=== PATIENT | male | born 1965 | race Caucasian/White ===

== ENCOUNTER 2019-06-06 18:51 | Inpatient (IN) | payer BC, MEDICARE, SELFPAY ==
[2019-06-06] VITALS (8 sets, daily range): BP systolic 113–139; BP diastolic 70–84; PULSE 93–112; RESP 18–22; TEMP 36.4–38.6; O2SAT 93–100; BMI 49.4; BMI 52.0
[2019-06-06 19:16] LABS: Bedside Glucose 144 mg/dL (70-110)
--- NOTE | 2019-06-06 19:47 | EKG12_ITS ---
Test Reason : GENERAL ILLNESS Blood Pressure : / mmHG Vent. Rate : 108 BPM Atrial Rate : 108 BPM P-R Int : 142 ms QRS Dur : 090 ms QT Int : 352 ms P-R-T Axes : 036 059 -18 degrees QTc Int : 471 ms Sinus tachycardia T wave abnormality, consider inferolateral ischemia Abnormal ECG Confirmed by ANNE GONZALEZ, AUDIE ([id number]), social media editor CHAZ DO ([id number]) on 06/09/2019 12:16:30 PM Referred By: Donnell Edwards Confirmed By:AUDIE RODRÍGUEZ MD
--- NOTE | 2019-06-06 19:53 | ED.DCSUM_ITS ---
History of Present Illness Chief Complaint: General Illness Informant: Patient, Family Onset: Days - 2 Narrative: Reports flulike symptoms past couple days. States 2 days ago when he woke him up Sunday he had myalgias. Yesterday high fevers with chills. States he had having loose stools past 2 to 3 days. No recent antibiotics. States have more than 10/day. No nausea or vomiting. Mild cough today. History of asthma and diabetes. No heart history. History of hypertension hyperlipidemia. No home oxygen. Denies abdominal pain. Denies urinary symptoms. States he did get the flu vaccination this year. He states over the past day no increased redness right lower leg. Wound to the bottom of the foot a week ago. Denies any pain in the area. Prior similar symptoms: No Past Medical History - Allergies and Home Meds Allergies/Adverse Reactions: Allergies No Known Allergies Allergy (Verified 06/06/19 18:52) Primary Care Physician: Donnell Edwards MD [Primary Care Provider] - Past Medical History: - - Hypertension, diabetes, hyperlipidemia, asthma Smoking Status: Former smoker Review of Systems All systems negative except as indicated General: Reports: Chills, Fever. Denies: Sweats Eyes: Denies: Visual changes - bilaterally, Diplopia ENT: Denies: Rhinorrhea, Sore throat Cardiovascular: Denies: Chest pain, Palpitations Respiratory: Reports: Cough. Denies: Dyspnea, Dyspnea on exertion Gastrointestinal: Denies: Abdominal pain, Nausea, Vomiting, Diarrhea, Melena, Hematochezia Genitourinary: Denies: Dysuria, Hematuria, Frequency Musculoskeletal: Denies: Back pain, Extremity Pain Skin: Reports: Rash, Wounds Neurological: Denies: Headache, Weakness, Numbness Physical Exam Vital Signs/Narrative: Vital Signs Temp Pulse Resp BP Pulse Ox 06/06/19 19:03 97.5 F L 112 H 20 H 123/73 H 93 06/06/19 18:54 98.7 F 112 H 20 H 131/84 H 95 Inital Vital Signs reviewed: Yes General: Well nourished, Well developed, - - Fatigue, nontoxic Head: Normocephalic, Atraumatic Eyes: Perrl, EOMI ENT: Moist mucous membranes, No rhinorrhea, TM's clear, - - No posterior pharyngeal erythema. Neck: Supple, Nontender Cardiovascular: Regular rhythm, No murmurs, Tachycardia Respiratory: No distress, CTA bilaterally, Chest nontender Abdomen: Soft, Nontender, Nondistended, Normal bowel sounds Back: Nontender, Normal Inspection Extremities: Nontender, No edema Skin: No rash, - - Right lower extremity: There is 2 cm superficial laceration plantar aspect of foot between the fourth webspace, nontender, no drainage. There is erythema dorsal foot and lower leg up to the knee. Neurological: Alert, Oriented x3, Cranial nerves II-XII grossly intact, Normal Strength, Normal Sensation Psychological: Normal affect, Normal Mood Diagnostic/Tx/Re-eval Clinical Impression(s) from Imaging Studies Foot X-Ray 06/06/19 19:54 IMPRESSION: Normal right foot. at 2037 Reported and signed by: Bruce Hudson MD Electronically Signed: Bruce Hudson MD at 20:37 EST Tel , Service support , Chest X-Ray 06/06/19 20:04 IMPRESSION: Normal. at 2037 Reported and signed by: Bruce Hudson MD Electronically Signed: Bruce Hudson MD at 20:37 EST Tel , Service support , Abnormal Lab Results 06/06/19 06/06/19 06/06/19 19:10 19:10 19:10 WBC 13.9 H RBC 4.30 L Hgb 13.7 Hct 41.3 MCV 96.0 H MCH 31.9 MCHC 33.2 RDW Std Deviation 48.3 H RDW Coeff of Negra 13.7 Plt Count 249 MPV 9.5 Immature Gran % (Auto) 1.800 H Neut % (Auto) 80.6 H Lymph % (Auto) 11.7 L [place] % (Auto) 5.5 Eos % (Auto) 0.1 Baso % (Auto) 0.3 Absolute Neuts (auto) 11.2 H Absolute Lymphs (auto) 1.62 Nucleated RBC % 0 ESR 82 H PT 15.0 H INR 1.2 APTT 37.6 H Lactic Acid 2.0 POC Glucose 06/06/19 19:11 WBC RBC Hgb Hct MCV MCH MCHC RDW Std Deviation RDW Coeff of Negra Plt Count MPV Immature Gran % (Auto) Neut % (Auto) Lymph % (Auto) [place] % (Auto) Eos % (Auto) Baso % (Auto) Absolute Neuts (auto) Absolute Lymphs (auto) Nucleated RBC % ESR PT INR APTT Lactic Acid POC Glucose 144 H - Medical Decision Making Sepsis work-up initiated due to his tachycardia and his low-grade fever. He took Tylenol at home therefore Motrin was given. His wound on his right foot, x-ray negative for any radiopaque foreign bodies. White count returned at 13.9. Lactic acid at 2.0. Treated with the sepsis criteria fluids for weight base. Erythema outlined by nursing staff. Urine is pending he was given broad- spectrum antibiotics after evaluation of Zosyn and vancomycin. He was also treated with Tamiflu due to his influenza symptoms with his comorbidities of asthma and diabetes. His flu swab test did return negative however possibility of false negative with labs. I discussed with hospitalist Dr. Coleman for admission to medical floor. He is stable for the medical floor. - Critical Care Time Critical care time (excluding procedures): 30-74 minutes, Discussing w/Patient &/or Family/Marketing Project Specialist, Discussing w/Consultants, Arranging Admission or Transfer ED Disposition - Plan for ED Patient: Disposition: Acute Care Hospital [facility] Diagnosis: Severe sepsis, Cellulitis of right lower extremity, Influenza-like symptoms Referrals: Donnell Edwards MD [Primary Care Provider] -
--- NOTE | 2019-06-06 19:54 | RAD_ITS ---
HISTORY: PT HAS CUT TO RT FOOT NEAR 5TH DIGIT THAT HAPPENED LAST WEEK COMPARISON: None FINDINGS: # of images incl. paperwork: 3 XR Foot Min 3 Views : No fracture or subluxation. No osseous or soft tissue abnormality. The joint spaces are well-maintained. No radiopaque foreign body is seen. RAD/Foot min 3 Views IMPRESSION: Normal right foot. at 2038 Reported and signed by: Bruce Hudson MD Electronically Signed: Bruce Hudson MD at 20:37 EST Tel , Service support ,
[2019-06-06] MEDS: 0.9% Normal Saline 1,000 ML 999 ML IV ×3 (20:01→22:34)
[2019-06-06] MEDS: Oseltamivir Phosphate 75 MG Capsule PO (20:01)
[2019-06-06] MEDS: Ibuprofen 600 MG Tablet PO (20:01)
--- NOTE | 2019-06-06 20:04 | RAD_ITS ---
HISTORY: SUNDAY PT STARTED TO GET SICK WITH FEVER, SOB, WEAKNESS, AND DIARRHEA EXAM: XR Chest 1 View: COMPARISON: July 27, 2010 FINDINGS: # of images incl. paperwork: 1 Trace calcific plaque within the aortic arch remains Lungs are clear. Heart is not enlarged. No acute osseous pathology perceived. Pulmonary vascularity is distinct. No effusions. RAD/Chest 1 View (Portable) IMPRESSION: Normal. at 2038 Reported and signed by: Bruce Hudson MD Electronically Signed: Bruce Hudson MD at 20:37 EST Tel , Service support ,
[2019-06-06 20:07] LABS: Absolute Lymphocyte Count 1.62 X10^3/uL (0.83-4.51); Absolute Neutrophil Count 11.2 X10^3/uL (2.0-7.7); Basophil# 0.04 X10^3/uL; Basophil% 0.3 % (0-1); Eosinophil# 0.01 X10^3/uL; Eosinophils% 0.1 % (0-5); Hematocrit 41.3 % (40-54); Hemoglobin 13.7 g/dL (13.0-16.5); Lymphocyte # 1.62 X10^3/ul (4.0); Lymphocyte % 11.7 % (19-41); Mean Corp Hgb Conc 33.2 g/dL (32-36); Mean Corpuscular Hgb 31.9 pg (27.0-32.0); Mean Platelet Vol. 9.5 fl (6.2-12.0); Monocyte# 0.76 X10^3/uL; Monocyte% 5.5 % (0-10); NRBC Flagged by Analyzer 0 % (0-5); Neutrophil # 11.22 X10^3/uL (2.7-7.7); Neutrophil % 80.6 % (47-70); Platelet Count 249 K/mm3 (150-450); RBC Distribution Width CV 13.7 % (11.6-14.6); RBC Distribution Width SD 48.3 fl (35.1-43.9); White Blood Count 13.9 K/mm3 (4.4-11.0)
[2019-06-06 20:13] LABS: International Normalized Ratio 1.2
[2019-06-06 20:14] LABS: Erythrocyte Sedimentation Rate 82 mm/hr (0-20); Partial Thromboplast Time 37.6 Seconds (24.1-36.2)
--- NOTE | 2019-06-06 21:14 | HP.PCM_ITS ---
Problem List (1) Sepsis Status: Acute (2) Cellulitis of right lower extremity Status: Acute (3) Influenza-like symptoms Status: Acute History of Present Illness Date of Admission: 06/06/19 Chief Complaint: right leg redness The patient is a 54 year old M with a significant history of hypertension; morbid obesity; diabetes; asthma; hyperlipidemia and sleep apnea who presented with right leg erythema. Associated with symptoms is swelling and pain of the right leg. He developed wound on his right plantar area about a week ago. A day before his right leg symptoms began patient had flulike symptoms. He described his flulike symptoms as achiness of the whole body; fever; chills; rigors;diaphoresis and weakness. He reported home fever of about 102.7 Fahrenheit. Also patient reports with bowel movements about every hour. At the Emergency Department patient was found to have tachycardia; tachypnea and leukocytosis. Also he had a fever of 101.5 Fahrenheit. Past Medical History Medical History: Medical History (Last Reviewed 06/07/19 @ 02:18 by Jose Coleman MD) HTN (hypertension) I10 Allergies No Known Allergies Allergy (Verified 06/06/19 18:52) Home Medications: Ambulatory Orders Medication Instructions Recorded Atorvastatin Calcium [Lipitor] 40 mg PO DAILY 10/08/14 Lisinopril [Zestril] 20 mg PO DAILY 10/08/14 Albuterol IH (ProAir) [Proair Hfa 1 - 2 puff INHALATION Q4H PRN PRN 06/06/19 (SP)Vent Pts] Liraglutide [Victoza 3-Eyad] 1.8 mg SUBCUT DAILY 06/06/19 Mometasone/Formoterol [Dulera 200 2 puff IH DAILY 06/06/19 Mcg/5 Mcg Inhaler] Pioglitazone [Actos] 15 mg PO DAILY 06/06/19 Surgical History: - - Knee surgery bilateral knees; carpal tunnel syndrome bilateral wrist; repair of bicep tendon. Smoking Status: Former smoker Tobacco Use: Cigarettes Alcohol: Occasional - *Family History Maternal History Items: Cancer - Breast cancer Paternal History Items: Heart Disease Review of Systems Constitutional: Reports: Chills, Fever, Malaise, Weakness HEENT: Reports: Sore Throat. Denies: Head Aches, Sinus Congestion, Sinus Drainage Cardiovascular: Denies: Chest Pain, Palpitations Respiratory: Reports: Cough. Denies: Shortness of breath at rest, Sputum production Gastrointestinal: Reports: Diarrhea. Denies: Abdominal Pain, Nausea, Vomiting Genitourinary: Denies: Dysuria Musculoskeletal: Denies: Joint Pain, Joint Tenderness Skin: Denies: Rash, Wounds Neurological: Denies: Numbness, Tingling, Focal weakness Psychiatric: Denies: Anxiety, Depression, Homicidal Ideations, Suicidal Ideations Hematologic/ Lymphatic: Denies: Easy Bruising, Easy Bleeding VTE Information - Inpt Only VTE Present on Admission: No VTE Mechan Device Prophylaxis: None VTE Pharm Prophylaxis ordered?: Yes Patient Problems: Active and Suspected Problems (Last Reviewed 06/07/19 @ 01:52 by Jose Coleman MD) Severe sepsis (Acute) Cellulitis of right lower extremity (Acute) Influenza-like symptoms (Acute) Sepsis (Acute) - Physical Exam Vitals/I&O's: Vital Signs Temp Pulse Resp BP Pulse Ox 97.8 F 109 H 21 H 139/78 H 97 06/06/19 20:16 06/06/19 20:16 06/06/19 20:16 06/06/19 20:16 06/06/19 20:16 Oxygen Flow Rate (L/min) 2 Oxygen Delivery Method Room Air Weight: 147.418 kg Body Mass Index (BMI) 49.4 Finger Stick Blood Glucose 144 Intake and Output for Last 24 Hours 06/04/19 06/05/19 06/06/19 23:59 23:59 23:59 Intake Total 1237.5 / 1237.5 Balance 1237.5 / 1237.5 General: Alert, Oriented x3, Cooperative, - - Morbidly obese HEENT: Atraumatic, PERRLA, EOMI, Normocephalic Neck: Supple, No JVD, Negative Carotid Bruits Lungs: No rhonchi, No rales, Wheezes - Mild Cardiovascular: Normal S1, Normal S2, No murmurs, Tachycardic Abdomen: Bowel Sounds Present, Soft, Non Tender Extremities: Capillary Refill Less than 3 Seconds, Edema - Right leg Skin: Ulcer/ Wound - Plantar surface of right foot, - - Erythema of right leg Musculoskeletal: Tenderness - Right leg Neurological: Cranial nerves II-XII grossly intact Psych/Mental Status: Normal Affect, Appropriate Microbiology Past 72 Hours 06/06/19 20:06 Mucosa - Nasopharyngeal Influenza Types A,B Direct FA (SANTANA) - Final Laboratory Results 06/06/19 19:10: WBC 13.9 H, RBC 4.30 L, Hgb 13.7, Hct 41.3, MCV 96.0 H, MCH 31.9, MCHC 33.2, RDW Std Deviation 48.3 H, RDW Coeff of Negra 13.7, Plt Count 249, MPV 9.5, Immature Gran % (Auto) 1.800 H, Neut % (Auto) 80.6 H, Lymph % (Auto) 11.7 L, [place] % (Auto) 5.5, Eos % (Auto) 0.1, Baso % (Auto) 0.3, Absolute Neuts (auto) 11.2 H, Absolute Lymphs (auto) 1.62, Nucleated RBC % 0, ESR 82 H 06/06/19 19:10: PT 15.0 H, INR 1.2, APTT 37.6 H 06/06/19 19:10: Sodium Pending, Potassium Pending, Chloride Pending, Carbon Dioxide Pending, Anion Gap Pending, BUN Pending, Creatinine Pending, Est GFR (MDRD) Af Amer Pending, Est GFR (MDRD) Non-Af Pending, BUN/Creatinine Ratio Pending, Glucose Pending, Calcium Pending, Total Bilirubin Pending, AST Pending, ALT Pending, Alkaline Phosphatase Pending, C-React Prot Ext Range Pending, Total Protein Pending, Albumin Pending 06/06/19 19:10: Lactic Acid 2.0 06/06/19 19:11: POC Glucose 144 H Current Medications Vancomycin HCl 2,000 mg/ (Sodium Chloride) 540 mls @ 250 mls/hr IV X1 ONE Stop: 06/06/19 22:39 Last Infusion: 06/06/19 21:12 Dose: 250 mls/hr Documented by: Sodium Chloride () 1,000 mls @ 999 mls/hr IV .Q1H1M JOEY; Protocol Stop: 06/07/19 00:30 Assessment/Plan All Active Problems (Last Reviewed 06/07/19 @ 01:52 by Jose Coleman MD) Severe sepsis (Acute) Cellulitis of right lower extremity (Acute) Influenza-like symptoms (Acute) Sepsis (Acute) The patient is a 54 year old M with a significant history of hypertension; morbid obesity; diabetes; asthma; hyperlipidemia and sleep apnea who presented with right leg erythema; swelling and pain of the right leg; and with tachycardia; tachypnea fever and leukocytosis concerning for sepsis secondary to cellulitis. Sepsis secondary to cellulitis Blood culture was obtained in the emergency department. Vancomycin was ordered emergency department. We will give 4.5 g of Zosyn in the emergency department. Continue patient on vancomycin and Zosyn. His lactic acid is borderline at 2.0. Received IV fluid per sepsis protocol emergency department. Tylenol for pain and fever. Oxycodone PRN pain. Antiemetics with Zofran. Possible influenza His prodromal symptoms could be from the sepsis secondary cellulitis which is typical of Streptococcus. However because of his history of diabetes and asthma patient was empirically started on Tamiflu. Rapid influenza was negative. Will continue Tamiflu. Will order comprehensive respiratory pathogen panel. If comprehensive respiratory panel is negative consider discontinue Tamiflu. Diarrhea Enteric pathogen panel ordered in the ED. Will get C. difficile. IV hydration at the ED. Follow electrolytes. Diabetes mellitus with hyperglycemia On presentation his blood glucose was elevated Actos continued Home Victoza held. Accu-Chek q. ACH correction scale insulin ordered. DVT prophylaxis Subcutaneous Lovenox adjusted for weight. Code Visit Inpatient E&M: 80923 Init Hosp L3
[2019-06-06 21:48] LABS: ALB/GLOB Ratio 0.7 RATIO (0.9-2.4); AST(SGOT) 23 U/L (15-37); Alanine Aminotransfer ALT/SGPT 40 U/L (16-61); Albumin, Serum 3.2 g/dL (3.2-5.0); Alkaline Phosphatase 82 U/L (45-117); Anion Gap 7 (5-15); BUN 17 mg/dL (7-18); BUN/Creat Ratio 10.6 RATIO (10-20); Calcium,Total 9.1 mg/dL (8.5-10.1); Chloride 102 mmol/L (98-107); EST Glomerular Filtration Rate 48 mL/min (>60); Est Glom Filt Rate - Afr Amer 58 mL/min (>60); Estimated Creatinine Clearance 50.47 ml/min; Globulin 4.8 g/dL (2.2-4.2); Glucose 158 mg/dL (74-106); Potassium 3.3 mmol/L (3.5-5.1); Sodium Level 133 mmol/L (136-145)
[2019-06-06 21:52] LABS: Bacteria 0 SEEN /hpf (None Seen); Mucous, Urine 0 SEEN /hpf (<or=2+)
[2019-06-06 21:53] LABS: Color, Urine Yellow (Yellow); Glucose, Dipstick Normal (Normal); Ketone-Dipstick 5 mg/dl (Negative); Leukocyte Esterase-Dipstick 25 /ul (Negative); Nitrite-Dipstick Negative (Negative); Occult Blood-Urine 10 /ul (Negative); Protein-Dipstick 100 mg/dl (Negative); Urine Clarity Sl. Cloudy (Clear); Urine Urobilinogen 1 mg/dl (Normal)
[2019-06-06 21:55] LABS: Urine Bilirubin Dipstick 1 mg/dL (Negative)
[2019-06-06 22:00] LABS: Red Blood Cells-Urine 0-5 SEEN /hpf (0-5); Squamous Epithelial Cells - UA 0-5 SEEN /hpf (0-5); White Blood Cells 0-5 SEEN /hpf (0-5)
[2019-06-06 23:16] LABS: Bedside Glucose 141 mg/dL (70-110)
[2019-06-06] MEDS: oxyCODONE 5 MG Tablet 10 MG PO (23:36)
[2019-06-06] MEDS: Enoxaparin 40 MG/0.4 ML Syringe SC (23:42)
--- NOTE | 2019-06-06 23:42 | NURSING ---
Double checked with Wero in pharmacy about Lovenox with elevated Creatinine. OK to give. Francesca CHRISTIAN aware.
[2019-06-07] VITALS (11 sets, daily range): BP systolic 111–126; BP diastolic 59–94; PULSE 85–110; RESP 18–20; TEMP 36.4–37.7; O2SAT 95–97
[2019-06-07 00:02] LABS: Reflex Lactate? Y
[2019-06-07] MEDS: 0.9% Normal Saline 1,000 ML 999 ML IV ×2 (00:06→01:32)
[2019-06-07 01:45] LABS: Lactic Acid 1.1 mmol/L (0.4-1.9)
[2019-06-07] MEDS: oxyCODONE 5 MG Tablet 10 MG PO ×2 (03:58→14:30)
[2019-06-07] MEDS: Acetaminophen 325 MG Tablet 650 MG PO (06:29)
[2019-06-07] MEDS: 0.9% Saline Lock 10 ML Syringe IV ×3 (06:29→14:41)
[2019-06-07 06:55] LABS: Bedside Glucose 122 mg/dL (70-110)
[2019-06-07] MEDS: Budesonide Respules 0.5 MG/2 ML AMPUL.NEB. INHALATION ×2 (07:10→19:43)
[2019-06-07] MEDS: Albuterol 2.5 MG/3 ML VIAL.NEB. INHALATION ×2 (07:10→19:43)
[2019-06-07 07:17] LABS: Absolute Lymphocyte Count 2.08 X10^3/uL (0.83-4.51); Absolute Neutrophil Count 10.7 X10^3/uL (2.0-7.7); Basophil# 0.04 X10^3/uL; Basophil% 0.3 % (0-1); Eosinophil# 0.08 X10^3/uL; Eosinophils% 0.6 % (0-5); Hematocrit 38.1 % (40-54); Hemoglobin 12.4 g/dL (13.0-16.5); Lymphocyte # 2.08 X10^3/ul (4.0); Lymphocyte % 15.4 % (19-41); Mean Corp Hgb Conc 32.5 g/dL (32-36); Mean Corpuscular Hgb 31.5 pg (27.0-32.0); Mean Corpuscular Volume 96.7 fL (80-94); Mean Platelet Vol. 9.1 fl (6.2-12.0); Monocyte# 0.54 X10^3/uL; NRBC Flagged by Analyzer 0 % (0-5); Neutrophil # 10.65 X10^3/uL (2.7-7.7); Neutrophil % 78.9 % (47-70); Platelet Count 230 K/mm3 (150-450); RBC Distribution Width CV 13.9 % (11.6-14.6); RBC Distribution Width SD 49.6 fl (35.1-43.9); Red Blood Count 3.94 M/mm3 (4.6-6.2); White Blood Count 13.5 K/mm3 (4.4-11.0)
[2019-06-07 07:43] LABS: Anion Gap 9 (5-15); BUN 16 mg/dL (7-18); Calcium,Total 8.3 mg/dL (8.5-10.1); Chloride 111 mmol/L (98-107); Creatinine, Serum 1.45 mg/dL (0.70-1.30); EST Glomerular Filtration Rate 54 mL/min (>60); Est Glom Filt Rate - Afr Amer 65 mL/min (>60); Estimated Creatinine Clearance 55.69 ml/min; Glucose 123 mg/dL (74-106); Potassium 3.3 mmol/L (3.5-5.1); Sodium Level 137 mmol/L (136-145)
--- NOTE | 2019-06-07 09:19 | MRI_ITS ---
HISTORY: Hypertension. Asthma. Diabetes. Bilateral knee pain. Bilateral carpal tunnel. Biceps tendon repair. Wound on plantar surface of the right foot for one week within the region of the distal fifth metatarsal. Right leg erythema. Technique: Sagittal, coronal, and axial T1 and T2 fat saturated series were obtained through the fifth digit and much of the other tetanus. Comparison imaging is x-rays of the right foot from June 06, 2019. 209 images. Findings: Cellulitis is severe. It is greatest within the dorsum of the foot. Motion artifact is severe. This significantly diminishes utility of the study due to registration artifact. There is only one T2 fat saturated series. That series, series 10, does not extend all the way through the fifth digit. Of the fifth digit imaged on that series, there is no significant marrow edema perceived. Bony alignment is normal. Interphalangeal joint spaces are minimally narrowed. No abscess is perceived. There may be some mild edema amongst the muscle and fascial planes. Muscle atrophy is present. No tendinous disruption is perceived. MRI/Lower Ext/No Jt/w/o IMPRESSION: Cellulitis. Myofascitis. No osteomyelitis perceived. at 0613 Reported and signed by: Bruce Hudson MD Electronically Signed: Bruce Hudson MD at 6:12 EST Tel , Service support ,
--- NOTE | 2019-06-07 09:21 | PCM.PN.HOSP ---
Patient Problems: Active and Suspected Problems (Last Reviewed 06/07/19 @ 02:18 by Jose Coleman MD) Severe sepsis (Acute) Cellulitis of right lower extremity (Acute) Influenza-like symptoms (Acute) Sepsis (Acute) Reason for Visit: cellulitis Subjective: Right leg feeling better. Redness better. Developed lesion on right foot few days ago due to dry skin. Vitals/I&O's: Vital Signs Temp Pulse Resp BP Pulse Ox 36.4 C L 85 18 120/84 H 96 06/07/19 06:42 06/07/19 07:23 06/07/19 07:11 06/07/19 06:42 06/07/19 07:11 Oxygen Flow Rate (L/min) 2 Oxygen Delivery Method Room Air Weight: 155.1 kg Body Mass Index (BMI) 52.0 Finger Stick Blood Glucose 144 Intake and Output for Last 24 Hours 06/05/19 06/06/19 06/07/19 23:59 23:59 23:59 Intake Total 3648.75 / 4088.75 2457.5 / 2457.5 Balance 3648.75 / 4088.75 2457.5 / 2457.5 General: Alert, No apparent distress, - - afebrile HEENT: Atraumatic, Normocephalic Neck: No Nodes, Trachea Midline Lungs: Clear to auscultation, Normal air movement, No rhonchi, No wheeze, No rales Cardiovascular: Regular rate, Regular Rhythm, Normal S1, Normal S2, No murmurs Abdomen: Bowel Sounds Present, Soft, Non Tender, Non-Distended, Obese Extremities: Edema - RLE Skin: - - bright erythema of RLE below the knee to above his ankle. Bullae on anterior acosta. Dried ulcer on plantar aspect of right foot, proximal to 5th toe. Musculoskeletal: No Tenderness to Palpation of Joints or Extremities, No Muscle Wasting Neurological: Coordination normal, - - diminished sensation with palpation. Psych/Mental Status: Normal Affect, Appropriate Microbiology Past 72 Hours 06/07/19 00:27 Stool Enteric Bacteriology - Preliminary 06/06/19 20:06 Mucosa - Nasopharyngeal Influenza Types A,B Direct FA (SANTANA) - Final Laboratory Results 06/06/19 19:10: WBC 13.9 H, RBC 4.30 L, Hgb 13.7, Hct 41.3, MCV 96.0 H, MCH 31.9, MCHC 33.2, RDW Std Deviation 48.3 H, RDW Coeff of Negra 13.7, Plt Count 249, MPV 9.5, Immature Gran % (Auto) 1.800 H, Neut % (Auto) 80.6 H, Lymph % (Auto) 11.7 L, [place] % (Auto) 5.5, Eos % (Auto) 0.1, Baso % (Auto) 0.3, Absolute Neuts (auto) 11.2 H, Absolute Lymphs (auto) 1.62, Nucleated RBC % 0, ESR 82 H 06/06/19 19:10: PT 15.0 H, INR 1.2, APTT 37.6 H 06/06/19 19:10: Sodium 133 L, Potassium 3.3 L, Chloride 102, Carbon Dioxide 24.0, Anion Gap 7, BUN 17, Creatinine 1.60 H, Estim Creat Clear Calc 50.47, Est GFR (MDRD) Af Amer 58 L, Est GFR (MDRD) Non-Af 48 L, BUN/Creatinine Ratio 10.6, Glucose 158 H, Calcium 9.1, Total Bilirubin 1.00, AST 23, ALT 40, Alkaline Phosphatase 82, C-React Prot Ext Range 233.00 H, Total Protein 8.0, Albumin 3.2, Globulin 4.8 H, Albumin/Globulin Ratio 0.7 L 06/06/19 19:10: Lactic Acid 2.0 06/06/19 19:11: POC Glucose 144 H 06/06/19 21:47: Urine Color Yellow, Urine Clarity Sl. Cloudy, Urine pH 6.0, Ur Specific [place] 1.020, Urine Protein 100 H, Urine Glucose (UA) Normal, Urine Ketones 5 H, Urine Occult Blood 10 H, Urine Nitrite Negative, Urine Bilirubin 1 H, Urine Urobilinogen 1 H, Ur Leukocyte Esterase 25 H, Urine RBC 0-5 SEEN, Urine WBC 0-5 SEEN, Ur Squamous Epith Cells 0-5 SEEN, Urine Bacteria 0 SEEN, Urine Mucus 0 SEEN 06/06/19 23:05: POC Glucose 141 H 06/07/19 00:47: Lactic Acid 1.1 06/07/19 06:36: POC Glucose 122 H 06/07/19 07:01: Sodium 137, Potassium 3.3 L, Chloride 111 H, Carbon Dioxide 17.0 L, Anion Gap 9, BUN 16, Creatinine 1.45 H, Estim Creat Clear Calc 55.69, Est GFR (MDRD) Af Amer 65, Est GFR (MDRD) Non-Af 54 L, BUN/Creatinine Ratio 11.0, Glucose 123 H, Calcium 8.3 L 06/07/19 07:01: WBC 13.5 H, RBC 3.94 L, Hgb 12.4 L, Hct 38.1 L, MCV 96.7 H, MCH 31.5, MCHC 32.5, RDW Std Deviation 49.6 H, RDW Coeff of Negra 13.9, Plt Count 230, MPV 9.1, Immature Gran % (Auto) 0.800, Neut % (Auto) 78.9 H, Lymph % (Auto) 15.4 L, [place] % (Auto) 4.0, Eos % (Auto) 0.6, Baso % (Auto) 0.3, Absolute Neuts (auto) 10.7 H, Absolute Lymphs (auto) 2.08, Nucleated RBC % 0 Current Medications Acetaminophen (Tylenol) 650 mg PO Q6H PRN PRN PRN Reason: Pain Score 1-3/Temp > 100.7 F Last Admin: 06/07/19 06:29 Dose: 650 mg Documented by: Albuterol Sulfate (Ventolin Aerosols) 2.5 mg INHALATION Q2H PRN PRN PRN Reason: sob/wheezing Albuterol Sulfate (Ventolin Aerosols) 2.5 mg INHALATION Q6HWA.RT [facility] Last Admin: 06/07/19 07:10 Dose: 2.5 mg Documented by: Atorvastatin Calcium (Lipitor) 40 mg PO DAILY@2200 JOEY Budesonide (Pulmicort Aerosol) 0.5 mg INHALATION Q12H.RT [facility] Last Admin: 06/07/19 07:10 Dose: 0.5 mg Documented by: Enoxaparin Sodium (Lovenox) 40 mg SC BID [facility] Last Admin: 06/06/19 23:42 Dose: 40 mg Documented by: Glucagon () 1 mg IM .X1 PRN PRN Reason: Hypoglycemia Piperacillin Sod/Tazobactam (Sod 3.375 gm/ Sodium Chloride) 50 mls @ 12.5 mls/hr IV Q8 [facility] Last Admin: 06/07/19 06:30 Dose: 12.5 mls/hr Documented by: Dextrose (Dextrose 10%-Water) 250 mls @ 999 mls/hr IV .Q16M PRN; Protocol PRN Reason: HYPOGLYCEMIA Sodium Chloride () 250 mls @ 15 mls/hr IV .[id number] PRN PRN Reason: Saline Flush Last Infusion: 06/06/19 23:30 Dose: 0 mls/hr Documented by: Sodium Chloride () 250 mls @ 15 mls/hr IV .[id number] PRN PRN Reason: Additional IVPB Infusion Insulin Human Lispro (Humalog Kwikpen (Bkc)) 0 unit SC ACHS JOEY; Protocol Last Admin: 06/07/19 06:44 Dose: Not Given Documented by: Lisinopril (Zestril) 20 mg PO DAILY JOEY Ondansetron HCl (Zofran) 4 mg IV Q8H PRN PRN PRN Reason: NAUSEA/VOMITING Oxycodone HCl (Oxyir) 5 mg PO Q4H PRN PRN PRN Reason: Pain Score 4-5/10 Oxycodone HCl (Oxyir) 10 mg PO Q4H PRN PRN PRN Reason: Pain Score 6-10/10 Last Admin: 06/07/19 03:58 Dose: 10 mg Documented by: Pioglitazone HCl (Actos) 15 mg PO DAILY JOEY Sodium Chloride () 10 - 40 ml IV UD PRN PRN Reason: SALINE FLUSH Last Admin: 06/07/19 06:29 Dose: 20 ml Documented by: STROKE Vital Signs/Narrative: Vital Signs Temp Pulse Resp BP Pulse Ox 06/07/19 07:23 85 06/07/19 07:11 90 18 96 06/07/19 06:42 36.4 C L 89 18 120/84 H 97 Medical Necessity - Tobacco Use Smoking Status: Former smoker Tobacco Use: Cigarettes Assessment/Plan All Active Problems (Last Reviewed 06/07/19 @ 02:18 by Jose Coleman MD) Severe sepsis (Acute) Cellulitis of right lower extremity (Acute) Influenza-like symptoms (Acute) Sepsis (Acute) 1. Sepsis technically not severe sepsis because no organ dysfunction and lactate was 2, not greater 2/2 RLE cellulitis prodrome was likely not influenza, but due to cellulitis. DC'd oseltamivir 2. RLE cellulitis improving. received pip/tazo and vanc in ED. Currently only on pip/tazo I am concerned for GPO, so, will resume Vanc await cx and adjust abx accordingly 3. Diabetic foot would not confluent with the current cellulitis, but given its presence on the ipsilateral side of cellulitis, will check an MRI for osteomyelitis 4. DM2 fair control Victoza held 5. VTE prophylaxis: mod risk. enoxaparin. Code Visit Inpatient E&M: 89197 Subs Hosp L2
--- NOTE | 2019-06-07 09:45 | PCM.RX.CS ---
Consult Pharmacy has been consulted to manage selected antiobiotic: Vancomycin Type of Consult: New start Suspected Infection: Skin/Soft tissue Prior Doses of Antibiotics Received/Current Regimen: VANCOMYCIN IV 2000MG 06/06 @ 2014 GIVEN IN ED Labs: Sodium 137 mmol/L (136-145) 06/07/19 07:01 Potassium 3.3 mmol/L (3.5-5.1) L 06/07/19 07:01 Chloride 111 mmol/L (98-107) H 06/07/19 07:01 Carbon Dioxide 17.0 mmol/L (21.0-32.0) L 06/07/19 07:01 Anion Gap 9 (5-15) 06/07/19 07:01 BUN 16 mg/dL (7-18) 06/07/19 07:01 Creatinine 1.45 mg/dL (0.70-1.30) H 06/07/19 07:01 Est GFR (MDRD) Af Amer 65 mL/min (>60) 06/07/19 07:01 Est GFR (MDRD) Non-Af 54 mL/min (>60) L 06/07/19 07:01 BUN/Creatinine Ratio 11.0 RATIO (10-20) 06/07/19 07:01 Glucose 123 mg/dL (74-106) H 06/07/19 07:01 Microbiology: Microbiology 06/07/19 00:27 Stool Enteric Bacteriology - Preliminary 06/06/19 20:06 Mucosa - Nasopharyngeal Influenza Types A,B Direct FA (SANTANA) - Final Weight used for dosin.1 kg Estimated Creatinine Clearance: 83.9 Goal Trough: 15-20 mcg/mL Pharmacy Plan for Drug Dosin. Previous dose given in ED 06/06 2. Will start 2000mg Q12H starting 06/07 @ 1000 3. Will draw trough before 4th dose per policy 4. Pharmacy Service will continue to monitor and adjust dosing as required. Labs to be done on [date and time ordered]: 06/08/2019 @ 1527
--- NOTE | 2019-06-07 10:14 | NURSING ---
called micro to inquire about result of cdif. and respiratory panel. Notified that resp. panel has 1.5hrs left and resp. panel has 30 minutes, both are running.
--- NOTE | 2019-06-07 10:33 | RAD_ITS ---
STUDY: X-RAY - ORBITS REASON FOR EXAM: Male, 54 years old. PRE MRI. PREVIOUS METAL IN EYES TECHNIQUE: 2 frontal upright view(s) of the orbits were obtained. COMPARISON: None. FINDINGS: A wire traversing the face horizontally is most consistent with a surgical mask. Possible mucous retention cyst of the medial wall the right maxillary sinus. Suspected mild mucosal pattern thickening of the bilateral maxillary sinuses. Central ethmoid/sphenoid sinuses, and frontal sinuses appear clear. The mastoid air cells appear clear. Osseous structures unremarkable. No radiodense orbital foreign body. RAD/Orbits for Foreign Body IMPRESSION: No demonstrated metallic orbital foreign body. The patient is cleared for an MRI examination. Electronically Signed: Altaf Morel MD at 10:50 EST Tel , Service support ,
--- NOTE | 2019-06-07 11:49 | NURSING ---
pt off unit for MRI
[2019-06-07] MEDS: Pioglitazone Hydrochloride 15 MG Tablet PO (12:11)
[2019-06-07] MEDS: Enoxaparin 40 MG/0.4 ML Syringe SC ×2 (12:11→21:57)
[2019-06-07] MEDS: Lisinopril 20 MG Tablet PO (12:11)
[2019-06-07 13:01] LABS: Bedside Glucose 123 mg/dL (70-110)
--- NOTE | 2019-06-07 15:48 | CM.UR ---
Attempted to see patient for case mgmt assessment however he was sleeping with bipap on. Dennis Crocker RN, CCM.
[2019-06-07 16:26] LABS: Bedside Glucose 123 mg/dL (70-110)
[2019-06-07] MEDS: Dicyclomine 10 MG Capsule 20 MG PO (20:35)
[2019-06-07] MEDS: Atorvastatin Calcium 40 MG Tablet PO (21:57)
[2019-06-07 22:35] LABS: Bedside Glucose 147 mg/dL (70-110)
[2019-06-08] VITALS (8 sets, daily range): BP systolic 109–136; BP diastolic 63–84; PULSE 79–99; RESP 18–22; TEMP 36.7–36.8; O2SAT 96–99
[2019-06-08] MEDS: Dicyclomine 10 MG Capsule 20 MG PO ×2 (04:24→12:52)
[2019-06-08] MEDS: oxyCODONE 5 MG Tablet 10 MG PO ×3 (05:51→16:43)
[2019-06-08 06:40] LABS: Bedside Glucose 138 mg/dL (70-110)
[2019-06-08 06:46] LABS: Absolute Lymphocyte Count 1.34 X10^3/uL (0.83-4.51); Absolute Neutrophil Count 10.9 X10^3/uL (2.0-7.7); Basophil# 0.04 X10^3/uL; Basophil% 0.3 % (0-1); Eosinophil# 0.13 X10^3/uL; Eosinophils% 0.9 % (0-5); Hematocrit 34.4 % (40-54); Hemoglobin 11.2 g/dL (13.0-16.5); Lymphocyte # 1.34 X10^3/ul (4.0); Lymphocyte % 9.7 % (19-41); Mean Corp Hgb Conc 32.6 g/dL (32-36); Mean Corpuscular Hgb 31.6 pg (27.0-32.0); Mean Corpuscular Volume 97.2 fL (80-94); Mean Platelet Vol. 9.5 fl (6.2-12.0); Monocyte# 1.34 X10^3/uL; Monocyte% 9.7 % (0-10); NRBC Flagged by Analyzer 0 % (0-5); Neutrophil # 10.86 X10^3/uL (2.7-7.7); Neutrophil % 78.6 % (47-70); Platelet Count 238 K/mm3 (150-450); RBC Distribution Width SD 50.1 fl (35.1-43.9); Red Blood Count 3.54 M/mm3 (4.6-6.2); White Blood Count 13.8 K/mm3 (4.4-11.0)
[2019-06-08 07:05] LABS: Anion Gap 9 (5-15); BUN 24 mg/dL (7-18); Calcium,Total 8.1 mg/dL (8.5-10.1); Chloride 107 mmol/L (98-107); Creatinine, Serum 2.66 mg/dL (0.70-1.30); EST Glomerular Filtration Rate 27 mL/min (>60); Est Glom Filt Rate - Afr Amer 32 mL/min (>60); Estimated Creatinine Clearance 30.36 ml/min; Glucose 120 mg/dL (74-106); Potassium 3.3 mmol/L (3.5-5.1); Sodium Level 133 mmol/L (136-145)
[2019-06-08 07:47] LABS: Magnesium 1.7 mg/dL (1.6-2.6)
--- NOTE | 2019-06-08 08:31 | RAD_ITS ---
STUDY: X-RAY - ABDOMEN/PELVIS REASON FOR EXAM: Male, 54 years old. ABD PAIN TECHNIQUE: Single AP view of the abdomen / pelvis. COMPARISON: None. FINDINGS: Normal visualized lung bases. Air distention and dilation of the transverse colon extending into the descending colon with maximum diameter measuring up to 9.3 cm. No dilated loops of small bowel. There is no demonstrated free abdominal air. The visualized liver, spleen and kidneys are grossly normal in size and morphology. Normal soft tissue structures. Normal visualized osseous structures. RAD/Abdomen Single View IMPRESSION: Air dilation of the colon extending to the mid descending colon. May represent colonic ileus, however, distal colonic obstruction cannot be excluded. Electronically Signed: Rodrigo Lee MD (Brooks) at 14:10 EST , Service support ,
[2019-06-08] MEDS: Enoxaparin 40 MG/0.4 ML Syringe SC ×2 (09:22→21:36)
[2019-06-08] MEDS: Pantoprazole Sodium 40 MG Tablet PO (09:22)
[2019-06-08] MEDS: Diphenoxylate/Atrop 1 Tablet PO ×2 (09:22→16:44)
[2019-06-08] MEDS: 0.9% Normal Saline 1,000 ML 150 ML IV ×2 (09:24→17:45)
[2019-06-08] MEDS: 0.9% Saline Lock 10 ML Syringe IV (09:25)
[2019-06-08] MEDS: Pioglitazone Hydrochloride 15 MG Tablet PO (09:27)
--- NOTE | 2019-06-08 10:02 | PN_ITS ---
Patient Problems: Active and Suspected Problems (Last Reviewed 06/07/19 @ 02:18 by Jose Coleman MD) Severe sepsis (Acute) Cellulitis of right lower extremity (Acute) Influenza-like symptoms (Acute) Sepsis (Acute) Reason for Visit: cellulitis Subjective: RLE feeling better. Still feels sick: abdominal pain, diarrhea, nausea. Overall, feeling better. Vitals/I&O's: Vital Signs Temp Pulse Resp BP Pulse Ox 36.8 C 97 22 H 109/84 H 99 06/08/19 09:34 06/08/19 09:34 06/08/19 09:34 06/08/19 09:34 06/08/19 09:34 Oxygen Flow Rate (L/min) 2 Oxygen Delivery Method Room Air Weight: 155.1 kg Body Mass Index (BMI) 52.0 Finger Stick Blood Glucose 144 Intake and Output for Last 24 Hours 06/06/19 06/07/19 06/08/19 23:59 23:59 23:59 Intake Total 3648.75 / 4088.75 3981.75 / 3981.75 732.50 / 732.50 Balance 3648.75 / 4088.75 3981.75 / 3981.75 732.50 / 732.50 General: Alert, Cooperative, Well developed, Well nourished, - HEENT: Atraumatic, Normocephalic Oral: Moist Mucosa, No Gingival or Mucosal Lesions/ Ulcerations Neck: No Nodes, Trachea Midline Lungs: Clear to auscultation, Normal air movement, No rhonchi, No wheeze Cardiovascular: Regular rate, Regular Rhythm, Normal S1, Normal S2 Abdomen: Bowel Sounds Present, Soft, Non Tender, Non-Distended, No Hepato- splenomegaly Extremities: No Calf Tenderness, Edema Skin: - - still with erythema in RLE, slightly withdrawn. no creptius. bullae on right acosta has since flattened out. Musculoskeletal: No Muscle Wasting, Tenderness - palpation of RLE cellulitis. Neurological: Muscle tone normal, Sensory exam intact to light touch and pain Psych/Mental Status: Anxious Microbiology Past 72 Hours 06/06/19 20:06 Mucosa - Nose Respiratory Panel (PCR) - Final 06/07/19 00:27 Stool C. difficile DNA Amplification - Final 06/07/19 00:27 Stool Enteric Bacteriology - Preliminary 06/06/19 20:06 Mucosa - Nasopharyngeal Influenza Types A,B Direct FA (SANTANA) - Final Laboratory Results 06/07/19 12:24: POC Glucose 123 H 06/07/19 16:21: POC Glucose 123 H 06/07/19 21:52: POC Glucose 147 H 06/08/19 05:00: Magnesium 1.7 06/08/19 05:50: WBC 13.8 H, RBC 3.54 L, Hgb 11.2 L, Hct 34.4 L, MCV 97.2 H, MCH 31.6, MCHC 32.6, RDW Std Deviation 50.1 H, RDW Coeff of Negra 14.0, Plt Count 238, MPV 9.5, Immature Gran % (Auto) 0.800, Neut % (Auto) 78.6 H, Lymph % (Auto) 9.7 L, [place] % (Auto) 9.7, Eos % (Auto) 0.9, Baso % (Auto) 0.3, Absolute Neuts (auto) 10.9 H, Absolute Lymphs (auto) 1.34, Nucleated RBC % 0 06/08/19 05:50: Sodium 133 L, Potassium 3.3 L, Chloride 107, Carbon Dioxide 17.0 L, Anion Gap 9, BUN 24 H, Creatinine 2.66 H, Estim Creat Clear Calc 30.36, Est GFR (MDRD) Af Amer 32 L, Est GFR (MDRD) Non-Af 27 L, BUN/Creatinine Ratio 9.0 L, Glucose 120 H, Calcium 8.1 L 06/08/19 06:38: POC Glucose 138 H 06/08/19 09:30: Vancomycin Trough Pending Current Medications Acetaminophen (Tylenol) 650 mg PO Q6H PRN PRN PRN Reason: Pain or Fever Last Admin: 06/07/19 06:29 Dose: 650 mg Documented by: Albuterol Sulfate (Ventolin Aerosols) 2.5 mg INHALATION Q2H PRN PRN PRN Reason: sob/wheezing Albuterol Sulfate (Ventolin Aerosols) 2.5 mg INHALATION Q6HWA.RT [facility] Last Admin: 06/08/19 07:10 Dose: Not Given Documented by: Atorvastatin Calcium (Lipitor) 40 mg PO DAILY@2200 [facility] Last Admin: 06/07/19 21:57 Dose: 40 mg Documented by: Budesonide (Pulmicort Aerosol) 0.5 mg INHALATION Q12H.RT [facility] Last Admin: 06/08/19 07:10 Dose: Not Given Documented by: Dicyclomine HCl (Bentyl) 20 mg PO Q6 PRN PRN Reason: ABDOMINAL CRAMPING Last Admin: 06/08/19 04:24 Dose: 20 mg Documented by: Diphenoxylate HCl/Atropine (Lomotil) 1 tablet PO 4X/DAY PRN PRN Reason: Diarrhea Last Admin: 06/08/19 09:22 Dose: 1 tablet Documented by: Enoxaparin Sodium (Lovenox) 40 mg SC BID JOEY Last Admin: 06/08/19 09:22 Dose: 40 mg Documented by: Glucagon () 1 mg IM .X1 PRN PRN Reason: Hypoglycemia Dextrose (Dextrose 10%-Water) 250 mls @ 999 mls/hr IV .Q16M PRN; Protocol PRN Reason: HYPOGLYCEMIA Sodium Chloride () 250 mls @ 15 mls/hr IV .[id number] PRN PRN Reason: Saline Flush Last Infusion: 06/08/19 06:48 Dose: 0 mls/hr Documented by: Sodium Chloride () 250 mls @ 15 mls/hr IV .[id number] PRN PRN Reason: Additional IVPB Infusion Vancomycin IV Pharmacy to Dose (1 ea/ Sodium Chloride) 500 mls @ 250 mls/hr IV X1 PRN; Protocol PRN Reason: Rx to Dose Piperacillin Sod/Tazobactam (Sod 3.375 gm/ Sodium Chloride) 50 mls @ 100 mls/hr IV Q6 [facility] Last Infusion: 06/08/19 06:19 Dose: Infused Documented by: Sodium Chloride () 1,000 mls @ 150 mls/hr IV .[id number] [facility]EY Last Infusion: 06/08/19 09:30 Dose: 0 mls/hr Documented by: Clindamycin Phosphate 300 mg/ (Dextrose) 52 mls @ 150 mls/hr IV Q6 [facility] Magnesium Sulfate 2 gm/ Sodium (Chloride) 104 mls @ 52 mls/hr IV X1 ONE Stop: 06/08/19 10:29 Insulin Human Lispro (Humalog Kwikpen (Bkc)) 0 unit SC ACHS [facility]; Protocol Last Admin: 06/08/19 06:50 Dose: Not Given Documented by: Ondansetron HCl (Zofran) 4 mg IV Q8H PRN PRN PRN Reason: NAUSEA/VOMITING Oxycodone HCl (Oxyir) 5 mg PO Q4H PRN PRN PRN Reason: Pain Score 4-5/10 Oxycodone HCl (Oxyir) 10 mg PO Q4H PRN PRN PRN Reason: Pain Score 6-10/10 Last Admin: 06/08/19 05:51 Dose: 10 mg Documented by: Pantoprazole Sodium (Protonix) 40 mg PO DAILY [facility] Last Admin: 06/08/19 09:22 Dose: 40 mg Documented by: Pioglitazone HCl (Actos) 15 mg PO DAILY [facility] Last Admin: 06/08/19 09:27 Dose: 15 mg Documented by: Sodium Chloride () 10 - 40 ml IV UD PRN PRN Reason: SALINE FLUSH Last Admin: 06/08/19 09:25 Dose: 10 ml Documented by: STROKE Vital Signs/Narrative: Vital Signs Temp Pulse Resp BP Pulse Ox 06/08/19 09:34 36.8 C 97 22 H 109/84 H 99 Medical Necessity - Tobacco Use Smoking Status: Former smoker Tobacco Use: Cigarettes Assessment/Plan All Active Problems (Last Reviewed 06/07/19 @ 02:18 by Jose Coleman MD) Severe sepsis (Acute) Cellulitis of right lower extremity (Acute) Influenza-like symptoms (Acute) Sepsis (Acute) 1. Sepsis * technically not severe sepsis because no organ dysfunction and lactate was 2, not greater * 2/2 RLE cellulitis * prodrome was likely not influenza, but due to cellulitis. DC'd oseltamivir 2. RLE cellulitis * improving. but ongoing * continue pip/tazo and vanc. Start clindamycin given the myositis * MRI showed myostitis. No clinical findings to suggest necrotizing fasciitis at this time, but if changes, would have low threshold to consult ortho/PRS. * await cx and adjust abx accordingly * consult ID 3. Diabetic foot would * not confluent with the current cellulitis, * No evidence of osteomyelitis 4. LORIE * suspect prerenal * IVF * check urine studies * consider nephrology if continues to worsen 5. DM2 * fair control * Victoza held 6. Abdominal pain, diarrhea * Xray showed non-specific bowel gas on my read * C diff, enteric pathogens negative * did not tolerate loperamide as outpt. Start PRN Lomotil 7. VTE prophylaxis: mod risk. enoxaparin. Code Visit Inpatient E&M: 04239 Subs Hosp L3
[2019-06-08 10:25] LABS: Vancomycin, Trough Level 27.5 ug/mL (5.0-15.0)
[2019-06-08] MEDS: Acetaminophen 325 MG Tablet 650 MG PO ×2 (10:30→16:43)
--- NOTE | 2019-06-08 11:36 | PCM.RX.CS ---
Consult Pharmacy has been consulted to manage selected antiobiotic: Vancomycin Type of Consult: Follow-up Suspected Infection: Skin/Soft tissue Prior Doses of Antibiotics Received/Current Regimen: VANCOMYCIN 2000MG IV 06/07 @ 2158 AND 1211 Labs: Sodium 133 mmol/L (136-145) L 06/08/19 05:50 Potassium 3.3 mmol/L (3.5-5.1) L 06/08/19 05:50 Chloride 107 mmol/L (98-107) 06/08/19 05:50 Carbon Dioxide 17.0 mmol/L (21.0-32.0) L 06/08/19 05:50 Anion Gap 9 (5-15) 06/08/19 05:50 BUN 24 mg/dL (7-18) H 06/08/19 05:50 Creatinine 2.66 mg/dL (0.70-1.30) H 06/08/19 05:50 Est GFR (MDRD) Af Amer 32 mL/min (>60) L 06/08/19 05:50 Est GFR (MDRD) Non-Af 27 mL/min (>60) L 06/08/19 05:50 BUN/Creatinine Ratio 9.0 RATIO (10-20) L 06/08/19 05:50 Glucose 120 mg/dL (74-106) H 06/08/19 05:50 Vancomycin Trough 27.5 ug/mL (5.0-15.0) H 06/08/19 09:30 Microbiology: Microbiology 06/06/19 21:47 Urine, Clean Catch Urine Culture - Preliminary Culture exhibits no growth. 06/06/19 20:06 Mucosa - Nose Respiratory Panel (PCR) - Final 06/07/19 00:27 Stool C. difficile DNA Amplification - Final 06/07/19 00:27 Stool Enteric Bacteriology - Preliminary 06/06/19 20:06 Mucosa - Nasopharyngeal Influenza Types A,B Direct FA ([facility]) - Final Weight used for dosin.1 kg Estimated Creatinine Clearance: 45.8 Goal Trough: 15-20 mcg/mL Pharmacy Plan for Drug Dosin. 11.5 hour trough came back at 27.5 mg/dL. 2. Due to significant increase in creatinine (1.45 to 2.66) and trough above therapeutic range, will hold further doses of vancomycin 3. Random level scheduled with AM labs 4. Pharmacy Service will continue to monitor and adjust dosing as required. Labs to be done on [date and time ordered]: RANDOM LEVEL 06/09/2019 @ 0600
[2019-06-08 12:05] LABS: Bedside Glucose 135 mg/dL (70-110)
[2019-06-08] MEDS: guaiFENesin/Codeine 5 ML UDC PO ×2 (12:52→18:41)
[2019-06-08] MEDS: Albuterol 2.5 MG/3 ML VIAL.NEB. INHALATION ×2 (12:53→19:14)
--- NOTE | 2019-06-08 14:32 | CT_ITS ---
STUDY: CT ABDOMEN AND PELVIS WITHOUT CONTRAST REASON FOR EXAM: Male, 54 years old. Abdominal pain and distention, diarrhea, flu like symptoms. Hx diabetes, hypertension, acute renal injury. RADIATION DOSAGE (If Supplied By Facility): CTDIvol = ( 343.22 ) mGy, DLP = ( 1846.58 ) mGycm TECHNIQUE: Transaxial images were obtained from the dome of the diaphragm to the symphysis pubis without oral contrast, and without intravenous contrast. Sagittal and coronal images were reconstructed. Individualized dose optimization techniques were used for this CT. COMPARISON: None. FINDINGS: There is minor atelectasis within the dependent portion of the lungs.. The visualized portions of the heart are within normal limits. Normal liver. Normal gallbladder and extrahepatic biliary system. Normal spleen. Normal pancreas. Normal bilateral adrenal glands. Normal right kidney. Normal left kidney. Normal visualized stomach. Nonspecific ileus pattern is noted. No evidence for small bowel obstruction.. No evidence for acute appendicitis Atherosclerotic changes of the aorta without evidence for aneurysm Normal inferior vena cava. Normal retroperitoneum. Incompletely distended thick-walled bladder likely of no significance Normal abdominal wall. Lumbar spine demonstrates mild degenerative change. CT/Abdomen/Pel W ORAL Cont Only IMPRESSION: Mild nonspecific ileus. Electronically Signed: Harpal Armstrong MD at 17:23 EST , Service support ,
[2019-06-08 16:01] LABS: Urine Sodium 25 mmol/L (Not Establ.)
[2019-06-08 16:31] LABS: Bedside Glucose 122 mg/dL (70-110)
[2019-06-08] MEDS: Budesonide Respules 0.5 MG/2 ML AMPUL.NEB. INHALATION (19:14)
[2019-06-08] MEDS: Atorvastatin Calcium 40 MG Tablet PO (21:36)
[2019-06-09 00:41] LABS: Bedside Glucose 116 mg/dL (70-110)
[2019-06-09] MEDS: 0.9% Normal Saline 1,000 ML 150 ML IV ×3 (04:34→21:55)
[2019-06-09] MEDS: Acetaminophen 325 MG Tablet 650 MG PO (04:39)
[2019-06-09] MEDS: guaiFENesin/Codeine 5 ML UDC PO (04:39)
[2019-06-09 06:32] LABS: Vancomycin, Random Level 21.3 ug/mL (0.0-15.0)
[2019-06-09 06:57] VITALS: PULSE 88; RESP 20; O2SAT 94
[2019-06-09] MEDS: Albuterol 2.5 MG/3 ML VIAL.NEB. INHALATION (06:57)
[2019-06-09] MEDS: Budesonide Respules 0.5 MG/2 ML AMPUL.NEB. INHALATION (06:57)
[2019-06-09 07:00] LABS: Bedside Glucose 137 mg/dL (70-110)
[2019-06-09 07:59] LABS: Absolute Lymphocyte Count 1.19 X10^3/uL (0.83-4.51); Absolute Neutrophil Count 9.3 X10^3/uL (2.0-7.7); Basophil# 0.07 X10^3/uL; Basophil% 0.6 % (0-1); Eosinophil# 0.23 X10^3/uL; Eosinophils% 1.9 % (0-5); Hematocrit 32.7 % (40-54); Hemoglobin 10.3 g/dL (13.0-16.5); Lymphocyte # 1.19 X10^3/ul (4.0); Lymphocyte % 9.9 % (19-41); Mean Corp Hgb Conc 31.5 g/dL (32-36); Mean Corpuscular Hgb 31.5 pg (27.0-32.0); Mean Platelet Vol. 9.4 fl (6.2-12.0); Monocyte# 1.08 X10^3/uL; NRBC Flagged by Analyzer 0 % (0-5); Neutrophil # 9.25 X10^3/uL (2.7-7.7); Neutrophil % 77.1 % (47-70); Platelet Count 269 K/mm3 (150-450); RBC Distribution Width CV 14.5 % (11.6-14.6); RBC Distribution Width SD 52.6 fl (35.1-43.9); Red Blood Count 3.27 M/mm3 (4.6-6.2)
[2019-06-09 08:10] LABS: Anion Gap 15 (5-15); BUN 33 mg/dL (7-18); BUN/Creat Ratio 6.7 RATIO (10-20); Calcium,Total 7.9 mg/dL (8.5-10.1); Chloride 110 mmol/L (98-107); Creatinine, Serum 4.94 mg/dL (0.70-1.30); EST Glomerular Filtration Rate 13 mL/min (>60); Est Glom Filt Rate - Afr Amer 16 mL/min (>60); Estimated Creatinine Clearance 16.35 ml/min; Glucose 124 mg/dL (74-106); Potassium 3.4 mmol/L (3.5-5.1); Sodium Level 136 mmol/L (136-145)
[2019-06-09 08:11] VITALS: BP 126/59; PULSE 101; RESP 22; TEMP 36.3; O2SAT 98
[2019-06-09] MEDS: Pioglitazone Hydrochloride 15 MG Tablet PO (08:16)
[2019-06-09] MEDS: Pantoprazole Sodium 40 MG Tablet PO (08:16)
[2019-06-09] MEDS: Enoxaparin 40 MG/0.4 ML Syringe SC (08:17)
--- NOTE | 2019-06-09 09:03 | NURSING ---
wound photo: right lower leg (anterior view)
--- NOTE | 2019-06-09 09:03 | NURSING ---
wound photo: right lower leg (medial view)
--- NOTE | 2019-06-09 09:04 | NURSING ---
wound photo: right plantar foot
--- NOTE | 2019-06-09 10:42 | US_ITS ---
STUDY: RENAL ULTRASOUND - COMPLETE REASON FOR EXAM: Male, 54 years old. LORIE TECHNIQUE: Ultrasound evaluation of the kidneys was performed with real-time and static hollingsworth-scale imaging. COMPARISON: None. FINDINGS: RIGHT KIDNEY: Normal location of the right kidney, which is normal in size. The right kidney measures 13.5 x 7.5 x 6.9 cm. There is a normal cortex of the right kidney. The renal cortex measures 2.5 cm. There is no right renal mass or cyst. There are no right renal calculi. There is no right hydronephrosis. DISTAL RIGHT URETER: There is non-visualization of the distal right ureter. There is no demonstrated right ureterovesical junction calculus. There is a visualized right ureteral jet. LEFT KIDNEY: Normal location of the left kidney, which is normal in size. The left kidney measures 12.3 x 6.1 x 6.7 cm. There is a normal cortex of the left kidney. The renal cortex measures 2.4 cm. There is no left renal mass or cyst. There are no left renal calculi. There is no left hydronephrosis. DISTAL LEFT URETER: There is non-visualization of the distal left ureter. There is no demonstrated left ureterovesical junction calculus. There is a visualized left ureteral jet. BLADDER: The urinary bladder is nondistended. US/Kidney and Bladder IMPRESSION: 1. No hydronephrosis or shadowing calculi. 2. Nondistended urinary bladder. Electronically Signed: Rodrigo Lee MD (Brooks) at 12:02 EST , Service support ,
--- NOTE | 2019-06-09 11:02 | PN_ITS ---
Patient Problems: Active and Suspected Problems (Last Reviewed 06/07/19 @ 02:18 by Jose Coleman MD) Severe sepsis (Acute) Cellulitis of right lower extremity (Acute) Influenza-like symptoms (Acute) Sepsis (Acute) LORIE (acute kidney injury) (Acute) Subjective: Patient seen and examined. He is being managed for sepsis due to cellulitis of the RLE. He denies any fever, chills, nausea, vomiting, shortness of breath, or abdominal pain. He does complain of diarrhea. He says diarrhea is very frequent, though it is getting better since he was started on lomotil. Pain in RLE is well controlled. Labs and vitals reviewed. Creatinine noted to have trended up to 4.94 from 2.66 yesterday. Pulse rate is 101 and respiratory rate is 22. Potassium is 3.4, and wbc is 12. Patient says his urine was very concentrated on admission, but he thinks it is clearing up now, as diarrhea is getting better. Vitals/I&O's: Vital Signs Temp Pulse Resp BP Pulse Ox 97.4 F L 101 H 22 H 126/59 H 98 06/09/19 08:11 06/09/19 08:11 06/09/19 08:11 06/09/19 08:11 06/09/19 08:11 Oxygen Flow Rate (L/min) 2 Oxygen Delivery Method Room Air Weight: 341 lb 14.991 oz Body Mass Index (BMI) 52.0 Finger Stick Blood Glucose 144 Intake and Output for Last 24 Hours 06/07/19 06/08/19 06/09/19 23:59 23:59 23:59 Intake Total 3981.75 / 3981.75 1935.50 / 2435.50 2093 Output Total 120 / 120 Balance 3981.75 / 3981.75 1815.50 / 2315.50 2093 General: Alert, Oriented x3, Cooperative, No apparent distress HEENT: Atraumatic, PERRLA, EOMI, Normocephalic Oral: Moist Mucosa Neck: Supple, No JVD, Negative Carotid Bruits Lungs: Clear to auscultation, Normal air movement, No rhonchi, No wheeze, No rales, Tachypneic Cardiovascular: Regular rate, Normal S1, Normal S2, No murmurs, Tachycardic Abdomen: Bowel Sounds Present, Soft, Non Tender, Non-Distended, No Hepato- splenomegaly Extremities: No clubbing, No cyanosis Musculoskeletal: - - RLE wrapped in KINJAL bandage Lymphatic: No Cervical, Supraclavicular, or Inguinal Adenopathy Neurological: Cranial nerves II-XII grossly intact Psych/Mental Status: Normal Affect, Appropriate, Alert and oriented to time, place, person, mood and affect Microbiology Past 72 Hours 06/06/19 21:47 Urine, Clean Catch Urine Culture - Final Culture exhibits no growth. 06/06/19 19:17 Blood Culture (Wb) - Right Hand Blood Culture - Preliminary No growth in 48 hours. 06/06/19 19:10 Blood Culture (Wb) - Anticubital Left Blood Culture - Preliminary No growth in 48 hours. 06/07/19 00:27 Stool Enteric Bacteriology - Final 06/06/19 20:06 Mucosa - Nose Respiratory Panel (PCR) - Final 06/07/19 00:27 Stool C. difficile DNA Amplification - Final 06/06/19 20:06 Mucosa - Nasopharyngeal Influenza Types A,B Direct FA (SANTANA) - Final Laboratory Results 06/08/19 11:58: POC Glucose 135 H 06/08/19 15:25: Eos Smear Total Cells Pending 06/08/19 15:25: Urine Creatinine 142.00 06/08/19 15:25: Ur Random Sodium 25 06/08/19 16:22: POC Glucose 122 H 06/08/19 21:35: POC Glucose 116 H 06/09/19 05:38: Random Vancomycin 21.3 H 06/09/19 05:38: WBC 12.0 H, RBC 3.27 L, Hgb 10.3 L, Hct 32.7 L, MCV 100.0 H, MCH 31.5, MCHC 31.5 L, RDW Std Deviation 52.6 H, RDW Coeff of Negra 14.5, Plt Count 269, MPV 9.4, Immature Gran % (Auto) 1.500 H, Neut % (Auto) 77.1 H, Lymph % (Auto) 9.9 L, [place] % (Auto) 9.0, Eos % (Auto) 1.9, Baso % (Auto) 0.6, Absolute Neuts (auto) 9.3 H, Absolute Lymphs (auto) 1.19, Nucleated RBC % 0 06/09/19 05:38: Sodium 136, Potassium 3.4 L, Chloride 110 H, Carbon Dioxide 11.0 L, Anion Gap 15, BUN 33 H, Creatinine 4.94 H, Estim Creat Clear Calc 16.35, Est GFR (MDRD) Af Amer 16 L, Est GFR (MDRD) Non-Af 13 L, BUN/Creatinine Ratio 6.7 L, Glucose 124 H, Calcium 7.9 L 06/09/19 06:56: POC Glucose 137 H 06/09/19 08:10: S.aureus Protein A PCR Pending, MRSA (PCR) Pending Current Medications Acetaminophen (Tylenol) 650 mg PO Q6H PRN PRN PRN Reason: Pain or Fever Last Admin: 06/09/19 04:39 Dose: 650 mg Documented by: Albuterol Sulfate (Ventolin Aerosols) 2.5 mg INHALATION Q2H PRN PRN PRN Reason: sob/wheezing Albuterol Sulfate (Ventolin Aerosols) 2.5 mg INHALATION Q6HWA.RT [facility] Last Admin: 06/09/19 06:57 Dose: 2.5 mg Documented by: Atorvastatin Calcium (Lipitor) 40 mg PO DAILY@2200 [facility] Last Admin: 06/08/19 21:36 Dose: 40 mg Documented by: Budesonide (Pulmicort Aerosol) 0.5 mg INHALATION Q12H.RT [facility] Last Admin: 06/09/19 06:57 Dose: 0.5 mg Documented by: Dicyclomine HCl (Bentyl) 20 mg PO Q6 PRN PRN Reason: ABDOMINAL CRAMPING Last Admin: 06/08/19 12:52 Dose: 20 mg Documented by: Diphenoxylate HCl/Atropine (Lomotil) 1 tablet PO 4X/DAY PRN PRN Reason: Diarrhea Last Admin: 06/08/19 16:44 Dose: 1 tablet Documented by: Glucagon () 1 mg IM .X1 PRN PRN Reason: Hypoglycemia Guaifenesin/Codeine Phosphate (Robitussin Ac) 5 ml PO Q6H PRN PRN PRN Reason: COUGH Last Admin: 06/09/19 04:39 Dose: 5 ml Documented by: Heparin Sodium (Porcine) (Heparin Na) 5,000 unit SC Q12 [facility] Dextrose (Dextrose 10%-Water) 250 mls @ 999 mls/hr IV .Q16M PRN; Protocol PRN Reason: HYPOGLYCEMIA Sodium Chloride () 250 mls @ 15 mls/hr IV .[id number] PRN PRN Reason: Saline Flush Last Infusion: 06/08/19 14:03 Dose: 0 mls/hr Documented by: Sodium Chloride () 250 mls @ 15 mls/hr IV .[id number] PRN PRN Reason: Additional IVPB Infusion Sodium Chloride () 1,000 mls @ 150 mls/hr IV .Q6H40M [facility] Last Admin: 06/09/19 04:34 Dose: 150 mls/hr Documented by: Clindamycin Phosphate 300 mg/ (Dextrose) 52 mls @ 150 mls/hr IV Q6 [facility] Last Infusion: 06/09/19 06:36 Dose: Infused Documented by: Cefepime HCl 1 gm/ Sodium (Chloride) 50 mls @ 100 mls/hr IV Q24 [facility] Insulin Human Lispro (Humalog Kwikpen (Bkc)) 0 unit SC ACHS [facility]; Protocol Last Admin: 06/09/19 06:59 Dose: Not Given Documented by: Metoclopramide HCl (Reglan) 5 mg IV Q6 [facility] Stop: 06/10/19 12:01 Ondansetron HCl (Zofran) 4 mg IV Q8H PRN PRN PRN Reason: NAUSEA/VOMITING Oxycodone HCl (Oxyir) 5 mg PO Q4H PRN PRN PRN Reason: Pain Score 4-5/10 Oxycodone HCl (Oxyir) 10 mg PO Q4H PRN PRN PRN Reason: Pain Score 6-10/10 Last Admin: 06/08/19 16:43 Dose: 10 mg Documented by: Pantoprazole Sodium (Protonix) 40 mg PO DAILY [facility] Last Admin: 06/09/19 08:16 Dose: 40 mg Documented by: Pioglitazone HCl (Actos) 15 mg PO DAILY [facility] Last Admin: 06/09/19 08:16 Dose: 15 mg Documented by: Sodium Chloride () 10 - 40 ml IV UD PRN PRN Reason: SALINE FLUSH Last Admin: 06/08/19 09:25 Dose: 10 ml Documented by: STROKE Vital Signs/Narrative: Vital Signs Temp Pulse Resp BP Pulse Ox 01/27/20 08:11 97.4 F L 101 H 22 H 126/59 H 98 Medical Necessity - Tobacco Use Smoking Status: Former smoker Tobacco Use: Cigarettes Assessment/Plan All Active Problems (Last Reviewed 06/07/19 @ 02:18 by Jose Coleman MD) Severe sepsis (Acute) Cellulitis of right lower extremity (Acute) Influenza-like symptoms (Acute) Sepsis (Acute) LORIE (acute kidney injury) (Acute) 1. Sepsis due to RLE cellulitis * SIRS criteria is 2/4 (tachypnea and tachycardia). wbc is down to 12. * MRI of the RLE on admission showed cellulitis and myofascitis, with no osteomyelitis * blood cultures were negative * on IV zosyn and clindamycin. Vancomycin was held o/a of worsening renal function * will switch to IV cefepime as Cr has increased to 4.94. WIll stop IV zosyn and continue IV clindamycin * will consult ID as patient still has positive SIRS criteria despite having ~ 3 days of antibiotics; ID already consulted; await rec;s * 2. LORIE * Cr is 4.94; Cr was 1.6 on admission. No previous records in our EMR * FeNa was 0.4, indicating a pre-renal cause; this is likely due to the diarrhea he has been having * CT abdomen and pelvis showed incompletely distended thick walled bladder and normal kidneys * will order renal USG * nephrology consulted * repeat UA ordered and is pending. * 3. 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 * Victoza held. Will hold p.o. glitazone as well on account of LORIE. On insulin sliding scale. Accu-Cheks AC at bedtime. * 4. Diarrhea * C. difficile was negative and CT of the abdomen done yesterday showed nonspecific Ileus. 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 * he is currently passing gas and still having diarrhea. diarrhea is chronic * Hydrated with IV fluids and monitor. * On as needed Lomotil. Did not tolerate loperamide on outpatient basis. * will need follow up with GI on outpatient basis DVT prophylaxis:will switch from lovenox to heparin o/a of LORIE Code Visit Inpatient E&M: 35663 Subs Hosp L3
[2019-06-09 11:16] LABS: Bedside Glucose 110 mg/dL (70-110)
--- NOTE | 2019-06-09 11:17 | CASEMGMT ---
RN CM Assessment Note Presentation: Sepsis, cellulitis RLE Intro role of CM and purpose of RN CM assessment to patient in room. Pt is awake, alert, able to participate in assessment, but giving short answers. Pt is irritated that he had to come to hospital. Demographics, PCP and Pharmacy verified. Pt states his and daughter (RN) are able to assist if any wound care, or wrapping of legs is needed on dc. PCP: Dr. Edwards Specialists: Dr. Cummins, pulmonology; Dr. Rosetta Gil, podiatry Preferred Pharmacy: [facility] Insurance: [employer] Prescription Benefit: yes LNOK: , Lesley Farfan Living Arrangements: Lives in one story home independently. Pt states he does not have care needs re: ADL's. Transportation: Drives or family can drive DME: cane, crutches, cpap. States he does not use ambulatory DME generally. HHC/SNF: none Patient DC goals: home DC PLAN: anticipate home on discharge. Jayashree SOUZA RN ACM
[2019-06-09 11:38] LABS: CPK Total, Creatine Kinase 356 U/L (39-308)
[2019-06-09 11:46] LABS: M R Staph aureus DNA By PCR Negative (Negative); Probe Check PASS; Specimen Processing Control PASS; Staph aureus DNA By PCR NEGATIVE (Negative)
[2019-06-09] MEDS: oxyCODONE 5 MG Tablet 10 MG PO (11:55)
--- NOTE | 2019-06-09 14:20 | CON.PCM_ITS ---
Problem List (1) LORIE (acute kidney injury) Status: Acute Consultation - Renal 06/09/19 PCP/ Referring MD: Requesting physician: [] Primary care physician: Donnell Edwards MD Reason for Consultation:: LORIE - History of Present Illness History of Present Illness: The patient is a 54 year old M who was admitted 2 days ago with cellulitis of RLE. renal consulted for LORIE. complaints include Lower extremity edema for 10 days RLE erythema for about 5-6 days diarrhea for 4 days until today tea colored urine for one day oliguria till yesterday received vanco, zosyn. vanco now off - Allergies Allergies: Allergies No Known Allergies Allergy (Verified 06/06/19 18:52) - Current Medications Current Medications: Current Medications Acetaminophen (Tylenol) 650 mg PO Q6H PRN PRN PRN Reason: Pain or Fever Last Admin: 06/09/19 04:39 Dose: 650 mg Documented by: Albuterol Sulfate (Ventolin Aerosols) 2.5 mg INHALATION Q2H PRN PRN PRN Reason: sob/wheezing Albuterol Sulfate (Ventolin Aerosols) 2.5 mg INHALATION Q6HWA.RT [facility] Last Admin: 06/09/19 06:57 Dose: 2.5 mg Documented by: Atorvastatin Calcium (Lipitor) 40 mg PO DAILY@2200 [facility] Last Admin: 06/08/19 21:36 Dose: 40 mg Documented by: Budesonide (Pulmicort Aerosol) 0.5 mg INHALATION Q12H.RT [facility] Last Admin: 06/09/19 06:57 Dose: 0.5 mg Documented by: Dicyclomine HCl (Bentyl) 20 mg PO Q6 PRN PRN Reason: ABDOMINAL CRAMPING Last Admin: 06/08/19 12:52 Dose: 20 mg Documented by: Diphenoxylate HCl/Atropine (Lomotil) 1 tablet PO 4X/DAY PRN PRN Reason: Diarrhea Last Admin: 06/08/19 16:44 Dose: 1 tablet Documented by: Glucagon () 1 mg IM .X1 PRN PRN Reason: Hypoglycemia Guaifenesin/Codeine Phosphate (Robitussin Ac) 5 ml PO Q6H PRN PRN PRN Reason: COUGH Last Admin: 06/09/19 04:39 Dose: 5 ml Documented by: Heparin Sodium (Porcine) (Heparin Na) 5,000 unit SC Q12 JOEY Dextrose (Dextrose 10%-Water) 250 mls @ 999 mls/hr IV .Q16M PRN; Protocol PRN Reason: HYPOGLYCEMIA Sodium Chloride () 250 mls @ 15 mls/hr IV .[id number] PRN PRN Reason: Saline Flush Last Infusion: 06/08/19 14:03 Dose: 0 mls/hr Documented by: Sodium Chloride () 250 mls @ 15 mls/hr IV .[id number] PRN PRN Reason: Additional IVPB Infusion Sodium Chloride () 1,000 mls @ 150 mls/hr IV .Q6H40M [facility] Last Infusion: 06/09/19 11:00 Dose: 0 mls/hr Documented by: Clindamycin Phosphate 300 mg/ (Dextrose) 52 mls @ 150 mls/hr IV Q6 [facility] Last Infusion: 06/09/19 12:52 Dose: Infused Documented by: Cefepime HCl 1 gm/ Sodium (Chloride) 50 mls @ 100 mls/hr IV Q24 [facility] Last Admin: 06/09/19 12:52 Dose: 100 mls/hr Documented by: Insulin Human Lispro (Humalog Kwikpen (Bkc)) 0 unit SC ACHS [facility]; Protocol Last Admin: 06/09/19 11:23 Dose: Not Given Documented by: Metoclopramide HCl (Reglan) 5 mg IV Q6 [facility] Stop: 06/10/19 12:01 Ondansetron HCl (Zofran) 4 mg IV Q8H PRN PRN PRN Reason: NAUSEA/VOMITING Oxycodone HCl (Oxyir) 5 mg PO Q4H PRN PRN PRN Reason: Pain Score 4-5/10 Oxycodone HCl (Oxyir) 10 mg PO Q4H PRN PRN PRN Reason: Pain Score 6-10/10 Last Admin: 06/09/19 11:55 Dose: 10 mg Documented by: Pantoprazole Sodium (Protonix) 40 mg PO DAILY [facility] Last Admin: 06/09/19 08:16 Dose: 40 mg Documented by: Pioglitazone HCl (Actos) 15 mg PO DAILY [facility] Last Admin: 06/09/19 08:16 Dose: 15 mg Documented by: Sodium Chloride () 10 - 40 ml IV UD PRN PRN Reason: SALINE FLUSH Last Admin: 06/08/19 09:25 Dose: 10 ml Documented by: - Past Surgical History Surgical History: - - Knee surgery bilateral knees; carpal tunnel syndrome bilateral wrist; repair of bicep tendon. - Social History Smoking Status: Former smoker Alcohol: Occasional - Family History Maternal History Items: Cancer - Breast cancer Paternal History Items: Heart Disease Review of Systems Constitutional: Denies: Chills, Fever, Weight Change HEENT: Denies: Head Aches, Sinus Congestion, Sinus Drainage Cardiovascular: Denies: Chest Pain, Palpitations Respiratory: Denies: Cough, Shortness of breath at rest, Sputum production Gastrointestinal: Reports: Abdominal Pain, Diarrhea. Denies: Nausea, Vomiting Genitourinary: Denies: Dysuria Musculoskeletal: Denies: Joint Pain, Joint Tenderness Skin: Denies: Rash, Wounds Neurological: Denies: Numbness, Tingling, Focal weakness Psychiatric: Denies: Anxiety, Depression, Homicidal Ideations, Suicidal Ideations Hematologic/ Lymphatic: Denies: Easy Bruising, Easy Bleeding Patient Problems: Active and Suspected Problems (Last Reviewed 06/07/19 @ 02:18 by Jose Coleman MD) Severe sepsis (Acute) Cellulitis of right lower extremity (Acute) Influenza-like symptoms (Acute) Sepsis (Acute) LORIE (acute kidney injury) (Acute) - Physical Exam Vitals/I&O's: Vital Signs Temp Pulse Resp BP Pulse Ox 97.4 F L 101 H 22 H 126/59 H 98 06/09/19 08:11 06/09/19 08:11 06/09/19 08:11 06/09/19 08:11 06/09/19 08:11 Oxygen Flow Rate (L/min) 2 Oxygen Delivery Method Room Air Weight: 155.1 kg Body Mass Index (BMI) 52.0 Finger Stick Blood Glucose 144 Intake and Output for Last 24 Hours 06/07/19 06/08/19 06/09/19 23:59 23:59 23:59 Intake Total 3981.75 / 3981.75 1935.50 / 2435.50 3231 / 3231 Output Total 120 / 120 Balance 3981.75 / 3981.75 1815.50 / 2315.50 3231 / 3231 General: Alert, Oriented x3, Cooperative HEENT: Atraumatic, PERRLA, EOMI, Normocephalic Neck: Supple, No JVD, Negative Carotid Bruits Lungs: Clear to auscultation, Normal air movement Cardiovascular: Regular rate, No murmurs Abdomen: Bowel Sounds Present, Soft, Non Tender Extremities: No edema, Capillary Refill Less than 3 Seconds Skin: No rashes, No breakdown Musculoskeletal: No Tenderness to Palpation of Joints or Extremities Neurological: Cranial nerves II-XII grossly intact Psych/Mental Status: Normal Affect, Appropriate Microbiology Past 72 Hours 06/09/19 08:10 Wound - Leg, Right Gram Stain - Final 06/06/19 21:47 Urine, Clean Catch Urine Culture - Final Culture exhibits no growth. 06/06/19 19:17 Blood Culture (Wb) - Right Hand Blood Culture - Preliminary No growth in 48 hours. 06/06/19 19:10 Blood Culture (Wb) - Anticubital Left Blood Culture - Preliminary No growth in 48 hours. 06/07/19 00:27 Stool Enteric Bacteriology - Final 06/06/19 20:06 Mucosa - Nose Respiratory Panel (PCR) - Final 06/07/19 00:27 Stool C. difficile DNA Amplification - Final 06/06/19 20:06 Mucosa - Nasopharyngeal Influenza Types A,B Direct FA (SANTANA) - Final Laboratory Results 06/08/19 15:25: Eos Smear Total Cells Pending 06/08/19 15:25: Urine Creatinine 142.00 06/08/19 15:25: Ur Random Sodium 25 06/08/19 16:22: POC Glucose 122 H 06/08/19 21:35: POC Glucose 116 H 06/09/19 05:38: Random Vancomycin 21.3 H 06/09/19 05:38: WBC 12.0 H, RBC 3.27 L, Hgb 10.3 L, Hct 32.7 L, MCV 100.0 H, MCH 31.5, MCHC 31.5 L, RDW Std Deviation 52.6 H, RDW Coeff of Negra 14.5, Plt Count 269, MPV 9.4, Immature Gran % (Auto) 1.500 H, Neut % (Auto) 77.1 H, Lymph % (Auto) 9.9 L, Day % (Auto) 9.0, Eos % (Auto) 1.9, Baso % (Auto) 0.6, Absolute Neuts (auto) 9.3 H, Absolute Lymphs (auto) 1.19, Nucleated RBC % 0 06/09/19 05:38: Sodium 136, Potassium 3.4 L, Chloride 110 H, Carbon Dioxide 11.0 L, Anion Gap 15, BUN 33 H, Creatinine 4.94 H, Estim Creat Clear Calc 16.35, Est GFR (MDRD) Af Amer 16 L, Est GFR (MDRD) Non-Af 13 L, BUN/Creatinine Ratio 6.7 L , Glucose 124 H, Calcium 7.9 L 06/09/19 05:38: Total Creatine Kinase 356 H 06/09/19 06:56: POC Glucose 137 H 06/09/19 08:10: S.aureus Protein A PCR NEGATIVE, MRSA (PCR) Negative 06/09/19 11:11: POC Glucose 110 Current Medications Acetaminophen (Tylenol) 650 mg PO Q6H PRN PRN PRN Reason: Pain or Fever Last Admin: 06/09/19 04:39 Dose: 650 mg Documented by: Albuterol Sulfate (Ventolin Aerosols) 2.5 mg INHALATION Q2H PRN PRN PRN Reason: sob/wheezing Albuterol Sulfate (Ventolin Aerosols) 2.5 mg INHALATION Q6HWA.RT [facility] Last Admin: 06/09/19 06:57 Dose: 2.5 mg Documented by: Atorvastatin Calcium (Lipitor) 40 mg PO DAILY@2200 [facility] Last Admin: 06/08/19 21:36 Dose: 40 mg Documented by: Budesonide (Pulmicort Aerosol) 0.5 mg INHALATION Q12H.RT [facility] Last Admin: 06/09/19 06:57 Dose: 0.5 mg Documented by: Dicyclomine HCl (Bentyl) 20 mg PO Q6 PRN PRN Reason: ABDOMINAL CRAMPING Last Admin: 06/08/19 12:52 Dose: 20 mg Documented by: Diphenoxylate HCl/Atropine (Lomotil) 1 tablet PO 4X/DAY PRN PRN Reason: Diarrhea Last Admin: 06/08/19 16:44 Dose: 1 tablet Documented by: Glucagon () 1 mg IM .X1 PRN PRN Reason: Hypoglycemia Guaifenesin/Codeine Phosphate (Robitussin Ac) 5 ml PO Q6H PRN PRN PRN Reason: COUGH Last Admin: 06/09/19 04:39 Dose: 5 ml Documented by: Heparin Sodium (Porcine) (Heparin Na) 5,000 unit SC Q12 [facility] Dextrose (Dextrose 10%-Water) 250 mls @ 999 mls/hr IV .Q16M PRN; Protocol PRN Reason: HYPOGLYCEMIA Sodium Chloride () 250 mls @ 15 mls/hr IV .[id number] PRN PRN Reason: Saline Flush Last Infusion: 06/08/19 14:03 Dose: 0 mls/hr Documented by: Sodium Chloride () 250 mls @ 15 mls/hr IV .[id number] PRN PRN Reason: Additional IVPB Infusion Sodium Chloride () 1,000 mls @ 150 mls/hr IV .Q6H40M [facility] Last Infusion: 06/09/19 11:00 Dose: 0 mls/hr Documented by: Clindamycin Phosphate 300 mg/ (Dextrose) 52 mls @ 150 mls/hr IV Q6 [facility] Last Infusion: 06/09/19 12:52 Dose: Infused Documented by: Cefepime HCl 1 gm/ Sodium (Chloride) 50 mls @ 100 mls/hr IV Q24 [facility] Last Admin: 06/09/19 12:52 Dose: 100 mls/hr Documented by: Insulin Human Lispro (Humalog Kwikpen (Bkc)) 0 unit SC ACHS [facility]; Protocol Last Admin: 06/09/19 11:23 Dose: Not Given Documented by: Metoclopramide HCl (Reglan) 5 mg IV Q6 [facility] Stop: 06/10/19 12:01 Ondansetron HCl (Zofran) 4 mg IV Q8H PRN PRN PRN Reason: NAUSEA/VOMITING Oxycodone HCl (Oxyir) 5 mg PO Q4H PRN PRN PRN Reason: Pain Score 4-5/10 Oxycodone HCl (Oxyir) 10 mg PO Q4H PRN PRN PRN Reason: Pain Score 6-10/10 Last Admin: 06/09/19 11:55 Dose: 10 mg Documented by: Pantoprazole Sodium (Protonix) 40 mg PO DAILY [facility] Last Admin: 06/09/19 08:16 Dose: 40 mg Documented by: Pioglitazone HCl (Actos) 15 mg PO DAILY [facility] Last Admin: 06/09/19 08:16 Dose: 15 mg Documented by: Sodium Chloride () 10 - 40 ml IV UD PRN PRN Reason: SALINE FLUSH Last Admin: 06/08/19 09:25 Dose: 10 ml Documented by: Assessment/Plan All Active Problems (Last Reviewed 06/07/19 @ 02:18 by Jose Coleman MD) Severe sepsis (Acute) Cellulitis of right lower extremity (Acute) Influenza-like symptoms (Acute) Sepsis (Acute) LORIE (acute kidney injury) (Acute) LORIE. reviewed records from [facility]. baseline creatinine as of Mar 2019 was around 1.0. admitted with 1.6 and now upto 4.6. UA was benign before. Currently UA has some WBC RBC, not very impressive though. Renal US is ok. vanc levels high but not very high. urine eos pending repeat UA ordered and is pending FeNa is 0.4% but clinically has moderate amount of edema. says he had severe diarrhea until yesterday. continue fluids for now Cellulitis. on abx as per primary Thank you
[2019-06-09 15:00] VITALS: BP 105/73; PULSE 102; RESP 22; TEMP 36.5; O2SAT 97
[2019-06-09 15:27] LABS: Bacteria 0 SEEN /hpf (None Seen); Mucous, Urine 0 SEEN /hpf (<or=2+); Red Blood Cells-Urine 0 SEEN /hpf (0-5)
[2019-06-09 15:39] LABS: Color, Urine Yellow (Yellow); Glucose, Dipstick Normal (Normal); Ketone-Dipstick Negative (Negative); Leukocyte Esterase-Dipstick Negative /ul (Negative); Nitrite-Dipstick Negative (Negative); Occult Blood-Urine 50 /ul (Negative); Protein-Dipstick 30 mg/dl (Negative); Specific Gravity, Urine 1.015 (1.002-1.030); Urine Bilirubin Dipstick Negative (Negative); Urine Clarity Clear (Clear); Urine Urobilinogen Normal (Normal)
[2019-06-09 16:01] LABS: Squamous Epithelial Cells - UA 0-5 SEEN /hpf (0-5); White Blood Cells 0-5 SEEN /hpf (0-5)
[2019-06-09 16:45] LABS: Bedside Glucose 105 mg/dL (70-110)
[2019-06-09] MEDS: Metoclopramide 10 MG/2 ML Vial 5 MG IV (18:00)
[2019-06-09] MEDS: Heparin Injection (Vial) 5,000 UNIT/ML VIAL 5000 UNIT SC (21:52)
[2019-06-09] MEDS: Atorvastatin Calcium 40 MG Tablet PO (21:52)
[2019-06-09 21:59] VITALS: BP 133/75; PULSE 101; RESP 24; TEMP 36.8; O2SAT 97
[2019-06-09 22:35] LABS: Bedside Glucose 93 mg/dL (70-110)
[2019-06-10] VITALS (10 sets, daily range): BP systolic 118–151; BP diastolic 62–93; PULSE 95–110; RESP 16–24; TEMP 36.4–36.7; O2SAT 96–100
[2019-06-10] MEDS: 0.9% Normal Saline 1,000 ML 150 ML IV ×2 (05:06→12:36)
[2019-06-10 06:32] LABS: Absolute Lymphocyte Count 1.09 X10^3/uL (0.83-4.51); Absolute Neutrophil Count 9.6 X10^3/uL (2.0-7.7); Basophil# 0.06 X10^3/uL; Basophil% 0.5 % (0-1); Eosinophil# 0.26 X10^3/uL; Eosinophils% 2.1 % (0-5); Hematocrit 31.7 % (40-54); Hemoglobin 10.4 g/dL (13.0-16.5); Lymphocyte # 1.09 X10^3/ul (4.0); Lymphocyte % 8.9 % (19-41); Mean Corp Hgb Conc 32.8 g/dL (32-36); Mean Corpuscular Hgb 31.8 pg (27.0-32.0); Mean Corpuscular Volume 96.9 fL (80-94); Mean Platelet Vol. 9.3 fl (6.2-12.0); Monocyte# 0.85 X10^3/uL; NRBC Flagged by Analyzer 0 % (0-5); Neutrophil # 9.59 X10^3/uL (2.7-7.7); Neutrophil % 78.6 % (47-70); Platelet Count 321 K/mm3 (150-450); RBC Distribution Width CV 14.2 % (11.6-14.6); RBC Distribution Width SD 50.2 fl (35.1-43.9); Red Blood Count 3.27 M/mm3 (4.6-6.2); White Blood Count 12.2 K/mm3 (4.4-11.0)
[2019-06-10 06:56] LABS: Anion Gap 14 (5-15); BUN 42 mg/dL (7-18); BUN/Creat Ratio 7.4 RATIO (10-20); Calcium,Total 8.1 mg/dL (8.5-10.1); Chloride 110 mmol/L (98-107); Creatinine, Serum 5.67 mg/dL (0.70-1.30); EST Glomerular Filtration Rate 11 mL/min (>60); Est Glom Filt Rate - Afr Amer 13 mL/min (>60); Estimated Creatinine Clearance 14.24 ml/min; Glucose 103 mg/dL (74-106); Potassium 3.5 mmol/L (3.5-5.1); Sodium Level 136 mmol/L (136-145)
[2019-06-10 06:56] LABS: Bedside Glucose 102 mg/dL (70-110)
[2019-06-10] MEDS: guaiFENesin/Codeine 5 ML UDC PO ×2 (08:21→21:21)
[2019-06-10] MEDS: Albuterol 2.5 MG/3 ML VIAL.NEB. INHALATION ×3 (09:21→19:17)
[2019-06-10] MEDS: Pantoprazole Sodium 40 MG Tablet PO (09:49)
[2019-06-10] MEDS: Heparin Injection (Vial) 5,000 UNIT/ML VIAL 5000 UNIT SC ×2 (09:49→21:12)
[2019-06-10] MEDS: Acetaminophen 325 MG Tablet 650 MG PO (09:53)
--- NOTE | 2019-06-10 10:05 | PCM.HP.ID ---
Problem List (1) Severe sepsis Status: Acute Reason for Consult: sepsis Consulted by: Dr. Ching History of Present Illness: The patient is a 54 year old M with DM neuropathy, presented 06/06 with 2 days of fever, shakes, chills, aches, severe diarrhea, and progressive R lower leg redness/swelling/blistering. Got cut on R foot about a week prior, had been using abx ointment on it. No feeling in that foot. Developed swelling. No redness of foot, no drainage. Blisters had clear yellow fluid. No sick contacts. He thought he had the flu, came to ED, found to have sepsis, LORIE. Started on vanc/zosyn. Now overall feeling better, leg less sore, fevers resolved, diarrhea nearly resolved, but still worsening LORIE. Neph consulted. Abx changed to clinda/cefepime. Full ROS performed and neg except as noted above. - Medical History Allergies/Adverse Reactions: Allergies No Known Allergies Allergy (Verified 06/06/19 18:52) Home Medications: Ambulatory Orders Medication Instructions Recorded Atorvastatin Calcium [Lipitor] 40 mg PO DAILY 10/08/14 Lisinopril [Zestril] 20 mg PO DAILY 10/08/14 Albuterol IH (ProAir) [Proair Hfa 1 - 2 puff INHALATION Q4H PRN PRN 06/06/19 (SP)Vent Pts] Liraglutide [Victoza 3-Eyad] 1.8 mg SUBCUT DAILY 06/06/19 Mometasone/Formoterol [Dulera 200 2 puff IH DAILY 06/06/19 Mcg/5 Mcg Inhaler] Pioglitazone [Actos] 15 mg PO DAILY 06/06/19 - Social History SMOKING STATUS:: Former smoker Vital Signs Temp Pulse Resp BP Pulse Ox 97.7 F L 96 16 126/93 H 96 06/10/19 09:12 06/10/19 09:23 06/10/19 09:23 06/10/19 09:12 06/10/19 09:12 Oxygen Flow Rate (L/min) 2 Oxygen Delivery Method Room Air Weight: 155.1 kg Body Mass Index (BMI) 52.0 Finger Stick Blood Glucose 144 Microbiology Past 72 Hours 06/09/19 08:10 Gram Stain - Final Wound - Leg, Right Wound Culture - Preliminary No growth-Final to follow 06/06/19 21:47 Urine Culture - Final Urine, Clean Catch Culture exhibits no growth. 06/06/19 19:17 Blood Culture - Preliminary Blood Culture (Wb) - Right Hand No growth in 48 hours. 06/06/19 19:10 Blood Culture - Preliminary Blood Culture (Wb) - Anticubital Left No growth in 48 hours. 06/07/19 00:27 Enteric Bacteriology - Final Stool 06/06/19 20:06 Respiratory Panel (PCR) - Final Mucosa - Nose 06/07/19 00:27 C. difficile DNA Amplification - Final Stool Laboratory Tests Past 24 Hrs 06/09/19 06/09/19 06/09/19 05:38 08:10 15:15 WBC RBC Hgb Hct MCV MCH MCHC RDW Std Deviation RDW Coeff of Negra Plt Count MPV Immature Gran % (Auto) Neut % (Auto) Lymph % (Auto) [place] % (Auto) Eos % (Auto) Baso % (Auto) Absolute Neuts (auto) Absolute Lymphs (auto) Nucleated RBC % Sodium Potassium Chloride Carbon Dioxide Anion Gap BUN Creatinine Estim Creat Clear Calc Est GFR (MDRD) Af Amer Est GFR (MDRD) Non-Af BUN/Creatinine Ratio Glucose Calcium Total Creatine Kinase 356 H Urine Color Yellow Urine Clarity Clear Urine pH 6.0 Ur Specific [place] 1.015 Urine Protein 30 H Urine Glucose (UA) Normal Urine Ketones Negative Urine Occult Blood 50 H Urine Nitrite Negative Urine Bilirubin Negative Urine Urobilinogen Normal Ur Leukocyte Esterase Negative Urine RBC 0 SEEN Urine WBC 0-5 SEEN Ur Squamous Epith Cells 0-5 SEEN Urine Bacteria 0 SEEN Urine Mucus 0 SEEN S.aureus Protein A PCR NEGATIVE MRSA (PCR) Negative 06/10/19 06/10/19 05:12 05:12 WBC 12.2 H RBC 3.27 L Hgb 10.4 L Hct 31.7 L MCV 96.9 H MCH 31.8 MCHC 32.8 RDW Std Deviation 50.2 H RDW Coeff of Negra 14.2 Plt Count 321 MPV 9.3 Immature Gran % (Auto) 2.900 H Neut % (Auto) 78.6 H Lymph % (Auto) 8.9 L [place] % (Auto) 7.0 Eos % (Auto) 2.1 Baso % (Auto) 0.5 Absolute Neuts (auto) 9.6 H Absolute Lymphs (auto) 1.09 Nucleated RBC % 0 Sodium 136 Potassium 3.5 Chloride 110 H Carbon Dioxide 12.0 L Anion Gap 14 BUN 42 H Creatinine 5.67 H Estim Creat Clear Calc 14.24 Est GFR (MDRD) Af Amer 13 L Est GFR (MDRD) Non-Af 11 L BUN/Creatinine Ratio 7.4 L Glucose 103 Calcium 8.1 L Total Creatine Kinase Urine Color Urine Clarity Urine pH Ur Specific [place] Urine Protein Urine Glucose (UA) Urine Ketones Urine Occult Blood Urine Nitrite Urine Bilirubin Urine Urobilinogen Ur Leukocyte Esterase Urine RBC Urine WBC Ur Squamous Epith Cells Urine Bacteria Urine Mucus S.aureus Protein A PCR MRSA (PCR) - Other Studies Radiology: [] reviewed Other Studies: [] Route of nutrition/ use of supplements: [] Nutritional Intake: [] IV Site: [] Boyce Catheter: [] - Physical Exam General: Alert, Oriented x3, Cooperative, No apparent distress HEENT: Atraumatic, PERRLA, EOMI Neck: Supple, No Nodes Lungs: Clear to auscultation, Normal air movement, Wheezes - mild bilat Cardiovascular: Regular rate, Regular Rhythm, No murmurs Abdomen: Soft, Non Tender, Non-Distended, Obese Extremities: Edema Skin: Rash Present - reviewed photos RLE IV Site: Peripheral, without redness Musculoskeletal: No Tenderness to Palpation of Joints or Extremities Neurological: Cranial nerves II-XII grossly intact - Assessment/Plan Antibiotics: [] Assessment/Plan: [] Active and Suspected Problems (Last Reviewed 06/09/19 @ 16:39 by Marisol Contreras) Severe sepsis (Acute) Cellulitis of right lower extremity (Acute) Influenza-like symptoms (Acute) Sepsis (Acute) LORIE (acute kidney injury) (Acute) severe sepsis with LORIE due to RLE cellulitis with DM neuropathy. Flu pcr was neg. Stool pcr was neg. Overall feeling better, diarrhea resolved, fever resolved, but worsening Cr. Vanc trough elevated, improving. No sign of osteo on MRI. Cont clinda/cefepime. Wound cx pending. Will follow, thank you.
--- NOTE | 2019-06-10 11:22 | PCM.PN.HOSP ---
Patient Problems: Active and Suspected Problems (Last Reviewed 06/09/19 @ 16:39 by Marisol Contreras) Severe sepsis (Acute) Cellulitis of right lower extremity (Acute) Influenza-like symptoms (Acute) Sepsis (Acute) LORIE (acute kidney injury) (Acute) Subjective: Patient seen and examined. He complained of shortness of breath and wheezing; he had refused a breathing treatment early this morning because he said the breathing treatments made his shortness of breath worse. He denied any pain in his LEs, and denied any fever, chills, nausea or vomiting. Review of systems is otherwise negative. He says he is making urine, and his urine has cleared up and is now light and yellow. Vitals have remained stable and has trended up to 5.67. Bicarb is 12 and anion gap is 14. CPK was only 356. WBC is 12.2. Vitals/I&O's: Vital Signs Temp Pulse Resp BP Pulse Ox 97.7 F L 96 16 126/93 H 96 06/10/19 09:12 06/10/19 09:23 06/10/19 09:23 06/10/19 09:12 06/10/19 09:12 Oxygen Flow Rate (L/min) 2 Oxygen Delivery Method Room Air Weight: 341 lb 14.991 oz Body Mass Index (BMI) 52.0 Finger Stick Blood Glucose 144 Intake and Output for Last 24 Hours 06/08/19 06/09/19 06/10/19 23:59 23:59 23:59 Intake Total 1935.50 / 2435.50 4705 / 4755 2047.0 / 2047.0 Output Total 120 / 120 Balance 1815.50 / 2315.50 4705 / 4755 2047.0 / 2047.0 General: Alert, Oriented x3, Cooperative, No apparent distress, morbidly obese HEENT: Atraumatic, PERRLA, EOMI, Normocephalic Oral: Moist Mucosa Neck: Supple, No JVD, Negative Carotid Bruits Lungs: coarse expiratory wheezing and rhonchi in all lung rene bilaterally, on room air Cardiovascular: Regular rate, Normal S1, Normal S2, No murmurs, Tachycardic Abdomen: Bowel Sounds Present, Soft, Non Tender, Non-Distended, No Hepato-splenomegaly Extremities: No clubbing, No cyanosis Musculoskeletal: - - RLE wrapped in KINJAL bandage Lymphatic: No Cervical, Supraclavicular, or Inguinal Adenopathy Neurological: Cranial nerves II-XII grossly intact Psych/Mental Status: Normal Affect, Appropriate, Alert and oriented to time, place, person, mood and affect Microbiology Past 72 Hours 06/09/19 08:10 Wound - Leg, Right Gram Stain - Final 06/09/19 08:10 Wound - Leg, Right Wound Culture - Preliminary No growth-Final to follow 06/06/19 21:47 Urine, Clean Catch Urine Culture - Final Culture exhibits no growth. 06/06/19 19:17 Blood Culture (Wb) - Right Hand Blood Culture - Preliminary No growth in 48 hours. 06/06/19 19:10 Blood Culture (Wb) - Anticubital Left Blood Culture - Preliminary No growth in 48 hours. 06/07/19 00:27 Stool Enteric Bacteriology - Final 06/06/19 20:06 Mucosa - Nose Respiratory Panel (PCR) - Final 06/07/19 00:27 Stool C. difficile DNA Amplification - Final Laboratory Results 06/09/19 05:38: Total Creatine Kinase 356 H 06/09/19 08:10: S.aureus Protein A PCR NEGATIVE, MRSA (PCR) Negative 06/09/19 15:15: Urine Color Yellow, Urine Clarity Clear, Urine pH 6.0, Ur Specific [place] 1.015, Urine Protein 30 H, Urine Glucose (UA) Normal, Urine Ketones Negative, Urine Occult Blood 50 H, Urine Nitrite Negative, Urine Bilirubin Negative, Urine Urobilinogen Normal, Ur Leukocyte Esterase Negative, Urine RBC 0 SEEN, Urine WBC 0-5 SEEN, Ur Squamous Epith Cells 0-5 SEEN, Urine Bacteria 0 SEEN, Urine Mucus 0 SEEN 06/09/19 16:37: POC Glucose 105 06/09/19 21:50: POC Glucose 93 06/10/19 05:12: WBC 12.2 H, RBC 3.27 L, Hgb 10.4 L, Hct 31.7 L, MCV 96.9 H, MCH 31.8, MCHC 32.8, RDW Std Deviation 50.2 H, RDW Coeff of Negra 14.2, Plt Count 321, MPV 9.3, Immature Gran % (Auto) 2.900 H, Neut % (Auto) 78.6 H, Lymph % (Auto) 8.9 L, Falls % (Auto) 7.0, Eos % (Auto) 2.1, Baso % (Auto) 0.5, Absolute Neuts (auto) 9.6 H, Absolute Lymphs (auto) 1.09, Nucleated RBC % 0 06/10/19 05:12: Sodium 136, Potassium 3.5, Chloride 110 H, Carbon Dioxide 12.0 L, Anion Gap 14, BUN 42 H, Creatinine 5.67 H, Estim Creat Clear Calc 14.24, Est GFR (MDRD) Af Amer 13 L, Est GFR (MDRD) Non-Af 11 L, BUN/Creatinine Ratio 7.4 L, Glucose 103, Calcium 8.1 L 06/10/19 06:39: POC Glucose 102 Diagnostic Data Foot X-Ray 06/06/19 19:54 IMPRESSION: Normal right foot. at 2037 Reported and signed by: Bruce Hudson MD Electronically Signed: Bruce Hudson MD at 20:37 EST Tel , Service support , Chest X-Ray 06/06/19 20:04 IMPRESSION: Normal. at 2037 Reported and signed by: Bruce Hudson MD Electronically Signed: Bruce Hudson MD at 20:37 EST Tel , Service support , Lower Extremity MRI 06/07/19 09:19 IMPRESSION: Cellulitis. Myofascitis. No osteomyelitis perceived. at 0613 Reported and signed by: Bruce Hudson MD Electronically Signed: Bruce Hudson MD at 6:12 EST Tel , Service support , Orbit X-Ray 06/07/19 10:33 IMPRESSION: No demonstrated metallic orbital foreign body. The patient is cleared for an MRI examination. Electronically Signed: Altaf Morel MD at 10:50 EST Tel , Service support , KUB X-Ray 06/08/19 08:31 IMPRESSION: Air dilation of the colon extending to the mid descending colon. May represent colonic ileus, however, distal colonic obstruction cannot be excluded. Electronically Signed: Rodrigo Lee MD ([place]) at 14:10 EST , Service support , Abdomen CT 06/08/19 14:32 IMPRESSION: Mild nonspecific ileus. Electronically Signed: Harpal Armstrong MD at 17:23 EST , Service support , Renal Ultrasound 06/09/19 10:42 IMPRESSION: 1. No hydronephrosis or shadowing calculi. 2. Nondistended urinary bladder. Electronically Signed: Rodrigo Lee MD ([place]) at 12:02 EST , Service support , Current Medications Acetaminophen (Tylenol) 650 mg PO Q6H PRN PRN PRN Reason: Pain or Fever Last Admin: 06/10/19 09:53 Dose: 650 mg Documented by: Albuterol Sulfate (Ventolin Aerosols) 2.5 mg INHALATION Q2H PRN PRN PRN Reason: sob/wheezing Albuterol Sulfate (Ventolin Aerosols) 2.5 mg INHALATION Q6HWA.RT [facility] Last Admin: 06/10/19 09:21 Dose: 2.5 mg Documented by: Atorvastatin Calcium (Lipitor) 40 mg PO DAILY@2200 [facility] Last Admin: 06/09/19 21:52 Dose: 40 mg Documented by: Budesonide (Pulmicort Aerosol) 0.5 mg INHALATION Q12H.RT [facility] Last Admin: 06/10/19 07:11 Dose: Not Given Documented by: Dicyclomine HCl (Bentyl) 20 mg PO Q6 PRN PRN Reason: ABDOMINAL CRAMPING Last Admin: 06/08/19 12:52 Dose: 20 mg Documented by: Diphenoxylate HCl/Atropine (Lomotil) 1 tablet PO 4X/DAY PRN PRN Reason: Diarrhea Last Admin: 06/08/19 16:44 Dose: 1 tablet Documented by: Glucagon () 1 mg IM .X1 PRN PRN Reason: Hypoglycemia Guaifenesin/Codeine Phosphate (Robitussin Ac) 5 ml PO Q6H PRN PRN PRN Reason: COUGH Last Admin: 06/10/19 08:21 Dose: 5 ml Documented by: Heparin Sodium (Porcine) (Heparin Na) 5,000 unit SC Q12 [facility] Last Admin: 06/10/19 09:49 Dose: 5,000 unit Documented by: Dextrose (Dextrose 10%-Water) 250 mls @ 999 mls/hr IV .Q16M PRN; Protocol PRN Reason: HYPOGLYCEMIA Sodium Chloride () 250 mls @ 15 mls/hr IV .[id number] PRN PRN Reason: Saline Flush Last Infusion: 06/08/19 14:03 Dose: 0 mls/hr Documented by: Sodium Chloride () 250 mls @ 15 mls/hr IV .[id number] PRN PRN Reason: Additional IVPB Infusion Sodium Chloride () 1,000 mls @ 150 mls/hr IV .Q6H40M JOEY Last Infusion: 06/10/19 10:31 Dose: 150 mls/hr Documented by: Cefepime HCl 1 gm/ Sodium (Chloride) 50 mls @ 100 mls/hr IV Q24 [facility] Last Infusion: 06/10/19 10:31 Dose: Infused Documented by: Clindamycin Phosphate 600 mg/ (Dextrose) 54 mls @ 100 mls/hr IV Q8 [facility] Insulin Human Lispro (Humalog Kwikpen (Bkc)) 0 unit SC ACHS [facility]; Protocol Last Admin: 06/10/19 06:57 Dose: Not Given Documented by: Ondansetron HCl (Zofran) 4 mg IV Q8H PRN PRN PRN Reason: NAUSEA/VOMITING Oxycodone HCl (Oxyir) 5 mg PO Q4H PRN PRN PRN Reason: Pain Score 4-5/10 Oxycodone HCl (Oxyir) 10 mg PO Q4H PRN PRN PRN Reason: Pain Score 6-10/10 Last Admin: 06/09/19 11:55 Dose: 10 mg Documented by: Pantoprazole Sodium (Protonix) 40 mg PO DAILY [facility] Last Admin: 06/10/19 09:49 Dose: 40 mg Documented by: Pioglitazone HCl (Actos) 15 mg PO DAILY [facility] Last Admin: 06/09/19 08:16 Dose: 15 mg Documented by: Sodium Chloride () 10 - 40 ml IV UD PRN PRN Reason: SALINE FLUSH Last Admin: 06/08/19 09:25 Dose: 10 ml Documented by: STROKE Vital Signs/Narrative: Vital Signs Temp Pulse Resp BP Pulse Ox 06/10/19 09:23 96 16 06/10/19 09:12 97.7 F L 95 22 H 126/93 H 96 06/10/19 09:05 22 H 96 06/10/19 08:32 97.5 F L 110 H 24 H 118/72 96 Medical Necessity - Tobacco Use Smoking Status: Former smoker Tobacco Use: Cigarettes Assessment/Plan All Active Problems (Last Reviewed 06/09/19 @ 16:39 by Marisol Contreras) Severe sepsis (Acute) Cellulitis of right lower extremity (Acute) Influenza-like symptoms (Acute) Sepsis (Acute) LORIE (acute kidney injury) (Acute) 1. Sepsis due to RLE cellulitis SIRS criteria is 1/4- leucocytosis. Wbc is 12.2 MRI of the RLE on admission showed cellulitis and myofascitis, with no osteomyelitis blood cultures were negative on IV cefepime and clindamycin ID on board. 2. LORIE Cr is now up to 5.67. Cr on admission was 1.6 FeNa was 0.4, indicating a pre-renal cause; this is likely due to the diarrhea he has been having renal USG: normal kidneys, with no hydronephrosis or shadowing calculi, and no nondistended urinary bladder. urine eosinophils pending nephrology on board; patient is making clear urine. Patient counseled that if LORIE worsens, he may need temporary dialysis. 3. Type 2 diabetes mellitus with neuropathy Charcot joint of the left lower foot. Victoza and pioglitazone held. On insulin sliding scale. Accu-Cheks AC at bedtime. 4. Diarrhea C. difficile was negative. He says diarrhea is getting better, and is now more spaced out, due to the Lomotil he is on. and CT of the abdomen done yesterday showed nonspecific Ileus. 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 he is currently passing gas and still having diarrhea. diarrhea is chronic Hydrated with IV fluids and monitor. On as needed Lomotil. Did not tolerate loperamide on outpatient basis. will need follow up with GI on outpatient basis 5. Non anion gap metabolic acidosis bicarb is 12, with anion gap of 14 likely due to LORIE nephrology on board. may benefit from oral bicarb; will await ED recommendations. DVT prophylaxis: heparin Code Visit Inpatient E&M: 82920 Subs Hosp L3
[2019-06-10 11:46] LABS: Bedside Glucose 98 mg/dL (70-110)
--- NOTE | 2019-06-10 13:37 | NURSING ---
Student nurse charting reviewed.
--- NOTE | 2019-06-10 13:47 | PN.RENAL_ITS ---
Patient Problems: Active and Suspected Problems (Last Reviewed 06/09/19 @ 16:39 by Marisol Contreras) Severe sepsis (Acute) Cellulitis of right lower extremity (Acute) Influenza-like symptoms (Acute) Sepsis (Acute) LORIE (acute kidney injury) (Acute) Subjective: no new complaints says urine output is better today diarrhea is better RLE erythema is still present, somewhat better - Physical Exam Vitals/I&O's: Vital Signs Temp Pulse Resp BP Pulse Ox 97.7 F L 96 16 126/93 H 96 06/10/19 09:12 06/10/19 09:23 06/10/19 09:23 06/10/19 09:12 06/10/19 09:12 Oxygen Flow Rate (L/min) 2 Oxygen Delivery Method Room Air Weight: 155.1 kg Body Mass Index (BMI) 52.0 Finger Stick Blood Glucose 144 Intake and Output for Last 24 Hours 06/08/19 06/09/19 06/10/19 23:59 23:59 23:59 Intake Total 1935.50 / 2435.50 4705 / 4755 2359.5 / 2359.5 Output Total 120 / 120 300 / 300 Balance 1815.50 / 2315.50 4705 / 4755 2059.5 / 2059.5 General: Alert, Oriented x3, Cooperative HEENT: Atraumatic, PERRLA, EOMI, Normocephalic Neck: Supple, No JVD, Negative Carotid Bruits Lungs: Clear to auscultation, Normal air movement Cardiovascular: Regular rate, No murmurs Abdomen: Bowel Sounds Present, Soft, Non Tender Extremities: Capillary Refill Less than 3 Seconds, Edema Skin: No rashes, No breakdown Musculoskeletal: No Tenderness to Palpation of Joints or Extremities Neurological: Cranial nerves II-XII grossly intact Psych/Mental Status: Normal Affect, Appropriate Microbiology Past 72 Hours 06/09/19 08:10 Wound - Leg, Right Gram Stain - Final 06/09/19 08:10 Wound - Leg, Right Wound Culture - Preliminary No growth-Final to follow 06/06/19 21:47 Urine, Clean Catch Urine Culture - Final Culture exhibits no growth. 06/06/19 19:17 Blood Culture (Wb) - Right Hand Blood Culture - Preliminary No growth in 48 hours. 06/06/19 19:10 Blood Culture (Wb) - Anticubital Left Blood Culture - Preliminary No growth in 48 hours. 06/07/19 00:27 Stool Enteric Bacteriology - Final 06/06/19 20:06 Mucosa - Nose Respiratory Panel (PCR) - Final 06/07/19 00:27 Stool C. difficile DNA Amplification - Final Laboratory Results 06/09/19 15:15: Urine Color Yellow, Urine Clarity Clear, Urine pH 6.0, Ur Specific [place] 1.015, Urine Protein 30 H, Urine Glucose (UA) Normal, Urine Ketones Negative, Urine Occult Blood 50 H, Urine Nitrite Negative, Urine Bilirubin Negative, Urine Urobilinogen Normal, Ur Leukocyte Esterase Negative, Urine RBC 0 SEEN, Urine WBC 0-5 SEEN, Ur Squamous Epith Cells 0-5 SEEN, Urine Bacteria 0 SEEN, Urine Mucus 0 SEEN 06/09/19 16:37: POC Glucose 105 06/09/19 21:50: POC Glucose 93 06/10/19 05:12: WBC 12.2 H, RBC 3.27 L, Hgb 10.4 L, Hct 31.7 L, MCV 96.9 H, MCH 31.8, MCHC 32.8, RDW Std Deviation 50.2 H, RDW Coeff of Negra 14.2, Plt Count 321, MPV 9.3, Immature Gran % (Auto) 2.900 H, Neut % (Auto) 78.6 H, Lymph % (Auto) 8.9 L, Rhea % (Auto) 7.0, Eos % (Auto) 2.1, Baso % (Auto) 0.5, Absolute Neuts (auto) 9.6 H, Absolute Lymphs (auto) 1.09, Nucleated RBC % 0 06/10/19 05:12: Sodium 136, Potassium 3.5, Chloride 110 H, Carbon Dioxide 12.0 L , Anion Gap 14, BUN 42 H, Creatinine 5.67 H, Estim Creat Clear Calc 14.24, Est GFR (MDRD) Af Amer 13 L, Est GFR (MDRD) Non-Af 11 L, BUN/Creatinine Ratio 7.4 L, Glucose 103, Calcium 8.1 L 06/10/19 06:39: POC Glucose 102 06/10/19 11:42: POC Glucose 98 Current Medications Acetaminophen (Tylenol) 650 mg PO Q6H PRN PRN PRN Reason: Pain or Fever Last Admin: 06/10/19 09:53 Dose: 650 mg Documented by: Albuterol Sulfate (Ventolin Aerosols) 2.5 mg INHALATION Q2H PRN PRN PRN Reason: sob/wheezing Albuterol Sulfate (Ventolin Aerosols) 2.5 mg INHALATION Q6HWA.RT [facility] Last Admin: 06/10/19 13:38 Dose: 2.5 mg Documented by: Atorvastatin Calcium (Lipitor) 40 mg PO DAILY@2200 [facility] Last Admin: 06/09/19 21:52 Dose: 40 mg Documented by: Budesonide (Pulmicort Aerosol) 0.5 mg INHALATION Q12H.RT [facility] Last Admin: 06/10/19 07:11 Dose: Not Given Documented by: Dicyclomine HCl (Bentyl) 20 mg PO Q6 PRN PRN Reason: ABDOMINAL CRAMPING Last Admin: 06/08/19 12:52 Dose: 20 mg Documented by: Diphenoxylate HCl/Atropine (Lomotil) 1 tablet PO 4X/DAY PRN PRN Reason: Diarrhea Last Admin: 06/08/19 16:44 Dose: 1 tablet Documented by: Glucagon () 1 mg IM .X1 PRN PRN Reason: Hypoglycemia Guaifenesin/Codeine Phosphate (Robitussin Ac) 5 ml PO Q6H PRN PRN PRN Reason: COUGH Last Admin: 06/10/19 08:21 Dose: 5 ml Documented by: Heparin Sodium (Porcine) (Heparin Na) 5,000 unit SC Q12 [facility] Last Admin: 06/10/19 09:49 Dose: 5,000 unit Documented by: Dextrose (Dextrose 10%-Water) 250 mls @ 999 mls/hr IV .Q16M PRN; Protocol PRN Reason: HYPOGLYCEMIA Sodium Chloride () 250 mls @ 15 mls/hr IV .[id number] PRN PRN Reason: Saline Flush Last Infusion: 06/08/19 14:03 Dose: 0 mls/hr Documented by: Sodium Chloride () 250 mls @ 15 mls/hr IV .[id number] PRN PRN Reason: Additional IVPB Infusion Cefepime HCl 1 gm/ Sodium (Chloride) 50 mls @ 100 mls/hr IV Q24 [facility] Last Infusion: 06/10/19 10:31 Dose: Infused Documented by: Clindamycin Phosphate 600 mg/ (Dextrose) 54 mls @ 100 mls/hr IV Q8 [facility] Sodium Bicarbonate 150 meq/ (Dextrose) 1,150 mls @ 75 mls/hr IV .[id number] [facility] Insulin Human Lispro (Humalog Kwikpen (Bkc)) 0 unit SC ACHS [facility]; Protocol Last Admin: 06/10/19 11:48 Dose: Not Given Documented by: Ondansetron HCl (Zofran) 4 mg IV Q8H PRN PRN PRN Reason: NAUSEA/VOMITING Oxycodone HCl (Oxyir) 5 mg PO Q4H PRN PRN PRN Reason: Pain Score 4-5/10 Oxycodone HCl (Oxyir) 10 mg PO Q4H PRN PRN PRN Reason: Pain Score 6-10/10 Last Admin: 06/09/19 11:55 Dose: 10 mg Documented by: Pantoprazole Sodium (Protonix) 40 mg PO DAILY [facility] Last Admin: 06/10/19 09:49 Dose: 40 mg Documented by: Pioglitazone HCl (Actos) 15 mg PO DAILY [facility] Last Admin: 06/09/19 08:16 Dose: 15 mg Documented by: Sodium Chloride () 10 - 40 ml IV UD PRN PRN Reason: SALINE FLUSH Last Admin: 06/08/19 09:25 Dose: 10 ml Documented by: Medical Necessity - Tobacco Use Smoking Status: Former smoker Tobacco Use: Cigarettes Assessment/Plan All Active Problems (Last Reviewed 06/09/19 @ 16:39 by Marisol Contreras) Severe sepsis (Acute) Cellulitis of right lower extremity (Acute) Influenza-like symptoms (Acute) Sepsis (Acute) LORIE (acute kidney injury) (Acute) LORIE. reviewed records from [facility]. baseline creatinine as of Mar 2019 was around 1.0. admitted with 1.6 and now upto 5.6. repeat UA shows some protein, very few RBC, some WBC renal US is ok BP is ok urine eos pending will send c3 levels differential includes ATN from sepsis,vanco vs infection related GN. FeNa was low but did not respond to fluids for 2 days if renal function continues to get worse he may need dialysis and biopsy explained to him and family member about current plan keep NPO after midnight just in case he needs TDC hold heparin tomorrow ams dose Cellulitis. on abx as per primary Thank you
[2019-06-10 15:51] LABS: Bedside Glucose 131 mg/dL (70-110)
[2019-06-10] MEDS: Budesonide Respules 0.5 MG/2 ML AMPUL.NEB. INHALATION (19:17)
[2019-06-10] MEDS: Atorvastatin Calcium 40 MG Tablet PO (21:13)
--- NOTE | 2019-06-10 21:58 | NURSING ---
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
[2019-06-10 22:25] LABS: Bedside Glucose 194 mg/dL (70-110)
[2019-06-11] VITALS (9 sets, daily range): BP systolic 132–144; BP diastolic 80–95; PULSE 85–101; RESP 16–22; TEMP 36.5–37.2; O2SAT 93–99
[2019-06-11] MEDS: Albuterol 2.5 MG/3 ML VIAL.NEB. INHALATION ×4 (02:25→19:25)
--- NOTE | 2019-06-11 05:00 | EKG12_ITS ---
Test Reason : AM Blood Pressure : / mmHG Vent. Rate : 087 BPM Atrial Rate : 087 BPM P-R Int : 150 ms QRS Dur : 102 ms QT Int : 440 ms P-R-T Axes : 026 066 060 degrees QTc Int : 529 ms Normal sinus rhythm Nonspecific T wave abnormality Abnormal ECG When compared with ECG of 06-JUN-2019 20:05, T wave inversion no longer evident in Inferior leads Nonspecific T wave abnormality has replaced inverted T waves in Lateral leads QT has lengthened Confirmed by ANNE GONZALEZ, AUDIE ([id number]), editor newspaper MANDEEP MALAVE ([id number]) on 06/17/2019 8:43:28 AM Referred By: Donnell Edwards Confirmed By:AUDIE RODRÍGUEZ MD
[2019-06-11 06:01] LABS: Absolute Lymphocyte Count 1.08 X10^3/uL (0.83-4.51); Absolute Neutrophil Count 9.3 X10^3/uL (2.0-7.7); Basophil# 0.06 X10^3/uL; Basophil% 0.5 % (0-1); Eosinophil# 0.27 X10^3/uL; Eosinophils% 2.2 % (0-5); Hematocrit 28.9 % (40-54); Hemoglobin 9.8 g/dL (13.0-16.5); Lymphocyte # 1.08 X10^3/ul (4.0); Lymphocyte % 8.8 % (19-41); Mean Corp Hgb Conc 33.9 g/dL (32-36); Mean Corpuscular Hgb 31.9 pg (27.0-32.0); Mean Corpuscular Volume 94.1 fL (80-94); Mean Platelet Vol. 9.4 fl (6.2-12.0); Monocyte# 1.08 X10^3/uL; Monocyte% 8.8 % (0-10); NRBC Flagged by Analyzer 0 % (0-5); Neutrophil # 9.31 X10^3/uL (2.7-7.7); Neutrophil % 76.2 % (47-70); Platelet Count 354 K/mm3 (150-450); RBC Distribution Width CV 14.2 % (11.6-14.6); RBC Distribution Width SD 47.7 fl (35.1-43.9); Red Blood Count 3.07 M/mm3 (4.6-6.2); White Blood Count 12.2 K/mm3 (4.4-11.0)
[2019-06-11 06:07] LABS: Partial Thromboplast Time 27.8 Seconds (24.1-36.2)
[2019-06-11] MEDS: 0.9% Saline Lock 10 ML Syringe IV (06:19)
[2019-06-11 06:31] LABS: Anion Gap 11 (5-15); BUN 46 mg/dL (7-18); BUN/Creat Ratio 8.2 RATIO (10-20); Calcium,Total 8.7 mg/dL (8.5-10.1); Chloride 112 mmol/L (98-107); Creatinine, Serum 5.61 mg/dL (0.70-1.30); EST Glomerular Filtration Rate 11 mL/min (>60); Est Glom Filt Rate - Afr Amer 14 mL/min (>60); Estimated Creatinine Clearance 14.39 ml/min; Glucose 143 mg/dL (74-106); Potassium 2.9 mmol/L (3.5-5.1); Sodium Level 136 mmol/L (136-145)
[2019-06-11] MEDS: Acetaminophen 325 MG Tablet 650 MG PO (06:33)
[2019-06-11] MEDS: guaiFENesin/Codeine 5 ML UDC PO ×2 (06:33→22:12)
[2019-06-11 06:50] LABS: Bedside Glucose 138 mg/dL (70-110)
[2019-06-11] MEDS: Budesonide Respules 0.5 MG/2 ML AMPUL.NEB. INHALATION ×2 (07:13→19:25)
[2019-06-11] MEDS: Potassium Chloride 10mEq/100mL 10 MEQ/100 ML IV.SOLN. 100 MEQ IV BOLUS ×3 (08:49→11:15)
--- NOTE | 2019-06-11 09:17 | NURSING ---
per Dr. Cortés it is ok for pt to have a midline placed 06/11/2019
--- NOTE | 2019-06-11 09:55 | PN_ITS ---
Patient Problems: Active and Suspected Problems (Last Reviewed 06/09/19 @ 16:39 by Marisol Contreras) Severe sepsis (Acute) Cellulitis of right lower extremity (Acute) Influenza-like symptoms (Acute) Sepsis (Acute) LORIE (acute kidney injury) (Acute) Subjective: Patient seen and examined. Shortness of breath is improved and he has no pain in his right lower extremity. He denies any chest pain, fever or chills, nausea or vomiting. Diarrhea is also getting better with the Lomotil. Labs and vitals reviewed. Potassium is 2.9 today and creatinine is trended down slightly to 5.61. Bicarb is 13 today. WBC is 12.2. Vitals/I&O's: Vital Signs Temp Pulse Resp BP Pulse Ox 97.9 F 85 16 135/95 H 93 06/11/19 09:38 06/11/19 09:38 06/11/19 09:45 06/11/19 09:38 06/11/19 09:38 Oxygen Flow Rate (L/min) 2 Oxygen Delivery Method Room Air Weight: 341 lb 14.991 oz Body Mass Index (BMI) 52.0 Finger Stick Blood Glucose 144 Intake and Output for Last 24 Hours 06/09/19 06/10/19 06/11/19 23:59 23:59 23:59 Intake Total 4705 / 4755 3495.0 / 3495.0 1604.00 / 1604.00 Output Total 550 / 550 Balance 4705 / 4755 2945.0 / 2945.0 1604.00 / 1604.00 General: Alert, Oriented x3, Cooperative, No apparent distress, morbidly obese HEENT: Atraumatic, PERRLA, EOMI, Normocephalic Oral: Moist Mucosa Neck: Supple, No JVD, Negative Carotid Bruits Lungs: coarse expiratory wheezing and rhonchi in all lung rene bilaterally, on room air Cardiovascular: Regular rate, Normal S1, Normal S2, No murmurs, Tachycardic Abdomen: Bowel Sounds Present, Soft, Non Tender, Non-Distended, No Hepato- splenomegaly Extremities: No clubbing, No cyanosis Musculoskeletal: - - RLE wrapped in KINJAL bandage Lymphatic: No Cervical, Supraclavicular, or Inguinal Adenopathy Neurological: Cranial nerves II-XII grossly intact Psych/Mental Status: Normal Affect, Appropriate, Alert and oriented to time, place, person, mood and affect Microbiology Past 72 Hours 06/09/19 08:10 Wound - Leg, Right Gram Stain - Final 06/09/19 08:10 Wound - Leg, Right Wound Culture - Final No growth aerobically. 06/06/19 21:47 Urine, Clean Catch Urine Culture - Final Culture exhibits no growth. 06/06/19 19:17 Blood Culture (Wb) - Right Hand Blood Culture - Preliminary No growth in 48 hours. 06/06/19 19:10 Blood Culture (Wb) - Anticubital Left Blood Culture - Preliminary No growth in 48 hours. 06/07/19 00:27 Stool Enteric Bacteriology - Final Laboratory Results 06/10/19 11:42: POC Glucose 98 06/10/19 15:49: POC Glucose 131 H 06/10/19 21:26: POC Glucose 194 H 06/11/19 05:46: WBC 12.2 H, RBC 3.07 L, Hgb 9.8 L, Hct 28.9 L, MCV 94.1 H, MCH 31.9, MCHC 33.9, RDW Std Deviation 47.7 H, RDW Coeff of Negra 14.2, Plt Count 354, MPV 9.4, Immature Gran % (Auto) 3.500 H, Neut % (Auto) 76.2 H, Lymph % (Auto) 8.8 L, [place] % (Auto) 8.8, Eos % (Auto) 2.2, Baso % (Auto) 0.5, Absolute Neuts (auto) 9.3 H, Absolute Lymphs (auto) 1.08, Nucleated RBC % 0 06/11/19 05:46: Sodium 136, Potassium 2.9 L, Chloride 112 H, Carbon Dioxide 13.0 L, Anion Gap 11, BUN 46 H, Creatinine 5.61 H, Estim Creat Clear Calc 14.39, Est GFR (MDRD) Af Amer 14 L, Est GFR (MDRD) Non-Af 11 L, BUN/Creatinine Ratio 8.2 L, Glucose 143 H, Calcium 8.7 06/11/19 05:46: Complement C3 Pending 06/11/19 05:46: Hemoglobin A1c 6.0 06/11/19 05:46: APTT 27.8 06/11/19 06:21: POC Glucose 138 H Current Medications Acetaminophen (Tylenol) 650 mg PO Q6H PRN PRN PRN Reason: Pain or Fever Last Admin: 06/11/19 06:33 Dose: 650 mg Documented by: Albuterol Sulfate (Ventolin Aerosols) 2.5 mg INHALATION Q2H PRN PRN PRN Reason: sob/wheezing Last Admin: 06/11/19 02:25 Dose: 2.5 mg Documented by: Albuterol Sulfate (Ventolin Aerosols) 2.5 mg INHALATION Q6HWA.RT [facility] Last Admin: 06/11/19 07:13 Dose: 2.5 mg Documented by: Atorvastatin Calcium (Lipitor) 40 mg PO DAILY@2200 [facility] Last Admin: 06/10/19 21:13 Dose: 40 mg Documented by: Budesonide (Pulmicort Aerosol) 0.5 mg INHALATION Q12H.RT [facility] Last Admin: 06/11/19 07:13 Dose: 0.5 mg Documented by: Dicyclomine HCl (Bentyl) 20 mg PO Q6 PRN PRN Reason: ABDOMINAL CRAMPING Last Admin: 06/08/19 12:52 Dose: 20 mg Documented by: Diphenoxylate HCl/Atropine (Lomotil) 1 tablet PO 4X/DAY PRN PRN Reason: Diarrhea Last Admin: 06/08/19 16:44 Dose: 1 tablet Documented by: Glucagon () 1 mg IM .X1 PRN PRN Reason: Hypoglycemia Guaifenesin/Codeine Phosphate (Robitussin Ac) 5 ml PO Q6H PRN PRN PRN Reason: COUGH Last Admin: 06/11/19 06:33 Dose: 5 ml Documented by: Heparin Sodium (Porcine) (Heparin Na) 5,000 unit SC Q12 [facility] Last Admin: 06/10/19 21:12 Dose: 5,000 unit Documented by: Dextrose (Dextrose 10%-Water) 250 mls @ 999 mls/hr IV .Q16M PRN; Protocol PRN Reason: HYPOGLYCEMIA Sodium Chloride () 250 mls @ 15 mls/hr IV .[id number] PRN PRN Reason: Saline Flush Last Infusion: 06/10/19 21:30 Dose: Infused Documented by: Sodium Chloride () 250 mls @ 15 mls/hr IV .[id number] PRN PRN Reason: Additional IVPB Infusion Cefepime HCl 1 gm/ Sodium (Chloride) 50 mls @ 100 mls/hr IV Q24 [facility] Last Infusion: 06/10/19 10:31 Dose: Infused Documented by: Clindamycin Phosphate 600 mg/ (Dextrose) 54 mls @ 100 mls/hr IV Q8 [facility] Last Infusion: 06/11/19 06:52 Dose: Infused Documented by: Sodium Bicarbonate 150 meq/ (Dextrose) 1,150 mls @ 75 mls/hr IV .[id number] [facility] Last Admin: 06/11/19 08:49 Dose: 75 mls/hr Documented by: Potassium Chloride () 10 meq in 100 mls @ 100 mls/hr IV BOLUS Q1H [facility] Stop: 06/11/19 11:59 Last Admin: 06/11/19 08:49 Dose: 100 mls/hr Documented by: Insulin Human Lispro (Humalog Kwikpen (Bkc)) 0 unit SC ACHS [facility]; Protocol Last Admin: 06/11/19 06:22 Dose: Not Given Documented by: Ondansetron HCl (Zofran) 4 mg IV Q8H PRN PRN PRN Reason: NAUSEA/VOMITING Oxycodone HCl (Oxyir) 5 mg PO Q4H PRN PRN PRN Reason: Pain Score 4-5/10 Oxycodone HCl (Oxyir) 10 mg PO Q4H PRN PRN PRN Reason: Pain Score 6-10/10 Last Admin: 06/09/19 11:55 Dose: 10 mg Documented by: Pantoprazole Sodium (Protonix) 40 mg PO DAILY [facility] Last Admin: 06/10/19 09:49 Dose: 40 mg Documented by: Pioglitazone HCl (Actos) 15 mg PO DAILY [facility] Last Admin: 06/09/19 08:16 Dose: 15 mg Documented by: Sodium Chloride () 10 - 40 ml IV UD PRN PRN Reason: SALINE FLUSH Last Admin: 06/11/19 06:19 Dose: 20 ml Documented by: STROKE Vital Signs/Narrative: Vital Signs Temp Pulse Resp BP Pulse Ox 06/11/19 09:45 16 06/11/19 09:38 97.9 F 85 18 135/95 H 93 06/11/19 07:13 88 22 H 94 Medical Necessity - Tobacco Use Smoking Status: Former smoker Tobacco Use: Cigarettes Assessment/Plan All Active Problems (Last Reviewed 06/09/19 @ 16:39 by Marisol Contreras) Severe sepsis (Acute) Cellulitis of right lower extremity (Acute) Influenza-like symptoms (Acute) Sepsis (Acute) LORIE (acute kidney injury) (Acute) 1. Sepsis due to RLE cellulitis * SIRS criteria is 1/4- leucocytosis. Wbc is still 12.2 * MRI of the RLE on admission showed cellulitis and myofascitis, with no osteomyelitis * blood cultures were negative * on IV cefepime and clindamycin * ID on board- agree with IV cefepime and clindamycin; today is day 4 of IV antibiotics. Will discuss with ID about switching to oral antibiotics after day 5. * 2. LORIE * Cr today has trended down slightly to 5.61 from 5.67 yesterday * FeNa was 0.4, indicating a pre-renal cause; this is likely due to the diarrhea he has been having * renal USG: normal kidneys, with no hydronephrosis or shadowing calculi, and no nondistended urinary bladder. * urine eosinophils pending * nephrology on board; plan for short term dialysis and kidney biopsy now on hold since Cr has started trending down. * 3. 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 * Victoza and pioglitazone held. On insulin sliding scale. Accu-Cheks AC at bedtime. * 4. Diarrhea * C. difficile was negative and stool enteric pathogen screen is also negative * being hydrated with IVF * on lomotil prn * counseled that he will need GI follow up afterwards. 5. Non anion gap metabolic acidosis * bicarb is 13, with anion gap of 11 * likely due to LORIE * nephrology on board. * DVT prophylaxis: heparin Code Visit Inpatient E&M: 94648 Subs Hosp L2
[2019-06-11] MEDS: Pantoprazole Sodium 40 MG Tablet PO (09:59)
[2019-06-11 11:11] LABS: Bedside Glucose 149 mg/dL (70-110)
[2019-06-11 11:34] LABS: Eosinophil Ct. Urine No Eosinophils Seen % (.)
[2019-06-11] MEDS: Potassium Chloride 10mEq/100mL 10 MEQ/100 ML IV.SOLN. 80 MEQ IV BOLUS (12:32)
--- NOTE | 2019-06-11 14:41 | PN.ID_ITS ---
Patient Problems: Active and Suspected Problems (Last Reviewed 06/09/19 @ 16:39 by Marisol Contreras) Severe sepsis (Acute) Cellulitis of right lower extremity (Acute) Influenza-like symptoms (Acute) Sepsis (Acute) LORIE (acute kidney injury) (Acute) Subjective: Frustrated being in the hospital. Leg feeling better, diarrhea slowing, no fever. - Physical Exam Vitals/I&O's: Vital Signs Temp Pulse Resp BP Pulse Ox 97.9 F 94 22 H 135/95 H 97 06/11/19 09:38 06/11/19 13:28 06/11/19 13:28 06/11/19 09:38 06/11/19 13:28 Oxygen Flow Rate (L/min) 2 Oxygen Delivery Method Room Air Weight: 155.1 kg Body Mass Index (BMI) 52.0 Finger Stick Blood Glucose 144 Intake and Output for Last 24 Hours 06/09/19 06/10/19 06/11/19 23:59 23:59 23:59 Intake Total 4705 / 4755 3495.0 / 3495.0 / Output Total 550 / 550 Balance 4705 / 4755 2945.0 / 2945.0 / 34 General: Alert, Cooperative, No apparent distress Lungs: Using Accessory Muscles Cardiovascular: Regular rate, Regular Rhythm Abdomen: Soft, Non Tender, Non-Distended Extremities: Edema Microbiology Past 72 Hours 06/09/19 08:10 Wound - Leg, Right Gram Stain - Final 06/09/19 08:10 Wound - Leg, Right Wound Culture - Final No growth aerobically. 06/06/19 21:47 Urine, Clean Catch Urine Culture - Final Culture exhibits no growth. 06/06/19 19:17 Blood Culture (Wb) - Right Hand Blood Culture - Preliminary No growth in 48 hours. 06/06/19 19:10 Blood Culture (Wb) - Anticubital Left Blood Culture - Preliminary No growth in 48 hours. 06/07/19 00:27 Stool Enteric Bacteriology - Final Laboratory Results 06/08/19 15:25: Eos Smear Total Cells No Eosinophils Seen 06/10/19 15:49: POC Glucose 131 H 06/10/19 21:26: POC Glucose 194 H 06/11/19 05:46: WBC 12.2 H, RBC 3.07 L, Hgb 9.8 L, Hct 28.9 L, MCV 94.1 H, MCH 31.9, MCHC 33.9, RDW Std Deviation 47.7 H, RDW Coeff of Negra 14.2, Plt Count 354, MPV 9.4, Immature Gran % (Auto) 3.500 H, Neut % (Auto) 76.2 H, Lymph % (Auto) 8.8 L, [place] % (Auto) 8.8, Eos % (Auto) 2.2, Baso % (Auto) 0.5, Absolute Neuts (auto) 9.3 H, Absolute Lymphs (auto) 1.08, Nucleated RBC % 0 06/11/19 05:46: Sodium 136, Potassium 2.9 L, Chloride 112 H, Carbon Dioxide 13.0 L, Anion Gap 11, BUN 46 H, Creatinine 5.61 H, Estim Creat Clear Calc 14.39, Est GFR (MDRD) Af Amer 14 L, Est GFR (MDRD) Non-Af 11 L, BUN/Creatinine Ratio 8.2 L, Glucose 143 H, Calcium 8.7 06/11/19 05:46: Complement C3 Pending 06/11/19 05:46: Hemoglobin A1c 6.0 06/11/19 05:46: APTT 27.8 06/11/19 06:21: POC Glucose 138 H 06/11/19 11:00: POC Glucose 149 H Current Medications Acetaminophen (Tylenol) 650 mg PO Q6H PRN PRN PRN Reason: Pain or Fever Last Admin: 06/11/19 06:33 Dose: 650 mg Documented by: Albuterol Sulfate (Ventolin Aerosols) 2.5 mg INHALATION Q2H PRN PRN PRN Reason: sob/wheezing Last Admin: 06/11/19 02:25 Dose: 2.5 mg Documented by: Albuterol Sulfate (Ventolin Aerosols) 2.5 mg INHALATION Q6HWA.RT [facility] Last Admin: 06/11/19 13:28 Dose: 2.5 mg Documented by: Atorvastatin Calcium (Lipitor) 40 mg PO DAILY@2200 [facility] Last Admin: 06/10/19 21:13 Dose: 40 mg Documented by: Budesonide (Pulmicort Aerosol) 0.5 mg INHALATION Q12H.RT [facility] Last Admin: 06/11/19 07:13 Dose: 0.5 mg Documented by: Dicyclomine HCl (Bentyl) 20 mg PO Q6 PRN PRN Reason: ABDOMINAL CRAMPING Last Admin: 06/08/19 12:52 Dose: 20 mg Documented by: Diphenoxylate HCl/Atropine (Lomotil) 1 tablet PO 4X/DAY PRN PRN Reason: Diarrhea Last Admin: 06/08/19 16:44 Dose: 1 tablet Documented by: Glucagon () 1 mg IM .X1 PRN PRN Reason: Hypoglycemia Guaifenesin/Codeine Phosphate (Robitussin Ac) 5 ml PO Q6H PRN PRN PRN Reason: COUGH Last Admin: 06/11/19 06:33 Dose: 5 ml Documented by: Heparin Sodium (Porcine) (Heparin Na) 5,000 unit SC Q12 [facility] Last Admin: 06/10/19 21:12 Dose: 5,000 unit Documented by: Dextrose (Dextrose 10%-Water) 250 mls @ 999 mls/hr IV .Q16M PRN; Protocol PRN Reason: HYPOGLYCEMIA Sodium Chloride () 250 mls @ 15 mls/hr IV .[id number] PRN PRN Reason: Saline Flush Last Infusion: 06/10/19 21:30 Dose: Infused Documented by: Sodium Chloride () 250 mls @ 15 mls/hr IV .[id number] PRN PRN Reason: Additional IVPB Infusion Cefepime HCl 1 gm/ Sodium (Chloride) 50 mls @ 100 mls/hr IV Q24 [facility] Last Infusion: 06/11/19 10:29 Dose: Infused Documented by: Clindamycin Phosphate 600 mg/ (Dextrose) 54 mls @ 100 mls/hr IV Q8 [facility] Last Admin: 06/11/19 14:37 Dose: 100 mls/hr Documented by: Sodium Bicarbonate 150 meq/ (Dextrose) 1,150 mls @ 75 mls/hr IV .[id number] [facility] Last Admin: 06/11/19 08:49 Dose: 75 mls/hr Documented by: Insulin Human Lispro (Humalog Kwikpen (Bkc)) 0 unit SC ACHS [facility]; Protocol Last Admin: 06/11/19 11:16 Dose: Not Given Documented by: Ondansetron HCl (Zofran) 4 mg IV Q8H PRN PRN PRN Reason: NAUSEA/VOMITING Oxycodone HCl (Oxyir) 5 mg PO Q4H PRN PRN PRN Reason: Pain Score 4-5/10 Oxycodone HCl (Oxyir) 10 mg PO Q4H PRN PRN PRN Reason: Pain Score 6-10/10 Last Admin: 06/09/19 11:55 Dose: 10 mg Documented by: Pantoprazole Sodium (Protonix) 40 mg PO DAILY [facility] Last Admin: 06/11/19 09:59 Dose: 40 mg Documented by: Pioglitazone HCl (Actos) 15 mg PO DAILY [facility] Last Admin: 06/09/19 08:16 Dose: 15 mg Documented by: Sodium Chloride () 10 - 40 ml IV UD PRN PRN Reason: SALINE FLUSH Last Admin: 06/11/19 06:19 Dose: 20 ml Documented by: Medical Necessity - Tobacco Use Smoking Status: Former smoker Tobacco Use: Cigarettes Route of nutrition/ use of supplements: [] Nutritional Intake: [] IV Site: [] Boyce Catheter: [] - Assessment/Plan Antibiotics: [] Assessment/Plan: [] Active and Suspected Problems (Last Reviewed 06/09/19 @ 16:39 by Marisol Contreras) Severe sepsis (Acute) Cellulitis of right lower extremity (Acute) Influenza-like symptoms (Acute) Sepsis (Acute) LORIE (acute kidney injury) (Acute) severe sepsis with LORIE due to RLE cellulitis with DM neuropathy. Flu pcr was neg. Stool pcr was neg. Overall feeling better, diarrhea resolved, fever resolved, but worsening Cr. Vanc trough elevated, improving. No sign of osteo on MRI. Cont clinda/cefepime. Wound cx neg so far. Plan on stopping abx in next 1-2 days. Will follow
[2019-06-11 16:36] LABS: Bedside Glucose 165 mg/dL (70-110)
[2019-06-11] MEDS: Insulin Lispro 100 UNIT/ML INSULN.PEN SC ×2 (16:38→22:07)
--- NOTE | 2019-06-11 17:36 | PN.RENAL_ITS ---
Patient Problems: Active and Suspected Problems (Last Reviewed 06/09/19 @ 16:39 by Marisol Contreras) Severe sepsis (Acute) Cellulitis of right lower extremity (Acute) Influenza-like symptoms (Acute) Sepsis (Acute) LORIE (acute kidney injury) (Acute) Subjective: Following for LORIE. Pt denies CP, SOB, nausea. Subjectively making more urine (urine volume not recorded). Still has diarrhea, but improving. - Physical Exam Vitals/I&O's: Vital Signs Temp Pulse Resp BP Pulse Ox 99.0 F 94 18 140/84 H 95 06/11/19 16:41 06/11/19 16:41 06/11/19 16:41 06/11/19 16:41 06/11/19 16:41 Oxygen Flow Rate (L/min) 2 Oxygen Delivery Method Room Air Weight: 155.1 kg Body Mass Index (BMI) 52.0 Finger Stick Blood Glucose 144 Intake and Output for Last 24 Hours 06/09/19 06/10/19 06/11/19 23:59 23:59 23:59 Intake Total 4705 / 4755 3495.0 / 3495.0 Output Total 550 / 550 Balance 4705 / 4755 2945.0 / 2945.0 2005. General: Alert, Oriented x3 HEENT: Atraumatic, EOMI Oral: Moist Mucosa Neck: Supple Lungs: Clear to auscultation Cardiovascular: Normal S1, Normal S2, No murmurs Abdomen: Bowel Sounds Present, Soft, Non Tender Extremities: Edema - 4+ BL Microbiology Past 72 Hours 06/09/19 08:10 Wound - Leg, Right Gram Stain - Final 06/09/19 08:10 Wound - Leg, Right Wound Culture - Final No growth aerobically. 06/06/19 21:47 Urine, Clean Catch Urine Culture - Final Culture exhibits no growth. 06/06/19 19:17 Blood Culture (Wb) - Right Hand Blood Culture - Preliminary No growth in 48 hours. 06/06/19 19:10 Blood Culture (Wb) - Anticubital Left Blood Culture - Preliminary No growth in 48 hours. 06/07/19 00:27 Stool Enteric Bacteriology - Final Laboratory Results 06/08/19 15:25: Eos Smear Total Cells No Eosinophils Seen 06/10/19 21:26: POC Glucose 194 H 06/11/19 05:46: WBC 12.2 H, RBC 3.07 L, Hgb 9.8 L, Hct 28.9 L, MCV 94.1 H, MCH 31.9, MCHC 33.9, RDW Std Deviation 47.7 H, RDW Coeff of Negra 14.2, Plt Count 354, MPV 9.4, Immature Gran % (Auto) 3.500 H, Neut % (Auto) 76.2 H, Lymph % (Auto) 8.8 L, [place] % (Auto) 8.8, Eos % (Auto) 2.2, Baso % (Auto) 0.5, Absolute Neuts (auto) 9.3 H, Absolute Lymphs (auto) 1.08, Nucleated RBC % 0 06/11/19 05:46: Sodium 136, Potassium 2.9 L, Chloride 112 H, Carbon Dioxide 13.0 L, Anion Gap 11, BUN 46 H, Creatinine 5.61 H, Estim Creat Clear Calc 14.39, Est GFR (MDRD) Af Amer 14 L, Est GFR (MDRD) Non-Af 11 L, BUN/Creatinine Ratio 8.2 L, Glucose 143 H, Calcium 8.7 06/11/19 05:46: Complement C3 Pending 06/11/19 05:46: Hemoglobin A1c 6.0 06/11/19 05:46: APTT 27.8 06/11/19 06:21: POC Glucose 138 H 06/11/19 11:00: POC Glucose 149 H 06/11/19 16:29: POC Glucose 165 H Current Medications Acetaminophen (Tylenol) 650 mg PO Q6H PRN PRN PRN Reason: Pain or Fever Last Admin: 06/11/19 06:33 Dose: 650 mg Documented by: Albuterol Sulfate (Ventolin Aerosols) 2.5 mg INHALATION Q2H PRN PRN PRN Reason: sob/wheezing Last Admin: 06/11/19 02:25 Dose: 2.5 mg Documented by: Albuterol Sulfate (Ventolin Aerosols) 2.5 mg INHALATION Q6HWA.RT [facility] Last Admin: 06/11/19 13:28 Dose: 2.5 mg Documented by: Atorvastatin Calcium (Lipitor) 40 mg PO DAILY@2200 [facility] Last Admin: 06/10/19 21:13 Dose: 40 mg Documented by: Budesonide (Pulmicort Aerosol) 0.5 mg INHALATION Q12H.RT [facility] Last Admin: 06/11/19 07:13 Dose: 0.5 mg Documented by: Dicyclomine HCl (Bentyl) 20 mg PO Q6 PRN PRN Reason: ABDOMINAL CRAMPING Last Admin: 06/08/19 12:52 Dose: 20 mg Documented by: Diphenoxylate HCl/Atropine (Lomotil) 1 tablet PO 4X/DAY PRN PRN Reason: Diarrhea Last Admin: 06/08/19 16:44 Dose: 1 tablet Documented by: Glucagon () 1 mg IM .X1 PRN PRN Reason: Hypoglycemia Guaifenesin/Codeine Phosphate (Robitussin Ac) 5 ml PO Q6H PRN PRN PRN Reason: COUGH Last Admin: 06/11/19 06:33 Dose: 5 ml Documented by: Heparin Sodium (Porcine) (Heparin Na) 5,000 unit SC Q12 [facility] Last Admin: 06/10/19 21:12 Dose: 5,000 unit Documented by: Dextrose (Dextrose 10%-Water) 250 mls @ 999 mls/hr IV .Q16M PRN; Protocol PRN Reason: HYPOGLYCEMIA Sodium Chloride () 250 mls @ 15 mls/hr IV .[id number] PRN PRN Reason: Saline Flush Last Infusion: 06/10/19 21:30 Dose: Infused Documented by: Sodium Chloride () 250 mls @ 15 mls/hr IV .[id number] PRN PRN Reason: Additional IVPB Infusion Cefepime HCl 1 gm/ Sodium (Chloride) 50 mls @ 100 mls/hr IV Q24 [facility] Last Infusion: 06/11/19 10:29 Dose: Infused Documented by: Clindamycin Phosphate 600 mg/ (Dextrose) 54 mls @ 100 mls/hr IV Q8 [facility] Last Infusion: 06/11/19 15:10 Dose: Infused Documented by: Sodium Bicarbonate 150 meq/ (Dextrose) 1,150 mls @ 75 mls/hr IV .[id number] [facility] Last Admin: 06/11/19 08:49 Dose: 75 mls/hr Documented by: Insulin Human Lispro (Humalog Kwikpen (Bkc)) 0 unit SC ACHS [facility]; Protocol Last Admin: 06/11/19 16:38 Dose: 1 u Documented by: Ondansetron HCl (Zofran) 4 mg IV Q8H PRN PRN PRN Reason: NAUSEA/VOMITING Oxycodone HCl (Oxyir) 5 mg PO Q4H PRN PRN PRN Reason: Pain Score 4-5/10 Oxycodone HCl (Oxyir) 10 mg PO Q4H PRN PRN PRN Reason: Pain Score 6-10/10 Last Admin: 06/09/19 11:55 Dose: 10 mg Documented by: Pantoprazole Sodium (Protonix) 40 mg PO DAILY [facility] Last Admin: 06/11/19 09:59 Dose: 40 mg Documented by: Pioglitazone HCl (Actos) 15 mg PO DAILY [facility] Last Admin: 06/09/19 08:16 Dose: 15 mg Documented by: Sodium Chloride () 10 - 40 ml IV UD PRN PRN Reason: SALINE FLUSH Last Admin: 06/11/19 06:19 Dose: 20 ml Documented by: Medical Necessity - Tobacco Use Smoking Status: Former smoker Tobacco Use: Cigarettes Assessment/Plan All Active Problems (Last Reviewed 06/09/19 @ 16:39 by Marisol Contreras) Severe sepsis (Acute) Cellulitis of right lower extremity (Acute) Influenza-like symptoms (Acute) Sepsis (Acute) LORIE (acute kidney injury) (Acute) 1. LORIE. Reviewed records from [facility]. Baseline creatinine as of Mar 2019 was around 1.0. Admitted with SCr of 1.6. differential includes ATN from sepsis, vanco vs infection related GN (although UA did not show much protein or blood). Awaiting C3 result. Will check UPCR and serum albumin. SCr peaked at 5.67 yesterday. SCr is 5.61 today. No current need for dialysis, but will monitor closely. Keep on IVF for one more day since diarrhea is still present. Current medications are reviewed and are appropriately dosed for current CrCl. 2. Hypokalemia. Likely due to GI loss with diarrhea. Pt is also on NaHCO3 drip, so K can also drop because of HCO3. Replace K as you are doing. Will check K and Mg again in am. 3. Metabolic acidosis. Due to LORIE and diarrhea. On NaHCO3 drip. Serum bicarbonate is better today. recheck in am. Will also monitor K and Ca. 4. Cellulitis. on abx as per ID and hospital medicine service.
[2019-06-11 22:00] LABS: Bedside Glucose 170 mg/dL (70-110)
[2019-06-11] MEDS: Heparin Injection (Vial) 5,000 UNIT/ML VIAL 5000 UNIT SC (22:07)
[2019-06-11] MEDS: Atorvastatin Calcium 40 MG Tablet PO (22:08)
[2019-06-12 01:04] LABS: Protein, Urine (Random) 31.3 mg/dL (<11.9); Protein:Creat Ratio 372 mg/g CRE (0-200)
[2019-06-12 06:05] VITALS: BP 131/82; PULSE 85; RESP 18; TEMP 36.6; O2SAT 99
[2019-06-12] MEDS: Acetaminophen 325 MG Tablet 650 MG PO (06:08)
[2019-06-12] MEDS: guaiFENesin/Codeine 5 ML UDC PO (06:09)
[2019-06-12 06:22] LABS: Absolute Lymphocyte Count 1.36 X10^3/uL (0.83-4.51); Absolute Neutrophil Count 8.6 X10^3/uL (2.0-7.7); Basophil# 0.08 X10^3/uL; Basophil% 0.7 % (0-1); Eosinophil# 0.32 X10^3/uL; Eosinophils% 2.7 % (0-5); Hemoglobin 9.9 g/dL (13.0-16.5); Lymphocyte # 1.36 X10^3/ul (4.0); Lymphocyte % 11.4 % (19-41); Mean Corp Hgb Conc 34.1 g/dL (32-36); Mean Corpuscular Hgb 32.2 pg (27.0-32.0); Mean Corpuscular Volume 94.5 fL (80-94); Mean Platelet Vol. 9.4 fl (6.2-12.0); Monocyte# 0.96 X10^3/uL; Monocyte% 8.1 % (0-10); NRBC Flagged by Analyzer 0 % (0-5); Neutrophil # 8.61 X10^3/uL (2.7-7.7); Neutrophil % 72.3 % (47-70); Platelet Count 421 K/mm3 (150-450); RBC Distribution Width CV 14.5 % (11.6-14.6); RBC Distribution Width SD 49.2 fl (35.1-43.9); Red Blood Count 3.07 M/mm3 (4.6-6.2); White Blood Count 11.9 K/mm3 (4.4-11.0)
[2019-06-12 06:26] LABS: Bedside Glucose 130 mg/dL (70-110)
[2019-06-12 06:47] LABS: Albumin, Serum 2.2 g/dL (3.2-5.0); Anion Gap 12 (5-15); BUN 46 mg/dL (7-18); BUN/Creat Ratio 8.8 RATIO (10-20); Calcium,Total 8.3 mg/dL (8.5-10.1); Chloride 114 mmol/L (98-107); Creatinine, Serum 5.23 mg/dL (0.70-1.30); EST Glomerular Filtration Rate 12 mL/min (>60); Est Glom Filt Rate - Afr Amer 15 mL/min (>60); Estimated Creatinine Clearance 15.44 ml/min; Glucose 134 mg/dL (74-106); Potassium 3.4 mmol/L (3.5-5.1); Sodium Level 141 mmol/L (136-145)
[2019-06-12 07:01] VITALS: PULSE 78; RESP 22; O2SAT 93
[2019-06-12] MEDS: Budesonide Respules 0.5 MG/2 ML AMPUL.NEB. INHALATION ×2 (07:01→19:15)
[2019-06-12] MEDS: Albuterol 2.5 MG/3 ML VIAL.NEB. INHALATION ×2 (07:01→19:15)
--- NOTE | 2019-06-12 09:03 | PCM.PN.HOSP ---
Patient Problems: Active and Suspected Problems (Last Reviewed 06/09/19 @ 16:39 by Marisol Contreras) Severe sepsis (Acute) Cellulitis of right lower extremity (Acute) Influenza-like symptoms (Acute) Sepsis (Acute) LORIE (acute kidney injury) (Acute) Vitals/I&O's: Vital Signs Temp Pulse Resp BP Pulse Ox 97.9 F 78 22 H 131/82 H 93 06/12/19 06:05 06/12/19 07:01 06/12/19 07:01 06/12/19 06:05 06/12/19 07:01 Oxygen Flow Rate (L/min) 2 Oxygen Delivery Method Room Air Weight: 341 lb 14.991 oz Body Mass Index (BMI) 52.0 Finger Stick Blood Glucose 144 Intake and Output for Last 24 Hours 06/10/19 06/11/19 06/12/19 23:59 23:59 23:59 Intake Total 3495.0 / 3495.0 3156.59 / 3156.59 616.5 / 616.5 Output Total 550 / 550 1300 / 1300 850 / 850 Balance 2945.0 / 2945.0 1856.59 / 1856.59 -233.5 / -233.5 Microbiology Past 72 Hours 06/06/19 19:10 Blood Culture (Wb) - Anticubital Left Blood Culture - Final No growth in 5 days. 06/06/19 19:17 Blood Culture (Wb) - Right Hand Blood Culture - Final No growth in 5 days. 06/09/19 08:10 Wound - Leg, Right Gram Stain - Final 06/09/19 08:10 Wound - Leg, Right Wound Culture - Final No growth aerobically. 06/06/19 21:47 Urine, Clean Catch Urine Culture - Final Culture exhibits no growth. Laboratory Results 06/08/19 15:25: Eos Smear Total Cells No Eosinophils Seen 06/11/19 11:00: POC Glucose 149 H 06/11/19 16:29: POC Glucose 165 H 06/11/19 21:55: POC Glucose 170 H 06/12/19 00:43: U Random Total Protein 31.3 H, Urine Creatinine 84.10, Protein/Creatinin Ratio 372 H 06/12/19 05:56: WBC 11.9 H, RBC 3.07 L, Hgb 9.9 L, Hct 29.0 L, MCV 94.5 H, MCH 32.2 H, MCHC 34.1, RDW Std Deviation 49.2 H, RDW Coeff of Negra 14.5, Plt Count 421, MPV 9.4, Immature Gran % (Auto) 4.800 H, Neut % (Auto) 72.3 H, Lymph % (Auto) 11.4 L, [place] % (Auto) 8.1, Eos % (Auto) 2.7, Baso % (Auto) 0.7, Absolute Neuts (auto) 8.6 H, Absolute Lymphs (auto) 1.36, Nucleated RBC % 0 06/12/19 05:56: Sodium 141, Potassium 3.4 L, Chloride 114 H, Carbon Dioxide 15.0 L, Anion Gap 12, BUN 46 H, Creatinine 5.23 H, Estim Creat Clear Calc 15.44, Est GFR (MDRD) Af Amer 15 L, Est GFR (MDRD) Non-Af 12 L, BUN/Creatinine Ratio 8.8 L, Glucose 134 H, Calcium 8.3 L, Magnesium 2.0, Albumin 2.2 L 06/12/19 06:15: POC Glucose 130 H Current Medications Acetaminophen (Tylenol) 650 mg PO Q6H PRN PRN PRN Reason: Pain or Fever Last Admin: 06/12/19 06:08 Dose: 650 mg Documented by: Albuterol Sulfate (Ventolin Aerosols) 2.5 mg INHALATION Q2H PRN PRN PRN Reason: sob/wheezing Last Admin: 06/11/19 02:25 Dose: 2.5 mg Documented by: Albuterol Sulfate (Ventolin Aerosols) 2.5 mg INHALATION Q6HWA.RT [facility] Last Admin: 06/12/19 07:01 Dose: 2.5 mg Documented by: Atorvastatin Calcium (Lipitor) 40 mg PO DAILY@2200 [facility] Last Admin: 06/11/19 22:08 Dose: 40 mg Documented by: Budesonide (Pulmicort Aerosol) 0.5 mg INHALATION Q12H.RT [facility] Last Admin: 06/12/19 07:01 Dose: 0.5 mg Documented by: Dicyclomine HCl (Bentyl) 20 mg PO Q6 PRN PRN Reason: ABDOMINAL CRAMPING Last Admin: 06/08/19 12:52 Dose: 20 mg Documented by: Diphenoxylate HCl/Atropine (Lomotil) 1 tablet PO 4X/DAY PRN PRN Reason: Diarrhea Last Admin: 06/08/19 16:44 Dose: 1 tablet Documented by: Glucagon () 1 mg IM .X1 PRN PRN Reason: Hypoglycemia Guaifenesin/Codeine Phosphate (Robitussin Ac) 5 ml PO Q6H PRN PRN PRN Reason: COUGH Last Admin: 06/12/19 06:09 Dose: 5 ml Documented by: Heparin Sodium (Porcine) (Heparin Na) 5,000 unit SC Q12 [facility] Last Admin: 06/11/19 22:07 Dose: 5,000 unit Documented by: Dextrose (Dextrose 10%-Water) 250 mls @ 999 mls/hr IV .Q16M PRN; Protocol PRN Reason: HYPOGLYCEMIA Sodium Chloride () 250 mls @ 15 mls/hr IV .[id number] PRN PRN Reason: Saline Flush Last Infusion: 06/10/19 21:30 Dose: Infused Documented by: Sodium Chloride () 250 mls @ 15 mls/hr IV .[id number] PRN PRN Reason: Additional IVPB Infusion Cefepime HCl 1 gm/ Sodium (Chloride) 50 mls @ 100 mls/hr IV Q24 [facility] Last Infusion: 06/11/19 10:29 Dose: Infused Documented by: Clindamycin Phosphate 600 mg/ (Dextrose) 54 mls @ 100 mls/hr IV Q8 [facility] Last Infusion: 06/12/19 06:42 Dose: Infused Documented by: Sodium Bicarbonate 150 meq/ (Dextrose) 1,150 mls @ 75 mls/hr IV .[id number] [facility] Last Infusion: 06/12/19 06:42 Dose: 75 mls/hr Documented by: Insulin Human Lispro (Humalog Kwikpen (Bkc)) 0 unit SC ACHS [facility]; Protocol Last Admin: 06/12/19 06:17 Dose: Not Given Documented by: Ondansetron HCl (Zofran) 4 mg IV Q8H PRN PRN PRN Reason: NAUSEA/VOMITING Oxycodone HCl (Oxyir) 5 mg PO Q4H PRN PRN PRN Reason: Pain Score 4-5/10 Oxycodone HCl (Oxyir) 10 mg PO Q4H PRN PRN PRN Reason: Pain Score 6-10/10 Last Admin: 06/09/19 11:55 Dose: 10 mg Documented by: Pantoprazole Sodium (Protonix) 40 mg PO DAILY [facility] Last Admin: 06/11/19 09:59 Dose: 40 mg Documented by: Pioglitazone HCl (Actos) 15 mg PO DAILY [facility] Last Admin: 06/09/19 08:16 Dose: 15 mg Documented by: Sodium Chloride () 10 - 40 ml IV UD PRN PRN Reason: SALINE FLUSH Last Admin: 06/11/19 06:19 Dose: 20 ml Documented by: STROKE Vital Signs/Narrative: Vital Signs Temp Pulse Resp BP Pulse Ox 06/12/19 07:01 78 22 H 93 06/12/19 06:05 97.9 F 85 18 131/82 H 99 Medical Necessity - Tobacco Use Smoking Status: Former smoker Tobacco Use: Cigarettes Assessment/Plan All Active Problems (Last Reviewed 06/09/19 @ 16:39 by Marisol Contreras) Severe sepsis (Acute) Cellulitis of right lower extremity (Acute) Influenza-like symptoms (Acute) Sepsis (Acute) LORIE (acute kidney injury) (Acute)
[2019-06-12 09:11] LABS: Complement C3 158 mg/dL (82-167)
--- NOTE | 2019-06-12 09:18 | NURSING ---
wound photo: right plantar foot
--- NOTE | 2019-06-12 09:19 | NURSING ---
wound photo: right lower leg
--- NOTE | 2019-06-12 09:19 | NURSING ---
wound photo: right posterior/medial lower leg
--- NOTE | 2019-06-12 09:28 | PN_ITS ---
Patient Problems: Active and Suspected Problems (Last Reviewed 06/09/19 @ 16:39 by Marisol Contreras) Severe sepsis (Acute) Cellulitis of right lower extremity (Acute) Influenza-like symptoms (Acute) Sepsis (Acute) LORIE (acute kidney injury) (Acute) Subjective: Patient seen and examined. He feels well today. He denies fever or chills, nausea or vomiting, shortness of breath or chest pain. Review systems otherwise negative. Labs and vitals reviewed. Creatinine is down to 5.3 today and bicarb is up to 15. Potassium is 3.4. WBC is 11.9. Vitals/I&O's: Vital Signs Temp Pulse Resp BP Pulse Ox 97.9 F 78 22 H 131/82 H 93 06/12/19 06:05 06/12/19 07:01 06/12/19 07:01 06/12/19 06:05 06/12/19 07:01 Oxygen Flow Rate (L/min) 2 Oxygen Delivery Method Room Air Weight: 341 lb 14.991 oz Body Mass Index (BMI) 52.0 Finger Stick Blood Glucose 144 Intake and Output for Last 24 Hours 06/10/19 06/11/19 06/12/19 23:59 23:59 23:59 Intake Total 3495.0 / 3495.0 3156.59 / 3156.59 616.5 / 616.5 Output Total 550 / 550 1300 / 1300 850 / 850 Balance 2945.0 / 2945.0 1856.59 / 1856.59 -233.5 / -233.5 General: Alert, Oriented x3, Cooperative, No apparent distress, morbidly obese HEENT: Atraumatic, PERRLA, EOMI, Normocephalic Oral: Moist Mucosa Neck: Supple, No JVD, Negative Carotid Bruits Lungs: coarse expiratory wheezing and rhonchi in all lung rene bilaterally, on room air Cardiovascular: Regular rate, Normal S1, Normal S2, No murmurs, Tachycardic Abdomen: Bowel Sounds Present, Soft, Non Tender, Non-Distended, No Hepato- splenomegaly Extremities: No clubbing, No cyanosis Musculoskeletal: - - RLE is oozing clear fluid, mild erythema, 2+ bilateral LE pitting edema, no tenderness on palpation Lymphatic: No Cervical, Supraclavicular, or Inguinal Adenopathy Neurological: Cranial nerves II-XII grossly intact Psych/Mental Status: Normal Affect, Appropriate, Alert and oriented to time, place, person, mood and affect Microbiology Past 72 Hours 06/06/19 19:10 Blood Culture (Wb) - Anticubital Left Blood Culture - Final No growth in 5 days. 06/06/19 19:17 Blood Culture (Wb) - Right Hand Blood Culture - Final No growth in 5 days. 06/09/19 08:10 Wound - Leg, Right Gram Stain - Final 06/09/19 08:10 Wound - Leg, Right Wound Culture - Final No growth aerobically. 06/06/19 21:47 Urine, Clean Catch Urine Culture - Final Culture exhibits no growth. Laboratory Results 06/08/19 15:25: Eos Smear Total Cells No Eosinophils Seen 06/11/19 05:46: Complement C3 158 06/11/19 11:00: POC Glucose 149 H 06/11/19 16:29: POC Glucose 165 H 06/11/19 21:55: POC Glucose 170 H 06/12/19 00:43: U Random Total Protein 31.3 H, Urine Creatinine 84.10, Protein/Creatinin Ratio 372 H 06/12/19 05:56: WBC 11.9 H, RBC 3.07 L, Hgb 9.9 L, Hct 29.0 L, MCV 94.5 H, MCH 32.2 H, MCHC 34.1, RDW Std Deviation 49.2 H, RDW Coeff of Negra 14.5, Plt Count 421, MPV 9.4, Immature Gran % (Auto) 4.800 H, Neut % (Auto) 72.3 H, Lymph % (Auto) 11.4 L, [place] % (Auto) 8.1, Eos % (Auto) 2.7, Baso % (Auto) 0.7, Absolute Neuts (auto) 8.6 H, Absolute Lymphs (auto) 1.36, Nucleated RBC % 0 06/12/19 05:56: Sodium 141, Potassium 3.4 L, Chloride 114 H, Carbon Dioxide 15.0 L, Anion Gap 12, BUN 46 H, Creatinine 5.23 H, Estim Creat Clear Calc 15.44, Est GFR (MDRD) Af Amer 15 L, Est GFR (MDRD) Non-Af 12 L, BUN/Creatinine Ratio 8.8 L, Glucose 134 H, Calcium 8.3 L, Magnesium 2.0, Albumin 2.2 L 06/12/19 06:15: POC Glucose 130 H Diagnostic Data Foot X-Ray 06/06/19 19:54 IMPRESSION: Normal right foot. at 2037 Reported and signed by: Bruce Hudson MD Electronically Signed: Bruce Hudson MD at 20:37 EST Tel , Service support , Chest X-Ray 06/06/19 20:04 IMPRESSION: Normal. at 2037 Reported and signed by: Bruce Hudson MD Electronically Signed: Bruce Hudson MD at 20:37 EST Tel , Service support , Lower Extremity MRI 06/07/19 09:19 IMPRESSION: Cellulitis. Myofascitis. No osteomyelitis perceived. at 0613 Reported and signed by: Bruce Hudson MD Electronically Signed: Bruce Hudson MD at 6:12 EST Tel , Service support , Orbit X-Ray 06/07/19 10:33 IMPRESSION: No demonstrated metallic orbital foreign body. The patient is cleared for an MRI examination. Electronically Signed: Altaf Morel MD at 10:50 EST Tel , Service support , KUB X-Ray 06/08/19 08:31 IMPRESSION: Air dilation of the colon extending to the mid descending colon. May represent colonic ileus, however, distal colonic obstruction cannot be excluded. Electronically Signed: Rodrigo Lee MD ([place]) at 14:10 EST , Service support , Abdomen CT 06/08/19 14:32 IMPRESSION: Mild nonspecific ileus. Electronically Signed: Harpal Armstrong MD at 17:23 EST , Service support , Renal Ultrasound 06/09/19 10:42 IMPRESSION: 1. No hydronephrosis or shadowing calculi. 2. Nondistended urinary bladder. Electronically Signed: Rodrigo Lee MD ([place]) at 12:02 EST , Service support , Current Medications Acetaminophen (Tylenol) 650 mg PO Q6H PRN PRN PRN Reason: Pain or Fever Last Admin: 06/12/19 06:08 Dose: 650 mg Documented by: Albuterol Sulfate (Ventolin Aerosols) 2.5 mg INHALATION Q2H PRN PRN PRN Reason: sob/wheezing Last Admin: 06/11/19 02:25 Dose: 2.5 mg Documented by: Albuterol Sulfate (Ventolin Aerosols) 2.5 mg INHALATION Q6HWA.RT [facility] Last Admin: 06/12/19 07:01 Dose: 2.5 mg Documented by: Atorvastatin Calcium (Lipitor) 40 mg PO DAILY@2200 [facility] Last Admin: 06/11/19 22:08 Dose: 40 mg Documented by: Budesonide (Pulmicort Aerosol) 0.5 mg INHALATION Q12H.RT [facility] Last Admin: 06/12/19 07:01 Dose: 0.5 mg Documented by: Dicyclomine HCl (Bentyl) 20 mg PO Q6 PRN PRN Reason: ABDOMINAL CRAMPING Last Admin: 06/08/19 12:52 Dose: 20 mg Documented by: Diphenoxylate HCl/Atropine (Lomotil) 1 tablet PO 4X/DAY PRN PRN Reason: Diarrhea Last Admin: 06/08/19 16:44 Dose: 1 tablet Documented by: Glucagon () 1 mg IM .X1 PRN PRN Reason: Hypoglycemia Guaifenesin/Codeine Phosphate (Robitussin Ac) 5 ml PO Q6H PRN PRN PRN Reason: COUGH Last Admin: 06/12/19 06:09 Dose: 5 ml Documented by: Heparin Sodium (Porcine) (Heparin Na) 5,000 unit SC Q12 [facility] Last Admin: 06/11/19 22:07 Dose: 5,000 unit Documented by: Dextrose (Dextrose 10%-Water) 250 mls @ 999 mls/hr IV .Q16M PRN; Protocol PRN Reason: HYPOGLYCEMIA Sodium Chloride () 250 mls @ 15 mls/hr IV .[id number] PRN PRN Reason: Saline Flush Last Infusion: 06/10/19 21:30 Dose: Infused Documented by: Sodium Chloride () 250 mls @ 15 mls/hr IV .[id number] PRN PRN Reason: Additional IVPB Infusion Cefepime HCl 1 gm/ Sodium (Chloride) 50 mls @ 100 mls/hr IV Q24 [facility] Last Infusion: 06/11/19 10:29 Dose: Infused Documented by: Sodium Bicarbonate 150 meq/ (Dextrose) 1,150 mls @ 75 mls/hr IV .[id number] [facility] Last Infusion: 06/12/19 06:42 Dose: 75 mls/hr Documented by: Insulin Human Lispro (Humalog Kwikpen (Bkc)) 0 unit SC ACHS [facility]; Protocol Last Admin: 06/12/19 06:17 Dose: Not Given Documented by: Ondansetron HCl (Zofran) 4 mg IV Q8H PRN PRN PRN Reason: NAUSEA/VOMITING Oxycodone HCl (Oxyir) 5 mg PO Q4H PRN PRN PRN Reason: Pain Score 4-5/10 Oxycodone HCl (Oxyir) 10 mg PO Q4H PRN PRN PRN Reason: Pain Score 6-10/10 Last Admin: 06/09/19 11:55 Dose: 10 mg Documented by: Pantoprazole Sodium (Protonix) 40 mg PO DAILY [facility] Last Admin: 06/11/19 09:59 Dose: 40 mg Documented by: Pioglitazone HCl (Actos) 15 mg PO DAILY [facility] Last Admin: 06/09/19 08:16 Dose: 15 mg Documented by: Sodium Chloride () 10 - 40 ml IV UD PRN PRN Reason: SALINE FLUSH Last Admin: 06/11/19 06:19 Dose: 20 ml Documented by: STROKE Vital Signs/Narrative: Vital Signs Temp Pulse Resp BP Pulse Ox 06/12/19 07:01 78 22 H 93 06/12/19 06:05 97.9 F 85 18 131/82 H 99 Medical Necessity - Tobacco Use Smoking Status: Former smoker Tobacco Use: Cigarettes Assessment/Plan All Active Problems (Last Reviewed 06/09/19 @ 16:39 by Marisol Contreras) Severe sepsis (Acute) Cellulitis of right lower extremity (Acute) Influenza-like symptoms (Acute) Sepsis (Acute) LORIE (acute kidney injury) (Acute) 1. Sepsis due to RLE cellulitis * SIRS criteria now 0/4 * blood cultures were negative * on IV cefepime and clindamycin- today is day 5 * per ID, to consider stopping antibiotics in 1-2 days * 2. LORIE * Cr today is down to 5.23, from 5.61 yesterday * FeNa was 0.4, indicating a pre-renal cause * renal USG: normal kidneys, with no hydronephrosis or shadowing calculi, and no nondistended urinary bladder. * nephrology on board; continue hydrating gently with IVF * monitor closely * 3. 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 * Victoza and pioglitazone held. On insulin sliding scale. Accu-Cheks AC at bedtime. * 4. Diarrhea * C. difficile was negative and stool enteric pathogen screen is also negative * being hydrated with IVF * on lomotil prn * recommend to follow up with gastroenterology on outpatient basis 5. Non anion gap metabolic acidosis * bicarb is 15 today, with anion gap of 12 * likely due to LORIE * on bicarb drip * nephrology on board. * DVT prophylaxis: heparin Code Visit Inpatient E&M: 83294 Subs Hosp L2
[2019-06-12] MEDS: Heparin Injection (Vial) 5,000 UNIT/ML VIAL 5000 UNIT SC ×2 (10:10→22:15)
[2019-06-12] MEDS: Pantoprazole Sodium 40 MG Tablet PO (10:14)
[2019-06-12 10:28] VITALS: BP 141/80; PULSE 83; RESP 20; TEMP 37.1
--- NOTE | 2019-06-12 10:29 | PCM.PN.ID ---
Patient Problems: Active and Suspected Problems (Last Reviewed 06/09/19 @ 16:39 by Marisol Contreras) Severe sepsis (Acute) Cellulitis of right lower extremity (Acute) Influenza-like symptoms (Acute) Sepsis (Acute) LORIE (acute kidney injury) (Acute) Subjective: Feeling better, no fever, no diarrhea overnight. - Physical Exam Vitals/I&O's: Vital Signs Temp Pulse Resp BP Pulse Ox 97.9 F 78 22 H 131/82 H 93 06/12/19 06:05 06/12/19 07:01 06/12/19 07:01 06/12/19 06:05 06/12/19 07:01 Oxygen Flow Rate (L/min) 2 Oxygen Delivery Method Room Air Weight: 155.1 kg Body Mass Index (BMI) 52.0 Finger Stick Blood Glucose 144 Intake and Output for Last 24 Hours 06/10/19 06/11/19 06/12/19 23:59 23:59 23:59 Intake Total 3495.0 / 3495.0 3156.59 / 3156.59 616.5 / 616.5 Output Total 550 / 550 1300 / 1300 850 / 850 Balance 2945.0 / 2945.0 1856.59 / 1856.59 -233.5 / -233.5 General: Alert, Cooperative, No apparent distress Lungs: Clear to auscultation, Normal air movement Cardiovascular: Regular rate, Regular Rhythm Abdomen: Soft, Non Tender, Distended Extremities: Edema Skin: Ulcer/ Wound - reviewed photos Microbiology Past 72 Hours 06/06/19 19:10 Blood Culture (Wb) - Anticubital Left Blood Culture - Final No growth in 5 days. 06/06/19 19:17 Blood Culture (Wb) - Right Hand Blood Culture - Final No growth in 5 days. 06/09/19 08:10 Wound - Leg, Right Gram Stain - Final 06/09/19 08:10 Wound - Leg, Right Wound Culture - Final No growth aerobically. 06/06/19 21:47 Urine, Clean Catch Urine Culture - Final Culture exhibits no growth. Laboratory Results 06/08/19 15:25: Eos Smear Total Cells No Eosinophils Seen 06/11/19 05:46: Complement C3 158 06/11/19 11:00: POC Glucose 149 H 06/11/19 16:29: POC Glucose 165 H 06/11/19 21:55: POC Glucose 170 H 06/12/19 00:43: U Random Total Protein 31.3 H, Urine Creatinine 84.10, Protein/Creatinin Ratio 372 H 06/12/19 05:56: WBC 11.9 H, RBC 3.07 L, Hgb 9.9 L, Hct 29.0 L, MCV 94.5 H, MCH 32.2 H, MCHC 34.1, RDW Std Deviation 49.2 H, RDW Coeff of Negra 14.5, Plt Count 421, MPV 9.4, Immature Gran % (Auto) 4.800 H, Neut % (Auto) 72.3 H, Lymph % (Auto) 11.4 L, [place] % (Auto) 8.1, Eos % (Auto) 2.7, Baso % (Auto) 0.7, Absolute Neuts (auto) 8.6 H, Absolute Lymphs (auto) 1.36, Nucleated RBC % 0 06/12/19 05:56: Sodium 141, Potassium 3.4 L, Chloride 114 H, Carbon Dioxide 15.0 L, Anion Gap 12, BUN 46 H, Creatinine 5.23 H, Estim Creat Clear Calc 15.44, Est GFR (MDRD) Af Amer 15 L, Est GFR (MDRD) Non-Af 12 L, BUN/Creatinine Ratio 8.8 L, Glucose 134 H, Calcium 8.3 L, Magnesium 2.0, Albumin 2.2 L 06/12/19 06:15: POC Glucose 130 H Current Medications Acetaminophen (Tylenol) 650 mg PO Q6H PRN PRN PRN Reason: Pain or Fever Last Admin: 06/12/19 06:08 Dose: 650 mg Documented by: Albuterol Sulfate (Ventolin Aerosols) 2.5 mg INHALATION Q2H PRN PRN PRN Reason: sob/wheezing Last Admin: 06/11/19 02:25 Dose: 2.5 mg Documented by: Albuterol Sulfate (Ventolin Aerosols) 2.5 mg INHALATION Q6HWA.RT [facility] Last Admin: 06/12/19 07:01 Dose: 2.5 mg Documented by: Atorvastatin Calcium (Lipitor) 40 mg PO DAILY@2200 [facility] Last Admin: 06/11/19 22:08 Dose: 40 mg Documented by: Budesonide (Pulmicort Aerosol) 0.5 mg INHALATION Q12H.RT [facility] Last Admin: 06/12/19 07:01 Dose: 0.5 mg Documented by: Dicyclomine HCl (Bentyl) 20 mg PO Q6 PRN PRN Reason: ABDOMINAL CRAMPING Last Admin: 06/08/19 12:52 Dose: 20 mg Documented by: Diphenoxylate HCl/Atropine (Lomotil) 1 tablet PO 4X/DAY PRN PRN Reason: Diarrhea Last Admin: 06/08/19 16:44 Dose: 1 tablet Documented by: Glucagon () 1 mg IM .X1 PRN PRN Reason: Hypoglycemia Guaifenesin/Codeine Phosphate (Robitussin Ac) 5 ml PO Q6H PRN PRN PRN Reason: COUGH Last Admin: 06/12/19 06:09 Dose: 5 ml Documented by: Heparin Sodium (Porcine) (Heparin Na) 5,000 unit SC Q12 [facility] Last Admin: 06/12/19 10:10 Dose: 5,000 unit Documented by: Dextrose (Dextrose 10%-Water) 250 mls @ 999 mls/hr IV .Q16M PRN; Protocol PRN Reason: HYPOGLYCEMIA Sodium Chloride () 250 mls @ 15 mls/hr IV .[id number] PRN PRN Reason: Saline Flush Last Infusion: 06/10/19 21:30 Dose: Infused Documented by: Sodium Chloride () 250 mls @ 15 mls/hr IV .[id number] PRN PRN Reason: Additional IVPB Infusion Cefepime HCl 1 gm/ Sodium (Chloride) 50 mls @ 100 mls/hr IV Q24 [facility] Last Admin: 06/12/19 10:14 Dose: 100 mls/hr Documented by: Sodium Bicarbonate 150 meq/ (Dextrose) 1,150 mls @ 75 mls/hr IV .[id number] [facility] Last Infusion: 06/12/19 06:42 Dose: 75 mls/hr Documented by: Insulin Human Lispro (Humalog Kwikpen (Bkc)) 0 unit SC ACHS [facility]; Protocol Last Admin: 06/12/19 06:17 Dose: Not Given Documented by: Ondansetron HCl (Zofran) 4 mg IV Q8H PRN PRN PRN Reason: NAUSEA/VOMITING Oxycodone HCl (Oxyir) 5 mg PO Q4H PRN PRN PRN Reason: Pain Score 4-5/10 Oxycodone HCl (Oxyir) 10 mg PO Q4H PRN PRN PRN Reason: Pain Score 6-10/10 Last Admin: 06/09/19 11:55 Dose: 10 mg Documented by: Pantoprazole Sodium (Protonix) 40 mg PO DAILY [facility] Last Admin: 06/12/19 10:14 Dose: 40 mg Documented by: Pioglitazone HCl (Actos) 15 mg PO DAILY [facility] Last Admin: 06/09/19 08:16 Dose: 15 mg Documented by: Sodium Chloride () 10 - 40 ml IV UD PRN PRN Reason: SALINE FLUSH Last Admin: 06/11/19 06:19 Dose: 20 ml Documented by: Medical Necessity - Tobacco Use Smoking Status: Former smoker Tobacco Use: Cigarettes Route of nutrition/ use of supplements: [] Nutritional Intake: [] IV Site: [] Boyce Catheter: [] - Assessment/Plan Antibiotics: [] Assessment/Plan: [] Active and Suspected Problems (Last Reviewed 06/09/19 @ 16:39 by Marisol Contreras) Severe sepsis (Acute) Cellulitis of right lower extremity (Acute) Influenza-like symptoms (Acute) Sepsis (Acute) LORIE (acute kidney injury) (Acute) severe sepsis with LORIE due to RLE cellulitis with DM neuropathy. Flu pcr was neg. Stool pcr was neg. Overall feeling better, diarrhea resolved, fever resolved, but worsened Cr. Vanc trough elevated, improving. No sign of osteo on MRI. Cont cefepime. Wound cx neg so far. Redness much improved. Cr now improving. Will stop clinda. Will follow
[2019-06-12 11:20] LABS: Bedside Glucose 130 mg/dL (70-110)
[2019-06-12 14:00] VITALS: BP 154/79; PULSE 85; RESP 20; TEMP 37.1; O2SAT 97
[2019-06-12 16:11] LABS: Bedside Glucose 119 mg/dL (70-110)
--- NOTE | 2019-06-12 17:50 | PCM.PN.REN ---
Patient Problems: Active and Suspected Problems (Last Reviewed 06/09/19 @ 16:39 by Marisol Contreras) Severe sepsis (Acute) Cellulitis of right lower extremity (Acute) Influenza-like symptoms (Acute) Sepsis (Acute) LORIE (acute kidney injury) (Acute) Subjective: Following for LORIE. Pt feels better today. There is no nausea or vomiting. Diarrhea has slowed down considerably. - Physical Exam Vitals/I&O's: Vital Signs Temp Pulse Resp BP Pulse Ox 98.7 F 85 20 H 154/79 H 97 06/12/19 14:00 06/12/19 14:00 06/12/19 14:00 06/12/19 14:00 06/12/19 14:00 Oxygen Flow Rate (L/min) 2 Oxygen Delivery Method Bi-pap Weight: 155.1 kg Body Mass Index (BMI) 52.0 Finger Stick Blood Glucose 144 Intake and Output for Last 24 Hours 06/10/19 06/11/19 06/12/19 23:59 23:59 23:59 Intake Total 3495.0 / 3495.0 3156.59 / 3156.59 1776.5 / 1776.5 Output Total 550 / 550 1300 / 1300 1225 / 1225 Balance 2945.0 / 2945.0 1856.59 / 1856.59 551.5 / 551.5 General: Alert, Oriented x3 HEENT: Atraumatic Oral: Moist Mucosa Neck: Supple Lungs: Clear to auscultation Cardiovascular: Normal S1, Normal S2, No murmurs Abdomen: Bowel Sounds Present, Soft, Non Tender Extremities: Edema - 4+ LE Microbiology Past 72 Hours 06/06/19 19:10 Blood Culture (Wb) - Anticubital Left Blood Culture - Final No growth in 5 days. 06/06/19 19:17 Blood Culture (Wb) - Right Hand Blood Culture - Final No growth in 5 days. 06/09/19 08:10 Wound - Leg, Right Gram Stain - Final 06/09/19 08:10 Wound - Leg, Right Wound Culture - Final No growth aerobically. Laboratory Results 06/11/19 05:46: Complement C3 158 06/11/19 21:55: POC Glucose 170 H 06/12/19 00:43: U Random Total Protein 31.3 H, Urine Creatinine 84.10, Protein/Creatinin Ratio 372 H 06/12/19 05:56: WBC 11.9 H, RBC 3.07 L, Hgb 9.9 L, Hct 29.0 L, MCV 94.5 H, MCH 32.2 H, MCHC 34.1, RDW Std Deviation 49.2 H, RDW Coeff of Negra 14.5, Plt Count 421, MPV 9.4, Immature Gran % (Auto) 4.800 H, Neut % (Auto) 72.3 H, Lymph % (Auto) 11.4 L, [place] % (Auto) 8.1, Eos % (Auto) 2.7, Baso % (Auto) 0.7, Absolute Neuts (auto) 8.6 H, Absolute Lymphs (auto) 1.36, Nucleated RBC % 0 06/12/19 05:56: Sodium 141, Potassium 3.4 L, Chloride 114 H, Carbon Dioxide 15.0 L, Anion Gap 12, BUN 46 H, Creatinine 5.23 H, Estim Creat Clear Calc 15.44, Est GFR (MDRD) Af Amer 15 L, Est GFR (MDRD) Non-Af 12 L, BUN/Creatinine Ratio 8.8 L, Glucose 134 H, Calcium 8.3 L, Magnesium 2.0, Albumin 2.2 L 06/12/19 06:15: POC Glucose 130 H 06/12/19 11:18: POC Glucose 130 H 06/12/19 16:08: POC Glucose 119 H Current Medications Acetaminophen (Tylenol) 650 mg PO Q6H PRN PRN PRN Reason: Pain or Fever Last Admin: 06/12/19 06:08 Dose: 650 mg Documented by: Albuterol Sulfate (Ventolin Aerosols) 2.5 mg INHALATION Q2H PRN PRN PRN Reason: sob/wheezing Last Admin: 06/11/19 02:25 Dose: 2.5 mg Documented by: Albuterol Sulfate (Ventolin Aerosols) 2.5 mg INHALATION Q6HWA.RT [facility] Last Admin: 06/12/19 12:30 Dose: Not Given Documented by: Atorvastatin Calcium (Lipitor) 40 mg PO DAILY@2200 [facility] Last Admin: 06/11/19 22:08 Dose: 40 mg Documented by: Budesonide (Pulmicort Aerosol) 0.5 mg INHALATION Q12H.RT [facility] Last Admin: 06/12/19 07:01 Dose: 0.5 mg Documented by: Dicyclomine HCl (Bentyl) 20 mg PO Q6 PRN PRN Reason: ABDOMINAL CRAMPING Last Admin: 06/08/19 12:52 Dose: 20 mg Documented by: Diphenoxylate HCl/Atropine (Lomotil) 1 tablet PO 4X/DAY PRN PRN Reason: Diarrhea Last Admin: 06/08/19 16:44 Dose: 1 tablet Documented by: Glucagon () 1 mg IM .X1 PRN PRN Reason: Hypoglycemia Guaifenesin/Codeine Phosphate (Robitussin Ac) 5 ml PO Q6H PRN PRN PRN Reason: COUGH Last Admin: 06/12/19 06:09 Dose: 5 ml Documented by: Heparin Sodium (Porcine) (Heparin Na) 5,000 unit SC Q12 [facility] Last Admin: 06/12/19 10:10 Dose: 5,000 unit Documented by: Dextrose (Dextrose 10%-Water) 250 mls @ 999 mls/hr IV .Q16M PRN; Protocol PRN Reason: HYPOGLYCEMIA Sodium Chloride () 250 mls @ 15 mls/hr IV .[id number] PRN PRN Reason: Saline Flush Last Infusion: 06/10/19 21:30 Dose: Infused Documented by: Sodium Chloride () 250 mls @ 15 mls/hr IV .[id number] PRN PRN Reason: Additional IVPB Infusion Cefepime HCl 1 gm/ Sodium (Chloride) 50 mls @ 100 mls/hr IV Q24 [facility] Last Infusion: 06/12/19 10:45 Dose: Infused Documented by: Sodium Bicarbonate 150 meq/ (Dextrose) 1,150 mls @ 75 mls/hr IV .[id number] [facility] Last Admin: 06/12/19 17:40 Dose: 75 mls/hr Documented by: Insulin Human Lispro (Humalog Kwikpen (Bkc)) 0 unit SC ACHS [facility]; Protocol Last Admin: 06/12/19 16:11 Dose: Not Given Documented by: Melatonin (Melatonin) 3 mg PO QHS [facility] Ondansetron HCl (Zofran) 4 mg IV Q8H PRN PRN PRN Reason: NAUSEA/VOMITING Oxycodone HCl (Oxyir) 5 mg PO Q4H PRN PRN PRN Reason: Pain Score 4-5/10 Oxycodone HCl (Oxyir) 10 mg PO Q4H PRN PRN PRN Reason: Pain Score 6-10/10 Last Admin: 06/09/19 11:55 Dose: 10 mg Documented by: Pantoprazole Sodium (Protonix) 40 mg PO DAILY [facility] Last Admin: 06/12/19 10:14 Dose: 40 mg Documented by: Pioglitazone HCl (Actos) 15 mg PO DAILY [facility] Last Admin: 06/09/19 08:16 Dose: 15 mg Documented by: Sodium Chloride () 10 - 40 ml IV UD PRN PRN Reason: SALINE FLUSH Last Admin: 06/11/19 06:19 Dose: 20 ml Documented by: Medical Necessity - Tobacco Use Smoking Status: Former smoker Tobacco Use: Cigarettes Assessment/Plan All Active Problems (Last Reviewed 06/09/19 @ 16:39 by Marisol Contreras) Severe sepsis (Acute) Cellulitis of right lower extremity (Acute) Influenza-like symptoms (Acute) Sepsis (Acute) LORIE (acute kidney injury) (Acute) 1. LORIE. Reviewed records from [facility]. Baseline creatinine as of Mar 2019 was around 1.0. Admitted with SCr of 1.6. LORIE is most likely due to ATN from sepsis. Low suspcion for glomerulonephritis. C3 is normal and UPCR is only 372 mg/g. SCr peaked at 5.67 on 06/10/19. SCr is 5.23 today with good urine output. No current need for dialysis, but will monitor closely. Keep on IVF for now since diarrhea is still present. Current medications are reviewed and are appropriately dosed for current CrCl. 2. Hypokalemia. Likely due to GI loss with diarrhea. Pt is also on NaHCO3 drip, so K can also drop because of HCO3. Replace K as you are doing. Will check K and Mg again in am. 3. Metabolic acidosis. Due to LORIE and diarrhea. On NaHCO3 drip. Serum bicarbonate is better today. recheck in am. If diarrhea stops and serum HCO3 is >20, we can stop NaHCO3 drip. Will also monitor K and Ca. 4. Cellulitis. on abx as per ID and hospital medicine service.
[2019-06-12 20:00] VITALS: BP 158/73; PULSE 105; RESP 18; TEMP 37.3; O2SAT 96
[2019-06-12 22:00] VITALS: PULSE 105
[2019-06-12] MEDS: Atorvastatin Calcium 40 MG Tablet PO (22:15)
[2019-06-12] MEDS: Insulin Lispro 100 UNIT/ML INSULN.PEN SC (22:15)
[2019-06-12] MEDS: MELATONIN 3 MG TABLET PO (22:16)
[2019-06-12 22:30] LABS: Bedside Glucose 192 mg/dL (70-110)
[2019-06-13] VITALS (7 sets, daily range): BP systolic 127–152; BP diastolic 68–88; PULSE 72–96; RESP 16–22; TEMP 36.4–37.3; O2SAT 94–96
[2019-06-13 06:45] LABS: Bedside Glucose 150 mg/dL (70-110)
[2019-06-13] MEDS: Albuterol 2.5 MG/3 ML VIAL.NEB. INHALATION ×3 (06:59→18:48)
[2019-06-13] MEDS: Budesonide Respules 0.5 MG/2 ML AMPUL.NEB. INHALATION ×2 (06:59→18:48)
[2019-06-13 07:57] LABS: Absolute Lymphocyte Count 1.72 X10^3/uL (0.83-4.51); Absolute Neutrophil Count 9.1 X10^3/uL (2.0-7.7); Basophil# 0.06 X10^3/uL; Basophil% 0.5 % (0-1); Eosinophil# 0.32 X10^3/uL; Eosinophils% 2.5 % (0-5); Hematocrit 28.6 % (40-54); Hemoglobin 9.7 g/dL (13.0-16.5); Lymphocyte # 1.72 X10^3/ul (4.0); Lymphocyte % 13.3 % (19-41); Mean Corp Hgb Conc 33.9 g/dL (32-36); Mean Corpuscular Hgb 31.3 pg (27.0-32.0); Mean Corpuscular Volume 92.3 fL (80-94); Mean Platelet Vol. 9.4 fl (6.2-12.0); Monocyte# 1.11 X10^3/uL; Monocyte% 8.6 % (0-10); NRBC Flagged by Analyzer 0 % (0-5); Neutrophil # 9.06 X10^3/uL (2.7-7.7); Neutrophil % 70.3 % (47-70); Platelet Count 443 K/mm3 (150-450); RBC Distribution Width CV 14.4 % (11.6-14.6); RBC Distribution Width SD 49.1 fl (35.1-43.9); White Blood Count 12.9 K/mm3 (4.4-11.0)
[2019-06-13 08:09] LABS: Albumin, Serum 2.2 g/dL (3.2-5.0); BUN 39 mg/dL (7-18); BUN/Creat Ratio 8.4 RATIO (10-20); Calcium,Total 8.8 mg/dL (8.5-10.1); Chloride 112 mmol/L (98-107); Creatinine, Serum 4.62 mg/dL (0.70-1.30); EST Glomerular Filtration Rate 14 mL/min (>60); Est Glom Filt Rate - Afr Amer 17 mL/min (>60); Estimated Creatinine Clearance 17.48 ml/min; Glucose 139 mg/dL (74-106); Magnesium 2.1 mg/dL (1.6-2.6); Phosphorus 4.5 mg/dL (2.5-4.9); Sodium Level 141 mmol/L (136-145)
[2019-06-13] MEDS: Pantoprazole Sodium 40 MG Tablet PO (11:34)
[2019-06-13] MEDS: Heparin Injection (Vial) 5,000 UNIT/ML VIAL 5000 UNIT SC ×2 (11:35→21:16)
[2019-06-13] MEDS: 0.9% Saline Lock 10 ML Syringe IV ×2 (11:39→15:53)
[2019-06-13 11:51] LABS: Bedside Glucose 128 mg/dL (70-110)
--- NOTE | 2019-06-13 14:03 | PCM.PN.REN ---
Patient Problems: Active and Suspected Problems (Last Reviewed 06/09/19 @ 16:39 by Marisol Contreras) Severe sepsis (Acute) Cellulitis of right lower extremity (Acute) Influenza-like symptoms (Acute) Sepsis (Acute) LORIE (acute kidney injury) (Acute) Subjective: Pt sad diarrhea is improving. he has no worsening respiratory status No nausea No vomiting - Physical Exam Vitals/I&O's: Vital Signs Temp Pulse Resp BP Pulse Ox 98 F 82 18 152/68 H 96 06/13/19 13:35 06/13/19 13:35 06/13/19 13:35 06/13/19 13:35 06/13/19 13:35 Oxygen Flow Rate (L/min) 2 Oxygen Delivery Method Room Air Weight: 155.1 kg Body Mass Index (BMI) 52.0 Finger Stick Blood Glucose 144 Intake and Output for Last 24 Hours 06/11/19 06/12/19 06/13/19 23:59 23:59 23:59 Intake Total 3156.59 / 3156.59 2326.5 / 2326.5 Output Total 1300 / 1300 1225 / 1225 Balance 1856.59 / 1856.59 1101.5 / 1101.5 General: Alert, Oriented x3 HEENT: Atraumatic Oral: Moist Mucosa Neck: Supple, No JVD Lungs: Clear to auscultation, Normal air movement, No rhonchi Cardiovascular: Regular rate, Regular Rhythm, Normal S1, Normal S2 Abdomen: Bowel Sounds Present, Soft, Non Tender Extremities: No clubbing, No cyanosis, Edema - +2 edema of LE Lymphatic: No Cervical, Supraclavicular, or Inguinal Adenopathy Neurological: Cranial nerves II-XII grossly intact, Neuro grossly intact Microbiology Past 72 Hours 06/06/19 19:10 Blood Culture (Wb) - Anticubital Left Blood Culture - Final No growth in 5 days. 06/06/19 19:17 Blood Culture (Wb) - Right Hand Blood Culture - Final No growth in 5 days. 06/09/19 08:10 Wound - Leg, Right Gram Stain - Final 06/09/19 08:10 Wound - Leg, Right Wound Culture - Final No growth aerobically. Laboratory Results 06/12/19 16:08: POC Glucose 119 H 06/12/19 22:11: POC Glucose 192 H 06/13/19 06:29: POC Glucose 150 H 06/13/19 07:20: Sodium 141, Potassium 3.0 L, Chloride 112 H, Carbon Dioxide 21.0, BUN 39 H, Creatinine 4.62 H, Estim Creat Clear Calc 17.48, Est GFR (MDRD) Af Amer 17 L, Est GFR (MDRD) Non-Af 14 L, BUN/Creatinine Ratio 8.4 L, Glucose 139 H, Calcium 8.8, Phosphorus 4.5, Magnesium 2.1, Albumin 2.2 L 06/13/19 07:20: WBC 12.9 H, RBC 3.10 L, Hgb 9.7 L, Hct 28.6 L, MCV 92.3, MCH 31.3, MCHC 33.9, RDW Std Deviation 49.1 H, RDW Coeff of Negra 14.4, Plt Count 443, MPV 9.4, Immature Gran % (Auto) 4.800 H, Neut % (Auto) 70.3 H, Lymph % (Auto) 13.3 L, [place] % (Auto) 8.6, Eos % (Auto) 2.5, Baso % (Auto) 0.5, Absolute Neuts (auto) 9.1 H, Absolute Lymphs (auto) 1.72, Nucleated RBC % 0 06/13/19 11:19: POC Glucose 128 H Current Medications Acetaminophen (Tylenol) 650 mg PO Q6H PRN PRN PRN Reason: Pain or Fever Last Admin: 06/12/19 06:08 Dose: 650 mg Documented by: Albuterol Sulfate (Ventolin Aerosols) 2.5 mg INHALATION Q2H PRN PRN PRN Reason: sob/wheezing Last Admin: 06/11/19 02:25 Dose: 2.5 mg Documented by: Albuterol Sulfate (Ventolin Aerosols) 2.5 mg INHALATION Q6HWA.RT [facility] Last Admin: 06/13/19 13:06 Dose: 2.5 mg Documented by: Atorvastatin Calcium (Lipitor) 40 mg PO DAILY@2200 [facility] Last Admin: 06/12/19 22:15 Dose: 40 mg Documented by: Budesonide (Pulmicort Aerosol) 0.5 mg INHALATION Q12H.RT [facility] Last Admin: 06/13/19 06:59 Dose: 0.5 mg Documented by: Dicyclomine HCl (Bentyl) 20 mg PO Q6 PRN PRN Reason: ABDOMINAL CRAMPING Last Admin: 06/08/19 12:52 Dose: 20 mg Documented by: Diphenoxylate HCl/Atropine (Lomotil) 1 tablet PO 4X/DAY PRN PRN Reason: Diarrhea Last Admin: 06/08/19 16:44 Dose: 1 tablet Documented by: Glucagon () 1 mg IM .X1 PRN PRN Reason: Hypoglycemia Guaifenesin/Codeine Phosphate (Robitussin Ac) 5 ml PO Q6H PRN PRN PRN Reason: COUGH Last Admin: 06/12/19 06:09 Dose: 5 ml Documented by: Heparin Sodium (Porcine) (Heparin Na) 5,000 unit SC Q12 [facility] Last Admin: 06/13/19 11:35 Dose: 5,000 unit Documented by: Dextrose (Dextrose 10%-Water) 250 mls @ 999 mls/hr IV .Q16M PRN; Protocol PRN Reason: HYPOGLYCEMIA Sodium Chloride () 250 mls @ 15 mls/hr IV .[id number] PRN PRN Reason: Saline Flush Last Infusion: 06/13/19 13:41 Dose: 0 mls/hr Documented by: Sodium Chloride () 250 mls @ 15 mls/hr IV .[id number] PRN PRN Reason: Additional IVPB Infusion Cefepime HCl 1 gm/ Sodium (Chloride) 50 mls @ 100 mls/hr IV Q24 [facility] Last Infusion: 06/13/19 12:05 Dose: Infused Documented by: Sodium Bicarbonate 150 meq/ (Dextrose) 1,150 mls @ 75 mls/hr IV .[id number] [facility] Last Infusion: 06/13/19 13:41 Dose: 75 mls/hr Documented by: Insulin Human Lispro (Humalog Kwikpen (Bkc)) 0 unit SC ACHS [facility]; Protocol Last Admin: 06/13/19 11:42 Dose: Not Given Documented by: Melatonin (Melatonin) 3 mg PO QHS [facility] Last Admin: 06/12/19 22:16 Dose: 3 mg Documented by: Ondansetron HCl (Zofran) 4 mg IV Q8H PRN PRN PRN Reason: NAUSEA/VOMITING Oxycodone HCl (Oxyir) 5 mg PO Q4H PRN PRN PRN Reason: Pain Score 4-5/10 Oxycodone HCl (Oxyir) 10 mg PO Q4H PRN PRN PRN Reason: Pain Score 6-10/10 Last Admin: 06/09/19 11:55 Dose: 10 mg Documented by: Pantoprazole Sodium (Protonix) 40 mg PO DAILY [facility] Last Admin: 06/13/19 11:34 Dose: 40 mg Documented by: Pioglitazone HCl (Actos) 15 mg PO DAILY [facility] Last Admin: 06/09/19 08:16 Dose: 15 mg Documented by: Sodium Chloride () 10 - 40 ml IV UD PRN PRN Reason: SALINE FLUSH Last Admin: 06/13/19 11:39 Dose: 10 ml Documented by: Medical Necessity - Tobacco Use Smoking Status: Former smoker Tobacco Use: Cigarettes Assessment/Plan All Active Problems (Last Reviewed 06/09/19 @ 16:39 by Marisol Contreras) Severe sepsis (Acute) Cellulitis of right lower extremity (Acute) Influenza-like symptoms (Acute) Sepsis (Acute) LORIE (acute kidney injury) (Acute) 1. LORIE. Reviewed records from [facility]. Baseline creatinine as of Mar 2019 was around 1.0. Admitted with SCr of 1.6. differential includes ATN from sepsis, vanco vs infection related GN (although UA did not show much protein or blood). C3 within normal limit Doubt LORIE is infection related GN. SCr peaked at 5.67 yesterday. SCr is 4.6 today. No current need for dialysis, but will monitor closely. d/c IVF Current medications are reviewed and are appropriately dosed for current CrCl. 2. Hypokalemia. Likely due to GI loss with diarrhea. Pt is also on NaHCO3 drip, so K can also drop because of HCO3. Replace K as you are doing. d/c NaHC03 drip. 3. Metabolic acidosis. Due to LORIE and diarrhea. On NaHCO3 drip. Serum bicarbonate is 21 d/c NaHC03 drip 4. Cellulitis. on abx as per ID and hospital medicine service.
--- NOTE | 2019-06-13 14:10 | PN.ID_ITS ---
Patient Problems: Active and Suspected Problems (Last Reviewed 06/09/19 @ 16:39 by Marisol Contreras) Severe sepsis (Acute) Cellulitis of right lower extremity (Acute) Influenza-like symptoms (Acute) Sepsis (Acute) LORIE (acute kidney injury) (Acute) Subjective: Feeling better, no fever, leg improving - Physical Exam Vitals/I&O's: Vital Signs Temp Pulse Resp BP Pulse Ox 98 F 82 18 152/68 H 96 06/13/19 13:35 06/13/19 13:35 06/13/19 13:35 06/13/19 13:35 06/13/19 13:35 Oxygen Flow Rate (L/min) 2 Oxygen Delivery Method Room Air Weight: 155.1 kg Body Mass Index (BMI) 52.0 Finger Stick Blood Glucose 144 Intake and Output for Last 24 Hours 06/11/19 06/12/19 06/13/19 23:59 23:59 23:59 Intake Total 3156.59 / 3156.59 2326.5 / 2326.5 Output Total 1300 / 1300 1225 / 1225 Balance 1856.59 / 1856.59 1101.5 / 1101.5 General: Alert, Cooperative, No apparent distress Lungs: Clear to auscultation, Normal air movement Cardiovascular: Regular rate, Regular Rhythm Abdomen: Soft, Non Tender, Non-Distended Extremities: Edema Skin: - - reviewed photo, leg much less red Microbiology Past 72 Hours 06/06/19 19:10 Blood Culture (Wb) - Anticubital Left Blood Culture - Final No growth in 5 days. 06/06/19 19:17 Blood Culture (Wb) - Right Hand Blood Culture - Final No growth in 5 days. 06/09/19 08:10 Wound - Leg, Right Gram Stain - Final 06/09/19 08:10 Wound - Leg, Right Wound Culture - Final No growth aerobically. Laboratory Results 06/12/19 16:08: POC Glucose 119 H 06/12/19 22:11: POC Glucose 192 H 06/13/19 06:29: POC Glucose 150 H 06/13/19 07:20: Sodium 141, Potassium 3.0 L, Chloride 112 H, Carbon Dioxide 21.0, BUN 39 H, Creatinine 4.62 H, Estim Creat Clear Calc 17.48, Est GFR (MDRD) Af Amer 17 L, Est GFR (MDRD) Non-Af 14 L, BUN/Creatinine Ratio 8.4 L, Glucose 139 H, Calcium 8.8, Phosphorus 4.5, Magnesium 2.1, Albumin 2.2 L 06/13/19 07:20: WBC 12.9 H, RBC 3.10 L, Hgb 9.7 L, Hct 28.6 L, MCV 92.3, MCH 31.3, MCHC 33.9, RDW Std Deviation 49.1 H, RDW Coeff of Negra 14.4, Plt Count 443, MPV 9.4, Immature Gran % (Auto) 4.800 H, Neut % (Auto) 70.3 H, Lymph % (Auto) 13.3 L, [place] % (Auto) 8.6, Eos % (Auto) 2.5, Baso % (Auto) 0.5, Absolute Neuts (auto) 9.1 H, Absolute Lymphs (auto) 1.72, Nucleated RBC % 0 06/13/19 11:19: POC Glucose 128 H Current Medications Acetaminophen (Tylenol) 650 mg PO Q6H PRN PRN PRN Reason: Pain or Fever Last Admin: 06/12/19 06:08 Dose: 650 mg Documented by: Albuterol Sulfate (Ventolin Aerosols) 2.5 mg INHALATION Q2H PRN PRN PRN Reason: sob/wheezing Last Admin: 06/11/19 02:25 Dose: 2.5 mg Documented by: Albuterol Sulfate (Ventolin Aerosols) 2.5 mg INHALATION Q6HWA.RT [facility] Last Admin: 06/13/19 13:06 Dose: 2.5 mg Documented by: Atorvastatin Calcium (Lipitor) 40 mg PO DAILY@2200 [facility] Last Admin: 06/12/19 22:15 Dose: 40 mg Documented by: Budesonide (Pulmicort Aerosol) 0.5 mg INHALATION Q12H.RT [facility] Last Admin: 06/13/19 06:59 Dose: 0.5 mg Documented by: Dicyclomine HCl (Bentyl) 20 mg PO Q6 PRN PRN Reason: ABDOMINAL CRAMPING Last Admin: 06/08/19 12:52 Dose: 20 mg Documented by: Diphenoxylate HCl/Atropine (Lomotil) 1 tablet PO 4X/DAY PRN PRN Reason: Diarrhea Last Admin: 06/08/19 16:44 Dose: 1 tablet Documented by: Glucagon () 1 mg IM .X1 PRN PRN Reason: Hypoglycemia Guaifenesin/Codeine Phosphate (Robitussin Ac) 5 ml PO Q6H PRN PRN PRN Reason: COUGH Last Admin: 06/12/19 06:09 Dose: 5 ml Documented by: Heparin Sodium (Porcine) (Heparin Na) 5,000 unit SC Q12 [facility] Last Admin: 06/13/19 11:35 Dose: 5,000 unit Documented by: Dextrose (Dextrose 10%-Water) 250 mls @ 999 mls/hr IV .Q16M PRN; Protocol PRN Reason: HYPOGLYCEMIA Sodium Chloride () 250 mls @ 15 mls/hr IV .[id number] PRN PRN Reason: Saline Flush Last Infusion: 06/13/19 13:41 Dose: 0 mls/hr Documented by: Sodium Chloride () 250 mls @ 15 mls/hr IV .[id number] PRN PRN Reason: Additional IVPB Infusion Insulin Human Lispro (Humalog Kwikpen (Bkc)) 0 unit SC ACHS [facility]; Protocol Last Admin: 06/13/19 11:42 Dose: Not Given Documented by: Melatonin (Melatonin) 3 mg PO QHS [facility] Last Admin: 06/12/19 22:16 Dose: 3 mg Documented by: Ondansetron HCl (Zofran) 4 mg IV Q8H PRN PRN PRN Reason: NAUSEA/VOMITING Oxycodone HCl (Oxyir) 5 mg PO Q4H PRN PRN PRN Reason: Pain Score 4-5/10 Oxycodone HCl (Oxyir) 10 mg PO Q4H PRN PRN PRN Reason: Pain Score 6-10/10 Last Admin: 06/09/19 11:55 Dose: 10 mg Documented by: Pantoprazole Sodium (Protonix) 40 mg PO DAILY [facility] Last Admin: 06/13/19 11:34 Dose: 40 mg Documented by: Pioglitazone HCl (Actos) 15 mg PO DAILY [facility] Last Admin: 06/09/19 08:16 Dose: 15 mg Documented by: Sodium Chloride () 10 - 40 ml IV UD PRN PRN Reason: SALINE FLUSH Last Admin: 01/31/20 11:39 Dose: 10 ml Documented by: Medical Necessity - Tobacco Use Smoking Status: Former smoker Tobacco Use: Cigarettes Route of nutrition/ use of supplements: [] Nutritional Intake: [] IV Site: [] Boyce Catheter: [] - Assessment/Plan Antibiotics: [] Assessment/Plan: [] Active and Suspected Problems (Last Reviewed 06/09/19 @ 16:39 by Marisol Contreras) Severe sepsis (Acute) Cellulitis of right lower extremity (Acute) Influenza-like symptoms (Acute) Sepsis (Acute) LORIE (acute kidney injury) (Acute) severe sepsis with LORIE due to RLE cellulitis with DM neuropathy. Flu pcr was neg. Stool pcr was neg. Overall feeling better, diarrhea resolved, fever resolved. Cr improving. Will stop abx today, erythema nearly resolved. Will follow
--- NOTE | 2019-06-13 14:12 | CASEMGMT ---
RN CM in to follow-up with patient regarding discharge planning. Patient denies needs for at discharge. CM to continue to follow this patient and plan for a safe discharge.
--- NOTE | 2019-06-13 15:18 | PCM.PN.HOSP ---
Patient Problems: Active and Suspected Problems (Last Reviewed 06/09/19 @ 16:39 by Marisol Contreras) Severe sepsis (Acute) Cellulitis of right lower extremity (Acute) Influenza-like symptoms (Acute) Sepsis (Acute) LORIE (acute kidney injury) (Acute) Subjective: Patient seen and examined. He had an uneventful night and was able to sleep well with melatonin. Denies fever, chills, nausea vomiting, abdominal pain or shortness of breath. He denied any diarrhea. Labs and vitals reviewed. Creatinine is trended down to 4.23 today. Vitals/I&O's: Vital Signs Temp Pulse Resp BP Pulse Ox 98 F 82 18 152/68 H 96 06/13/19 13:35 06/13/19 13:35 06/13/19 13:35 06/13/19 13:35 06/13/19 13:35 Oxygen Flow Rate (L/min) 2 Oxygen Delivery Method Room Air Weight: 341 lb 14.991 oz Body Mass Index (BMI) 52.0 Finger Stick Blood Glucose 144 Intake and Output for Last 24 Hours 06/11/19 06/12/19 06/13/19 23:59 23:59 23:59 Intake Total 3156.59 / 3156.59 2326.5 / 2326.5 Output Total 1300 / 1300 1225 / 1225 Balance 1856.59 / 1856.59 1101.5 / 1101.5 General: Alert, Oriented x3, Cooperative, No apparent distress, morbidly obese HEENT: Atraumatic, PERRLA, EOMI, Normocephalic Oral: Moist Mucosa Neck: Supple, No JVD, Negative Carotid Bruits Lungs: coarse expiratory wheezing and rhonchi in all lung rene bilaterally, on room air Cardiovascular: Regular rate, Normal S1, Normal S2, No murmurs, Tachycardic Abdomen: Bowel Sounds Present, Soft, Non Tender, Non-Distended, No Hepato-splenomegaly Extremities: No clubbing, No cyanosis Musculoskeletal: - - RLE wrapped in bandage Lymphatic: No Cervical, Supraclavicular, or Inguinal Adenopathy Neurological: Cranial nerves II-XII grossly intact Psych/Mental Status: Normal Affect, Appropriate, Alert and oriented to time, place, person, mood and affect Microbiology Past 72 Hours 06/06/19 19:10 Blood Culture (Wb) - Anticubital Left Blood Culture - Final No growth in 5 days. 06/06/19 19:17 Blood Culture (Wb) - Right Hand Blood Culture - Final No growth in 5 days. 06/09/19 08:10 Wound - Leg, Right Gram Stain - Final 06/09/19 08:10 Wound - Leg, Right Wound Culture - Final No growth aerobically. Laboratory Results 06/12/19 16:08: POC Glucose 119 H 06/12/19 22:11: POC Glucose 192 H 06/13/19 06:29: POC Glucose 150 H 06/13/19 07:20: Sodium 141, Potassium 3.0 L, Chloride 112 H, Carbon Dioxide 21.0, BUN 39 H, Creatinine 4.62 H, Estim Creat Clear Calc 17.48, Est GFR (MDRD) Af Amer 17 L, Est GFR (MDRD) Non-Af 14 L, BUN/Creatinine Ratio 8.4 L, Glucose 139 H, Calcium 8.8, Phosphorus 4.5, Magnesium 2.1, Albumin 2.2 L 06/13/19 07:20: WBC 12.9 H, RBC 3.10 L, Hgb 9.7 L, Hct 28.6 L, MCV 92.3, MCH 31.3, MCHC 33.9, RDW Std Deviation 49.1 H, RDW Coeff of Negra 14.4, Plt Count 443, MPV 9.4, Immature Gran % (Auto) 4.800 H, Neut % (Auto) 70.3 H, Lymph % (Auto) 13.3 L, Payne % (Auto) 8.6, Eos % (Auto) 2.5, Baso % (Auto) 0.5, Absolute Neuts (auto) 9.1 H, Absolute Lymphs (auto) 1.72, Nucleated RBC % 0 06/13/19 11:19: POC Glucose 128 H Current Medications Acetaminophen (Tylenol) 650 mg PO Q6H PRN PRN PRN Reason: Pain or Fever Last Admin: 06/12/19 06:08 Dose: 650 mg Documented by: Albuterol Sulfate (Ventolin Aerosols) 2.5 mg INHALATION Q2H PRN PRN PRN Reason: sob/wheezing Last Admin: 06/11/19 02:25 Dose: 2.5 mg Documented by: Albuterol Sulfate (Ventolin Aerosols) 2.5 mg INHALATION Q6HWA.RT [facility] Last Admin: 06/13/19 13:06 Dose: 2.5 mg Documented by: Atorvastatin Calcium (Lipitor) 40 mg PO DAILY@2200 [facility] Last Admin: 06/12/19 22:15 Dose: 40 mg Documented by: Budesonide (Pulmicort Aerosol) 0.5 mg INHALATION Q12H.RT [facility] Last Admin: 06/13/19 06:59 Dose: 0.5 mg Documented by: Dicyclomine HCl (Bentyl) 20 mg PO Q6 PRN PRN Reason: ABDOMINAL CRAMPING Last Admin: 06/08/19 12:52 Dose: 20 mg Documented by: Diphenoxylate HCl/Atropine (Lomotil) 1 tablet PO 4X/DAY PRN PRN Reason: Diarrhea Last Admin: 06/08/19 16:44 Dose: 1 tablet Documented by: Glucagon () 1 mg IM .X1 PRN PRN Reason: Hypoglycemia Guaifenesin/Codeine Phosphate (Robitussin Ac) 5 ml PO Q6H PRN PRN PRN Reason: COUGH Last Admin: 06/12/19 06:09 Dose: 5 ml Documented by: Heparin Sodium (Porcine) (Heparin Na) 5,000 unit SC Q12 [facility] Last Admin: 06/13/19 11:35 Dose: 5,000 unit Documented by: Dextrose (Dextrose 10%-Water) 250 mls @ 999 mls/hr IV .Q16M PRN; Protocol PRN Reason: HYPOGLYCEMIA Sodium Chloride () 250 mls @ 15 mls/hr IV .[id number] PRN PRN Reason: Saline Flush Last Infusion: 06/13/19 13:41 Dose: 0 mls/hr Documented by: Sodium Chloride () 250 mls @ 15 mls/hr IV .[id number] PRN PRN Reason: Additional IVPB Infusion Insulin Human Lispro (Humalog Kwikpen (Bkc)) 0 unit SC ACHS [facility]; Protocol Last Admin: 06/13/19 11:42 Dose: Not Given Documented by: Melatonin (Melatonin) 3 mg PO QHS [facility] Last Admin: 06/12/19 22:16 Dose: 3 mg Documented by: Ondansetron HCl (Zofran) 4 mg IV Q8H PRN PRN PRN Reason: NAUSEA/VOMITING Oxycodone HCl (Oxyir) 5 mg PO Q4H PRN PRN PRN Reason: Pain Score 4-5/10 Oxycodone HCl (Oxyir) 10 mg PO Q4H PRN PRN PRN Reason: Pain Score 6-10/10 Last Admin: 06/09/19 11:55 Dose: 10 mg Documented by: Pantoprazole Sodium (Protonix) 40 mg PO DAILY [facility] Last Admin: 06/13/19 11:34 Dose: 40 mg Documented by: Pioglitazone HCl (Actos) 15 mg PO DAILY [facility] Last Admin: 06/09/19 08:16 Dose: 15 mg Documented by: Sodium Chloride () 10 - 40 ml IV UD PRN PRN Reason: SALINE FLUSH Last Admin: 06/13/19 11:39 Dose: 10 ml Documented by: STROKE Vital Signs/Narrative: Vital Signs Temp Pulse Resp BP Pulse Ox 06/13/19 13:35 98 F 82 18 152/68 H 96 06/13/19 13:06 83 20 H Medical Necessity - Tobacco Use Smoking Status: Former smoker Tobacco Use: Cigarettes Assessment/Plan All Active Problems (Last Reviewed 06/09/19 @ 16:39 by Marisol Contreras) Severe sepsis (Acute) Cellulitis of right lower extremity (Acute) Influenza-like symptoms (Acute) Sepsis (Acute) LORIE (acute kidney injury) (Acute) 1. Sepsis due to RLE cellulitis blood cultures were negative on IV cefepime and clindamycin- today is day 6 ID on board; stopped clindamycin today, to continue on cefepime per ID, to consider stopping antibiotics in 1-2 days 2. LORIE Cr today is down to 4.62 today, from 5.23 yesterday. baseline Cr is 1. renal USG: normal kidneys, with no hydronephrosis or shadowing calculi, and no nondistended urinary bladder. IVF stopped per nephrology. will monitor Cr trend closely 3. Hypokalemia: Potassium is 3 today. Replace per protocol. 4. Type 2 diabetes mellitus with neuropathy Charcot joint of the left lower foot. Victoza and pioglitazone held. On insulin sliding scale. Accu-Cheks AC at bedtime. 5. Diarrhea C. difficile was negative and stool enteric pathogen screen is also negative diarrhea has improved remarkably on lomotil prn 6. Non anion gap metabolic acidosis bicarb is 21 today, likely due to LORIE will dc bicarb drip today, per nephrology nephrology on board. DVT prophylaxis: heparin Disposition: for probable dc tomorrow if Cr trends down significantly Code Visit Inpatient E&M: 51028 Subs Hosp L2
[2019-06-13] MEDS: Insulin Lispro 100 UNIT/ML INSULN.PEN SC ×2 (15:52→21:16)
[2019-06-13 16:01] LABS: Bedside Glucose 163 mg/dL (70-110)
[2019-06-13] MEDS: Atorvastatin Calcium 40 MG Tablet PO (21:15)
[2019-06-13] MEDS: MELATONIN 3 MG TABLET PO (21:15)
[2019-06-13 21:31] LABS: Bedside Glucose 173 mg/dL (70-110)
[2019-06-14 03:45] VITALS: BP 154/99; PULSE 90; RESP 18; TEMP 36.6; O2SAT 95
[2019-06-14] MEDS: 0.9% Saline Lock 10 ML Syringe IV (03:48)
[2019-06-14 06:46] LABS: Bedside Glucose 134 mg/dL (70-110)
[2019-06-14 07:43] LABS: Absolute Lymphocyte Count 1.58 X10^3/uL (0.83-4.51); Absolute Neutrophil Count 9.9 X10^3/uL (2.0-7.7); Basophil# 0.11 X10^3/uL; Basophil% 0.8 % (0-1); Eosinophil# 0.27 X10^3/uL; Hematocrit 30.9 % (40-54); Hemoglobin 10.2 g/dL (13.0-16.5); Lymphocyte # 1.58 X10^3/ul (4.0); Lymphocyte % 11.6 % (19-41); Mean Corpuscular Hgb 31.3 pg (27.0-32.0); Mean Corpuscular Volume 94.8 fL (80-94); Mean Platelet Vol. 9.2 fl (6.2-12.0); Monocyte% 8.8 % (0-10); NRBC Flagged by Analyzer 0 % (0-5); Neutrophil # 9.89 X10^3/uL (2.7-7.7); Neutrophil % 72.4 % (47-70); Platelet Count 506 K/mm3 (150-450); RBC Distribution Width CV 14.4 % (11.6-14.6); RBC Distribution Width SD 49.7 fl (35.1-43.9); Red Blood Count 3.26 M/mm3 (4.6-6.2); White Blood Count 13.7 K/mm3 (4.4-11.0)
[2019-06-14 07:55] LABS: Anion Gap 8 (5-15); BUN 35 mg/dL (7-18); BUN/Creat Ratio 8.7 RATIO (10-20); Calcium,Total 8.9 mg/dL (8.5-10.1); Chloride 111 mmol/L (98-107); Creatinine, Serum 4.03 mg/dL (0.70-1.30); EST Glomerular Filtration Rate 17 mL/min (>60); Est Glom Filt Rate - Afr Amer 20 mL/min (>60); Estimated Creatinine Clearance 20.04 ml/min; Glucose 125 mg/dL (74-106); Sodium Level 140 mmol/L (136-145)
[2019-06-14 09:45] VITALS: BP 157/91; PULSE 86; RESP 20; TEMP 36.6; O2SAT 96
[2019-06-14] MEDS: Pantoprazole Sodium 40 MG Tablet PO (09:54)
[2019-06-14 11:10] LABS: Bedside Glucose 111 mg/dL (70-110)
--- NOTE | 2019-06-14 12:39 | PN_ITS ---
Patient Problems: Active and Suspected Problems (Last Reviewed 06/09/19 @ 16:39 by Marisol Contreras) Severe sepsis (Acute) Cellulitis of right lower extremity (Acute) Influenza-like symptoms (Acute) Sepsis (Acute) LORIE (acute kidney injury) (Acute) Subjective: Doing well, no issues, diarrhea resolved. Vitals/I&O's: Vital Signs Temp Pulse Resp BP Pulse Ox 97.8 F 86 20 H 157/91 H 96 06/14/19 09:45 06/14/19 09:45 06/14/19 09:45 06/14/19 09:45 06/14/19 09:45 Oxygen Flow Rate (L/min) 2 Oxygen Delivery Method Room Air Weight: 341 lb 14.991 oz Body Mass Index (BMI) 52.0 Finger Stick Blood Glucose 144 Intake and Output for Last 24 Hours 06/12/19 06/13/19 06/14/19 23:59 23:59 23:59 Intake Total 2326.5 / 2326.5 3443.5 / 3443.5 600 / 600 Output Total 1225 / 1225 Balance 1101.5 / 1101.5 3443.5 / 3443.5 600 / 600 General: Alert, Oriented x3, Cooperative, No apparent distress HEENT: Atraumatic, PERRLA, EOMI, Normocephalic Oral: Moist Mucosa Neck: Supple, No JVD Lungs: Clear to auscultation, Normal air movement, No rhonchi, No wheeze, No rales, Diminished Cardiovascular: Regular rate, Regular Rhythm, Normal S1, Normal S2, No murmurs Abdomen: Soft, Non Tender, Non-Distended, No Hepato-splenomegaly Extremities: No edema, Capillary Refill Less than 3 Seconds Skin: - - Right lower extremity dressing intact Neurological: Neuro grossly intact, Sensory exam intact to light touch and pain Psych/Mental Status: Normal Affect, Appropriate Microbiology Past 72 Hours 06/06/19 19:10 Blood Culture (Wb) - Anticubital Left Blood Culture - Final No growth in 5 days. 06/06/19 19:17 Blood Culture (Wb) - Right Hand Blood Culture - Final No growth in 5 days. 06/09/19 08:10 Wound - Leg, Right Gram Stain - Final 06/09/19 08:10 Wound - Leg, Right Wound Culture - Final No growth aerobically. Laboratory Results 06/13/19 15:49: POC Glucose 163 H 06/13/19 21:13: POC Glucose 173 H 06/14/19 06:42: POC Glucose 134 H 06/14/19 06:51: Sodium 140, Potassium 3.0 L, Chloride 111 H, Carbon Dioxide 21.0, Anion Gap 8, BUN 35 H, Creatinine 4.03 H, Estim Creat Clear Calc 20.04, Est GFR (MDRD) Af Amer 20 L, Est GFR (MDRD) Non-Af 17 L, BUN/Creatinine Ratio 8.7 L, Glucose 125 H, Calcium 8.9 06/14/19 06:51: WBC 13.7 H, RBC 3.26 L, Hgb 10.2 L, Hct 30.9 L, MCV 94.8 H, MCH 31.3, MCHC 33.0, RDW Std Deviation 49.7 H, RDW Coeff of Negra 14.4, Plt Count 506 H, MPV 9.2, Immature Gran % (Auto) 4.400 H, Neut % (Auto) 72.4 H, Lymph % (Auto) 11.6 L, Kidder % (Auto) 8.8, Eos % (Auto) 2.0, Baso % (Auto) 0.8, Absolute Neuts (auto) 9.9 H, Absolute Lymphs (auto) 1.58, Nucleated RBC % 0 06/14/19 11:04: POC Glucose 111 H Current Medications Acetaminophen (Tylenol) 650 mg PO Q6H PRN PRN PRN Reason: Pain or Fever Last Admin: 06/12/19 06:08 Dose: 650 mg Documented by: Albuterol Sulfate (Ventolin Aerosols) 2.5 mg INHALATION Q2H PRN PRN PRN Reason: sob/wheezing Last Admin: 06/11/19 02:25 Dose: 2.5 mg Documented by: Albuterol Sulfate (Ventolin Aerosols) 2.5 mg INHALATION Q6HWA.RT [facility] Last Admin: 06/14/19 07:20 Dose: Not Given Documented by: Atorvastatin Calcium (Lipitor) 40 mg PO DAILY@2200 [facility] Last Admin: 06/13/19 21:15 Dose: 40 mg Documented by: Budesonide (Pulmicort Aerosol) 0.5 mg INHALATION Q12H.RT [facility] Last Admin: 06/14/19 07:20 Dose: Not Given Documented by: Dicyclomine HCl (Bentyl) 20 mg PO Q6 PRN PRN Reason: ABDOMINAL CRAMPING Last Admin: 06/08/19 12:52 Dose: 20 mg Documented by: Diphenoxylate HCl/Atropine (Lomotil) 1 tablet PO 4X/DAY PRN PRN Reason: Diarrhea Last Admin: 06/08/19 16:44 Dose: 1 tablet Documented by: Glucagon () 1 mg IM .X1 PRN PRN Reason: Hypoglycemia Guaifenesin/Codeine Phosphate (Robitussin Ac) 5 ml PO Q6H PRN PRN PRN Reason: COUGH Last Admin: 06/12/19 06:09 Dose: 5 ml Documented by: Heparin Sodium (Porcine) (Heparin Na) 5,000 unit SC Q12 [facility] Last Admin: 06/14/19 09:58 Dose: Not Given Documented by: Dextrose (Dextrose 10%-Water) 250 mls @ 999 mls/hr IV .Q16M PRN; Protocol PRN Reason: HYPOGLYCEMIA Sodium Chloride () 250 mls @ 15 mls/hr IV .[id number] PRN PRN Reason: Saline Flush Last Infusion: 06/13/19 13:41 Dose: 0 mls/hr Documented by: Sodium Chloride () 250 mls @ 15 mls/hr IV .[id number] PRN PRN Reason: Additional IVPB Infusion Insulin Human Lispro (Humalog Kwikpen (Bkc)) 0 unit SC ACHS [facility]; Protocol Last Admin: 06/14/19 11:40 Dose: Not Given Documented by: Melatonin (Melatonin) 3 mg PO QHS [facility] Last Admin: 06/13/19 21:15 Dose: 3 mg Documented by: Ondansetron HCl (Zofran) 4 mg IV Q8H PRN PRN PRN Reason: NAUSEA/VOMITING Oxycodone HCl (Oxyir) 5 mg PO Q4H PRN PRN PRN Reason: Pain Score 4-5/10 Oxycodone HCl (Oxyir) 10 mg PO Q4H PRN PRN PRN Reason: Pain Score 6-10/10 Last Admin: 06/09/19 11:55 Dose: 10 mg Documented by: Pantoprazole Sodium (Protonix) 40 mg PO DAILY [facility] Last Admin: 06/14/19 09:54 Dose: 40 mg Documented by: Pioglitazone HCl (Actos) 15 mg PO DAILY [facility] Last Admin: 06/09/19 08:16 Dose: 15 mg Documented by: Sodium Chloride () 10 - 40 ml IV UD PRN PRN Reason: SALINE FLUSH Last Admin: 06/14/19 03:48 Dose: 30 ml Documented by: STROKE Vital Signs/Narrative: Vital Signs Temp Pulse Resp BP Pulse Ox 06/14/19 09:45 97.8 F 86 20 H 157/91 H 96 Medical Necessity - Tobacco Use Smoking Status: Former smoker Tobacco Use: Cigarettes Assessment/Plan All Active Problems (Last Reviewed 06/09/19 @ 16:39 by Marisol Contreras) Severe sepsis (Acute) Cellulitis of right lower extremity (Acute) Influenza-like symptoms (Acute) Sepsis (Acute) LORIE (acute kidney injury) (Acute) 1. Sepsis secondary to right lower extremity cellulitis which is resolved/LORIE/non-anion gap metabolic acidosis -Appreciate ID input, cefepime discontinued yesterday -White count has increased from 12.9 to 13.7, will monitor -Renal function seems to be improving, will continue with nephrology recommendations -Recheck BMP in the morning 2. Diarrhea-resolved 3. DM 2 with neuropathy -We will hold his Victoza and his Actos -Continue with sliding scale insulin -Evidence of Charcot foot on the left DVT: Heparin Code Visit Inpatient E&M: 45461 Subs Hosp L2
[2019-06-14 13:07] VITALS: PULSE 80; RESP 20; O2SAT 95
[2019-06-14] MEDS: Budesonide Respules 0.5 MG/2 ML AMPUL.NEB. INHALATION (13:07)
[2019-06-14] MEDS: Albuterol 2.5 MG/3 ML VIAL.NEB. INHALATION (13:07)
[2019-06-14 16:00] VITALS: BP 176/83; PULSE 93; RESP 20; TEMP 36.5; O2SAT 97
[2019-06-14 16:45] LABS: Bedside Glucose 94 mg/dL (70-110)
[2019-06-14] MEDS: Diphenoxylate/Atrop 1 Tablet PO (17:24)
[2019-06-14 22:15] VITALS: BP 157/73; PULSE 97; RESP 20; TEMP 36.3; O2SAT 97
[2019-06-14] MEDS: MELATONIN 3 MG TABLET PO (22:27)
[2019-06-14] MEDS: Atorvastatin Calcium 40 MG Tablet PO (22:27)
[2019-06-14] MEDS: Insulin Lispro 100 UNIT/ML INSULN.PEN SC (22:28)
[2019-06-14 22:36] LABS: Bedside Glucose 157 mg/dL (70-110)
[2019-06-15 04:15] VITALS: BP 148/92; PULSE 95; RESP 20; TEMP 36.7; O2SAT 94
[2019-06-15 06:49] LABS: Absolute Lymphocyte Count 1.36 X10^3/uL (0.83-4.51); Absolute Neutrophil Count 12.2 X10^3/uL (2.0-7.7); Basophil# 0.08 X10^3/uL; Basophil% 0.5 % (0-1); Eosinophil# 0.28 X10^3/uL; Eosinophils% 1.8 % (0-5); Hematocrit 30.1 % (40-54); Hemoglobin 10.1 g/dL (13.0-16.5); Lymphocyte # 1.36 X10^3/ul (4.0); Lymphocyte % 8.7 % (19-41); Mean Corp Hgb Conc 33.6 g/dL (32-36); Mean Corpuscular Hgb 31.7 pg (27.0-32.0); Mean Corpuscular Volume 94.4 fL (80-94); Monocyte# 1.21 X10^3/uL; Monocyte% 7.8 % (0-10); NRBC Flagged by Analyzer 0 % (0-5); Neutrophil % 78.5 % (47-70); Platelet Count 470 K/mm3 (150-450); RBC Distribution Width CV 14.1 % (11.6-14.6); RBC Distribution Width SD 48.9 fl (35.1-43.9); Red Blood Count 3.19 M/mm3 (4.6-6.2); White Blood Count 15.6 K/mm3 (4.4-11.0)
[2019-06-15 06:51] LABS: Bedside Glucose 135 mg/dL (70-110)
[2019-06-15 07:22] LABS: Anion Gap 9 (5-15); BUN 32 mg/dL (7-18); Calcium,Total 8.7 mg/dL (8.5-10.1); Chloride 111 mmol/L (98-107); Creatinine, Serum 3.55 mg/dL (0.70-1.30); EST Glomerular Filtration Rate 19 mL/min (>60); Est Glom Filt Rate - Afr Amer 23 mL/min (>60); Estimated Creatinine Clearance 22.75 ml/min; Glucose 133 mg/dL (74-106); Potassium 3.1 mmol/L (3.5-5.1); Sodium Level 140 mmol/L (136-145)
[2019-06-15 09:08] LABS: Magnesium 1.9 mg/dL (1.6-2.6); Phosphorus 3.5 mg/dL (2.5-4.9)
--- NOTE | 2019-06-15 09:41 | PN.RENAL_ITS ---
Patient Problems: Active and Suspected Problems (Last Reviewed 06/09/19 @ 16:39 by Marisol Contreras) Severe sepsis (Acute) Cellulitis of right lower extremity (Acute) Influenza-like symptoms (Acute) Sepsis (Acute) LORIE (acute kidney injury) (Acute) Subjective: No new complaints - Physical Exam Vitals/I&O's: Vital Signs Temp Pulse Resp BP Pulse Ox 98.1 F 95 20 H 148/92 H 94 06/15/19 04:15 06/15/19 04:15 06/15/19 04:15 06/15/19 04:15 06/15/19 04:15 Oxygen Flow Rate (L/min) 2 Oxygen Delivery Method Room Air Weight: 155.1 kg Body Mass Index (BMI) 52.0 Finger Stick Blood Glucose 144 Intake and Output for Last 24 Hours 06/13/19 06/14/19 06/15/19 23:59 23:59 23:59 Intake Total 3443.5 / 3443.5 1720 / 1720 720 / 720 Balance 3443.5 / 3443.5 1720 / 1720 720 / 720 General: Alert, Oriented x3, Cooperative HEENT: Atraumatic, PERRLA, EOMI, Normocephalic Neck: Supple, No JVD, Negative Carotid Bruits Lungs: Clear to auscultation, Normal air movement Cardiovascular: Regular rate, No murmurs Abdomen: Bowel Sounds Present, Soft, Non Tender Extremities: No edema, Capillary Refill Less than 3 Seconds Skin: Rash Present Musculoskeletal: No Tenderness to Palpation of Joints or Extremities Neurological: Cranial nerves II-XII grossly intact Psych/Mental Status: Normal Affect, Appropriate Microbiology Past 72 Hours 06/06/19 19:10 Blood Culture (Wb) - Anticubital Left Blood Culture - Final No growth in 5 days. 06/06/19 19:17 Blood Culture (Wb) - Right Hand Blood Culture - Final No growth in 5 days. Laboratory Results 06/14/19 11:04: POC Glucose 111 H 06/14/19 16:40: POC Glucose 94 06/14/19 22:26: POC Glucose 157 H 06/15/19 06:10: WBC 15.6 H, RBC 3.19 L, Hgb 10.1 L, Hct 30.1 L, MCV 94.4 H, MCH 31.7, MCHC 33.6, RDW Std Deviation 48.9 H, RDW Coeff of Negra 14.1, Plt Count 470 H, MPV 9.0, Immature Gran % (Auto) 2.700 H, Neut % (Auto) 78.5 H, Lymph % (Auto) 8.7 L, Stephens % (Auto) 7.8, Eos % (Auto) 1.8, Baso % (Auto) 0.5, Absolute Neuts (auto) 12.2 H, Absolute Lymphs (auto) 1.36, Nucleated RBC % 0 06/15/19 06:10: Sodium 140, Potassium 3.1 L, Chloride 111 H, Carbon Dioxide 20.0 L, Anion Gap 9, BUN 32 H, Creatinine 3.55 H, Estim Creat Clear Calc 22.75, Est GFR (MDRD) Af Amer 23 L, Est GFR (MDRD) Non-Af 19 L, BUN/Creatinine Ratio 9.0 L, Glucose 133 H, Calcium 8.7 06/15/19 06:10: Phosphorus 3.5, Magnesium 1.9 06/15/19 06:45: POC Glucose 135 H Current Medications Acetaminophen (Tylenol) 650 mg PO Q6H PRN PRN PRN Reason: Pain or Fever Last Admin: 06/12/19 06:08 Dose: 650 mg Documented by: Albuterol Sulfate (Ventolin Aerosols) 2.5 mg INHALATION Q2H PRN PRN PRN Reason: sob/wheezing Last Admin: 06/11/19 02:25 Dose: 2.5 mg Documented by: Albuterol Sulfate (Ventolin Aerosols) 2.5 mg INHALATION Q6HWA.RT [facility] Last Admin: 06/15/19 07:30 Dose: Not Given Documented by: Atorvastatin Calcium (Lipitor) 40 mg PO DAILY@2200 [facility] Last Admin: 06/14/19 22:27 Dose: 40 mg Documented by: Budesonide (Pulmicort Aerosol) 0.5 mg INHALATION Q12H.RT [facility] Last Admin: 06/15/19 07:30 Dose: Not Given Documented by: Dicyclomine HCl (Bentyl) 20 mg PO Q6 PRN PRN Reason: ABDOMINAL CRAMPING Last Admin: 06/08/19 12:52 Dose: 20 mg Documented by: Diphenoxylate HCl/Atropine (Lomotil) 1 tablet PO 4X/DAY PRN PRN Reason: Diarrhea Last Admin: 06/14/19 17:24 Dose: 1 tablet Documented by: Glucagon () 1 mg IM .X1 PRN PRN Reason: Hypoglycemia Guaifenesin/Codeine Phosphate (Robitussin Ac) 5 ml PO Q6H PRN PRN PRN Reason: COUGH Last Admin: 06/12/19 06:09 Dose: 5 ml Documented by: Heparin Sodium (Porcine) (Heparin Na) 5,000 unit SC Q12 [facility] Last Admin: 06/14/19 22:30 Dose: Not Given Documented by: Dextrose (Dextrose 10%-Water) 250 mls @ 999 mls/hr IV .Q16M PRN; Protocol PRN Reason: HYPOGLYCEMIA Sodium Chloride () 250 mls @ 15 mls/hr IV .[id number] PRN PRN Reason: Saline Flush Last Infusion: 06/13/19 13:41 Dose: 0 mls/hr Documented by: Sodium Chloride () 250 mls @ 15 mls/hr IV .[id number] PRN PRN Reason: Additional IVPB Infusion Insulin Human Lispro (Humalog Kwikpen (Bkc)) 0 unit SC ACHS [facility]; Protocol Last Admin: 06/15/19 07:00 Dose: Not Given Documented by: Melatonin (Melatonin) 3 mg PO QHS [facility] Last Admin: 06/14/19 22:27 Dose: 3 mg Documented by: Ondansetron HCl (Zofran) 4 mg IV Q8H PRN PRN PRN Reason: NAUSEA/VOMITING Oxycodone HCl (Oxyir) 5 mg PO Q4H PRN PRN PRN Reason: Pain Score 4-5/10 Oxycodone HCl (Oxyir) 10 mg PO Q4H PRN PRN PRN Reason: Pain Score 6-10/10 Last Admin: 06/09/19 11:55 Dose: 10 mg Documented by: Pantoprazole Sodium (Protonix) 40 mg PO DAILY [facility] Last Admin: 06/14/19 09:54 Dose: 40 mg Documented by: Pioglitazone HCl (Actos) 15 mg PO DAILY [facility] Last Admin: 06/09/19 08:16 Dose: 15 mg Documented by: Sodium Chloride () 10 - 40 ml IV UD PRN PRN Reason: SALINE FLUSH Last Admin: 06/14/19 03:48 Dose: 30 ml Documented by: Medical Necessity - Tobacco Use Smoking Status: Former smoker Tobacco Use: Cigarettes Assessment/Plan All Active Problems (Last Reviewed 06/09/19 @ 16:39 by Marisol Contreras) Severe sepsis (Acute) Cellulitis of right lower extremity (Acute) Influenza-like symptoms (Acute) Sepsis (Acute) LORIE (acute kidney injury) (Acute) LORIE. reviewed records from [facility]. baseline creatinine as of Mar 2019 was around 1.0. admitted with 1.6 peak creatinine at 5.6. Creatinine continues to improve and is now down to 3.5. Urine analysis was fairly benign. Complements normal. Renal ultrasound normal. Acute renal failure was likely ATN in the setting of sepsis, antibiotic related. Creatinine consistently trending down. Lower extremity edema. This is started even before admission. Overall edema looks better than how it was last week. However he still has significant erythema in the right lower extremity. White count is slightly higher today. No fever spikes. I would still hold the diuretics due to high creatinines. ID following for management of antibiotics. Hypokalemia. Consistently hypokalemic. Received 60 M EQ's of potassium this morning.
[2019-06-15 10:00] VITALS: PULSE 78
[2019-06-15 10:15] VITALS: BP 141/71; PULSE 78; RESP 18; TEMP 36.7; O2SAT 94
[2019-06-15] MEDS: Pantoprazole Sodium 40 MG Tablet PO (10:35)
--- NOTE | 2019-06-15 11:11 | PN_ITS ---
Patient Problems: Active and Suspected Problems (Last Reviewed 06/09/19 @ 16:39 by Marisol Contreras) Severe sepsis (Acute) Cellulitis of right lower extremity (Acute) Influenza-like symptoms (Acute) Sepsis (Acute) LORIE (acute kidney injury) (Acute) Subjective: Says that he is feeling better, has not had significant diarrhea. States that the swelling in his right lower extremity is significantly improved as is the erythema. Vitals/I&O's: Vital Signs Temp Pulse Resp BP Pulse Ox 98.1 F 95 20 H 148/92 H 94 06/15/19 04:15 06/15/19 04:15 06/15/19 04:15 06/15/19 04:15 06/15/19 04:15 Oxygen Flow Rate (L/min) 2 Oxygen Delivery Method Room Air Weight: 341 lb 14.991 oz Body Mass Index (BMI) 52.0 Finger Stick Blood Glucose 144 Intake and Output for Last 24 Hours 06/13/19 06/14/19 06/15/19 23:59 23:59 23:59 Intake Total 3443.5 / 3443.5 1720 / 1720 720 / 720 Balance 3443.5 / 3443.5 1720 / 1720 720 / 720 General: Alert, Oriented x3, Cooperative, No apparent distress HEENT: Atraumatic, PERRLA, EOMI, Normocephalic Oral: Moist Mucosa Neck: Supple, No JVD Lungs: Clear to auscultation, Normal air movement, No rhonchi, No wheeze, No rales, Diminished Cardiovascular: Regular rate, Regular Rhythm, Normal S1, Normal S2, No murmurs Abdomen: Soft, Non Tender, Non-Distended, No Hepato-splenomegaly Extremities: No edema, Capillary Refill Less than 3 Seconds Skin: Right lower extremity erythema with significant swelling though patient states that it is down, he has areas of blister formation on his posterior calf and on his anterior acosta which has begun to peel. Neurological: Neuro grossly intact, Sensory exam intact to light touch and pain Psych/Mental Status: Normal Affect, Appropriate Microbiology Past 72 Hours 06/06/19 19:10 Blood Culture (Wb) - Anticubital Left Blood Culture - Final No growth in 5 days. 06/06/19 19:17 Blood Culture (Wb) - Right Hand Blood Culture - Final No growth in 5 days. Laboratory Results 06/14/19 16:40: POC Glucose 94 06/14/19 22:26: POC Glucose 157 H 06/15/19 06:10: WBC 15.6 H, RBC 3.19 L, Hgb 10.1 L, Hct 30.1 L, MCV 94.4 H, MCH 31.7, MCHC 33.6, RDW Std Deviation 48.9 H, RDW Coeff of Negra 14.1, Plt Count 470 H, MPV 9.0, Immature Gran % (Auto) 2.700 H, Neut % (Auto) 78.5 H, Lymph % (Auto) 8.7 L, [place] % (Auto) 7.8, Eos % (Auto) 1.8, Baso % (Auto) 0.5, Absolute Neuts (auto) 12.2 H, Absolute Lymphs (auto) 1.36, Nucleated RBC % 0 06/15/19 06:10: Sodium 140, Potassium 3.1 L, Chloride 111 H, Carbon Dioxide 20.0 L, Anion Gap 9, BUN 32 H, Creatinine 3.55 H, Estim Creat Clear Calc 22.75, Est GFR (MDRD) Af Amer 23 L, Est GFR (MDRD) Non-Af 19 L, BUN/Creatinine Ratio 9.0 L, Glucose 133 H, Calcium 8.7 06/15/19 06:10: Phosphorus 3.5, Magnesium 1.9 06/15/19 06:45: POC Glucose 135 H Current Medications Acetaminophen (Tylenol) 650 mg PO Q6H PRN PRN PRN Reason: Pain or Fever Last Admin: 06/12/19 06:08 Dose: 650 mg Documented by: Albuterol Sulfate (Ventolin Aerosols) 2.5 mg INHALATION Q2H PRN PRN PRN Reason: sob/wheezing Last Admin: 06/11/19 02:25 Dose: 2.5 mg Documented by: Albuterol Sulfate (Ventolin Aerosols) 2.5 mg INHALATION Q6HWA.RT [facility] Last Admin: 06/15/19 07:30 Dose: Not Given Documented by: Atorvastatin Calcium (Lipitor) 40 mg PO DAILY@2200 [facility] Last Admin: 06/14/19 22:27 Dose: 40 mg Documented by: Budesonide (Pulmicort Aerosol) 0.5 mg INHALATION Q12H.RT [facility] Last Admin: 06/15/19 07:30 Dose: Not Given Documented by: Dicyclomine HCl (Bentyl) 20 mg PO Q6 PRN PRN Reason: ABDOMINAL CRAMPING Last Admin: 06/08/19 12:52 Dose: 20 mg Documented by: Diphenoxylate HCl/Atropine (Lomotil) 1 tablet PO 4X/DAY PRN PRN Reason: Diarrhea Last Admin: 06/14/19 17:24 Dose: 1 tablet Documented by: Glucagon () 1 mg IM .X1 PRN PRN Reason: Hypoglycemia Guaifenesin/Codeine Phosphate (Robitussin Ac) 5 ml PO Q6H PRN PRN PRN Reason: COUGH Last Admin: 06/12/19 06:09 Dose: 5 ml Documented by: Heparin Sodium (Porcine) (Heparin Na) 5,000 unit SC Q12 [facility] Last Admin: 06/15/19 10:34 Dose: Not Given Documented by: Dextrose (Dextrose 10%-Water) 250 mls @ 999 mls/hr IV .Q16M PRN; Protocol PRN Reason: HYPOGLYCEMIA Sodium Chloride () 250 mls @ 15 mls/hr IV .[id number] PRN PRN Reason: Saline Flush Last Infusion: 06/13/19 13:41 Dose: 0 mls/hr Documented by: Sodium Chloride () 250 mls @ 15 mls/hr IV .[id number] PRN PRN Reason: Additional IVPB Infusion Insulin Human Lispro (Humalog Kwikpen (Bkc)) 0 unit SC ACHS [facility]; Protocol Last Admin: 06/15/19 07:00 Dose: Not Given Documented by: Melatonin (Melatonin) 3 mg PO QHS [facility] Last Admin: 06/14/19 22:27 Dose: 3 mg Documented by: Ondansetron HCl (Zofran) 4 mg IV Q8H PRN PRN PRN Reason: NAUSEA/VOMITING Oxycodone HCl (Oxyir) 5 mg PO Q4H PRN PRN PRN Reason: Pain Score 4-5/10 Oxycodone HCl (Oxyir) 10 mg PO Q4H PRN PRN PRN Reason: Pain Score 6-10/10 Last Admin: 06/09/19 11:55 Dose: 10 mg Documented by: Pantoprazole Sodium (Protonix) 40 mg PO DAILY [facility] Last Admin: 06/15/19 10:35 Dose: 40 mg Documented by: Pioglitazone HCl (Actos) 15 mg PO DAILY [facility] Last Admin: 06/09/19 08:16 Dose: 15 mg Documented by: Sodium Chloride () 10 - 40 ml IV UD PRN PRN Reason: SALINE FLUSH Last Admin: 06/14/19 03:48 Dose: 30 ml Documented by: Medical Necessity - Tobacco Use Smoking Status: Former smoker Tobacco Use: Cigarettes Assessment/Plan All Active Problems (Last Reviewed 06/09/19 @ 16:39 by Marisol Contreras) Severe sepsis (Acute) Cellulitis of right lower extremity (Acute) Influenza-like symptoms (Acute) Sepsis (Acute) LORIE (acute kidney injury) (Acute) 1. Sepsis secondary to right lower extremity cellulitis which is resolved/LORIE/non-anion gap metabolic acidosis -Appreciate ID input, cefepime discontinued on Sunday -White count has increased 15.6, will monitor off antibiotics for now as he is afebrile and he states that his erythema is significantly better than what it was before he came in -Renal function seems to be improving, will continue with nephrology recommendations -Recheck BMP in the morning 2. Diarrhea-resolved 3. DM 2 with neuropathy -We will hold his Victoza and his Actos -Continue with sliding scale insulin -Evidence of Charcot foot on the left DVT: Heparin Code Visit Inpatient E&M: 76431 Subs Hosp L2
[2019-06-15 12:31] LABS: Bedside Glucose 143 mg/dL (70-110)
[2019-06-15 14:00] VITALS: PULSE 80; O2SAT 95
[2019-06-15 16:15] VITALS: BP 153/96; PULSE 95; RESP 18; TEMP 37.3; O2SAT 96
[2019-06-15 16:51] LABS: Bedside Glucose 111 mg/dL (70-110)
[2019-06-15 22:15] VITALS: BP 148/84; PULSE 101; RESP 18; TEMP 37.2; O2SAT 95
[2019-06-15] MEDS: Insulin Lispro 100 UNIT/ML INSULN.PEN SC (22:39)
[2019-06-15] MEDS: MELATONIN 3 MG TABLET PO (22:40)
[2019-06-15] MEDS: Atorvastatin Calcium 40 MG Tablet PO (22:40)
[2019-06-15] MEDS: Acetaminophen 325 MG Tablet 650 MG PO (22:44)
[2019-06-15 22:45] LABS: Bedside Glucose 151 mg/dL (70-110)
[2019-06-16 04:15] VITALS: BP 128/92; PULSE 92; RESP 18; TEMP 36.6; O2SAT 92
[2019-06-16 06:17] LABS: Absolute Lymphocyte Count 1.58 X10^3/uL (0.83-4.51); Absolute Neutrophil Count 13.3 X10^3/uL (2.0-7.7); Basophil# 0.08 X10^3/uL; Basophil% 0.5 % (0-1); Eosinophil# 0.36 X10^3/uL; Eosinophils% 2.1 % (0-5); Hematocrit 32.2 % (40-54); Hemoglobin 10.6 g/dL (13.0-16.5); Lymphocyte # 1.58 X10^3/ul (4.0); Lymphocyte % 9.3 % (19-41); Mean Corp Hgb Conc 32.9 g/dL (32-36); Mean Corpuscular Hgb 31.3 pg (27.0-32.0); Mean Platelet Vol. 8.8 fl (6.2-12.0); Monocyte# 1.29 X10^3/uL; Monocyte% 7.6 % (0-10); NRBC Flagged by Analyzer 0 % (0-5); Neutrophil % 78.6 % (47-70); Platelet Count 467 K/mm3 (150-450); RBC Distribution Width CV 14.3 % (11.6-14.6); RBC Distribution Width SD 49.1 fl (35.1-43.9); Red Blood Count 3.39 M/mm3 (4.6-6.2); White Blood Count 16.9 K/mm3 (4.4-11.0)
--- NOTE | 2019-06-16 06:20 | NURSING ---
PT CONTINUES TO C/O ABD PAIN AND DIARRHEA (2X OVERNIGHT). BS + X4 QUADRANTS. DENIES NAUSEA. REPORTS PAIN CRAMPING/ACHING. ENC AMBULATION TO INCREASE MOTILITY & PT DID AMB IN HALLS X1. ENC PT TO DISCUSS CONTINUED CONCERNS W/ATTENDING MD. PT EXPRESSES FRUSTRATION AND STATES HE IS JUST READY TO GO HOME.
[2019-06-16 06:35] LABS: Anion Gap 8 (5-15); BUN 30 mg/dL (7-18); Calcium,Total 9.2 mg/dL (8.5-10.1); Chloride 111 mmol/L (98-107); Creatinine, Serum 3.35 mg/dL (0.70-1.30); EST Glomerular Filtration Rate 20 mL/min (>60); Est Glom Filt Rate - Afr Amer 25 mL/min (>60); Glucose 123 mg/dL (74-106); Potassium 3.3 mmol/L (3.5-5.1); Sodium Level 136 mmol/L (136-145)
[2019-06-16 06:56] LABS: Bedside Glucose 126 mg/dL (70-110)
[2019-06-16 09:15] VITALS: BP 136/76; PULSE 86; RESP 20; TEMP 36.4; O2SAT 95
[2019-06-16] MEDS: Pantoprazole Sodium 40 MG Tablet PO (09:16)
--- NOTE | 2019-06-16 10:02 | NURSING ---
wound photo: right leg
--- NOTE | 2019-06-16 10:03 | NURSING ---
wound photo: right leg (posteromedial)
--- NOTE | 2019-06-16 10:51 | PCM.PN.REN ---
Patient Problems: Active and Suspected Problems (Last Reviewed 06/09/19 @ 16:39 by Marisol Contreras) Severe sepsis (Acute) Cellulitis of right lower extremity (Acute) Influenza-like symptoms (Acute) Sepsis (Acute) LORIE (acute kidney injury) (Acute) Subjective: WBC higher - Physical Exam Vitals/I&O's: Vital Signs Temp Pulse Resp BP Pulse Ox 97.6 F L 86 20 H 136/76 H 95 06/16/19 09:15 06/16/19 09:15 06/16/19 09:15 06/16/19 09:15 06/16/19 09:15 Oxygen Flow Rate (L/min) 2 Oxygen Delivery Method Room Air Weight: 155.1 kg Body Mass Index (BMI) 52.0 Finger Stick Blood Glucose 144 Intake and Output for Last 24 Hours 06/14/19 06/15/19 06/16/19 23:59 23:59 23:59 Intake Total 1720 / 1720 1920 / 1920 1400 / 1400 Output Total 600 / 600 Balance 1720 / 1720 1320 / 1320 1400 / 1400 General: Alert, Oriented x3, Cooperative HEENT: Atraumatic, PERRLA, EOMI, Normocephalic Neck: Supple, No JVD, Negative Carotid Bruits Lungs: Clear to auscultation, Normal air movement Cardiovascular: Regular rate, No murmurs Abdomen: Bowel Sounds Present, Soft, Non Tender Extremities: No edema, Capillary Refill Less than 3 Seconds Skin: No rashes, No breakdown Musculoskeletal: No Tenderness to Palpation of Joints or Extremities Neurological: Cranial nerves II-XII grossly intact Psych/Mental Status: Normal Affect, Appropriate Laboratory Results 06/15/19 12:15: POC Glucose 143 H 06/15/19 16:16: POC Glucose 111 H 06/15/19 22:30: POC Glucose 151 H 06/16/19 06:04: WBC 16.9 H, RBC 3.39 L, Hgb 10.6 L, Hct 32.2 L, MCV 95.0 H, MCH 31.3, MCHC 32.9, RDW Std Deviation 49.1 H, RDW Coeff of Negra 14.3, Plt Count 467 H, MPV 8.8, Immature Gran % (Auto) 1.900 H, Neut % (Auto) 78.6 H, Lymph % (Auto) 9.3 L, [place] % (Auto) 7.6, Eos % (Auto) 2.1, Baso % (Auto) 0.5, Absolute Neuts (auto) 13.3 H, Absolute Lymphs (auto) 1.58, Nucleated RBC % 0 06/16/19 06:04: Sodium 136, Potassium 3.3 L, Chloride 111 H, Carbon Dioxide 17.0 L, Anion Gap 8, BUN 30 H, Creatinine 3.35 H, Estim Creat Clear Calc 24.10, Est GFR (MDRD) Af Amer 25 L, Est GFR (MDRD) Non-Af 20 L, BUN/Creatinine Ratio 9.0 L, Glucose 123 H, Calcium 9.2 06/16/19 06:48: POC Glucose 126 H Current Medications Acetaminophen (Tylenol) 650 mg PO Q6H PRN PRN PRN Reason: Pain or Fever Last Admin: 06/15/19 22:44 Dose: 650 mg Documented by: Albuterol Sulfate (Ventolin Aerosols) 2.5 mg INHALATION Q2H PRN PRN PRN Reason: sob/wheezing Last Admin: 06/11/19 02:25 Dose: 2.5 mg Documented by: Albuterol Sulfate (Ventolin Aerosols) 2.5 mg INHALATION Q6HWA.RT [facility] Last Admin: 06/16/19 07:22 Dose: Not Given Documented by: Atorvastatin Calcium (Lipitor) 40 mg PO DAILY@2200 [facility] Last Admin: 06/15/19 22:40 Dose: 40 mg Documented by: Budesonide (Pulmicort Aerosol) 0.5 mg INHALATION Q12H.RT [facility] Last Admin: 06/16/19 07:22 Dose: Not Given Documented by: Dicyclomine HCl (Bentyl) 20 mg PO Q6 PRN PRN Reason: ABDOMINAL CRAMPING Last Admin: 06/08/19 12:52 Dose: 20 mg Documented by: Diphenoxylate HCl/Atropine (Lomotil) 1 tablet PO 4X/DAY PRN PRN Reason: Diarrhea Last Admin: 06/14/19 17:24 Dose: 1 tablet Documented by: Glucagon () 1 mg IM .X1 PRN PRN Reason: Hypoglycemia Guaifenesin/Codeine Phosphate (Robitussin Ac) 5 ml PO Q6H PRN PRN PRN Reason: COUGH Last Admin: 06/12/19 06:09 Dose: 5 ml Documented by: Heparin Sodium (Porcine) (Heparin Na) 5,000 unit SC Q12 [facility] Last Admin: 06/16/19 09:16 Dose: Not Given Documented by: Dextrose (Dextrose 10%-Water) 250 mls @ 999 mls/hr IV .Q16M PRN; Protocol PRN Reason: HYPOGLYCEMIA Sodium Chloride () 250 mls @ 15 mls/hr IV .[id number] PRN PRN Reason: Saline Flush Last Infusion: 06/13/19 13:41 Dose: 0 mls/hr Documented by: Sodium Chloride () 250 mls @ 15 mls/hr IV .[id number] PRN PRN Reason: Additional IVPB Infusion Insulin Human Lispro (Humalog Kwikpen (Bkc)) 0 unit SC ACHS [facility]; Protocol Last Admin: 06/16/19 06:55 Dose: Not Given Documented by: Lactobacillus Acidophilus (Acidophilus) 1 tablet PO TID [facility] Last Admin: 06/16/19 06:00 Dose: 1 tablet Documented by: Melatonin (Melatonin) 3 mg PO QHS [facility] Last Admin: 06/15/19 22:40 Dose: 3 mg Documented by: Ondansetron HCl (Zofran) 4 mg IV Q8H PRN PRN PRN Reason: NAUSEA/VOMITING Oxycodone HCl (Oxyir) 5 mg PO Q4H PRN PRN PRN Reason: Pain Score 4-5/10 Oxycodone HCl (Oxyir) 10 mg PO Q4H PRN PRN PRN Reason: Pain Score 6-10/10 Last Admin: 06/09/19 11:55 Dose: 10 mg Documented by: Pantoprazole Sodium (Protonix) 40 mg PO DAILY [facility] Last Admin: 06/16/19 09:16 Dose: 40 mg Documented by: Pioglitazone HCl (Actos) 15 mg PO DAILY [facility] Last Admin: 06/09/19 08:16 Dose: 15 mg Documented by: Sodium Chloride () 10 - 40 ml IV UD PRN PRN Reason: SALINE FLUSH Last Admin: 06/14/19 03:48 Dose: 30 ml Documented by: Medical Necessity - Tobacco Use Smoking Status: Former smoker Tobacco Use: Cigarettes Assessment/Plan All Active Problems (Last Reviewed 06/09/19 @ 16:39 by Marisol Ben) Severe sepsis (Acute) Cellulitis of right lower extremity (Acute) Influenza-like symptoms (Acute) Sepsis (Acute) LORIE (acute kidney injury) (Acute) LORIE. reviewed records from [facility]. baseline creatinine as of Mar 2019 was around 1.0. admitted with 1.6 peak creatinine at 5.6. Creatinine continues to improve and is now down to 3.5. Urine analysis was fairly benign. Complements normal. Renal ultrasound normal. Acute renal failure was likely ATN in the setting of sepsis, antibiotic related. Creatinine consistently trending down. Lower extremity edema. This is started even before admission. Overall edema looks better than how it was last week. However he still has significant erythema in the right lower extremity. White count is slightly higher today. No fever spikes. I would still hold the diuretics due to high creatinines. ID following for management of antibiotics. Hypokalemia. Consistently hypokalemic. Received potassium this morning.
[2019-06-16 12:06] LABS: Bedside Glucose 113 mg/dL (70-110)
--- NOTE | 2019-06-16 12:53 | PCM.PN.HOSP ---
Patient Problems: Active and Suspected Problems (Last Reviewed 06/09/19 @ 16:39 by Marisol Contreras) Severe sepsis (Acute) Cellulitis of right lower extremity (Acute) Influenza-like symptoms (Acute) Sepsis (Acute) LORIE (acute kidney injury) (Acute) Subjective: Feeling little bit better today, states that he diarrhea is under control that his leg is not as significantly swollen as what it was when he first came in. I did discuss with the wound care nurse who felt that it was little bit more red today than what it had been last week. Still with an elevated white count. No issues overnight. Vitals/I&O's: Vital Signs Temp Pulse Resp BP Pulse Ox 97.6 F L 86 20 H 136/76 H 95 06/16/19 09:15 06/16/19 09:15 06/16/19 09:15 06/16/19 09:15 06/16/19 09:15 Oxygen Flow Rate (L/min) 2 Oxygen Delivery Method Room Air Weight: 341 lb 14.991 oz Body Mass Index (BMI) 52.0 Finger Stick Blood Glucose 144 Intake and Output for Last 24 Hours 06/14/19 06/15/19 06/16/19 23:59 23:59 23:59 Intake Total 1720 / 1720 1920 / 1920 1400 / 1400 Output Total 600 / 600 Balance 1720 / 1720 1320 / 1320 1400 / 1400 General: Alert, Oriented x3, Cooperative, No apparent distress HEENT: Atraumatic, PERRLA, EOMI, Normocephalic Oral: Moist Mucosa Neck: Supple, No JVD Lungs: Clear to auscultation, Normal air movement, No rhonchi, No wheeze, No rales, Diminished Cardiovascular: Regular rate, Regular Rhythm, Normal S1, Normal S2, No murmurs Abdomen: Soft, Non Tender, Non-Distended, No Hepato-splenomegaly Extremities: No edema, Capillary Refill Less than 3 Seconds Skin: Right lower extremity erythema with significant swelling though patient states that it is down, he has areas of blister formation on his posterior calf and on his anterior acosta which has begun to peel. Neurological: Neuro grossly intact, Sensory exam intact to light touch and pain Psych/Mental Status: Normal Affect, Appropriate Laboratory Results 06/15/19 16:16: POC Glucose 111 H 06/15/19 22:30: POC Glucose 151 H 06/16/19 06:04: WBC 16.9 H, RBC 3.39 L, Hgb 10.6 L, Hct 32.2 L, MCV 95.0 H, MCH 31.3, MCHC 32.9, RDW Std Deviation 49.1 H, RDW Coeff of Negra 14.3, Plt Count 467 H, MPV 8.8, Immature Gran % (Auto) 1.900 H, Neut % (Auto) 78.6 H, Lymph % (Auto) 9.3 L, [place] % (Auto) 7.6, Eos % (Auto) 2.1, Baso % (Auto) 0.5, Absolute Neuts (auto) 13.3 H, Absolute Lymphs (auto) 1.58, Nucleated RBC % 0 06/16/19 06:04: Sodium 136, Potassium 3.3 L, Chloride 111 H, Carbon Dioxide 17.0 L, Anion Gap 8, BUN 30 H, Creatinine 3.35 H, Estim Creat Clear Calc 24.10, Est GFR (MDRD) Af Amer 25 L, Est GFR (MDRD) Non-Af 20 L, BUN/Creatinine Ratio 9.0 L, Glucose 123 H, Calcium 9.2 06/16/19 06:48: POC Glucose 126 H 06/16/19 12:01: POC Glucose 113 H Current Medications Acetaminophen (Tylenol) 650 mg PO Q6H PRN PRN PRN Reason: Pain or Fever Last Admin: 06/15/19 22:44 Dose: 650 mg Documented by: Albuterol Sulfate (Ventolin Aerosols) 2.5 mg INHALATION Q2H PRN PRN PRN Reason: sob/wheezing Last Admin: 06/11/19 02:25 Dose: 2.5 mg Documented by: Albuterol Sulfate (Ventolin Aerosols) 2.5 mg INHALATION Q6HWA.RT [facility] Last Admin: 06/16/19 07:22 Dose: Not Given Documented by: Atorvastatin Calcium (Lipitor) 40 mg PO DAILY@2200 [facility] Last Admin: 06/15/19 22:40 Dose: 40 mg Documented by: Budesonide (Pulmicort Aerosol) 0.5 mg INHALATION Q12H.RT [facility] Last Admin: 06/16/19 07:22 Dose: Not Given Documented by: Dicyclomine HCl (Bentyl) 20 mg PO Q6 PRN PRN Reason: ABDOMINAL CRAMPING Last Admin: 06/08/19 12:52 Dose: 20 mg Documented by: Diphenoxylate HCl/Atropine (Lomotil) 1 tablet PO 4X/DAY PRN PRN Reason: Diarrhea Last Admin: 06/14/19 17:24 Dose: 1 tablet Documented by: Glucagon () 1 mg IM .X1 PRN PRN Reason: Hypoglycemia Guaifenesin/Codeine Phosphate (Robitussin Ac) 5 ml PO Q6H PRN PRN PRN Reason: COUGH Last Admin: 06/12/19 06:09 Dose: 5 ml Documented by: Heparin Sodium (Porcine) (Heparin Na) 5,000 unit SC Q12 [facility] Last Admin: 06/16/19 09:16 Dose: Not Given Documented by: Dextrose (Dextrose 10%-Water) 250 mls @ 999 mls/hr IV .Q16M PRN; Protocol PRN Reason: HYPOGLYCEMIA Sodium Chloride () 250 mls @ 15 mls/hr IV .[id number] PRN PRN Reason: Saline Flush Last Infusion: 06/13/19 13:41 Dose: 0 mls/hr Documented by: Sodium Chloride () 250 mls @ 15 mls/hr IV .[id number] PRN PRN Reason: Additional IVPB Infusion Insulin Human Lispro (Humalog Kwikpen (Bkc)) 0 unit SC ACHS [facility]; Protocol Last Admin: 06/16/19 06:55 Dose: Not Given Documented by: Lactobacillus Acidophilus (Acidophilus) 1 tablet PO TID [facility] Last Admin: 06/16/19 06:00 Dose: 1 tablet Documented by: Melatonin (Melatonin) 3 mg PO QHS [facility] Last Admin: 06/15/19 22:40 Dose: 3 mg Documented by: Ondansetron HCl (Zofran) 4 mg IV Q8H PRN PRN PRN Reason: NAUSEA/VOMITING Oxycodone HCl (Oxyir) 5 mg PO Q4H PRN PRN PRN Reason: Pain Score 4-5/10 Oxycodone HCl (Oxyir) 10 mg PO Q4H PRN PRN PRN Reason: Pain Score 6-10/10 Last Admin: 06/09/19 11:55 Dose: 10 mg Documented by: Pantoprazole Sodium (Protonix) 40 mg PO DAILY [facility] Last Admin: 06/16/19 09:16 Dose: 40 mg Documented by: Pioglitazone HCl (Actos) 15 mg PO DAILY [facility] Last Admin: 06/09/19 08:16 Dose: 15 mg Documented by: Sodium Chloride () 10 - 40 ml IV UD PRN PRN Reason: SALINE FLUSH Last Admin: 06/14/19 03:48 Dose: 30 ml Documented by: STROKE Vital Signs/Narrative: Vital Signs Temp Pulse Resp BP Pulse Ox 06/16/19 09:15 97.6 F L 86 20 H 136/76 H 95 Medical Necessity - Tobacco Use Smoking Status: Former smoker Tobacco Use: Cigarettes Assessment/Plan All Active Problems (Last Reviewed 06/09/19 @ 16:39 by Marisol Contreras) Severe sepsis (Acute) Cellulitis of right lower extremity (Acute) Influenza-like symptoms (Acute) Sepsis (Acute) LORIE (acute kidney injury) (Acute) 1. Sepsis secondary to right lower extremity cellulitis which is resolved/LORIE/non-anion gap metabolic acidosis -Appreciate ID input, cefepime discontinued on Sunday -White count has increased 16.9, will monitor off antibiotics for now as he is afebrile and he states that his erythema is significantly better than what it was before he came in, will discuss with infectious disease on how to proceed -Renal function seems to be improving, will continue with nephrology recommendations -Recheck BMP in the morning -We will continue to replace his potassium 2. Diarrhea-resolved 3. DM 2 with neuropathy -We will hold his Victoza and his Actos -Continue with sliding scale insulin -Evidence of Charcot foot on the left DVT: Heparin Code Visit Inpatient E&M: [id number] Subs Hosp L2
--- NOTE | 2019-06-16 14:14 | PN.ID_ITS ---
Patient Problems: Active and Suspected Problems (Last Reviewed 06/09/19 @ 16:39 by Marisol Contreras) Severe sepsis (Acute) Cellulitis of right lower extremity (Acute) Influenza-like symptoms (Acute) Sepsis (Acute) LORIE (acute kidney injury) (Acute) Subjective: No fever, no SOB, leg feels good but still swollen. Only complaint is worsening diarrhea, abd fullness. No blood in stool. Has gone about 12x so far today. - Physical Exam Vitals/I&O's: Vital Signs Temp Pulse Resp BP Pulse Ox 97.6 F L 86 20 H 136/76 H 95 06/16/19 09:15 06/16/19 09:15 06/16/19 09:15 06/16/19 09:15 06/16/19 09:15 Oxygen Flow Rate (L/min) 2 Oxygen Delivery Method Room Air Weight: 155.1 kg Body Mass Index (BMI) 52.0 Finger Stick Blood Glucose 144 Intake and Output for Last 24 Hours 06/14/19 06/15/19 06/16/19 23:59 23:59 23:59 Intake Total 1720 / 1720 1920 / 1920 1400 / 1400 Output Total 600 / 600 Balance 1720 / 1720 1320 / 1320 1400 / 1400 General: Alert, Cooperative, No apparent distress Lungs: Clear to auscultation, Normal air movement Cardiovascular: Regular rate, Regular Rhythm Abdomen: Non Tender, Distended Extremities: Edema Skin: Rash Present - reviewed photo Laboratory Results 06/15/19 16:16: POC Glucose 111 H 06/15/19 22:30: POC Glucose 151 H 06/16/19 06:04: WBC 16.9 H, RBC 3.39 L, Hgb 10.6 L, Hct 32.2 L, MCV 95.0 H, MCH 31.3, MCHC 32.9, RDW Std Deviation 49.1 H, RDW Coeff of Negra 14.3, Plt Count 467 H, MPV 8.8, Immature Gran % (Auto) 1.900 H, Neut % (Auto) 78.6 H, Lymph % (Auto) 9.3 L, [place] % (Auto) 7.6, Eos % (Auto) 2.1, Baso % (Auto) 0.5, Absolute Neuts (auto) 13.3 H, Absolute Lymphs (auto) 1.58, Nucleated RBC % 0 06/16/19 06:04: Sodium 136, Potassium 3.3 L, Chloride 111 H, Carbon Dioxide 17.0 L, Anion Gap 8, BUN 30 H, Creatinine 3.35 H, Estim Creat Clear Calc 24.10, Est GFR (MDRD) Af Amer 25 L, Est GFR (MDRD) Non-Af 20 L, BUN/Creatinine Ratio 9.0 L, Glucose 123 H, Calcium 9.2 06/16/19 06:48: POC Glucose 126 H 06/16/19 12:01: POC Glucose 113 H Current Medications Acetaminophen (Tylenol) 650 mg PO Q6H PRN PRN PRN Reason: Pain or Fever Last Admin: 06/15/19 22:44 Dose: 650 mg Documented by: Albuterol Sulfate (Ventolin Aerosols) 2.5 mg INHALATION Q2H PRN PRN PRN Reason: sob/wheezing Last Admin: 06/11/19 02:25 Dose: 2.5 mg Documented by: Albuterol Sulfate (Ventolin Aerosols) 2.5 mg INHALATION Q6HWA.RT [facility] Last Admin: 06/16/19 13:05 Dose: Not Given Documented by: Atorvastatin Calcium (Lipitor) 40 mg PO DAILY@2200 [facility] Last Admin: 06/15/19 22:40 Dose: 40 mg Documented by: Budesonide (Pulmicort Aerosol) 0.5 mg INHALATION Q12H.RT [facility] Last Admin: 06/16/19 07:22 Dose: Not Given Documented by: Dicyclomine HCl (Bentyl) 20 mg PO Q6 PRN PRN Reason: ABDOMINAL CRAMPING Last Admin: 06/08/19 12:52 Dose: 20 mg Documented by: Diphenoxylate HCl/Atropine (Lomotil) 1 tablet PO 4X/DAY PRN PRN Reason: Diarrhea Last Admin: 06/14/19 17:24 Dose: 1 tablet Documented by: Glucagon () 1 mg IM .X1 PRN PRN Reason: Hypoglycemia Guaifenesin/Codeine Phosphate (Robitussin Ac) 5 ml PO Q6H PRN PRN PRN Reason: COUGH Last Admin: 06/12/19 06:09 Dose: 5 ml Documented by: Heparin Sodium (Porcine) (Heparin Na) 5,000 unit SC Q12 [facility] Last Admin: 06/16/19 09:16 Dose: Not Given Documented by: Dextrose (Dextrose 10%-Water) 250 mls @ 999 mls/hr IV .Q16M PRN; Protocol PRN Reason: HYPOGLYCEMIA Sodium Chloride () 250 mls @ 15 mls/hr IV .[id number] PRN PRN Reason: Saline Flush Last Infusion: 06/13/19 13:41 Dose: 0 mls/hr Documented by: Sodium Chloride () 250 mls @ 15 mls/hr IV .[id number] PRN PRN Reason: Additional IVPB Infusion Insulin Human Lispro (Humalog Kwikpen (Bkc)) 0 unit SC ACHS [facility]; Protocol Last Admin: 06/16/19 13:09 Dose: Not Given Documented by: Lactobacillus Acidophilus (Acidophilus) 1 tablet PO TID [facility] Last Admin: 06/16/19 06:00 Dose: 1 tablet Documented by: Melatonin (Melatonin) 3 mg PO QHS [facility] Last Admin: 06/15/19 22:40 Dose: 3 mg Documented by: Ondansetron HCl (Zofran) 4 mg IV Q8H PRN PRN PRN Reason: NAUSEA/VOMITING Oxycodone HCl (Oxyir) 5 mg PO Q4H PRN PRN PRN Reason: Pain Score 4-5/10 Oxycodone HCl (Oxyir) 10 mg PO Q4H PRN PRN PRN Reason: Pain Score 6-10/10 Last Admin: 06/09/19 11:55 Dose: 10 mg Documented by: Pantoprazole Sodium (Protonix) 40 mg PO DAILY [facility] Last Admin: 06/16/19 09:16 Dose: 40 mg Documented by: Pioglitazone HCl (Actos) 15 mg PO DAILY [facility] Last Admin: 06/09/19 08:16 Dose: 15 mg Documented by: Sodium Chloride () 10 - 40 ml IV UD PRN PRN Reason: SALINE FLUSH Last Admin: 06/14/19 03:48 Dose: 30 ml Documented by: Medical Necessity - Tobacco Use Smoking Status: Former smoker Tobacco Use: Cigarettes Route of nutrition/ use of supplements: [] Nutritional Intake: [] IV Site: [] Boyce Catheter: [] - Assessment/Plan Antibiotics: [] Assessment/Plan: [] Active and Suspected Problems (Last Reviewed 06/09/19 @ 16:39 by Marisol Ben) Severe sepsis (Acute) Cellulitis of right lower extremity (Acute) Influenza-like symptoms (Acute) Sepsis (Acute) LORIE (acute kidney injury) (Acute) severe sepsis with LORIE due to RLE cellulitis with DM neuropathy. Flu pcr was neg. Stool pcr was neg. Diarrhea and wbc worse. Cr improving. Redness and pain in RLE much improved. Off abx since 06/13. Will order cdiff. Will follow, d/w nursing.
[2019-06-16 14:55] VITALS: BP 147/74; PULSE 95; RESP 18; TEMP 36.5; O2SAT 95
[2019-06-16 17:06] LABS: Bedside Glucose 111 mg/dL (70-110)
[2019-06-16 21:17] VITALS: BP 143/77; PULSE 94; RESP 18; TEMP 36.6; O2SAT 95
[2019-06-16] MEDS: MELATONIN 3 MG TABLET PO (21:29)
[2019-06-16 21:41] LABS: Bedside Glucose 103 mg/dL (70-110)
[2019-06-17 03:22] VITALS: BP 160/85; PULSE 90; RESP 18; TEMP 36.9; O2SAT 95
[2019-06-17 06:07] LABS: Absolute Lymphocyte Count 1.28 X10^3/uL (0.83-4.51); Absolute Neutrophil Count 11.9 X10^3/uL (2.0-7.7); Basophil# 0.08 X10^3/uL; Basophil% 0.5 % (0-1); Eosinophil# 0.34 X10^3/uL; Eosinophils% 2.3 % (0-5); Hematocrit 33.9 % (40-54); Lymphocyte # 1.28 X10^3/ul (4.0); Lymphocyte % 8.6 % (19-41); Mean Corp Hgb Conc 32.4 g/dL (32-36); Mean Corpuscular Hgb 31.4 pg (27.0-32.0); Mean Corpuscular Volume 96.9 fL (80-94); Mean Platelet Vol. 8.9 fl (6.2-12.0); Monocyte# 1.05 X10^3/uL; Monocyte% 7.1 % (0-10); NRBC Flagged by Analyzer 0 % (0-5); Neutrophil # 11.86 X10^3/uL (2.7-7.7); Neutrophil % 79.7 % (47-70); Platelet Count 451 K/mm3 (150-450); RBC Distribution Width CV 13.8 % (11.6-14.6); RBC Distribution Width SD 49.7 fl (35.1-43.9); White Blood Count 14.9 K/mm3 (4.4-11.0)
[2019-06-17 06:21] LABS: Anion Gap 8 (5-15); BUN 30 mg/dL (7-18); BUN/Creat Ratio 9.2 RATIO (10-20); Calcium,Total 9.4 mg/dL (8.5-10.1); Chloride 113 mmol/L (98-107); Creatinine, Serum 3.27 mg/dL (0.70-1.30); EST Glomerular Filtration Rate 21 mL/min (>60); Est Glom Filt Rate - Afr Amer 25 mL/min (>60); Estimated Creatinine Clearance 24.69 ml/min; Glucose 124 mg/dL (74-106); Potassium 3.1 mmol/L (3.5-5.1); Sodium Level 139 mmol/L (136-145)
[2019-06-17 07:11] LABS: Bedside Glucose 123 mg/dL (70-110)
[2019-06-17 07:56] VITALS: O2SAT 93
--- NOTE | 2019-06-17 09:32 | DCINST_ITS ---
- Discharge Diagnoses Current Active Problems: Current Active and Chronic Problems (Last Reviewed 06/09/19 @ 16:39 by Marisol Contreras) Severe sepsis (Acute) Cellulitis of right lower extremity (Acute) Influenza-like symptoms (Acute) Sepsis (Acute) LORIE (acute kidney injury) (Acute) You will use the following diet at home:: Calorie/Carbohydrate Controlled (specify 1200, 1400, etc) - 1800 calories Your food should be the consistency of: Regular Your liquids should be the consistency of: Regular/Thin Discharge Activity: Return to Normal Activity Call your doctor if you observe: Fever of 101 or Higher, Shortness of breath, Dizziness, Fainting spells, Swelling in the ankles, Chest pain, Increased palpitations (irregular heartbeat) Allergies/Adverse Reactions: Allergies No Known Allergies Allergy (Verified 06/06/19 18:52) Medications to take at Discharge Atorvastatin Calcium [Lipitor] 40 mg PO DAILY 10/08/14 Albuterol IH (ProAir) [Proair Hfa] 1 - 2 puff INHALATION Q4H PRN PRN 06/06/19 Liraglutide [Victoza 3-Eyad] 1.8 mg SUBCUT DAILY 06/06/19 Mometasone/Formoterol [Dulera 200 Mcg/5 Mcg Inhaler] 2 puff IH DAILY 06/06/19 Pioglitazone [Actos] 15 mg PO DAILY 06/06/19 Lisinopril [Zestril] 20 mg PO DAILY #0 06/17/19 Primary Care Physician: Donnell Edwards MD [Primary Care Provider] - Please follow up with your Primary Care Physician in: 3-5 days Test Results: Test results from this visit will be discussed in further detail at your follow- up appointment, if applicable. Please Follow Up With: [facility] When: 1 week
--- NOTE | 2019-06-17 10:35 | PCM.PN.ID ---
Patient Problems: Active and Suspected Problems (Last Reviewed 06/09/19 @ 16:39 by Marisol Contreras) Severe sepsis (Acute) Cellulitis of right lower extremity (Acute) Influenza-like symptoms (Acute) Sepsis (Acute) LORIE (acute kidney injury) (Acute) Subjective: Feeling a little better, less diarrhea, less nausea. No fever, leg feels ok. - Physical Exam Vitals/I&O's: Vital Signs Temp Pulse Resp BP Pulse Ox 98.5 F 90 18 160/85 H 93 06/17/19 03:22 06/17/19 03:22 06/17/19 03:22 06/17/19 03:22 06/17/19 07:56 Oxygen Flow Rate (L/min) 2 Oxygen Delivery Method Room Air Weight: 155.1 kg Body Mass Index (BMI) 52.0 Finger Stick Blood Glucose 144 Intake and Output for Last 24 Hours 06/15/19 06/16/19 06/17/19 23:59 23:59 23:59 Intake Total 1920 / 1920 2100 / 2100 200 / 200 Output Total 600 / 600 Balance 1320 / 1320 2100 / 2100 200 / 200 General: Alert, Cooperative, No apparent distress Lungs: Clear to auscultation, Normal air movement Cardiovascular: Regular rate, Regular Rhythm Abdomen: Soft, Non Tender, Non-Distended Extremities: Edema Microbiology Past 72 Hours 06/16/19 14:00 Stool C. difficile DNA Amplification - Final Laboratory Results 06/16/19 12:01: POC Glucose 113 H 06/16/19 16:58: POC Glucose 111 H 06/16/19 21:24: POC Glucose 103 06/17/19 05:21: WBC 14.9 H, RBC 3.50 L, Hgb 11.0 L, Hct 33.9 L, MCV 96.9 H, MCH 31.4, MCHC 32.4, RDW Std Deviation 49.7 H, RDW Coeff of Negra 13.8, Plt Count 451 H, MPV 8.9, Immature Gran % (Auto) 1.800 H, Neut % (Auto) 79.7 H, Lymph % (Auto) 8.6 L, [place] % (Auto) 7.1, Eos % (Auto) 2.3, Baso % (Auto) 0.5, Absolute Neuts (auto) 11.9 H, Absolute Lymphs (auto) 1.28, Nucleated RBC % 0 06/17/19 05:21: Sodium 139, Potassium 3.1 L, Chloride 113 H, Carbon Dioxide 18.0 L, Anion Gap 8, BUN 30 H, Creatinine 3.27 H, Estim Creat Clear Calc 24.69, Est GFR (MDRD) Af Amer 25 L, Est GFR (MDRD) Non-Af 21 L, BUN/Creatinine Ratio 9.2 L, Glucose 124 H, Calcium 9.4 06/17/19 06:59: POC Glucose 123 H Current Medications Acetaminophen (Tylenol) 650 mg PO Q6H PRN PRN PRN Reason: Pain or Fever Last Admin: 06/15/19 22:44 Dose: 650 mg Documented by: Albuterol Sulfate (Ventolin Aerosols) 2.5 mg INHALATION Q2H PRN PRN PRN Reason: sob/wheezing Last Admin: 06/11/19 02:25 Dose: 2.5 mg Documented by: Albuterol Sulfate (Ventolin Aerosols) 2.5 mg INHALATION Q6HWA.RT [facility]PL[facility] Last Admin: 06/17/19 07:30 Dose: Not Given Documented by: Atorvastatin Calcium (Lipitor) 40 mg PO DAILY@2200 [facility] Last Admin: 06/16/19 21:45 Dose: Not Given Documented by: Budesonide (Pulmicort Aerosol) 0.5 mg INHALATION Q12H.RT [facility]PL[facility] BY [facility] Last Admin: 06/17/19 07:30 Dose: Not Given Documented by: Dicyclomine HCl (Bentyl) 20 mg PO Q6 PRN PRN Reason: ABDOMINAL CRAMPING Last Admin: 06/08/19 12:52 Dose: 20 mg Documented by: Diphenoxylate HCl/Atropine (Lomotil) 1 tablet PO 4X/DAY PRN PRN Reason: Diarrhea Last Admin: 06/14/19 17:24 Dose: 1 tablet Documented by: Glucagon () 1 mg IM .X1 PRN PRN Reason: Hypoglycemia Guaifenesin/Codeine Phosphate (Robitussin Ac) 5 ml PO Q6H PRN PRN PRN Reason: COUGH Last Admin: 06/12/19 06:09 Dose: 5 ml Documented by: Heparin Sodium (Porcine) (Heparin Na) 5,000 unit SC Q12 [facility] Last Admin: 06/16/19 21:25 Dose: Not Given Documented by: Dextrose (Dextrose 10%-Water) 250 mls @ 999 mls/hr IV .Q16M PRN; Protocol PRN Reason: HYPOGLYCEMIA Sodium Chloride () 250 mls @ 15 mls/hr IV .[id number] PRN PRN Reason: Saline Flush Last Infusion: 06/13/19 13:41 Dose: 0 mls/hr Documented by: Sodium Chloride () 250 mls @ 15 mls/hr IV .[id number] PRN PRN Reason: Additional IVPB Infusion Insulin Human Lispro (Humalog Kwikpen (Bkc)) 0 unit SC ACHS REPLACED BY [facility]; Protocol Last Admin: 06/17/19 07:02 Dose: Not Given Documented by: Lactobacillus Acidophilus (Acidophilus) 1 tablet PO TID [facility]PL[facility] BY [facility] Last Admin: 06/17/19 07:02 Dose: Not Given Documented by: Melatonin (Melatonin) 3 mg PO QHS REPLACED BY [facility] Last Admin: 06/16/19 21:29 Dose: 3 mg Documented by: Ondansetron HCl (Zofran) 4 mg IV Q8H PRN PRN PRN Reason: NAUSEA/VOMITING Oxycodone HCl (Oxyir) 5 mg PO Q4H PRN PRN PRN Reason: Pain Score 4-5/10 Oxycodone HCl (Oxyir) 10 mg PO Q4H PRN PRN PRN Reason: Pain Score 6-10/10 Last Admin: 06/09/19 11:55 Dose: 10 mg Documented by: Pantoprazole Sodium (Protonix) 40 mg PO DAILY REPLACED BY [facility] Last Admin: 06/16/19 09:16 Dose: 40 mg Documented by: Pioglitazone HCl (Actos) 15 mg PO DAILY REPLACED BY [facility] Last Admin: 06/09/19 08:16 Dose: 15 mg Documented by: Sodium Chloride () 10 - 40 ml IV UD PRN PRN Reason: SALINE FLUSH Last Admin: 06/14/19 03:48 Dose: 30 ml Documented by: Medical Necessity - Tobacco Use Smoking Status: Former smoker Tobacco Use: Cigarettes Route of nutrition/ use of supplements: [] Nutritional Intake: [] IV Site: [] Boyce Catheter: [] - Assessment/Plan Antibiotics: [] Assessment/Plan: [] Active and Suspected Problems (Last Reviewed 06/09/19 @ 16:39 by Marisol Cotnreras) Severe sepsis (Acute) Cellulitis of right lower extremity (Acute) Influenza-like symptoms (Acute) Sepsis (Acute) LORIE (acute kidney injury) (Acute) severe sepsis with LORIE due to RLE cellulitis with DM neuropathy. Flu pcr was neg. Stool pcr was neg. Diarrhea and wbc both slightly improved today. Cr improving. Redness and pain in RLE much improved. Off abx since 06/13. Cdiff neg, ok for d/c home. Will follow, d/w Dr. Winters
[2019-06-17 10:43] VITALS: BP 162/90; PULSE 98; RESP 18; TEMP 36.6; O2SAT 95
--- NOTE | 2019-06-17 11:00 | DS.PCM_ITS ---
Discharge Date and Diagnosis - Problem List Patient Problems: Active and Suspected Problems (Last Reviewed 06/09/19 @ 16:39 by Marisol Contreras) Severe sepsis (Acute) Cellulitis of right lower extremity (Acute) Influenza-like symptoms (Acute) Sepsis (Acute) LORIE (acute kidney injury) (Acute) Date of Admission: 06/06/19 Date of Discharge: 06/17/19 - Primary Discharge Diagnosis Active and Suspected Problems (Last Reviewed 06/09/19 @ 16:39 by Marisol Contreras) Severe sepsis (Acute) Cellulitis of right lower extremity (Acute) Influenza-like symptoms (Acute) Sepsis (Acute) LORIE (acute kidney injury) (Acute) Hospital Course and Treatment Imaging Results: RT Foot XR: IMPRESSION: Normal right foot. CXR: IMPRESSION: Normal. MRI RLE: Findings: Cellulitis is severe. It is greatest within the dorsum of the foot. Motion artifact is severe. This significantly diminishes utility of the study due to registration artifact. There is only one T2 fat saturated series. That series, series 10, does not extend all the way through the fifth digit. Of the fifth digit imaged on that series, there is no significant marrow edema perceived. Bony alignment is normal. Interphalangeal joint spaces are minimally narrowed. No abscess is perceived. There may be some mild edema amongst the muscle and fascial planes. Muscle atrophy is present. No tendinous disruption is perceived. CT Abd: IMPRESSION: Mild nonspecific ileus. Renal US: IMPRESSION: 1. No hydronephrosis or shadowing calculi. 2. Nondistended urinary bladder. Consultations 06/08/19 08:32 Consult: Onc/Wound/disaster recovery coordinator Routine Comment: ID Nephrology Operations: None Procedures: None Summary of Care Provided: Per HPI: The patient is a 54 year old M with a significant history of hypertension; morbid obesity; diabetes; asthma; hyperlipidemia and sleep apnea who presented with right leg erythema. Associated with symptoms is swelling and pain of the right leg. He developed wound on his right plantar area about a week ago. A day before his right leg symptoms began patient had flulike symptoms. He described his flulike symptoms as achiness of the whole body; fever; chills; rigors;diaphoresis and weakness. He reported home fever of about 102.7 Fahrenheit. Also patient reports with bowel movements about every hour. At the Emergency Department patient was found to have tachycardia; tachypnea and leukocytosis. Also he had a fever of 101.5 Fahrenheit. Hospital Course: 1. Sepsis secondary to right lower extremity cellulitis/LORIE secondary to ATN/non-anion gap metabolic acidosis/[id number]-old male with a history of high blood pressure morbid obesity as well as diabetes had presented to the hospital with right leg erythema and swelling. He had an MRI which did not show osteomyelitis and he was started on antibiotics. Because of the significant edema he was also started on diuretics. He developed ATN with a creatinine that had jumped up to 5.67. He slowly did recover with holding his diuretics as well as his KINJAL inhibitor. On the day of discharge his creatinine had improved to 3.27. I explained to him that he needs to hold his lisinopril until he follows up with his primary care doctor and has an outpatient BMP to monitor his renal function. Also he had completed his course of antibiotics for cellulitis and on Sunday when I evaluated him for the first time he stated that his legs look 100 times better than when he had come into the hospital. There was little bit of concern initially because he had a leukocytosis develop again after the antibiotics were held however he was afebrile denied any significant leg discomfort. He was having episodes of diarrhea which he had had earlier in his hospital course, so a C. difficile test was obtained which was negative. On the day of discharge his white count had improved without antibiotics from 16.9 to 14.9. He will need to follow-up with the wound care center for further evaluation of his leg and for closer monitoring. Also of note his potassium has been low which has been difficult to manage. He has been getting replaced mu ltiple times throughout his hospital stay and on the day of discharge his potassium was 3.1. He was given 60 mEq of p.o. potassium and he was encouraged to improve his p.o. intake. He says he does not have much of an appetite but will try to eat. I explained the risks and benefits of discharge to him this morning and he expressed understanding and would like to go home. 2. His other medical diagnoses were evaluated and his home medications were continued where appropriate Patient Problems: Active and Suspected Problems (Last Reviewed 06/09/19 @ 16:39 by Marisol Contreras) Severe sepsis (Acute) Cellulitis of right lower extremity (Acute) Influenza-like symptoms (Acute) Sepsis (Acute) LORIE (acute kidney injury) (Acute) - Physical Exam Vitals/I&O's: Vital Signs Temp Pulse Resp BP Pulse Ox 97.9 F 98 18 162/90 H 95 06/17/19 10:43 06/17/19 10:43 06/17/19 10:43 06/17/19 10:43 06/17/19 10:43 Oxygen Flow Rate (L/min) 2 Oxygen Delivery Method Room Air Weight: 341 lb 14.991 oz Body Mass Index (BMI) 52.0 Finger Stick Blood Glucose 144 Intake and Output for Last 24 Hours 06/15/19 06/16/19 06/17/19 23:59 23:59 23:59 Intake Total 1920 / 1920 2099 / 2099 200 / 200 Output Total 600 / 600 Balance 1320 / 1320 2099 / 2099 200 / 200 General: Alert, Oriented x3, Cooperative, No apparent distress HEENT: Atraumatic, PERRLA, EOMI, Normocephalic Oral: Moist Mucosa Neck: Supple, No JVD Lungs: Clear to auscultation, Normal air movement, No rhonchi, No wheeze, No rales, Diminished Cardiovascular: Regular rate, Regular Rhythm, Normal S1, Normal S2, No murmurs Abdomen: Soft, Non Tender, Non-Distended, No Hepato-splenomegaly Extremities: No edema, Capillary Refill Less than 3 Seconds Skin: Right lower extremity erythema with significant swelling though patient states that it is down, he has areas of blister formation on his posterior calf and on his anterior acosta which has begun to peel. Neurological: Neuro grossly intact, Sensory exam intact to light touch and pain Psych/Mental Status: Normal Affect, Appropriate Microbiology Past 72 Hours 06/16/19 14:00 Stool C. difficile DNA Amplification - Final Laboratory Results 06/16/19 12:01: POC Glucose 113 H 06/16/19 16:58: POC Glucose 111 H 06/16/19 21:24: POC Glucose 103 06/17/19 05:21: WBC 14.9 H, RBC 3.50 L, Hgb 11.0 L, Hct 33.9 L, MCV 96.9 H, MCH 31.4, MCHC 32.4, RDW Std Deviation 49.7 H, RDW Coeff of Negra 13.8, Plt Count 451 H, MPV 8.9, Immature Gran % (Auto) 1.800 H, Neut % (Auto) 79.7 H, Lymph % (Auto) 8.6 L, [place] % (Auto) 7.1, Eos % (Auto) 2.3, Baso % (Auto) 0.5, Absolute Neuts (auto) 11.9 H, Absolute Lymphs (auto) 1.28, Nucleated RBC % 0 06/17/19 05:21: Sodium 139, Potassium 3.1 L, Chloride 113 H, Carbon Dioxide 18.0 L, Anion Gap 8, BUN 30 H, Creatinine 3.27 H, Estim Creat Clear Calc 24.69, Est GFR (MDRD) Af Amer 25 L, Est GFR (MDRD) Non-Af 21 L, BUN/Creatinine Ratio 9.2 L, Glucose 124 H, Calcium 9.4 06/17/19 06:59: POC Glucose 123 H Current Medications Acetaminophen (Tylenol) 650 mg PO Q6H PRN PRN PRN Reason: Pain or Fever Last Admin: 06/15/19 22:44 Dose: 650 mg Documented by: Albuterol Sulfate (Ventolin Aerosols) 2.5 mg INHALATION Q2H PRN PRN PRN Reason: sob/wheezing Last Admin: 06/11/19 02:25 Dose: 2.5 mg Documented by: Albuterol Sulfate (Ventolin Aerosols) 2.5 mg INHALATION Q6HWA.RT [facility] Last Admin: 06/17/19 07:30 Dose: Not Given Documented by: Atorvastatin Calcium (Lipitor) 40 mg PO DAILY@2200 [facility] Last Admin: 06/16/19 21:45 Dose: Not Given Documented by: Budesonide (Pulmicort Aerosol) 0.5 mg INHALATION Q12H.RT [facility] Last Admin: 06/17/19 07:30 Dose: Not Given Documented by: Dicyclomine HCl (Bentyl) 20 mg PO Q6 PRN PRN Reason: ABDOMINAL CRAMPING Last Admin: 06/08/19 12:52 Dose: 20 mg Documented by: Diphenoxylate HCl/Atropine (Lomotil) 1 tablet PO 4X/DAY PRN PRN Reason: Diarrhea Last Admin: 06/14/19 17:24 Dose: 1 tablet Documented by: Glucagon () 1 mg IM .X1 PRN PRN Reason: Hypoglycemia Guaifenesin/Codeine Phosphate (Robitussin Ac) 5 ml PO Q6H PRN PRN PRN Reason: COUGH Last Admin: 06/12/19 06:09 Dose: 5 ml Documented by: Heparin Sodium (Porcine) (Heparin Na) 5,000 unit SC Q12 [facility] Last Admin: 06/16/19 21:25 Dose: Not Given Documented by: Dextrose (Dextrose 10%-Water) 250 mls @ 999 mls/hr IV .Q16M PRN; Protocol PRN Reason: HYPOGLYCEMIA Sodium Chloride () 250 mls @ 15 mls/hr IV .[id number] PRN PRN Reason: Saline Flush Last Infusion: 06/13/19 13:41 Dose: 0 mls/hr Documented by: Sodium Chloride () 250 mls @ 15 mls/hr IV .[id number] PRN PRN Reason: Additional IVPB Infusion Insulin Human Lispro (Humalog Kwikpen (Bkc)) 0 unit SC ACHS [facility]; Protocol Last Admin: 06/17/19 07:02 Dose: Not Given Documented by: Lactobacillus Acidophilus (Acidophilus) 1 tablet PO TID [facility] Last Admin: 06/17/19 07:02 Dose: Not Given Documented by: Melatonin (Melatonin) 3 mg PO QHS [facility] Last Admin: 06/16/19 21:29 Dose: 3 mg Documented by: Ondansetron HCl (Zofran) 4 mg IV Q8H PRN PRN PRN Reason: NAUSEA/VOMITING Oxycodone HCl (Oxyir) 5 mg PO Q4H PRN PRN PRN Reason: Pain Score 4-5/10 Oxycodone HCl (Oxyir) 10 mg PO Q4H PRN PRN PRN Reason: Pain Score 6-10/10 Last Admin: 06/09/19 11:55 Dose: 10 mg Documented by: Pantoprazole Sodium (Protonix) 40 mg PO DAILY [facility] Last Admin: 06/16/19 09:16 Dose: 40 mg Documented by: Pioglitazone HCl (Actos) 15 mg PO DAILY [facility] Last Admin: 06/09/19 08:16 Dose: 15 mg Documented by: Sodium Chloride () 10 - 40 ml IV UD PRN PRN Reason: SALINE FLUSH Last Admin: 06/14/19 03:48 Dose: 30 ml Documented by: Discharge Activity: Return to Normal Activity Call your doctor if you observe: Fever of 101 or Higher, Shortness of breath, Dizziness, Fainting spells, Swelling in the ankles, Chest pain, Increased palpitations (irregular heartbeat) Home Medications: Medications to take at Discharge Atorvastatin Calcium [Lipitor] 40 mg PO DAILY 10/08/14 Albuterol IH (ProAir) [Proair Hfa] 1 - 2 puff INHALATION Q4H PRN PRN 06/06/19 Liraglutide [Victoza 3-Eyad] 1.8 mg SUBCUT DAILY 06/06/19 Mometasone/Formoterol [Dulera 200 Mcg/5 Mcg Inhaler] 2 puff IH DAILY 06/06/19 Pioglitazone [Actos] 15 mg PO DAILY 06/06/19 Lisinopril [Zestril] 20 mg PO DAILY #0 06/17/19 Primary Care Physician: Donnell Edwards MD [Primary Care Provider] - Please follow up with your Primary Care Physician in: 3-5 days Please Follow Up With: [facility] When: 1 week Please Follow Up With: Donnell Edwards MD When: 3-5 days Disposition: Home Minutes spent on discharge:: 35 Patient Condition:: Stable Medical Necessity - Tobacco Use Smoking Status: Former smoker Tobacco Use: Cigarettes Meaningful Use Info Meaningful Use Diagnoses (Choose all that apply): None applicable Code Visit Inpatient E&M: 05099 Disch Hosp
[2019-06-17] MEDS: oxyCODONE 5 MG Tablet PO (11:05)
[2019-06-17] MEDS: Pantoprazole Sodium 40 MG Tablet PO (11:06)
[2019-06-17] MEDS: Acetaminophen 325 MG Tablet 650 MG PO (11:06)
--- NOTE | 2019-06-17 11:08 | PN.RENAL_ITS ---
Patient Problems: Active and Suspected Problems (Last Reviewed 06/09/19 @ 16:39 by Marisol Contreras) Severe sepsis (Acute) Cellulitis of right lower extremity (Acute) Influenza-like symptoms (Acute) Sepsis (Acute) LORIE (acute kidney injury) (Acute) Subjective: no new complaints - Physical Exam Vitals/I&O's: Vital Signs Temp Pulse Resp BP Pulse Ox 97.9 F 98 18 162/90 H 95 06/17/19 10:43 06/17/19 10:43 06/17/19 10:43 06/17/19 10:43 06/17/19 10:43 Oxygen Flow Rate (L/min) 2 Oxygen Delivery Method Room Air Weight: 155.1 kg Body Mass Index (BMI) 52.0 Finger Stick Blood Glucose 144 Intake and Output for Last 24 Hours 06/15/19 06/16/19 06/17/19 23:59 23:59 23:59 Intake Total 1920 / 1920 2100 / 2100 200 / 200 Output Total 600 / 600 Balance 1320 / 1320 2100 / 2100 200 / 200 General: Alert, Oriented x3, Cooperative HEENT: Atraumatic, PERRLA, EOMI, Normocephalic Neck: Supple, No JVD, Negative Carotid Bruits Lungs: Clear to auscultation, Normal air movement Cardiovascular: Regular rate, No murmurs Abdomen: Bowel Sounds Present, Soft, Non Tender Extremities: No edema, Capillary Refill Less than 3 Seconds Skin: No rashes, No breakdown Musculoskeletal: No Tenderness to Palpation of Joints or Extremities Neurological: Cranial nerves II-XII grossly intact Psych/Mental Status: Normal Affect, Appropriate Microbiology Past 72 Hours 06/16/19 14:00 Stool C. difficile DNA Amplification - Final Laboratory Results 06/16/19 12:01: POC Glucose 113 H 06/16/19 16:58: POC Glucose 111 H 06/16/19 21:24: POC Glucose 103 06/17/19 05:21: WBC 14.9 H, RBC 3.50 L, Hgb 11.0 L, Hct 33.9 L, MCV 96.9 H, MCH 31.4, MCHC 32.4, RDW Std Deviation 49.7 H, RDW Coeff of Negra 13.8, Plt Count 451 H, MPV 8.9, Immature Gran % (Auto) 1.800 H, Neut % (Auto) 79.7 H, Lymph % (Auto) 8.6 L, [place] % (Auto) 7.1, Eos % (Auto) 2.3, Baso % (Auto) 0.5, Absolute Neuts (auto) 11.9 H, Absolute Lymphs (auto) 1.28, Nucleated RBC % 0 06/17/19 05:21: Sodium 139, Potassium 3.1 L, Chloride 113 H, Carbon Dioxide 18.0 L, Anion Gap 8, BUN 30 H, Creatinine 3.27 H, Estim Creat Clear Calc 24.69, Est GFR (MDRD) Af Amer 25 L, Est GFR (MDRD) Non-Af 21 L, BUN/Creatinine Ratio 9.2 L, Glucose 124 H, Calcium 9.4 06/17/19 06:59: POC Glucose 123 H Current Medications Acetaminophen (Tylenol) 650 mg PO Q6H PRN PRN PRN Reason: Pain or Fever Last Admin: 06/17/19 11:06 Dose: 650 mg Documented by: Albuterol Sulfate (Ventolin Aerosols) 2.5 mg INHALATION Q2H PRN PRN PRN Reason: sob/wheezing Last Admin: 06/11/19 02:25 Dose: 2.5 mg Documented by: Albuterol Sulfate (Ventolin Aerosols) 2.5 mg INHALATION Q6HWA.RT [facility] Last Admin: 06/17/19 07:30 Dose: Not Given Documented by: Atorvastatin Calcium (Lipitor) 40 mg PO DAILY@2200 [facility] Last Admin: 06/16/19 21:45 Dose: Not Given Documented by: Budesonide (Pulmicort Aerosol) 0.5 mg INHALATION Q12H.RT [facility] Last Admin: 06/17/19 07:30 Dose: Not Given Documented by: Dicyclomine HCl (Bentyl) 20 mg PO Q6 PRN PRN Reason: ABDOMINAL CRAMPING Last Admin: 06/08/19 12:52 Dose: 20 mg Documented by: Diphenoxylate HCl/Atropine (Lomotil) 1 tablet PO 4X/DAY PRN PRN Reason: Diarrhea Last Admin: 06/14/19 17:24 Dose: 1 tablet Documented by: Glucagon () 1 mg IM .X1 PRN PRN Reason: Hypoglycemia Guaifenesin/Codeine Phosphate (Robitussin Ac) 5 ml PO Q6H PRN PRN PRN Reason: COUGH Last Admin: 06/12/19 06:09 Dose: 5 ml Documented by: Heparin Sodium (Porcine) (Heparin Na) 5,000 unit SC Q12 [facility] Last Admin: 06/17/19 10:46 Dose: Not Given Documented by: Dextrose (Dextrose 10%-Water) 250 mls @ 999 mls/hr IV .Q16M PRN; Protocol PRN Reason: HYPOGLYCEMIA Sodium Chloride () 250 mls @ 15 mls/hr IV .[id number] PRN PRN Reason: Saline Flush Last Infusion: 06/13/19 13:41 Dose: 0 mls/hr Documented by: Sodium Chloride () 250 mls @ 15 mls/hr IV .[id number] PRN PRN Reason: Additional IVPB Infusion Insulin Human Lispro (Humalog Kwikpen (Bkc)) 0 unit SC ACHS [facility]; Protocol Last Admin: 06/17/19 07:02 Dose: Not Given Documented by: Lactobacillus Acidophilus (Acidophilus) 1 tablet PO TID [facility] Last Admin: 06/17/19 07:02 Dose: Not Given Documented by: Melatonin (Melatonin) 3 mg PO QHS [facility] Last Admin: 06/16/19 21:29 Dose: 3 mg Documented by: Ondansetron HCl (Zofran) 4 mg IV Q8H PRN PRN PRN Reason: NAUSEA/VOMITING Oxycodone HCl (Oxyir) 5 mg PO Q4H PRN PRN PRN Reason: Pain Score 4-5/10 Last Admin: 06/17/19 11:05 Dose: 5 mg Documented by: Oxycodone HCl (Oxyir) 10 mg PO Q4H PRN PRN PRN Reason: Pain Score 6-10/10 Last Admin: 06/09/19 11:55 Dose: 10 mg Documented by: Pantoprazole Sodium (Protonix) 40 mg PO DAILY [facility] Last Admin: 06/17/19 11:06 Dose: 40 mg Documented by: Pioglitazone HCl (Actos) 15 mg PO DAILY [facility] Last Admin: 06/09/19 08:16 Dose: 15 mg Documented by: Sodium Chloride () 10 - 40 ml IV UD PRN PRN Reason: SALINE FLUSH Last Admin: 06/14/19 03:48 Dose: 30 ml Documented by: Medical Necessity - Tobacco Use Smoking Status: Former smoker Tobacco Use: Cigarettes Assessment/Plan All Active Problems (Last Reviewed 06/09/19 @ 16:39 by Marisol Contreras) Severe sepsis (Acute) Cellulitis of right lower extremity (Acute) Influenza-like symptoms (Acute) Sepsis (Acute) LORIE (acute kidney injury) (Acute) LORIE. reviewed records from [facility]. baseline creatinine as of Mar 2019 was around 1.0. admitted with 1.6 peak creatinine at 5.6. Creatinine continues to improve and is now down to 3.5. Urine analysis was fairly benign. Complements normal. Renal ultrasound normal. Acute renal failure was likely ATN in the setting of sepsis, antibiotic related. Creatinine consistently trending down. Lower extremity edema. This is started even before admission. Overall edema looks better than how it was last week. However he still has significant erythema in the right lower extremity. Hypokalemia. Consistently hypokalemic. Received potassium dc today. will follow with PCP.
[2019-06-17 11:30] LABS: Bedside Glucose 149 mg/dL (70-110)
[2019-06-17 15:20] VITALS: BP 158/92; PULSE 78; RESP 18; TEMP 36.7; O2SAT 94
--- NOTE | 2019-06-18 16:04 | CASEMGMT ---
GINO BOWERS Discharge Follow-up Phone Call: SHEFALI: Roberto Strata: 3 Call Date: 06/18/2019 Discharge Date: 06/17/2019 Time of Call: 1600 Duration: 3 min Admitting Diagnosis: Sepsis GINO BOWERS completed follow-up phone call after recent hospitalization. Patient states that he is doing alright. Patient had no concerns regarding discharge instructions. Patient had follow-up appointments scheduled prior to discharge. Patient had no further needs or concerns at this time.
== END 2019-06-17 15:22 | disposition home or self-care (01) | DRG 871 ==
LOC: ED 21:37 → MS3 21:44
PROVIDERS: Anesthesiology; Internal Medicine Nephrology; Student in an Organized Health Care Education/Training Program; Admitting Provider Hospitalist; Emergency Provider Emergency Medicine; PCP Internal Medicine; Visit Provider Family Medicine
DX: A41.9 Sepsis, unspecified organism (principal); N17.0 Acute kidney failure with tubular necrosis; L03.115 Cellulitis of right lower limb; Z68.43 Body mass index [BMI] 50.0-59.9, adult; E87.2 Acidosis; E66.01 Morbid (severe) obesity due to excess calories; I10 Essential (primary) hypertension; M60.9 Myositis, unspecified; E11.40 Type 2 diabetes mellitus with diabetic neuropathy, unspecified; E11.610 Type 2 diabetes mellitus with diabetic neuropathic arthropathy; R65.20 Severe sepsis without septic shock; E87.6 Hypokalemia; R19.7 Diarrhea, unspecified; J45.909 Unspecified asthma, uncomplicated; G47.30 Sleep apnea, unspecified; E78.5 Hyperlipidemia, unspecified; Z87.891 Personal history of nicotine dependence; Z79.899 Other long term (current) drug therapy; Z79.84 Long term (current) use of oral hypoglycemic drugs; J11.1 Influenza due to unidentified influenza virus with other respiratory manifestations; S91.311A Laceration without foreign body, right foot, initial encounter
CPT/HCPCS: 36415; 70030; 71045; 73630; 73718; 74018; 74176; 76770; 80048; 80053; 80069; 80202; 81001; 82040; 82550; 82570; 82962; 83036; 83605; 83735; 84100; 84156; 84300; 85025; 85610; 85652; 85730; 86140; 86160; 87040; 87070; 87086; 87205; 87493; 87506; 87633; 87640; 87804; 93005; 94640; 97802; 97803; 99285; J7030; J7040; J7050; A4216

== ENCOUNTER 2019-10-08 11:00 | Outpatient (RCR) | payer BC, SELFPAY ==
[2019-06-06 22:36] VITALS: BMI 52.0
[2019-09-17 11:03] VITALS: BP 165/92; PULSE 91; RESP 22; TEMP 36.4; BMI 49.4
--- NOTE | 2019-09-17 12:19 | PCM.WC.HP ---
(1) Ulcer of right foot with fat layer exposed Status: Chronic Current Visit: Yes Code(s): L97.512 - Non-pressure chronic ulcer of other part of right foot with fat layer exposed (2) Edema, lower extremity Status: Chronic Current Visit: Yes Code(s): R60.0 - Localized edema (3) Cellulitis of right lower extremity Status: Resolved Current Visit: Yes Code(s): L03.115 - Cellulitis of right lower limb (4) Type 2 diabetes mellitus with diabetic polyneuropathy Status: Chronic Current Visit: Yes Code(s): E11.42 - Type 2 diabetes mellitus with diabetic polyneuropathy (5) Delayed wound healing Status: Chronic Current Visit: Yes Code(s): T14.8XXD - Other injury of unspecified body region, subsequent encounter (6) Malnutrition Status: Suspected Current Visit: Yes Code(s): E46 - Unspecified protein-calorie malnutrition History of Present Illness Date of Service: 09/17/19 Chief Complaint: Right foot ulcer History of Wound: This 54-year-old male with significant past medical history of diabetes and hypertension presents to the wound healing center today for evaluation of chronic right foot ulcer. He relates the onset was approximately 4 months ago. He is been seen at the [facility] under the management of Dr. Elias and also intermittently at [facility] for sepsis and right lower extremity cellulitis. He was last admitted in June 2019. He denies recent injuries. He has been through several rounds of antibiotics and completed his last round last week. He relates his ulcer was recently cultured within the past month at the [facility] and that he had updated MRI, x-ray, and labs performed at that outside facility. He denies pain. 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 He denies claudication. He does have some rest paresthesias. He relates his last hemoglobin A1c level was in the sevens. He also reports he had noninvasive vascular studies performed at the [facility] this past year. His medical records have been requested. Past Medical History Past Medical History: Chronic Problems (Last Reviewed 06/09/19 @ 16:39 by Marisol Contreras) Ulcer of right foot with fat layer exposed (Chronic) Edema, lower extremity (Chronic) Type 2 diabetes mellitus with diabetic polyneuropathy (Chronic) Delayed wound healing (Chronic) Surgical History: - - Knee surgery bilateral knees; carpal tunnel syndrome bilateral wrist; repair of bicep tendon. Allergies/Adverse Reactions: Allergies No Known Allergies Allergy (Verified 09/17/19 11:36) Home Medications: Ambulatory Orders Medication Instructions Recorded Atorvastatin Calcium [Lipitor] 40 mg PO DAILY 10/08/14 Albuterol IH (ProAir) [Proair Hfa] 1 - 2 puff INHALATION Q4H PRN PRN 06/06/19 Liraglutide [Victoza 3-Eyad] 1.8 mg SUBCUT DAILY 06/06/19 Mometasone/Formoterol [Dulera 200 2 puff IH DAILY 06/06/19 Mcg-5 Mcg Inhaler] Pioglitazone [Actos] 15 mg PO DAILY 06/06/19 Lisinopril [Zestril] 20 mg PO DAILY #0 06/17/19 - Family History Maternal Cancer - Breast cancer Paternal Heart Disease Smoking Status: Former smoker Review of Systems Constitutional: Denies: Chills, Fever Cardiovascular: Reports: Edema. Denies: Chest Pain, Claudication Respiratory: Denies: Cough, Shortness of Breath Gastrointestinal: Denies: Nausea, Vomiting Musculoskeletal: Denies: Foot Pain Skin: Reports: Skin Changes, Wounds Neurological: Reports: Numbness Endocrine: Reports: Change in Body Habitus - Physical Exam Vital Signs Temp Pulse Resp BP 97.6 F L 91 22 H 165/92 H 09/17/19 11:03 09/17/19 11:03 09/17/19 11:03 09/17/19 11:03 General: Alert, Oriented x3, Cooperative, No apparent distress HEENT: Atraumatic Extremities: No cyanosis, Capillary Refill Less than 3 Seconds, No Calf Tenderness, Diminished Peripheral Pulses, Edema Skin: Ulcer/ Wound - No purulence, erythema, string, odor, infection. There is no deep probing to the sub-fifth metatarsal head ulcer. The wound is granular and even hyper granular to the proximal 40%. The peripheral skin is hairless and atrophic. There is no maceration. There is some interdigital webspace moisture to the fourth interspace on bilateral foot without any skin discontinuity. Wound Measurements and Assessment WC - Nurse 1 - General Ulcer Measurement Start: 09/17/19 10:49 Freq: Status: Active Protocol: Activity Type Activity Date Activity User E-Sign Co-Sign Detail Recorded Client Recorded Date Recorded By Document 09/17/19 11:03 DAYANARA [id number] 09/17/19 11:32 DL 09/17/19 11:03 Wound Center Nurse 1 [Ulcer Assessment] #1 R Lat Plantar -Current Size (cm) - Length 1.8 -Current Size (cm) - Width 1.8 -Current Size (cm) - Depth 0.1 -Total Square Cm 3.24 -Photo Taken Yes -Exudate Amt Small -Exudate Type Serosanguineous -Wound Margin Distinct, Outline Attached -Granulation Amt Large (67-100%) -Granulation Quality [place] -Necrosis Amt Small (1-33%) -Necrotic Tissue Type Adherent Slough -Structure Exposed N/A -Texture (Malia-wound Skin Appearance) Callus -Moisture (Malia-wound Skin Appearance Dry/Scaly ) -Color (Malia-wound Skin Appearance) Hemosiderin Staining -Temperature (Malia-wound Skin No Abnormality Appearance) (Pt Warm) -Tenderness on Palpation (Malia-wound No Skin Appearance) -Ulcer Cleansing Wound Cleanser -Foul Odor after Cleansing No -Anesthetic Used 4% Lidocaine Solution WC - Nurse 2 - General Ulcer CM Notes Start: 09/17/19 10:49 Freq: Status: Active Protocol: Activity Type Activity Date Activity User E-Sign Co-Sign Detail Recorded Client Recorded Date Recorded By Document 09/17/19 12:01 HINA [id number] 09/17/19 12:04 HINA 09/17/19 12:01 Wound Center Nurse 2 [Procedure/Treatment] -Time 12:01 -Correct Patient Yes -Correct Side, Site, Position Yes -Correct Procedure Yes -Procedure Performed Yes -Type of Procedure Debridement -Clinical Debridement Subcutaneous -Post Debridement Size (cm) - Length 1.9 -Post Debridement Size (cm) - Width 1.9 -Post Debridement Size (cm) - Depth 0.2 -Total Square Cm 3.61 -Wound/Ulcer Outcome Not Healed -Ulcer Cleansing Rinsed/ Irrigated with Saline -Foul Odor after Cleansing No -Bioengineered Tissue No -Bleeding Controlled with Pressure,Silver Nitrate -Offloading Yes -Type of Offloading Surgical Shoe -Treatment Response Procedure Tolerated Well [See Physician Procedure note for Specifics] Pain Scale: 0-10 Numeric [Pain] -Is Patient Pain Free? Yes Musculoskeletal: No Tenderness to Palpation of Joints or Extremities, Muscle Wasting, - - Dorsal contraction of lesser toes bilateral in the webspaces are very limited. There is a prominent fifth metatarsal head on the right foot. Compartments of bilateral foot is soft to touch. 5 at 5 ankle muscle strength in all directions and active range of motion of all 10 digits are noted. Compartments of the foot remain soft. Neurological: - - Lack of normal epicritic sensation light touch is consistent with a neuropathy status Psych/Mental Status: Normal Affect, Appropriate Debridement Note Post-Debridement Measurements/Treatment WC - Nurse 2 - General Ulcer CM Notes Start: 09/17/19 10:49 Freq: Status: Active Protocol: Activity Type Activity Date Activity User E-Sign Co-Sign Detail Recorded Client Recorded Date Recorded By Document 09/17/19 12:01 HINA [id number] 09/17/19 12:04 HINA 09/17/19 12:01 Wound Center Nurse 2 #1 R Lat Plantar -Time 12:01 -Correct Patient Yes -Correct Side, Site, Position Yes -Correct Procedure Yes -Procedure Performed Yes -Type of Procedure Debridement -Clinical Debridement Subcutaneous -Post Debridement Size (cm) - Length 1.9 -Post Debridement Size (cm) - Width 1.9 -Post Debridement Size (cm) - Depth 0.2 -Total Square Cm 3.61 -Wound/Ulcer Outcome Not Healed -Ulcer Cleansing Rinsed/ Irrigated with Saline -Foul Odor after Cleansing No -Bioengineered Tissue No -Bleeding Controlled with Pressure,Silver Nitrate -Offloading Yes -Type of Offloading Surgical Shoe -Treatment Response Procedure Tolerated Well Pain Scale: 0-10 Numeric Is Patient Pain Free? Yes Wound debrided: sub 5th metarsal head Laterality: Right Wound Grade/Stage: grade 1 Type of Debridement: Excisional debridement Anesthesia Used: 5% Lidocaine Gel Depth: in the subcutaneous layer Percentage of wound debrided: 100 Instrument Used: #15 blade Tissue Removed: fibrous, devitalized subcutaneous, biofilm, slough Severity: Fat Layer Exposed Amount of bleeding with debridement: Mild Bleeding Controlled with: Pressure Patient tolerated procedure well Assessment/Plan Active Problems (Last Reviewed 06/09/19 @ 16:39 by Marisol Contreras) Ulcer of right foot with fat layer exposed (Chronic) Edema, lower extremity (Chronic) Type 2 diabetes mellitus with diabetic polyneuropathy (Chronic) Delayed wound healing (Chronic) Assessment: Right sub-fifth metatarsal head ulcer, grade 1. Resolved right lower extremity cellulitis. History of recent deeper infection with antibiotic treatment and recent history of sepsis. Diabetes with neuropathy. Delayed healing. Malnutrition suspected Plan: I reviewed and discussed his case. His labs are reviewed from June 2019. Debridement was performed as noted in the clinical panel. Additionally, silver nitrate was applied to the hyper granulation tissue aspect and he tolerated this well. I recommend changing this ulcer dressing daily with Frankly Chat in which she already has the supplies. He was reassured no local signs of infection are noted today and I do not recommend antibiotics. His extensive recent infection history as noted and basically medical records have been requested from the [facility] including cultures, imaging studies, labs and prior clinical documentation. He understands these may need to be updated if I am not able to obtain these records in a timely fashion or if his status changes. To wash the foot daily with Dial soap and water while he is doing dressing changes. To heel weight-bear with his surgical shoe that he has today. He will bring in his other offloading devices for evaluation and potential adjustment next week. I also recommended he uses a walker to help keep additional weight off of the site while he is at home. He defers the need for any prescription for this. It is noted that he is a non-smoker and I recommended he continues to avoid tobacco products. It is also he drinks 3 alcoholic beverages daily and he was advised to discontinue that. He understands glycemic better management is advised for optimizing ulcer healing. I recommend controlling his edema with a single layer Tubigrip at this time and to elevate at rest. His noninvasive vascular studies were also requested from the [facility]. He reports his blood flow is excellent. We also discussed the potential application of a total contact cast he will consider this. He understands he cannot drive with this cast in place and I would also like to review his noninvasive vascular studies prior to proceeding with this. I answered all his questions. He was advised to follow-up at the wound healing center in 1 week or call sooner if you have any questions or concerns. -----. MACRA 2019: Performed today-. Medication and allergy list was reviewed and reconciled. Performed 09-17-2019-. Is body mass index is above normal with 49.5. He was advised on improved diet to help with his wound healing and overall health. He is a current tobacco nonuser. His blood pressure was elevated at 165/92. To follow-up with primary care physician. Diet and activity recommendations were reviewed. A nutrition referral will be offered. He does not have a living will on file and this was considered confirmation of advanced care plan. He denies having more than 1 fall or fall with injury this past year. His pneumococcal vaccination has been received. His influenza immunization has been received.
[2019-09-24 11:02] VITALS: BP 149/88; PULSE 106; RESP 22; TEMP 36.8; BMI 49.4
--- NOTE | 2019-09-24 23:51 | PN.PCM_ITS ---
(1) Ulcer of right foot with fat layer exposed Status: Chronic Code(s): L97.512 - Non-pressure chronic ulcer of other part of right foot with fat layer exposed (2) Edema, lower extremity Status: Chronic Code(s): R60.0 - Localized edema (3) Cellulitis of right lower extremity Status: Resolved Code(s): L03.115 - Cellulitis of right lower limb (4) Type 2 diabetes mellitus with diabetic polyneuropathy Status: Chronic Code(s): E11.42 - Type 2 diabetes mellitus with diabetic polyneuropathy (5) Delayed wound healing Status: Chronic Code(s): T14.8XXD - Other injury of unspecified body region, subsequent encounter (6) Malnutrition Status: Suspected Code(s): E46 - Unspecified protein-calorie malnutrition Type of Wound Date of Service: 09/24/19 Chief Complaint: Right foot ulcer History of Wound: This 54-year-old male with significant past medical history of diabetes and hypertension presents to the wound healing center today for follow- up of chronic right foot ulcer. He was previously treated for [facility]. He denies fever, chill, nausea, vomiting. He brought his offloading devices with him today for further evaluation. Most recently, he has been wearing a surgical shoe with an offloading liner with pegs removed to alleviate the ulcer location. He denies redness, odor, streaking. His medical records have been requested a couple of times from the [facility]. Progress of Wound: Stable - Physical Exam Vital Signs Temp Pulse Resp BP 98.2 F 106 H 22 H 149/88 H 09/24/19 11:02 09/24/19 11:02 09/24/19 11:02 09/24/19 11:02 General: Alert, Oriented x3, Cooperative Extremities: No cyanosis, Capillary Refill Less than 3 Seconds, No Calf Tenderness, Diminished Peripheral Pulses, Edema Skin: Ulcer/ Wound - No purulence, erythema, streaking, odor, infection. Adjacent skin is hairless and atrophic. The ulcer bed is granular and there is still some residual hyper granulation tissue noted at the plantar proximal aspect and this is reduced compared to last visit. There is no deep probing Wound Measurements and Assessment WC - Nurse 1 - General Ulcer Measurement Start: 09/17/19 10:49 Freq: Status: Active Protocol: Activity Type Activity Date Activity User E-Sign Co-Sign Detail Recorded Client Recorded Date Recorded By Document 09/24/19 11:02 DL [id number] 09/24/19 11:08 DL 09/24/19 11:02 Wound Center Nurse 1 [Ulcer Assessment] #1 R Lat Plantar -Current Size (cm) - Length 1.7 -Current Size (cm) - Width 1.4 -Current Size (cm) - Depth 0.1 -Total Square Cm 2.38 -Photo Taken No -Exudate Amt Small -Exudate Type Serosanguineous -Wound Margin Distinct, Outline Attached -Granulation Amt Medium (34-66%) -Granulation Quality Red -Necrosis Amt Medium (34-66%) -Necrotic Tissue Type Adherent Slough -Structure Exposed N/A -Texture (Malia-wound Skin Appearance) Scarring -Moisture (Malia-wound Skin Appearance Dry/Scaly ) -Color (Malia-wound Skin Appearance) Hemosiderin Staining -Temperature (Malia-wound Skin No Abnormality Appearance) (Pt Warm) -Tenderness on Palpation (Malia-wound No Skin Appearance) -Ulcer Cleansing Wound Cleanser -Foul Odor after Cleansing No -Anesthetic Used 4% Lidocaine Solution [Edema Assessment] -Right Calf (cm) 52 -Right Ankle (cm) 26.5 WC - Nurse 2 - General Ulcer CM Notes Start: 09/17/19 10:49 Freq: Status: Active Protocol: Activity Type Activity Date Activity User E-Sign Co-Sign Detail Recorded Client Recorded Date Recorded By Document 09/24/19 11:29 DL [id number] 09/24/19 11:30 DL 09/24/19 11:29 Wound Center Nurse 2 [Procedure/Treatment] #1 R Lat Plantar -Time 11:30 -Correct Patient Yes -Correct Side, Site, Position Yes -Correct Procedure Yes -Procedure Performed Yes -Type of Procedure Debridement -Clinical Debridement Subcutaneous -Post Debridement Size (cm) - Length 1.8 -Post Debridement Size (cm) - Width 1.5 -Post Debridement Size (cm) - Depth 0.1 -Total Square Cm 2.70 -Wound/Ulcer Outcome Not Healed -Ulcer Cleansing Rinsed/ Irrigated with Saline -Foul Odor after Cleansing No -Bioengineered Tissue No -Bleeding Controlled with Pressure,Silver Nitrate -Offloading Yes -Type of Offloading Surgical Shoe -Treatment Response Procedure Tolerated Well [See Physician Procedure note for Specifics] Pain Scale: 0-10 Numeric [Pain] -Is Patient Pain Free? Yes Musculoskeletal: No Tenderness to Palpation of Joints or Extremities, Muscle Wasting, - - Prominent fifth metatarsal head. Compartments are soft to palpate. Active range of motion digits noted Neurological: - - Lack of normal epicritic sensation light touch is consistent w ith neuropathy status Psych/Mental Status: Normal Affect, Appropriate Debridement Note Post-Debridement Measurements/Treatment WC - Nurse 2 - General Ulcer CM Notes Start: 09/17/19 10:49 Freq: Status: Active Protocol: Activity Type Activity Date Activity User E-Sign Co-Sign Detail Recorded Client Recorded Date Recorded By Document 09/17/19 12:01 JF [id number] 09/17/19 12:04 JF Document 09/24/19 11:29 DL [id number] 09/24/19 11:30 DL 09/17/19 09/24/19 12:01 11:29 Wound Center Nurse 2 #1 R Lat Plantar -Time 12:01 11:30 -Correct Patient Yes Yes -Correct Side, Site, Position Yes Yes -Correct Procedure Yes Yes -Procedure Performed Yes Yes -Type of Procedure Debridement Debridement -Clinical Debridement Subcutaneous Subcutaneous -Post Debridement Size (cm) - Length 1.9 1.8 -Post Debridement Size (cm) - Width 1.9 1.5 -Post Debridement Size (cm) - Depth 0.2 0.1 -Total Square Cm 3.61 2.70 -Wound/Ulcer Outcome Not Healed Not Healed -Ulcer Cleansing Rinsed/ Rinsed/ Irrigated with Irrigated with Saline Saline -Foul Odor after Cleansing No No -Bioengineered Tissue No No -Bleeding Controlled with Pressure,Silver Pressure,Silver Nitrate Nitrate -Offloading Yes Yes -Type of Offloading Surgical Shoe Surgical Shoe -Treatment Response Procedure Procedure Tolerated Well Tolerated Well Pain Scale: 0-10 Numeric Is Patient Pain Free? Yes Yes Wound debrided: sub 5th metatarsal head Laterality: Right Wound Grade/Stage: grade 1 Type of Debridement: Excisional debridement Anesthesia Used: 5% Lidocaine Gel Depth: in the subcutaneous layer Percentage of wound debrided: 100 Instrument Used: #15 blade Tissue Removed: fibrous, devitalized subcutaneous, biofilm, slough Severity: Fat Layer Exposed Amount of bleeding with debridement: Mild Bleeding Controlled with: Pressure Patient tolerated procedure well Assessment/Plan Assessment: Right sub-fifth metatarsal head ulcer, grade 1. Resolved right lower extremity cellulitis. History of recent deeper infection with antibiotic treatment and recent history of sepsis. Diabetes with neuropathy. Delayed healing. Malnutrition suspected Plan: I reviewed and discussed his case. His labs are reviewed from June 2019. Debridement was performed as noted in the clinical panel. Additionally, silver nitrate was applied to the hyper granulation tissue aspect and he gabino erated this well. I recommend changing this ulcer dressing daily with [employer] in which she already has the supplies. He was reassured no local signs of infection are noted today and I do not recommend antibiotics. His extensive recent infection history as noted and basically medical records have been requested from the [facility] including cultures, imaging studies, labs and prior clinical documentation. He understands these may need to be updated if I am not able to obtain these records in a timely fashion or if his status changes. We will give this 1 more week to try to get these results and their requested again. To wash the foot daily with Dial soap and water while he is doing dressing changes. To heel weight-bear with his surgical shoe that he has today. He did bring his other offloading devices for evaluation and potential adjustment today; the black liner in his surgical shoe had a pocket created today to take additional pressure off of the site. He tolerated this adjustment. I also recommended he uses a walker to help keep additional weight off of the site while he is at home. He defers the need for any prescription for this. It is noted that he is a non-smoker and I recommended he continues to avoid tobacco products. It is also he drinks 3 alcoholic beverages daily and he was advised to discontinue that. He understands glycemic better management is advised for optimizing ulcer healing. I recommend controlling his edema with a single layer Tubigrip at this time and to elevate at rest. His noninvasive vascular studies were also requested from the [facility]. He reports his blood flow is excellent. We also discussed the potential application of a total contact cast he will consider this. He understands he cannot drive with this cast in place and I would also like to review his noninvasive vascular studies prior to proceeding with this. I answered all his questions. He was advised to follow-up at the wound healing center in 1 week or call sooner if you have any questions or concerns. -----. MACRA 2019: Performed today-. Medication and allergy list was reviewed and reconciled. Performed 09-17-2019-. Is body mass index is above normal with 49.5. He was advised on improved diet to help with his wound healing and overall health. He is a current tobacco nonuser. His blood pressure was elevated at 165/92. To follow-up with primary care physician. Diet and activity recommendations were reviewed. A nutrition referral will be offered. He does not have a living will on file and this was considered confirmation of advanced care plan. He denies having more than 1 fall or fall with injury this past year. His pneumococcal vaccination has been received. His influenza immunization has been received.
[2019-10-01 11:04] VITALS: BP 147/83; PULSE 90; RESP 18; TEMP 36.8; BMI 49.4
--- NOTE | 2019-10-01 12:59 | PCM.WC.PN ---
(1) Ulcer of right foot with fat layer exposed Status: Chronic Code(s): L97.512 - Non-pressure chronic ulcer of other part of right foot with fat layer exposed (2) Edema, lower extremity Status: Chronic Code(s): R60.0 - Localized edema (3) Cellulitis of right lower extremity Status: Resolved Code(s): L03.115 - Cellulitis of right lower limb (4) Type 2 diabetes mellitus with diabetic polyneuropathy Status: Chronic Code(s): E11.42 - Type 2 diabetes mellitus with diabetic polyneuropathy (5) Delayed wound healing Status: Chronic Code(s): T14.8XXD - Other injury of unspecified body region, subsequent encounter (6) Malnutrition Status: Suspected Code(s): E46 - Unspecified protein-calorie malnutrition Type of Wound Date of Service: 10/01/19 Chief Complaint: Right foot ulcer History of Wound: This 54-year-old male with significant past medical history of diabetes and hypertension presents to the wound healing center today for follow-up of chronic right foot ulcer. He was previously treated for [facility]. He denies fever, chill, nausea, vomiting. His surgical shoe offloading pocket was modified last week and he reports he is doing well with this. His medical records from his other facility that he was treated that was received and reviewed. Progress of Wound: Improving - Physical Exam Vital Signs Temp Pulse Resp BP 98.2 F 90 18 147/83 H 10/01/19 11:04 10/01/19 11:04 10/01/19 11:04 10/01/19 11:04 General: Alert, Oriented x3, Cooperative, No apparent distress Extremities: No cyanosis, Capillary Refill Less than 3 Seconds, No Calf Tenderness, Diminished Peripheral Pulses, Edema Skin: Ulcer/ Wound - No purulence, erythema, streaking, odor, infection. The adjacent skin is hairless and atrophic. There is peripheral epithelialization noted improvement in granulation tissue Wound Measurements and Assessment WC - Nurse 1 - General Ulcer Measurement Start: 09/17/19 10:49 Freq: Status: Active Protocol: Activity Type Activity Date Activity User E-Sign Co-Sign Detail Recorded Client Recorded Date Recorded By Document 10/01/19 11:04 DV [id number] 10/01/19 11:11 DV 10/01/19 11:04 Wound Center Nurse 1 [Ulcer Assessment] #1 R Lat Plantar -Combined with other wound No -Current Size (cm) - Length 1.0 -Current Size (cm) - Width 1.0 -Current Size (cm) - Depth 0.1 -Total Square Cm 1.00 -Photo Taken No -Epithelialization Small 1-33% -Tunneling No -Undermining/Tunneling No -Circular Undermining No -Exudate Amt Medium -Exudate Type Serous -Wound Margin Flat & Intact -Granulation Amt Medium (34-66%) -Granulation Quality Hyper- granulation -Slough/Fibrin Yes -Necrosis Amt Medium (34-66%) -Necrotic Tissue Type Adherent Slough -Structure Exposed None/Limited to Skin Breakdown -Texture (Malia-wound Skin Appearance) Assessed, Scarring -Moisture (Malia-wound Skin Appearance Assessed, ) Weeping -Color (Malia-wound Skin Appearance) No Abnormality, Assessed -Temperature (Malia-wound Skin No Abnormality Appearance) (Pt Warm) -Tenderness on Palpation (Malia-wound No Skin Appearance) -Ulcer Cleansing Rinsed/ Irrigated with Saline -Foul Odor after Cleansing No -Anesthetic Used 5% Lidocaine Gel WC - Nurse 2 - General Ulcer CM Notes Start: 09/17/19 10:49 Freq: Status: Active Protocol: Activity Type Activity Date Activity User E-Sign Co-Sign Detail Recorded Client Recorded Date Recorded By Document 10/01/19 11:36 JF [id number] 10/01/19 11:38 JF 10/01/19 11:36 Wound Center Nurse 2 [Procedure/Treatment] -Time 11:37 -Correct Patient Yes -Correct Side, Site, Position Yes -Correct Procedure Yes -Procedure Performed Yes -Type of Procedure Debridement -Clinical Debridement Subcutaneous -Post Debridement Size (cm) - Length 1.3 -Post Debridement Size (cm) - Width 1.1 -Post Debridement Size (cm) - Depth 0.1 -Total Square Cm 1.43 -Wound/Ulcer Outcome Not Healed -Ulcer Cleansing Rinsed/ Irrigated with Saline -Foul Odor after Cleansing No -Bioengineered Tissue No -Bleeding Controlled with Pressure -Offloading Yes -Type of Offloading Surgical Shoe -Treatment Response Procedure Tolerated Well [See Physician Procedure note for Specifics] Musculoskeletal: No Tenderness to Palpation of Joints or Extremities, Muscle Wasting Neurological: - - Normal sensation is not present to light touch Psych/Mental Status: Normal Affect, Appropriate Debridement Note Post-Debridement Measurements/Treatment WC - Nurse 2 - General Ulcer CM Notes Start: 09/17/19 10:49 Freq: Status: Active Protocol: Activity Type Activity Date Activity User E-Sign Co-Sign Detail Recorded Client Recorded Date Recorded By Document 09/17/19 12:01 JF [id number] 09/17/19 12:04 JF Document 09/24/19 11:29 DL [id number] 09/24/19 11:30 DL Document 10/01/19 11:36 JF [id number] 10/01/19 11:38 JF 09/17/19 09/24/19 10/01/19 12:01 11:29 11:36 Wound Center Nurse 2 #1 R Lat Plantar -Time 12:01 11:30 11:37 -Correct Patient Yes Yes Yes -Correct Side, Site, Position Yes Yes Yes -Correct Procedure Yes Yes Yes -Procedure Performed Yes Yes Yes -Type of Procedure Debridement Debridement Debridement -Clinical Debridement Subcutaneous Subcutaneous Subcutaneous -Post Debridement Size (cm) - Length 1.9 1.8 1.3 -Post Debridement Size (cm) - Width 1.9 1.5 1.1 -Post Debridement Size (cm) - Depth 0.2 0.1 0.1 -Total Square Cm 3.61 2.70 1.43 -Wound/Ulcer Outcome Not Healed Not Healed Not Healed -Ulcer Cleansing Rinsed/ Rinsed/ Rinsed/ Irrigated with Irrigated with Irrigated with Saline Saline Saline -Foul Odor after Cleansing No No No -Bioengineered Tissue No No No -Bleeding Controlled with Pressure,Silver Pressure,Silver Pressure Nitrate Nitrate -Offloading Yes Yes Yes -Type of Offloading Surgical Shoe Surgical Shoe Surgical Shoe -Treatment Response Procedure Procedure Procedure Tolerated Well Tolerated Well Tolerated Well Pain Scale: 0-10 Numeric Is Patient Pain Free? Yes Yes Wound debrided: sub 5th metatarsal head Laterality: Right Wound Grade/Stage: grade 1 Type of Debridement: Excisional debridement Anesthesia Used: 5% Lidocaine Gel Depth: in the subcutaneous layer Percentage of wound debrided: 100 Instrument Used: #15 blade Tissue Removed: fibrous, devitalized subcutaneous, biofilm, slough Severity: Fat Layer Exposed Amount of bleeding with debridement: Mild Bleeding Controlled with: Pressure Patient tolerated procedure well Assessment/Plan Assessment: Right sub-fifth metatarsal head ulcer, grade 1. Resolved right lower extremity cellulitis. History of recent deeper infection with antibiotic treatment and recent history of sepsis. Diabetes with neuropathy. Delayed healing. Malnutrition suspected Plan: I reviewed and discussed his case. His labs are reviewed from June 2019. Debridement was performed as noted in the clinical panel. The hyper granulation tissue has resolved and there is no need for silver nitrate application today. I recommend changing this ulcer dressing daily with [employer] in which she already has the supplies. He was reassured no local signs of infection are noted today and I do not recommend antibiotics. His extensive recent infection history as noted and basically medical records have been requested from the [facility] including cultures, imaging studies, labs and prior clinical documentation. These results were reviewed with the following summary: During his [facility] admission he was treated for cellulitis, acute kidney injury, type 2 diabetes, asthma, hypertension, history of Charcot, hypercholesteremia. His prior surgical history includes knee arthroplasty and biceps repair. His PCP on file is Dr. Edwards. His hemoglobin A1c from June 27, 2019 was 6.3%. He was previously treated by blood bank calendar control clerk Dr. Elias and Dr. Gil. He was previously on cephalexin on 08-19-2019 for staph aureus and Serratia marcescens growth. His x-ray performed on 06-04-2019 demonstrated some Charcot changes on the foot (left). His foot x-ray on 07-31-2019 did not demonstrate foreign body or emphysema. There was soft tissue edema noted dorsally. He had an x-ray performed on 09-09-2019 with no bone changes per report. He is CBC demonstrated resolution of leukocytosis by 08-29-2019. He had noninvasive vascular studies performed on 08-14-2019 with left JACKSON of 1.18 and toe brachial index of 0.89. The right JACKSON was 1.21 and toe brachial index was 0.86. He had an MRI performed on the right foot on 08-14-2019 with increased STIR intensity noted to the fifth toe proximal phalanx with sparing noted at the base. There is no corresponding T1 signal intensity change and therefore he was not diagnosed with osteomyelitis based off of this imaging study. His previous albumin levels on 08-14-2019 was 3.9, creatinine 1.43, estimated GFR 51, white blood cell 9.54, hemoglobin?hematocrit 11.5?35.6, platelet 342. He also had a pathological biopsy performed during his time at his hospitalization at [facility] which demonstrated necrosis and acute inflammation of the ulcer. To wash the foot daily with Dial soap and water while he is doing dressing changes. To heel weight-bear with his surgical shoe that he has today. The prior adjustment is noted and this appears to be helping. He tolerated this adjustment. I also recommended he uses a walker to help keep additional weight off of the site while he is at home. He defers the need for any prescription for this. It is noted that he is a non-smoker and I recommended he continues to avoid tobacco products. It is also he drinks 3 alcoholic beverages daily and he was advised to discontinue that to optimize healing. He understands glycemic better management is advised for optimizing ulcer healing. I recommend controlling his edema with a single layer Tubigrip at this time and to elevate at rest. His noninvasive vascular studies were also requested from the [facility]. He reports his blood flow is excellent. We also discussed the potential application of a total contact cast he will consider this. He understands he cannot drive with this cast in place and I would also like to review his noninvasive vascular studies prior to proceeding with this. I answered all his questions. He was advised to follow-up at the wound healing center in 1 week or call sooner if you have any questions or concerns. -----. MACRA 2020: Performed today-. Medication and allergy list was reviewed and reconciled. Performed 09-17-2019-. Is body mass index is above normal with 49.5. He was advised on improved diet to help with his wound healing and overall health. He is a current tobacco nonuser. His blood pressure was elevated at 165/92. To follow-up with primary care physician. Diet and activity recommendations were reviewed. A nutrition referral will be offered. He does not have a living will on file and this was considered confirmation of advanced care plan. He denies having more than 1 fall or fall with injury this past year. His pneumococcal vaccination has been received. His influenza immunization has been received.
[2019-10-08 10:58] VITALS: BP 146/94; PULSE 106; RESP 22; TEMP 35.9; BMI 49.4
--- NOTE | 2019-10-08 11:44 | PN.PCM_ITS ---
(1) Ulcer of right foot with fat layer exposed Status: Chronic Current Visit: Yes Code(s): L97.512 - Non-pressure chronic ulcer of other part of right foot with fat layer exposed (2) Edema, lower extremity Status: Chronic Current Visit: Yes Code(s): R60.0 - Localized edema (3) Cellulitis of right lower extremity Status: Resolved Current Visit: Yes Code(s): L03.115 - Cellulitis of right lower limb (4) Type 2 diabetes mellitus with diabetic polyneuropathy Status: Chronic Current Visit: Yes Code(s): E11.42 - Type 2 diabetes mellitus with diabetic polyneuropathy (5) Delayed wound healing Status: Chronic Current Visit: Yes Code(s): T14.8XXD - Other injury of unspecified body region, subsequent encounter (6) Malnutrition Status: Suspected Current Visit: Yes Code(s): E46 - Unspecified protein- calorie malnutrition (7) Unspecified protein-calorie malnutrition Status: Suspected Current Visit: Yes Code(s): E46 - Unspecified protein- calorie malnutrition (8) Super obesity Status: Chronic Current Visit: Yes Code(s): E66.9 - Obesity, unspecified Type of Wound Date of Service: 10/08/19 Chief Complaint: Right foot ulcer History of Wound: This 54-year-old male with significant past medical history of diabetes and hypertension presents to the wound healing center today for follow- up of chronic right foot ulcer. He denies fever, chill, nausea, vomiting. He is doing well with offloading with his modified surgical shoe. He thinks the ulcer is getting smaller and draining less. 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 He relates he is generally not hungry and eats twice a day. He relates all he had for dinner last night was 2 hotdogs. Progress of Wound: Improving - Physical Exam Vital Signs Temp Pulse Resp BP 96.7 F L 106 H 22 H 146/94 H 10/08/19 10:58 10/08/19 10:58 10/08/19 10:58 10/08/19 10:58 General: Alert, Oriented x3, Cooperative, No apparent distress HEENT: Atraumatic Extremities: No cyanosis, Capillary Refill Less than 3 Seconds, No Calf Tenderness, Diminished Peripheral Pulses, Edema Skin: Ulcer/ Wound - No purulence, erythema, streaking, odor, infection. Peripheral skin is hairless and atrophic. The base is granular Wound Measurements and Assessment WC - Nurse 1 - General Ulcer Measurement Start: 09/17/19 10:49 Freq: Status: Active Protocol: Activity Type Activity Date Activity User E-Sign Co-Sign Detail Recorded Client Recorded Date Recorded By Document 10/08/19 10:58 DL [id number] 10/08/19 11:04 DL 10/08/19 10:58 Wound Center Nurse 1 [Ulcer Assessment] #1 R Lat Plantar -Current Size (cm) - Length 0.7 -Current Size (cm) - Width 0.7 -Current Size (cm) - Depth 0.1 -Total Square Cm 0.49 -Photo Taken No -Exudate Amt Small -Exudate Type Serosanguineous -Wound Margin Thickened -Granulation Amt Large (67-100%) -Granulation Quality Red -Necrosis Amt Small (1-33%) -Necrotic Tissue Type Adherent Slough -Structure Exposed N/A -Texture (Malia-wound Skin Appearance) Callus -Moisture (Malia-wound Skin Appearance Dry/Scaly ) -Color (Malia-wound Skin Appearance) No Abnormality -Temperature (Malia-wound Skin No Abnormality Appearance) (Pt Warm) -Tenderness on Palpation (Malia-wound No Skin Appearance) -Ulcer Cleansing Wound Cleanser -Foul Odor after Cleansing No -Anesthetic Used 4% Lidocaine Solution [Edema Assessment] -Right Calf (cm) 49.5 -Right Ankle (cm) 26 - Nurse 2 - General Ulcer CM Notes Start: 09/17/19 10:49 Freq: Status: Active Protocol: Activity Type Activity Date Activity User E-Sign Co-Sign Detail Recorded Client Recorded Date Recorded By Document 10/08/19 11:19 JF [id number] 10/08/19 11:21 10/08/19 11:19 Wound Center Nurse 2 [Procedure/Treatment] #1 R Lat Plantar -Time 11:20 -Correct Patient Yes -Correct Side, Site, Position Yes -Correct Procedure Yes -Procedure Performed Yes -Type of Procedure Debridement -Clinical Debridement Subcutaneous -Post Debridement Size (cm) - Length 0.7 -Post Debridement Size (cm) - Width 0.8 -Post Debridement Size (cm) - Depth 0.2 -Total Square Cm 0.56 -Wound/Ulcer Outcome Not Healed -Ulcer Cleansing Rinsed/ Irrigated with Saline -Foul Odor after Cleansing No -Bioengineered Tissue No -Bleeding Controlled with Pressure -Offloading Yes -Type of Offloading Surgical Shoe -Treatment Response Procedure Tolerated Well [See Physician Procedure note for Specifics] Pain Scale: 0-10 Numeric [Pain] -Is Patient Pain Free? Yes Musculoskeletal: No Tenderness to Palpation of Joints or Extremities, Muscle Wasting, - - Prominent metatarsal head fifth right foot Neurological: - - Lack of epicritic sensation light touch is consistent with neuropathy status Psych/Mental Status: Normal Affect, Appropriate Debridement Note Post-Debridement Measurements/Treatment WC - Nurse 2 - General Ulcer CM Notes Start: 09/17/19 10:49 Freq: Status: Active Protocol: Activity Type Activity Date Activity User E-Sign Co-Sign Detail Recorded Client Recorded Date Recorded By Document 09/17/19 12:01 [id number] 09/17/19 12:04 JF Document 09/24/19 11:29 DL [id number] 09/24/19 11:30 DL Document 10/01/19 11:36 [id number] 10/01/19 11:38 JF Document 10/08/19 11:19 [id number] 10/08/19 11:21 JF 09/17/19 09/24/19 10/01/19 12:01 11:29 11:36 Wound Center Nurse 2 #1 R Lat Plantar -Time 12:01 11:30 11:37 -Correct Patient Yes Yes Yes -Correct Side, Site, Position Yes Yes Yes -Correct Procedure Yes Yes Yes -Procedure Performed Yes Yes Yes -Type of Procedure Debridement Debridement Debridement -Clinical Debridement Subcutaneous Subcutaneous Subcutaneous -Post Debridement Size (cm) - Length 1.9 1.8 1.3 -Post Debridement Size (cm) - Width 1.9 1.5 1.1 -Post Debridement Size (cm) - Depth 0.2 0.1 0.1 -Total Square Cm 3.61 2.70 1.43 -Wound/Ulcer Outcome Not Healed Not Healed Not Healed -Ulcer Cleansing Rinsed/ Rinsed/ Rinsed/ Irrigated with Irrigated with Irrigated with Saline Saline Saline -Foul Odor after Cleansing No No No -Bioengineered Tissue No No No -Bleeding Controlled with Pressure,Silver Pressure,Silver Pressure Nitrate Nitrate -Offloading Yes Yes Yes -Type of Offloading Surgical Shoe Surgical Shoe Surgical Shoe -Treatment Response Procedure Procedure Procedure Tolerated Well Tolerated Well Tolerated Well Pain Scale: 0-10 Numeric Is Patient Pain Free? Yes Yes 10/08/19 11:19 Wound Center Nurse 2 #1 R Lat Plantar -Time 11:20 -Correct Patient Yes -Correct Side, Site, Position Yes -Correct Procedure Yes -Procedure Performed Yes -Type of Procedure Debridement -Clinical Debridement Subcutaneous -Post Debridement Size (cm) - Length 0.7 -Post Debridement Size (cm) - Width 0.8 -Post Debridement Size (cm) - Depth 0.2 -Total Square Cm 0.56 -Wound/Ulcer Outcome Not Healed -Ulcer Cleansing Rinsed/ Irrigated with Saline -Foul Odor after Cleansing No -Bioengineered Tissue No -Bleeding Controlled with Pressure -Offloading Yes -Type of Offloading Surgical Shoe -Treatment Response Procedure Tolerated Well Pain Scale: 0-10 Numeric Is Patient Pain Free? Yes Wound debrided: sub 5th metatarsal head Laterality: Right Wound Grade/Stage: grade 1 Type of Debridement: Excisional debridement Anesthesia Used: 5% Lidocaine Gel Depth: in the subcutaneous layer Percentage of wound debrided: 100 Instrument Used: #15 blade Tissue Removed: fibrous, devitalized subcutaneous, biofilm, slough Severity: Fat Layer Exposed Amount of bleeding with debridement: Mild Bleeding Controlled with: Pressure Patient tolerated procedure well Assessment/Plan Active Problems (Last Reviewed 06/09/19 @ 16:39 by Marisol Contreras) Ulcer of right foot with fat layer exposed (Chronic) Edema, lower extremity (Chronic) Type 2 diabetes mellitus with diabetic polyneuropathy (Chronic) Delayed wound healing (Chronic) Super obesity (Chronic) Assessment: Right sub-fifth metatarsal head ulcer, grade 1. Resolved right lower extremity cellulitis. History of recent deeper infection with antibiotic treatment and recent history of sepsis. Diabetes with neuropathy. Delayed healing. Malnutrition suspected Plan: I reviewed and discussed his case. His labs are reviewed from June 2019. Debridement was performed as noted in the clinical panel. I recommend changing this ulcer dressing daily with [employer] cell Ag. He was reassured no local signs of infection are noted today and I do not recommend antibiotics. His prior medical records were reviewed as the following: He was previously on cephalexin on 08-19-2019 for staph aureus and Serratia marcescens growth. His x- ray performed on 06-04-2019 demonstrated some Charcot changes on the foot (left). His foot x-ray on 07-31-2019 did not demonstrate foreign body or emphysema. There was soft tissue edema noted dorsally. He had an x-ray performed on 09-09-2019 with no bone changes per report. He is CBC demonstrated resolution of leukocytosis by 08-29-2019. He had noninvasive vascular studies performed on 08-14-2019 with left JACKSON of 1.18 and toe brachial index of 0.89. The right JACKSON was 1.21 and toe brachial index was 0.86. He had an MRI performed on the right foot on 08-14-2019 with increased STIR intensity noted to the fifth toe proximal phalanx with sparing noted at the base. There is no corresponding T1 signal intensity change and therefore he was not diagnosed with osteomyelitis based off of this imaging study. His previous albumin levels on 08-14-2019 was 3.9, creatinine 1.43, estimated GFR 51, white blood cell 9.54, hemoglobin?hematocrit 11.5?35.6, platelet 342. He also had a pathological biopsy performed during his time at his hospitalization at [facility] which demonstrated necrosis and acute inflammation of the ulcer. To wash the foot daily with Dial soap and water while he is doing dressing changes. To heel weight-bear with his surgical shoe that he has today. The prior adjustment is noted and this appears to be helping. He tolerated this adjustment. I also recommended he uses a walker to help keep additional weight off of the site while he is at home. It is also he drinks 3 alcoholic beverages daily and he was advised to discontinue that to optimize healing. He understands glycemic better management is advised for optimizing ulcer healing. A nutrition referral was provided today. I recommend controlling his edema with a single layer Tubigrip at this time and to elevate at rest. His noninvasive vascular studies were also requested from the [facility]. He reports his blood flow is excellent. I answered all his questions. He was advised to follow-up at the wound healing center in 1 week or call sooner if you have any questions or concerns. -----. MACRA 2019: Performed today-. Medication and allergy list was reviewed and reconciled. Performed 09-17-2019-. Is body mass index is above normal with 49.5. He was advised on improved diet to help with his wound healing and overall health. He is a current tobacco nonuser. His blood pressure was elevated at 165/92. To follow-up with primary care physician. Diet and activity recommendations were reviewed. A nutrition referral will be offered. He does not have a living will on file and this was considered confirmation of advanced care plan. He denies having more than 1 fall or fall with injury this past year. His pneumococcal vaccination has been received. His influenza immunization has been received.
== END 2019-10-12 23:59 ==
LOC: WC 11:00
PROVIDERS: PCP Internal Medicine; Visit Provider Podiatrist
DX: E11.621 Type 2 diabetes mellitus with foot ulcer (principal); L97.512 Non-pressure chronic ulcer of other part of right foot with fat layer exposed; R60.0 Localized edema; E11.42 Type 2 diabetes mellitus with diabetic polyneuropathy; T14.8XXD Other injury of unspecified body region, subsequent encounter; I10 Essential (primary) hypertension; Z87.891 Personal history of nicotine dependence; Z79.51 Long term (current) use of inhaled steroids; Z82.49 Family history of ischemic heart disease and other diseases of the circulatory system; E66.01 Morbid (severe) obesity due to excess calories; Z86.19 Personal history of other infectious and parasitic diseases; Z68.42 Body mass index [BMI] 45.0-49.9, adult
CPT/HCPCS: 11042; 99213; G0463

== ENCOUNTER 2019-10-29 11:00 | Outpatient (RCR) | payer BC, SELFPAY ==
[2019-10-13 00:31] VITALS: BP 146/94; PULSE 106; RESP 22; TEMP 35.9
[2019-10-15 10:44] VITALS: BP 133/78; PULSE 84; RESP 20; TEMP 36; BMI 49.4
--- NOTE | 2019-10-15 13:25 | PCM.WC.PN ---
(1) Ulcer of right foot with fat layer exposed Status: Chronic Current Visit: Yes Code(s): L97.512 - Non-pressure chronic ulcer of other part of right foot with fat layer exposed (2) Edema, lower extremity Status: Chronic Current Visit: Yes Code(s): R60.0 - Localized edema (3) Delayed wound healing Status: Chronic Current Visit: Yes Code(s): T14.8XXD - Other injury of unspecified body region, subsequent encounter (4) Malnutrition Status: Suspected Current Visit: Yes Code(s): E46 - Unspecified protein-calorie malnutrition (5) Type 2 diabetes mellitus with diabetic polyneuropathy Status: Chronic Current Visit: Yes Code(s): E11.42 - Type 2 diabetes mellitus with diabetic polyneuropathy Type of Wound Date of Service: 10/15/19 Chief Complaint: Right foot ulcer History of Wound: This 54-year-old male with significant past medical history of diabetes and hypertension presents to the wound healing center today for follow-up of chronic right foot ulcer. He denies fever, chill, nausea, vomiting. He is doing well with offloading with his modified surgical shoe. He thinks the ulcer is getting smaller and draining less. He relates he is generally not hungry and eats twice a day. He continues to drink about 3 alcoholic beverages a night just prior to dinner. Progress of Wound: Improving - Physical Exam Vital Signs Temp Pulse Resp BP 96.8 F L 84 20 H 133/78 H 10/15/19 10:44 10/15/19 10:44 10/15/19 10:44 10/15/19 10:44 General: Alert, Oriented x3, Cooperative Extremities: No cyanosis, Capillary Refill Less than 3 Seconds, No Calf Tenderness, Diminished Peripheral Pulses, Edema - Mild Skin: Ulcer/ Wound - No purulence, erythema, string, odor, infection. Adjacent skin is hairless and atrophic Wound Measurements and Assessment WC - Nurse 1 - General Ulcer Measurement Start: 10/15/19 10:43 Freq: Status: Active Protocol: Activity Type Activity Date Activity User E-Sign Co-Sign Detail Recorded Client Recorded Date Recorded By Document 10/15/19 10:44 DL [id number] 10/15/19 10:51 DL 10/15/19 10:44 Wound Center Nurse 1 [Ulcer Assessment] #1 R Lat Plantar -Current Size (cm) - Length 0.6 -Current Size (cm) - Width 0.7 -Current Size (cm) - Depth 0.1 -Total Square Cm 0.42 -Photo Taken No -Exudate Amt None Present -Wound Margin Thickened -Granulation Amt Large (67-100%) -Granulation Quality [place] -Necrosis Amt None Present (0 %) -Structure Exposed N/A -Texture (Malia-wound Skin Appearance) Callus -Moisture (Malia-wound Skin Appearance Dry/Scaly ) -Color (Malia-wound Skin Appearance) Hemosiderin Staining -Temperature (Malia-wound Skin No Abnormality Appearance) (Pt Warm) -Tenderness on Palpation (Malia-wound No Skin Appearance) -Ulcer Cleansing Rinsed/ Irrigated with Saline -Foul Odor after Cleansing No -Anesthetic Used 4% Lidocaine Solution [Edema Assessment] -Right Calf (cm) 49.5 -Right Ankle (cm) 29.5 WC - Nurse 2 - General Ulcer CM Notes Start: 10/15/19 10:43 Freq: Status: Active Protocol: Activity Type Activity Date Activity User E-Sign Co-Sign Detail Recorded Client Recorded Date Recorded By Document 10/15/19 13:00 [id number] 10/15/19 13:02 PL 10/15/19 13:00 Wound Center Nurse 2 [Procedure/Treatment] #1 R Lat Plantar -Time 11:01 -Correct Patient Yes -Correct Side, Site, Position Yes -Correct Procedure Yes -Procedure Performed Yes -Type of Procedure Debridement -Clinical Debridement Subcutaneous -Post Debridement Size (cm) - Length 0.7 -Post Debridement Size (cm) - Width 0.8 -Post Debridement Size (cm) - Depth 0.2 -Total Square Cm 0.56 -Wound/Ulcer Outcome Not Healed -Ulcer Cleansing Rinsed/ Irrigated with Saline -Foul Odor after Cleansing No -Bleeding Controlled with Pressure -Treatment Response Procedure Tolerated Well [See Physician Procedure note for Specifics] Pain Scale: 0-10 Numeric [Pain] -Is Patient Pain Free? Yes Musculoskeletal: No Tenderness to Palpation of Joints or Extremities, Muscle Wasting, - - Prominent fifth metatarsal head with dorsal contraction and varus rotation of the fifth toe Neurological: - - Lack of epicritic sensation light touch is consistent with neuropathy status Psych/Mental Status: Normal Affect, Appropriate Debridement Note Post-Debridement Measurements/Treatment WC - Nurse 2 - General Ulcer CM Notes Start: 10/15/19 10:43 Freq: Status: Active Protocol: Activity Type Activity Date Activity User E-Sign Co-Sign Detail Recorded Client Recorded Date Recorded By Document 10/15/19 13:00 ZANE [id number] 10/15/19 13:02 ZNAE 10/15/19 13:00 Wound Center Nurse 2 #1 R Lat Plantar -Time 11:01 -Correct Patient Yes -Correct Side, Site, Position Yes -Correct Procedure Yes -Procedure Performed Yes -Type of Procedure Debridement -Clinical Debridement Subcutaneous -Post Debridement Size (cm) - Length 0.7 -Post Debridement Size (cm) - Width 0.8 -Post Debridement Size (cm) - Depth 0.2 -Total Square Cm 0.56 -Wound/Ulcer Outcome Not Healed -Ulcer Cleansing Rinsed/ Irrigated with Saline -Foul Odor after Cleansing No -Bleeding Controlled with Pressure -Treatment Response Procedure Tolerated Well Pain Scale: 0-10 Numeric Is Patient Pain Free? Yes Wound debrided: plantar fifth metatarsal head Laterality: Right Wound Grade/Stage: grade 1 Type of Debridement: Excisional debridement Anesthesia Used: 5% Lidocaine Gel Depth: in the subcutaneous layer Percentage of wound debrided: 100 Instrument Used: #15 blade Tissue Removed: fibrous, devitalized subcutaneous, biofilm, slough Severity: Fat Layer Exposed Amount of bleeding with debridement: Mild Bleeding Controlled with: Pressure Patient tolerated procedure well Assessment/Plan Active Problems (Last Reviewed 06/09/19 @ 16:39 by Marisol Contreras) Ulcer of right foot with fat layer exposed (Chronic) Edema, lower extremity (Chronic) Type 2 diabetes mellitus with diabetic polyneuropathy (Chronic) Delayed wound healing (Chronic) Assessment: Right sub-fifth metatarsal head ulcer, grade 1. Resolved right lower extremity cellulitis. History of recent deeper infection with antibiotic treatment and recent history of sepsis. Diabetes with neuropathy. Delayed healing. Malnutrition suspected Plan: I reviewed and discussed his case. His labs are reviewed from June 2019. Debridement was performed as noted in the clinical panel. I recommend changing this ulcer dressing daily with [employer] Ag. He was reassured no local signs of infection are noted today and I do not recommend antibiotics. His prior medical records were reviewed as the following: He was previously on cephalexin on 08-19-2019 for staph aureus and Serratia marcescens growth. His x-ray performed on 06-04-2019 demonstrated some Charcot changes on the foot (left). His foot x-ray on 07-31-2019 did not demonstrate foreign body or emphysema. There was soft tissue edema noted dorsally. He had an x-ray performed on 09-09-2019 with no bone changes per report. He is CBC demonstrated resolution of leukocytosis by 08-29-2019. He had noninvasive vascular studies performed on 08-14-2019 with left JACKSON of 1.18 and toe brachial index of 0.89. The right JACKSON was 1.21 and toe brachial index was 0.86. He had an MRI performed on the right foot on 08-14-2019 with increased STIR intensity noted to the fifth toe proximal phalanx with sparing noted at the base. There is no corresponding T1 signal intensity change and therefore he was not diagnosed with osteomyelitis based off of this imaging study. His previous albumin levels on 08-14-2019 was 3.9, creatinine 1.43, estimated GFR 51, white blood cell 9.54, hemoglobin?hematocrit 11.5?35.6, platelet 342. He also had a pathological biopsy performed during his time at his hospitalization at [facility] which demonstrated necrosis and acute inflammation of the ulcer. To wash the foot daily with Dial soap and water while he is doing dressing changes. To heel weight-bear with his surgical shoe that he has today. The prior adjustment is noted and this appears to be helping. He tolerated this adjustment. I also recommended he uses a walker to help keep additional weight off of the site while he is at home. It is also he drinks 3 alcoholic beverages daily and he was advised to discontinue that to optimize healing. I also recommend he does not drink alcoholic beverages just prior to eating because this may affect how the food nutrients are absorbing. He understands glycemic better management is advised for optimizing ulcer healing. A nutrition referral was provided previously and 2 sessions are scheduled. I recommend controlling his edema with a single layer Tubigrip at this time and to elevate at rest. His noninvasive vascular studies were also requested from the [facility]. He reports his blood flow is excellent. I answered all his questions. He was advised to follow-up at the wound healing center in 1 week or call sooner if you have any questions or concerns. -----. MACRA 2019: Performed today-. Medication and allergy list was reviewed and reconciled. Performed 09-17-2019-. Is body mass index is above normal with 49.5. He was advised on improved diet to help with his wound healing and overall health. He is a current tobacco nonuser. His blood pressure was elevated at 165/92. To follow-up with primary care physician. Diet and activity recommendations were reviewed. A nutrition referral will be offered. He does not have a living will on file and this was considered confirmation of advanced care plan. He denies having more than 1 fall or fall with injury this past year. His pneumococcal vaccination has been received. His influenza immunization has been received.
[2019-10-22 11:03] VITALS: BP 133/75; PULSE 87; RESP 22; TEMP 36.2; BMI 49.4
--- NOTE | 2019-10-22 14:58 | PCM.WC.PN ---
(1) Ulcer of right foot with fat layer exposed Status: Chronic Code(s): L97.512 - Non-pressure chronic ulcer of other part of right foot with fat layer exposed (2) Edema, lower extremity Status: Chronic Code(s): R60.0 - Localized edema (3) Delayed wound healing Status: Chronic Code(s): T14.8XXD - Other injury of unspecified body region, subsequent encounter (4) Malnutrition Status: Suspected Code(s): E46 - Unspecified protein-calorie malnutrition (5) Type 2 diabetes mellitus with diabetic polyneuropathy Status: Chronic Code(s): E11.42 - Type 2 diabetes mellitus with diabetic polyneuropathy Type of Wound Date of Service: 10/22/19 Chief Complaint: Right foot ulcer History of Wound: This 54-year-old male with significant past medical history of diabetes and hypertension presents to the wound healing center today for follow-up of chronic right foot ulcer. He denies fever, chill, nausea, vomiting. He is doing well with offloading with his modified surgical shoe. Progress of Wound: Improving - Physical Exam Vital Signs Temp Pulse Resp BP 97.1 F L 87 22 H 133/75 H 10/22/19 11:03 10/22/19 11:03 10/22/19 11:03 10/22/19 11:03 General: Alert, Oriented x3, Cooperative, No apparent distress Extremities: No cyanosis, Capillary Refill Less than 3 Seconds, No Calf Tenderness, Diminished Peripheral Pulses, Edema Skin: Ulcer/ Wound - No purulence, erythema, string, odor, infection. The adjacent skin is hairless and atrophic. The ulcer bed is granular. Wound Measurements and Assessment WC - Nurse 1 - General Ulcer Measurement Start: 10/15/19 10:43 Freq: Status: Active Protocol: Activity Type Activity Date Activity User E-Sign Co-Sign Detail Recorded Client Recorded Date Recorded By Document 10/22/19 11:03 DL [id number] 10/22/19 11:09 DL 10/22/19 11:03 Wound Center Nurse 1 [Ulcer Assessment] #1 R Lat Plantar -Current Size (cm) - Length 0.5 -Current Size (cm) - Width 0.7 -Current Size (cm) - Depth 0.1 -Total Square Cm 0.35 -Photo Taken No -Exudate Amt None Present -Wound Margin Distinct, Outline Attached -Granulation Amt Large (67-100%) -Granulation Quality [place] -Necrosis Amt None Present (0 %) -Structure Exposed N/A -Texture (Malia-wound Skin Appearance) Callus -Moisture (Malia-wound Skin Appearance Maceration ) -Color (Malia-wound Skin Appearance) No Abnormality -Temperature (Malia-wound Skin No Abnormality Appearance) (Pt Warm) -Tenderness on Palpation (Malia-wound No Skin Appearance) -Ulcer Cleansing Wound Cleanser -Foul Odor after Cleansing No -Anesthetic Used 4% Lidocaine Solution [Edema Assessment] -Right Calf (cm) 51.8 -Point of measurement (cm from the 23 medial instep) -Right Ankle (cm) 27 WC - Nurse 2 - General Ulcer CM Notes Start: 10/15/19 10:43 Freq: Status: Active Protocol: Activity Type Activity Date Activity User E-Sign Co-Sign Detail Recorded Client Recorded Date Recorded By Document 10/22/19 11:39 JF [id number] 10/22/19 11:41 JF 10/22/19 11:39 Wound Center Nurse 2 [Procedure/Treatment] #1 R Lat Plantar -Time 11:41 -Correct Patient Yes -Correct Side, Site, Position Yes -Correct Procedure Yes -Procedure Performed Yes -Type of Procedure Debridement -Clinical Debridement Subcutaneous -Post Debridement Size (cm) - Length 0.4 -Post Debridement Size (cm) - Width 0.4 -Post Debridement Size (cm) - Depth 0.2 -Total Square Cm 0.16 -Wound/Ulcer Outcome Not Healed -Ulcer Cleansing Rinsed/ Irrigated with Saline -Foul Odor after Cleansing No -Bioengineered Tissue No -Bleeding Controlled with Pressure -Offloading Yes -Type of Offloading Surgical Shoe -Treatment Response Procedure Tolerated Well [See Physician Procedure note for Specifics] Pain Scale: 0-10 Numeric [Pain] -Is Patient Pain Free? Yes Musculoskeletal: No Tenderness to Palpation of Joints or Extremities, Muscle Wasting Neurological: - - Lack of epicritic sensation light touch is consistent with neuropathy status Psych/Mental Status: Normal Affect, Appropriate Debridement Note Post-Debridement Measurements/Treatment WC - Nurse 2 - General Ulcer CM Notes Start: 10/15/19 10:43 Freq: Status: Active Protocol: Activity Type Activity Date Activity User E-Sign Co-Sign Detail Recorded Client Recorded Date Recorded By Document 10/15/19 13:00 PL [id number] 10/15/19 13:02 PL Document 10/22/19 11:39 [id number] 10/22/19 11:41 10/15/19 10/22/19 13:00 11:39 Wound Center Nurse 2 #1 R Lat Plantar -Time 11:01 11:41 -Correct Patient Yes Yes -Correct Side, Site, Position Yes Yes -Correct Procedure Yes Yes -Procedure Performed Yes Yes -Type of Procedure Debridement Debridement -Clinical Debridement Subcutaneous Subcutaneous -Post Debridement Size (cm) - Length 0.7 0.4 -Post Debridement Size (cm) - Width 0.8 0.4 -Post Debridement Size (cm) - Depth 0.2 0.2 -Total Square Cm 0.56 0.16 -Wound/Ulcer Outcome Not Healed Not Healed -Ulcer Cleansing Rinsed/ Rinsed/ Irrigated with Irrigated with Saline Saline -Foul Odor after Cleansing No No -Bioengineered Tissue No -Bleeding Controlled with Pressure Pressure -Offloading Yes -Type of Offloading Surgical Shoe -Treatment Response Procedure Procedure Tolerated Well Tolerated Well Pain Scale: 0-10 Numeric Is Patient Pain Free? Yes Yes Wound debrided: plantar lateral foot Laterality: Left Wound Grade/Stage: grade 1 Type of Debridement: Excisional debridement Anesthesia Used: 5% Lidocaine Gel Depth: in the subcutaneous layer Percentage of wound debrided: 100 Instrument Used: #15 blade Tissue Removed: fibrous, devitalized subcutaneous, biofilm, slough Severity: Fat Layer Exposed Amount of bleeding with debridement: Mild Bleeding Controlled with: Pressure Patient tolerated procedure well Assessment/Plan Assessment: Right sub-fifth metatarsal head ulcer, grade 1. Resolved right lower extremity cellulitis. History of recent deeper infection with antibiotic treatment and recent history of sepsis. Diabetes with neuropathy. Delayed healing. Malnutrition suspected Plan: I reviewed and discussed his case. His labs are reviewed from June 2019. Debridement was performed as noted in the clinical panel. I recommend changing this ulcer dressing daily with [employer]lytics cell Ag. He was reassured no local signs of infection are noted today and I do not recommend antibiotics. His prior medical records were reviewed as the following: He was previously on cephalexin on 08-19-2019 for staph aureus and Serratia marcescens growth. His x-ray performed on 06-04-2019 demonstrated some Charcot changes on the foot (left). His foot x-ray on 07-31-2019 did not demonstrate foreign body or emphysema. There was soft tissue edema noted dorsally. He had an x-ray performed on 09-09-2019 with no bone changes per report. He is CBC demonstrated resolution of leukocytosis by 08-29-2019. He had noninvasive vascular studies performed on 08-14-2019 with left JACKSON of 1.18 and toe brachial index of 0.89. The right JACKSON was 1.21 and toe brachial index was 0.86. He had an MRI performed on the right foot on 08-14-2019 with increased STIR intensity noted to the fifth toe proximal phalanx with sparing noted at the base. There is no corresponding T1 signal intensity change and therefore he was not diagnosed with osteomyelitis based off of this imaging study. His previous albumin levels on 08-14-2019 was 3.9, creatinine 1.43, estimated GFR 51, white blood cell 9.54, hemoglobin?hematocrit 11.5?35.6, platelet 342. He also had a pathological biopsy performed during his time at his hospitalization at [facility] which demonstrated necrosis and acute inflammation of the ulcer. To wash the foot daily with Dial soap and water while he is doing dressing changes. To heel weight-bear with his surgical shoe that he has today. The prior adjustment is noted and this appears to be helping. He tolerated this adjustment. I also recommended he uses a walker to help keep additional weight off of the site while he is at home. It is also he drinks 3 alcoholic beverages daily and he was advised to discontinue that to optimize healing. I also recommend he does not drink alcoholic beverages just prior to eating because this may affect how the food nutrients are absorbing. He understands glycemic better management is advised for optimizing ulcer healing. A nutrition referral was provided previously and 2 sessions are scheduled. I recommend controlling his edema with a single layer Tubigrip at this time and to elevate at rest. His noninvasive vascular studies were also requested from the [facility]. He reports his blood flow is excellent. I answered all his questions. He was advised to follow-up at the wound healing center in 1 week or call sooner if you have any questions or concerns. -----. MACRA 2020: Performed today-. Medication and allergy list was reviewed and reconciled. Performed 09-17-2019-. Is body mass index is above normal with 49.5. He was advised on improved diet to help with his wound healing and overall health. He is a current tobacco nonuser. His blood pressure was elevated at 165/92. To follow-up with primary care physician. Diet and activity recommendations were reviewed. A nutrition referral will be offered. He does not have a living will on file and this was considered confirmation of advanced care plan. He denies having more than 1 fall or fall with injury this past year. His pneumococcal vaccination has been received. His influenza immunization has been received.
[2019-10-29 10:57] VITALS: BP 131/69; PULSE 103; RESP 18; TEMP 35.4; BMI 49.4
--- NOTE | 2019-10-29 12:04 | PCM.WC.PN ---
(1) Ulcer of right foot with fat layer exposed Status: Chronic Current Visit: Yes Code(s): L97.512 - Non-pressure chronic ulcer of other part of right foot with fat layer exposed (2) Edema, lower extremity Status: Chronic Current Visit: Yes Code(s): R60.0 - Localized edema (3) Delayed wound healing Status: Chronic Current Visit: Yes Code(s): T14.8XXD - Other injury of unspecified body region, subsequent encounter (4) Malnutrition Status: Suspected Current Visit: Yes Code(s): E46 - Unspecified protein-calorie malnutrition (5) Type 2 diabetes mellitus with diabetic polyneuropathy Status: Chronic Current Visit: Yes Code(s): E11.42 - Type 2 diabetes mellitus with diabetic polyneuropathy Type of Wound Date of Service: 10/29/19 Chief Complaint: Right foot ulcer History of Wound: This 54-year-old male with significant past medical history of diabetes and hypertension presents to the wound healing center today for follow-up of chronic right foot ulcer. He denies fever, chill, nausea, vomiting. He is doing well with offloading with his modified surgical shoe. Progress of Wound: Improving - Physical Exam Vital Signs Temp Pulse Resp BP 95.8 F L 103 H 18 131/69 H 10/29/19 10:57 10/29/19 10:57 10/29/19 10:57 10/29/19 10:57 Wound Measurements and Assessment WC - Nurse 1 - General Ulcer Measurement Start: 10/15/19 10:43 Freq: Status: Active Protocol: Activity Type Activity Date Activity User E-Sign Co-Sign Detail Recorded Client Recorded Date Recorded By Document 10/29/19 10:57 DL [id number] 10/29/19 11:00 DL 10/29/19 10:57 Wound Center Nurse 1 [Ulcer Assessment] #1 R Lat Plantar -Combined with other wound No -Current Size (cm) - Length 0.5 -Current Size (cm) - Width 0.6 -Current Size (cm) - Depth 0.1 -Total Square Cm 0.30 -Photo Taken No -Tunneling No -Undermining/Tunneling No -Circular Undermining No -Granulation Quality [place] -Texture (Malia-wound Skin Appearance) Assessed,Callus -Moisture (Malia-wound Skin Appearance Assessed,Dry/ ) Scaly -Color (Malia-wound Skin Appearance) No Abnormality, Assessed -Temperature (Malia-wound Skin No Abnormality Appearance) (Pt Warm) -Tenderness on Palpation (Malia-wound No Skin Appearance) -Ulcer Cleansing Rinsed/ Irrigated with Saline -Foul Odor after Cleansing No -Anesthetic Used 4% Lidocaine Solution - Nurse 2 - General Ulcer Notes Start: 10/15/19 10:43 Freq: Status: Active Protocol: Activity Type Activity Date Activity User E-Sign Co-Sign Detail Recorded Client Recorded Date Recorded By Document 10/29/19 11:30 [id number] 10/29/19 11:31 10/29/19 11:30 Wound Center Nurse 2 [Procedure/Treatment] -Time 11:31 -Correct Patient Yes -Correct Side, Site, Position Yes -Correct Procedure Yes -Procedure Performed Yes -Type of Procedure Debridement -Clinical Debridement Subcutaneous -Post Debridement Size (cm) - Length 0.4 -Post Debridement Size (cm) - Width 0.6 -Post Debridement Size (cm) - Depth 0.1 -Total Square Cm 0.24 -Wound/Ulcer Outcome Not Healed -Ulcer Cleansing Rinsed/ Irrigated with Saline -Foul Odor after Cleansing No -Bioengineered Tissue No -Bleeding Controlled with Pressure -Offloading Yes -Type of Offloading Surgical Shoe -Treatment Response Procedure Tolerated Well [See Physician Procedure note for Specifics] Pain Scale: 0-10 Numeric [Pain] -Is Patient Pain Free? Yes Debridement Note Post-Debridement Measurements/Treatment - Nurse 2 - General Ulcer Notes Start: 10/15/19 10:43 Freq: Status: Active Protocol: Activity Type Activity Date Activity User E-Sign Co-Sign Detail Recorded Client Recorded Date Recorded By Document 10/15/19 13:00 [id number] 10/15/19 13:02 Document 10/22/19 11:39 [id number] 10/22/19 11:41 Document 10/29/19 11:30 [id number] 10/29/19 11:31 10/15/19 10/22/19 10/29/19 13:00 11:39 11:30 Wound Center Nurse 2 #1 R Lat Plantar -Time 11:01 11:41 11:31 -Correct Patient Yes Yes Yes -Correct Side, Site, Position Yes Yes Yes -Correct Procedure Yes Yes Yes -Procedure Performed Yes Yes Yes -Type of Procedure Debridement Debridement Debridement -Clinical Debridement Subcutaneous Subcutaneous Subcutaneous -Post Debridement Size (cm) - Length 0.7 0.4 0.4 -Post Debridement Size (cm) - Width 0.8 0.4 0.6 -Post Debridement Size (cm) - Depth 0.2 0.2 0.1 -Total Square Cm 0.56 0.16 0.24 -Wound/Ulcer Outcome Not Healed Not Healed Not Healed -Ulcer Cleansing Rinsed/ Rinsed/ Rinsed/ Irrigated with Irrigated with Irrigated with Saline Saline Saline -Foul Odor after Cleansing No No No -Bioengineered Tissue No No -Bleeding Controlled with Pressure Pressure Pressure -Offloading Yes Yes -Type of Offloading Surgical Shoe Surgical Shoe -Treatment Response Procedure Procedure Procedure Tolerated Well Tolerated Well Tolerated Well Pain Scale: 0-10 Numeric Is Patient Pain Free? Yes Yes Yes Wound debrided: sub 5th metatarsal head Laterality: Right Wound Grade/Stage: grade 1 Type of Debridement: Excisional debridement Anesthesia Used: 5% Lidocaine Gel Depth: in the subcutaneous layer Percentage of wound debrided: 100 Instrument Used: #15 blade Tissue Removed: fibrous, devitalized subcutaneous, biofilm, slough Severity: Fat Layer Exposed Amount of bleeding with debridement: Mild Bleeding Controlled with: Pressure Patient tolerated procedure well Assessment/Plan Active Problems (Last Reviewed 06/09/19 @ 16:39 by Marisol Contreras) Ulcer of right foot with fat layer exposed (Chronic) Edema, lower extremity (Chronic) Type 2 diabetes mellitus with diabetic polyneuropathy (Chronic) Delayed wound healing (Chronic) Assessment: Right sub-fifth metatarsal head ulcer, grade 1. Resolved right lower extremity cellulitis. History of recent deeper infection with antibiotic treatment and recent history of sepsis. Diabetes with neuropathy. Delayed healing. Malnutrition suspected Plan: I reviewed and discussed his case. His labs are reviewed from June 2019. Debridement was performed as noted in the clinical panel. I recommend changing this ulcer dressing daily with Serveron cell Ag. He was reassured no local signs of infection are noted today and I do not recommend antibiotics. His prior medical records were reviewed as the following: He was previously on cephalexin on 08-19-2019 for staph aureus and Serratia marcescens growth. His x-ray performed on 06-04-2019 demonstrated some Charcot changes on the foot (left). His foot x-ray on 07-31-2019 did not demonstrate foreign body or emphysema. There was soft tissue edema noted dorsally. He had an x-ray performed on 09-09-2019 with no bone changes per report. He is CBC demonstrated resolution of leukocytosis by 08-29-2019. He had noninvasive vascular studies performed on 08-14-2019 with left JACKSON of 1.18 and toe brachial index of 0.89. The right JACKSON was 1.21 and toe brachial index was 0.86. He had an MRI performed on the right foot on 08-14-2019 with increased STIR intensity noted to the fifth toe proximal phalanx with sparing noted at the base. There is no corresponding T1 signal intensity change and therefore he was not diagnosed with osteomyelitis based off of this imaging study. His previous albumin levels on 08-14-2019 was 3.9, creatinine 1.43, estimated GFR 51, white blood cell 9.54, hemoglobin?hematocrit 11.5?35.6, platelet 342. He also had a pathological biopsy performed during his time at his hospitalization at [facility] which demonstrated necrosis and acute inflammation of the ulcer. To wash the foot daily with Dial soap and water while he is doing dressing changes. To heel weight-bear with his surgical shoe that he has today. The prior adjustment is noted and this appears to be helping. He tolerated this adjustment. I also recommended he uses a walker to help keep additional weight off of the site while he is at home. A nutrition referral was provided previously and 2 sessions are scheduled. I recommend controlling his edema with a single layer Tubigrip at this time and to elevate at rest. His noninvasive vascular studies were also requested from the [facility]. He reports his blood flow is excellent. I answered all his questions. He was advised to follow-up at the wound healing center in 1 week or call sooner if you have any questions or concerns. -----. MACRA 2020: Performed today-. Medication and allergy list was reviewed and reconciled. Performed 09-17-2019-. Is body mass index is above normal with 49.5. He was advised on improved diet to help with his wound healing and overall health. He is a current tobacco nonuser. His blood pressure was elevated at 165/92. To follow-up with primary care physician. Diet and activity recommendations were reviewed. A nutrition referral will be offered. He does not have a living will on file and this was considered confirmation of advanced care plan. He denies having more than 1 fall or fall with injury this past year. His pneumococcal vaccination has been received. His influenza immunization has been received.
== END 2019-11-11 23:59 ==
LOC: WC 11:00
PROVIDERS: PCP Internal Medicine; Visit Provider Podiatrist
DX: E11.621 Type 2 diabetes mellitus with foot ulcer (principal); E11.42 Type 2 diabetes mellitus with diabetic polyneuropathy; L97.512 Non-pressure chronic ulcer of other part of right foot with fat layer exposed; R60.0 Localized edema; I10 Essential (primary) hypertension
CPT/HCPCS: 11042

== ENCOUNTER 2019-11-05 11:57 | Outpatient (RCR) | payer BC, SELFPAY | END 2019-11-05 23:59 | disposition home or self-care (01) | LOC: DC 11:57 | PROVIDERS: PCP Internal Medicine; Visit Provider Podiatrist | DX: Z71.3 Dietary counseling and surveillance (principal); E11.42 Type 2 diabetes mellitus with diabetic polyneuropathy; E66.9 Obesity, unspecified; E11.621 Type 2 diabetes mellitus with foot ulcer; L97.512 Non-pressure chronic ulcer of other part of right foot with fat layer exposed; E46 Unspecified protein-calorie malnutrition | CPT/HCPCS: 97802 ==

== ENCOUNTER 2019-12-10 11:30 | Outpatient (RCR) | payer BC, SELFPAY ==
[2019-11-12 00:29] VITALS: BP 131/69; PULSE 103; RESP 18; TEMP 35.4
[2019-11-12 14:07] VITALS: BP 165/84; PULSE 89; RESP 20; TEMP 36.3; BMI 49.4
--- NOTE | 2019-11-12 16:45 | PCM.WC.PN ---
(1) Ulcer of right foot with fat layer exposed Status: Chronic Current Visit: Yes Code(s): L97.512 - Non-pressure chronic ulcer of other part of right foot with fat layer exposed (2) Edema, lower extremity Status: Chronic Current Visit: Yes Code(s): R60.0 - Localized edema (3) Type 2 diabetes mellitus with diabetic polyneuropathy Status: Chronic Current Visit: Yes Code(s): E11.42 - Type 2 diabetes mellitus with diabetic polyneuropathy (4) Delayed wound healing Status: Chronic Current Visit: Yes Code(s): T14.8XXD - Other injury of unspecified body region, subsequent encounter Type of Wound Date of Service: 11/12/19 Chief Complaint: Right foot ulcer History of Wound: This 54-year-old male with significant past medical history of diabetes and hypertension presents to the wound healing center today for follow-up of chronic right foot ulcer. He denies fever, chill, nausea, vomiting. He is doing well with offloading with his modified surgical shoe. Progress of Wound: Improving - Physical Exam Vital Signs Temp Pulse Resp BP 97.4 F L 89 20 H 165/84 H 11/12/19 14:07 11/12/19 14:07 11/12/19 14:07 11/12/19 14:07 General: Alert, Oriented x3, Cooperative, No apparent distress HEENT: Atraumatic Extremities: No cyanosis, Capillary Refill Less than 3 Seconds, No Calf Tenderness, Diminished Peripheral Pulses, Edema Skin: Ulcer/ Wound - No purulence, erythema, streaking, odor, infection. Ulcer bed is granular Wound Measurements and Assessment WC - Nurse 1 - General Ulcer Measurement Start: 11/12/19 14:06 Freq: Status: Active Protocol: Activity Type Activity Date Activity User E-Sign Co-Sign Detail Recorded Client Recorded Date Recorded By Document 11/12/19 14:07 DV [id number] 11/12/19 14:10 DV 11/12/19 14:07 Wound Center Nurse 1 [Ulcer Assessment] #1 R Lat Plantar -Combined with other wound No -Current Size (cm) - Length 0.4 -Current Size (cm) - Width 0.6 -Current Size (cm) - Depth 0.2 -Total Square Cm 0.24 -Photo Taken No -Epithelialization None Present -Tunneling No -Undermining/Tunneling No -Circular Undermining No -Classification - Thickness Full Thickness without Exposed Support Structure -Exudate Amt None Present -Wound Margin Distinct, Outline Attached -Granulation Amt None Present (0 %) -Granulation Quality N/A -Slough/Fibrin No -Necrosis Amt None Present (0 %) -Structure Exposed None/Limited to Skin Breakdown -Texture (Malia-wound Skin Appearance) No Abnormality, Assessed -Moisture (Amlia-wound Skin Appearance No Abnormality, ) Assessed -Color (Malia-wound Skin Appearance) No Abnormality, Assessed -Temperature (Malia-wound Skin No Abnormality Appearance) (Pt Warm) -Tenderness on Palpation (Malia-wound No Skin Appearance) -Ulcer Cleansing Rinsed/ Irrigated with Saline -Foul Odor after Cleansing No -Anesthetic Used 4% Lidocaine Solution ARIANNE - Nurse 2 - General Ulcer CM Notes Start: 11/12/19 14:06 Freq: Status: Active Protocol: Activity Type Activity Date Activity User E-Sign Co-Sign Detail Recorded Client Recorded Date Recorded By Document 11/12/19 14:42 HINA [id number] 11/12/19 14:45 HINA 11/12/19 14:42 Wound Center Nurse 2 [Procedure/Treatment] -Time 14:45 -Correct Patient Yes -Correct Side, Site, Position Yes -Correct Procedure Yes -Procedure Performed Yes -Type of Procedure Debridement -Clinical Debridement Subcutaneous -Post Debridement Size (cm) - Length 0.5 -Post Debridement Size (cm) - Width 0.6 -Post Debridement Size (cm) - Depth 0.2 -Total Square Cm 0.30 -Wound/Ulcer Outcome Not Healed -Ulcer Cleansing Rinsed/ Irrigated with Saline -Foul Odor after Cleansing No -Bioengineered Tissue No -Bleeding Controlled with Pressure -Offloading Yes -Type of Offloading Surgical Shoe -Treatment Response Procedure Tolerated Well [See Physician Procedure note for Specifics] Pain Scale: 0-10 Numeric [Pain] -Is Patient Pain Free? Yes Musculoskeletal: No Tenderness to Palpation of Joints or Extremities, - - Prominent fifth metatarsal head and varus rotation of the fifth toe contributes to his pressure point at his ulcer site Neurological: - - Lack of epicritic sensation consistent with neuropathy status Psych/Mental Status: Normal Affect, Appropriate Debridement Note Post-Debridement Measurements/Treatment ARIANNE - Nurse 2 - General Ulcer CM Notes Start: 11/12/19 14:06 Freq: Status: Active Protocol: Activity Type Activity Date Activity User E-Sign Co-Sign Detail Recorded Client Recorded Date Recorded By Document 11/12/19 14:42 JF [id number] 11/12/19 14:45 JF 11/12/19 14:42 Wound Center Nurse 2 #1 R Lat Plantar -Time 14:45 -Correct Patient Yes -Correct Side, Site, Position Yes -Correct Procedure Yes -Procedure Performed Yes -Type of Procedure Debridement -Clinical Debridement Subcutaneous -Post Debridement Size (cm) - Length 0.5 -Post Debridement Size (cm) - Width 0.6 -Post Debridement Size (cm) - Depth 0.2 -Total Square Cm 0.30 -Wound/Ulcer Outcome Not Healed -Ulcer Cleansing Rinsed/ Irrigated with Saline -Foul Odor after Cleansing No -Bioengineered Tissue No -Bleeding Controlled with Pressure -Offloading Yes -Type of Offloading Surgical Shoe -Treatment Response Procedure Tolerated Well Pain Scale: 0-10 Numeric Is Patient Pain Free? Yes Wound debrided: plantar lateral foot Laterality: Right Wound Grade/Stage: grade 1 Type of Debridement: Excisional debridement Anesthesia Used: 5% Lidocaine Gel Depth: in the subcutaneous layer Percentage of wound debrided: 100 Instrument Used: #15 blade Tissue Removed: fibrous, devitalized subcutaneous, biofilm, slough Severity: Fat Layer Exposed Amount of bleeding with debridement: Mild Bleeding Controlled with: Pressure Patient tolerated procedure well Assessment/Plan Active Problems (Last Reviewed 06/09/19 @ 16:39 by Marisol Contreras) Ulcer of right foot with fat layer exposed (Chronic) Edema, lower extremity (Chronic) Type 2 diabetes mellitus with diabetic polyneuropathy (Chronic) Delayed wound healing (Chronic) Assessment: Right sub-fifth metatarsal head ulcer, grade 1. Resolved right lower extremity cellulitis. History of recent deeper infection with antibiotic treatment and recent history of sepsis. Diabetes with neuropathy. Delayed healing. Malnutrition suspected Plan: I reviewed and discussed his case. His labs are reviewed from June 2019. Debridement was performed as noted in the clinical panel. I recommend changing this ulcer dressing daily with hydrogel due to the reduction and drainage at this time he is ready to progress. He was reassured no local signs of infection are noted today and I do not recommend antibiotics. His prior medical records were reviewed as the following: He was previously on cephalexin on 08-19-2019 for staph aureus and Serratia marcescens growth. His x-ray performed on 06-04-2019 demonstrated some Charcot changes on the foot (left). His foot x-ray on 07-31-2019 did not demonstrate foreign body or emphysema. There was soft tissue edema noted dorsally. He had an x-ray performed on 09-09-2019 with no bone changes per report. He is CBC demonstrated resolution of leukocytosis by 08-29-2019. He had noninvasive vascular studies performed on 08-14-2019 with left JACKSON of 1.18 and toe brachial index of 0.89. The right JACKSON was 1.21 and toe brachial index was 0.86. He had an MRI performed on the right foot on 08-14-2019 with increased STIR intensity noted to the fifth toe proximal phalanx with sparing noted at the base. There is no corresponding T1 signal intensity change and therefore he was not diagnosed with osteomyelitis based off of this imaging study. His previous albumin levels on 08-14-2019 was 3.9, creatinine 1.43, estimated GFR 51, white blood cell 9.54, hemoglobin?hematocrit 11.5?35.6, platelet 342. He also had a pathological biopsy performed during his time at his hospitalization at [facility] which demonstrated necrosis and acute inflammation of the ulcer. To wash the foot daily with Dial soap and water while he is doing dressing changes. To heel weight-bear with his surgical shoe that he has today. The prior adjustment is noted and this appears to be helping. He tolerated this adjustment. I also recommended he uses a walker to help keep additional weight off of the site while he is at home. A nutrition referral was provided and he is attending. I recommend controlling his edema with a single layer Tubigrip at this time and to elevate at rest. His noninvasive vascular studies were also requested from the [facility]. He reports his blood flow is excellent. I answered all his questions. He was advised to follow-up at the wound healing center in 1 week or call sooner if you have any questions or concerns. -----. MACRA 2020: Performed today-. Medication and allergy list was reviewed and reconciled. Performed 09-17-2019-. Is body mass index is above normal with 49.5. He was advised on improved diet to help with his wound healing and overall health. He is a current tobacco nonuser. His blood pressure was elevated at 165/92. To follow-up with primary care physician. Diet and activity recommendations were reviewed. A nutrition referral will be offered. He does not have a living will on file and this was considered confirmation of advanced care plan. He denies having more than 1 fall or fall with injury this past year. His pneumococcal vaccination has been received. His influenza immunization has been received.
[2019-11-19 12:05] VITALS: BP 131/73; PULSE 87; RESP 20; TEMP 36.3; BMI 49.4
--- NOTE | 2019-11-19 13:41 | PN.PCM_ITS ---
(1) Ulcer of right foot with fat layer exposed Status: Chronic Current Visit: Yes Code(s): L97.512 - Non-pressure chronic ulcer of other part of right foot with fat layer exposed (2) Edema, lower extremity Status: Chronic Current Visit: Yes Code(s): R60.0 - Localized edema (3) Type 2 diabetes mellitus with diabetic polyneuropathy Status: Chronic Current Visit: Yes Code(s): E11.42 - Type 2 diabetes mellitus with diabetic polyneuropathy (4) Delayed wound healing Status: Chronic Current Visit: Yes Code(s): T14.8XXD - Other injury of unspecified body region, subsequent encounter Type of Wound Date of Service: 11/19/19 Chief Complaint: Right foot ulcer History of Wound: This 54-year-old male with significant past medical history of diabetes and hypertension presents to the wound healing center today for follow- up of chronic right foot ulcer. He denies fever, chill, nausea, vomiting. He is doing well with offloading with his modified surgical shoe. He relates he was more active this weekend due to the holiday he has not been wearing his compression garment. Progress of Wound: Improving - Physical Exam Vital Signs Temp Pulse Resp BP 97.4 F L 87 20 H 131/73 H 11/19/19 12:05 11/19/19 12:05 11/19/19 12:05 11/19/19 12:05 General: Alert, Oriented x3, Cooperative, No apparent distress Extremities: No cyanosis, Capillary Refill Less than 3 Seconds, No Calf Tenderness, Diminished Peripheral Pulses, Edema - Mild Skin: Ulcer/ Wound - No purulence, erythema, streaking, odor, infection. Peripheral skin is atrophic and hairless Wound Measurements and Assessment WC - Nurse 1 - General Ulcer Measurement Start: 11/12/19 14:06 Freq: Status: Active Protocol: Activity Type Activity Date Activity User E-Sign Co-Sign Detail Recorded Client Recorded Date Recorded By Document 11/19/19 12:05 [id number] 11/19/19 12:13 BS 11/19/19 12:05 Wound Center Nurse 1 [Ulcer Assessment] #1 R Lat Plantar -Combined with other wound No -Current Size (cm) - Length 0.5 -Current Size (cm) - Width 0.5 -Current Size (cm) - Depth 0.2 -Total Square Cm 0.25 -Photo Taken No -Texture (Malia-wound Skin Appearance) Assessed, Localized Edema -Moisture (Malia-wound Skin Appearance No Abnormality, ) Assessed -Color (Malia-wound Skin Appearance) Assessed, Hemosiderin Staining -Temperature (Malia-wound Skin No Abnormality Appearance) (Pt Warm) -Tenderness on Palpation (Malia-wound No Skin Appearance) -Ulcer Cleansing Soap and water -Foul Odor after Cleansing No -Anesthetic Used 4% Lidocaine Solution - Nurse 2 - General Ulcer CM Notes Start: 11/12/19 14:06 Freq: Status: Active Protocol: Activity Type Activity Date Activity User E-Sign Co-Sign Detail Recorded Client Recorded Date Recorded By Document 11/19/19 12:34 PL [id number] 11/19/19 12:36 PL 11/19/19 12:34 Wound Center Nurse 2 [Procedure/Treatment] -Time 12:33 -Correct Patient Yes -Correct Side, Site, Position Yes -Correct Procedure Yes -Procedure Performed Yes -Type of Procedure Debridement -Clinical Debridement Subcutaneous -Post Debridement Size (cm) - Length 0.6 -Post Debridement Size (cm) - Width 0.6 -Post Debridement Size (cm) - Depth 0.2 -Total Square Cm 0.36 -Wound/Ulcer Outcome Not Healed -Ulcer Cleansing Rinsed/ Irrigated with Saline -Foul Odor after Cleansing No -Bleeding Controlled with Pressure -Type of Offloading Surgical Shoe -Treatment Response Procedure Tolerated Well [See Physician Procedure note for Specifics] Pain Scale: 0-10 Numeric [Pain] -Is Patient Pain Free? Yes Musculoskeletal: Muscle Wasting, - - Prominent fifth metatarsal head and dorsal contraction with varus rotation of the fifth toe Neurological: - - Lack of normal epicritic sensation light touch is consistent with neuropathy status Psych/Mental Status: Normal Affect, Appropriate Debridement Note Post-Debridement Measurements/Treatment - Nurse 2 - General Ulcer CM Notes Start: 11/12/19 14:06 Freq: Status: Active Protocol: Activity Type Activity Date Activity User E-Sign Co-Sign Detail Recorded Client Recorded Date Recorded By Document 11/12/19 14:42 JF [id number] 11/12/19 14:45 JF Document 11/19/19 12:34 PL [id number] 11/19/19 12:36 PL 11/12/19 11/19/19 14:42 12:34 Wound Center Nurse 2 #1 R Lat Plantar -Time 14:45 12:33 -Correct Patient Yes Yes -Correct Side, Site, Position Yes Yes -Correct Procedure Yes Yes -Procedure Performed Yes Yes -Type of Procedure Debridement Debridement -Clinical Debridement Subcutaneous Subcutaneous -Post Debridement Size (cm) - Length 0.5 0.6 -Post Debridement Size (cm) - Width 0.6 0.6 -Post Debridement Size (cm) - Depth 0.2 0.2 -Total Square Cm 0.30 0.36 -Wound/Ulcer Outcome Not Healed Not Healed -Ulcer Cleansing Rinsed/ Rinsed/ Irrigated with Irrigated with Saline Saline -Foul Odor after Cleansing No No -Bioengineered Tissue No -Bleeding Controlled with Pressure Pressure -Offloading Yes -Type of Offloading Surgical Shoe Surgical Shoe -Treatment Response Procedure Procedure Tolerated Well Tolerated Well Pain Scale: 0-10 Numeric Is Patient Pain Free? Yes Yes Wound debrided: sub 5th metatarsal head Laterality: Right Wound Grade/Stage: grade 1 Type of Debridement: Excisional debridement Anesthesia Used: 5% Lidocaine Gel Depth: in the subcutaneous layer Percentage of wound debrided: 100 Instrument Used: #15 blade Tissue Removed: fibrous, devitalized subcutaneous, biofilm, slough Severity: Fat Layer Exposed Amount of bleeding with debridement: Mild Bleeding Controlled with: Pressure Patient tolerated procedure well Assessment/Plan Active Problems (Last Reviewed 06/09/19 @ 16:39 by Marisol Contreras) Ulcer of right foot with fat layer exposed (Chronic) Edema, lower extremity (Chronic) Type 2 diabetes mellitus with diabetic polyneuropathy (Chronic) Delayed wound healing (Chronic) Assessment: Right sub-fifth metatarsal head ulcer, grade 1. Resolved right lower extremity cellulitis. History of recent deeper infection with antibiotic treatment and recent history of sepsis. Diabetes with neuropathy. Delayed healing. Malnutrition suspected Plan: I reviewed and discussed his case. His labs are reviewed from June 2019. Debridement was performed as noted in the clinical panel. I recommend changing this ulcer dressing daily with hydrogel due to the reduction and drainage at this time he is ready to progress. He was reassured no local signs of infection are noted today and I do not recommend antibiotics. His prior medical records were reviewed as the following: He was previously on cephalexin on 08-19-2019 for staph aureus and Serratia marcescens growth. His x-ray performed on 06-04-2019 demonstrated some Charcot changes on the foot (left). His foot x-ray on 07-31-2019 did not demonstrate foreign body or emphysema. There was soft tissue edema noted dorsally. He had an x-ray performed on 09-09-2019 with no bone changes per report. He is CBC demonstrated resolution of leukocytosis by 08-29-2019. He had noninvasive vascular studies performed on 08-14-2019 with left JACKSON of 1.18 and toe brachial index of 0.89. The right JACKSON was 1.21 and toe brachial index was 0.86. He had an MRI performed on the right foot on 08-14-2019 with increased STIR intensity noted to the fifth toe proximal phalanx with sparing noted at the base. There is no corresponding T1 signal intensity change and therefore he was not diagnosed with osteomyelitis based off of this imaging study. His previous albumin levels on 08-14-2019 was 3.9, creatinine 1.43, estimated GFR 51, white blood cell 9.54, hemoglobin?hematocrit 11.5?35.6, platelet 342. He also had a pathological biopsy performed during his time at his hospitalization at [facility] which demonstrated necrosis and acute inflammation of the ulcer. To wash the foot daily with Dial soap and water while he is doing dressing changes. To heel weight-bear with his surgical shoe that he has today. The prior adjustment is noted and this appears to be helping. He tolerated this adjustment. I also recommended he uses a walker to help keep additional weight off of the site while he is at home. A nutrition referral was provided and he is attending. I recommend controlling his edema with a single layer Tubigrip at this time and to elevate at rest. Compliance was reviewed again today and he will resume use. His noninvasive vascular studies were also requested from the [facility]. He reports his blood flow is excellent. I answered all his questions. He was advised to follow- up at the wound healing center in 2 week or call sooner if you have any questions or concerns. -----. MACRA 2019: Performed today-. Medication and allergy list was reviewed and reconciled. Performed 09-17-2019-. Is body mass index is above normal with 49.5. He was advised on improved diet to help with his wound healing and overall health. He is a current tobacco nonuser. His blood pressure was elevated at 165/92. To follow-up with primary care physician. Diet and activity recommendations were reviewed. A nutrition referral will be offered. He does not have a living will on file and this was considered confirmation of advanced care plan. He denies having more than 1 fall or fall with injury this past year. His pneumococcal vaccination has been received. His influenza immunization has been received.
[2019-12-03 11:42] VITALS: BP 157/87; PULSE 102; RESP 18; TEMP 35.8; BMI 49.4
--- NOTE | 2019-12-03 14:52 | PN.PCM_ITS ---
(1) Ulcer of right foot with fat layer exposed Status: Chronic Current Visit: Yes Code(s): L97.512 - Non-pressure chronic ulcer of other part of right foot with fat layer exposed (2) Edema, lower extremity Status: Chronic Current Visit: Yes Code(s): R60.0 - Localized edema (3) Type 2 diabetes mellitus with diabetic polyneuropathy Status: Chronic Current Visit: Yes Code(s): E11.42 - Type 2 diabetes mellitus with diabetic polyneuropathy (4) Delayed wound healing Status: Chronic Current Visit: Yes Code(s): T14.8XXD - Other injury of unspecified body region, subsequent encounter Type of Wound Date of Service: 12/03/19 Chief Complaint: Right foot ulcer History of Wound: This 54-year-old male with significant past medical history of diabetes and hypertension presents to the wound healing center today for follow- up of chronic right foot ulcer. He denies fever, chill, nausea, vomiting. He is doing well with offloading with his modified surgical shoe. He intermittently does not wear his compression garments. Progress of Wound: Improving - Physical Exam Vital Signs Temp Pulse Resp BP 96.4 F L 102 H 18 157/87 H 12/03/19 11:42 12/03/19 11:42 12/03/19 11:42 12/03/19 11:42 General: Alert, Oriented x3, Cooperative, No apparent distress HEENT: Atraumatic Extremities: No cyanosis, Capillary Refill Less than 3 Seconds, No Calf Tenderness, Diminished Peripheral Pulses, Edema Skin: Ulcer/ Wound - No purulence, erythema, streaking, odor, infection. Adjacent skin is hairless and atrophic. There is no hyper granulation tissue Wound Measurements and Assessment WC - Nurse 1 - General Ulcer Measurement Start: 11/12/19 14:06 Freq: Status: Active Protocol: Activity Type Activity Date Activity User E-Sign Co-Sign Detail Recorded Client Recorded Date Recorded By Document 12/03/19 11:42 RB [id number] 12/03/19 11:45 RB 12/03/19 11:42 Wound Center Nurse 1 [Ulcer Assessment] #1 R Lat Plantar -Combined with other wound No -Current Size (cm) - Length 0.6 -Current Size (cm) - Width 0.5 -Current Size (cm) - Depth 0.3 -Total Square Cm 0.30 -Tunneling No -Undermining/Tunneling Yes -Undermining/Tunneling Starts (O' 12 clock) -Undermining/Tunneling Ends (O'clock) 12 -Maximum Distance (cm) 0.3 -Circular Undermining No -Exudate Amt Small -Exudate Type Serosanguineous -Wound Margin Thickened -Granulation Amt Medium (34-66%) -Granulation Quality [place] -Slough/Fibrin Yes -Necrosis Amt Small (1-33%) -Necrotic Tissue Type Adherent Slough -Structure Exposed N/A -Texture (Malia-wound Skin Appearance) Callus -Moisture (Malia-wound Skin Appearance Assessed ) -Color (Malia-wound Skin Appearance) Assessed -Temperature (Malia-wound Skin No Abnormality Appearance) (Pt Warm) -Tenderness on Palpation (Malia-wound No Skin Appearance) -Ulcer Cleansing Wound Cleanser -Foul Odor after Cleansing No -Anesthetic Used 5% Lidocaine Gel [Edema Assessment] -Right Calf (cm) 51 -Right Ankle (cm) 27.2 WC - Nurse 2 - General Ulcer CM Notes Start: 11/12/19 14:06 Freq: Status: Active Protocol: Activity Type Activity Date Activity User E-Sign Co-Sign Detail Recorded Client Recorded Date Recorded By Document 12/03/19 11:50 HINA [id number] 12/03/19 11:52 HINA 12/03/19 11:50 Wound Center Nurse 2 [Procedure/Treatment] #1 R Lat Plantar -Time 11:50 -Correct Patient Yes -Correct Side, Site, Position Yes -Correct Procedure Yes -Procedure Performed Yes -Type of Procedure Debridement -Clinical Debridement Subcutaneous -Post Debridement Size (cm) - Length 0.7 -Post Debridement Size (cm) - Width 0.8 -Post Debridement Size (cm) - Depth 0.2 -Total Square (cm) 0.56 -Wound/Ulcer Outcome Not Healed -Ulcer Cleansing Rinsed/ Irrigated with Saline -Foul Odor after Cleansing No -Bioengineered Tissue No -Bleeding Controlled with Pressure -Offloading Yes -Type of Offloading Surgical Shoe -Treatment Response Procedure Tolerated Well [See Physician Procedure note for Specifics] Pain Scale: 0-10 Numeric [Pain] -Is Patient Pain Free? Yes Musculoskeletal: No Tenderness to Palpation of Joints or Extremities, Muscle Wasting Neurological: - - Lack of epicritic sensation light touch is consistent with neuropathy status Psych/Mental Status: Normal Affect, Appropriate Debridement Note Post-Debridement Measurements/Treatment WC - Nurse 2 - General Ulcer CM Notes Start: 11/12/19 14:06 Freq: Status: Active Protocol: Activity Type Activity Date Activity User E-Sign Co-Sign Detail Recorded Client Recorded Date Recorded By Document 11/12/19 14:42 [id number] 11/12/19 14:45 JF Document 11/19/19 12:34 PL [id number] 11/19/19 12:36 PL Document 12/03/19 11:50 [id number] 12/03/19 11:52 11/12/19 11/19/19 12/03/19 14:42 12:34 11:50 Wound Center Nurse 2 #1 R Lat Plantar -Time 14:45 12:33 11:50 -Correct Patient Yes Yes Yes -Correct Side, Site, Position Yes Yes Yes -Correct Procedure Yes Yes Yes -Procedure Performed Yes Yes Yes -Type of Procedure Debridement Debridement Debridement -Clinical Debridement Subcutaneous Subcutaneous Subcutaneous -Post Debridement Size (cm) - Length 0.5 0.6 0.7 -Post Debridement Size (cm) - Width 0.6 0.6 0.8 -Post Debridement Size (cm) - Depth 0.2 0.2 0.2 -Total Square (cm) 0.30 0.36 0.56 -Wound/Ulcer Outcome Not Healed Not Healed Not Healed -Ulcer Cleansing Rinsed/ Rinsed/ Rinsed/ Irrigated with Irrigated with Irrigated with Saline Saline Saline -Foul Odor after Cleansing No No No -Bioengineered Tissue No No -Bleeding Controlled with Pressure Pressure Pressure -Offloading Yes Yes -Type of Offloading Surgical Shoe Surgical Shoe Surgical Shoe -Treatment Response Procedure Procedure Procedure Tolerated Well Tolerated Well Tolerated Well Pain Scale: 0-10 Numeric Is Patient Pain Free? Yes Yes Yes Wound debrided: plantar lateral foot Laterality: Right Wound Grade/Stage: grade 1 Type of Debridement: Excisional debridement Anesthesia Used: 5% Lidocaine Gel Depth: in the subcutaneous layer Percentage of wound debrided: 100 Instrument Used: #15 blade Tissue Removed: fibrous, devitalized subcutaneous , biofilm, slough Severity: Fat Layer Exposed Amount of bleeding with debridement: Mild Bleeding Controlled with: Pressure Patient tolerated procedure well Assessment/Plan Active Problems (Last Reviewed 06/09/19 @ 16:39 by Marisol Contreras) Ulcer of right foot with fat layer exposed (Chronic) Edema, lower extremity (Chronic) Type 2 diabetes mellitus with diabetic polyneuropathy (Chronic) Delayed wound healing (Chronic) Assessment: Right sub-fifth metatarsal head ulcer, grade 1. Resolved right lower extremity cellulitis. History of recent deeper infection with antibiotic treatment and recent history of sepsis. Diabetes with neuropathy. Delayed healing. Malnutrition suspected Plan: I reviewed and discussed his case. His labs are reviewed from June 2019. Debridement was performed as noted in the clinical panel. I recommend changing this ulcer dressing daily with hydrogel due to the reduction and drainage at this time he is ready to progress. I offered him advanced wound healing product, regranex, which has additional growth factors to re-stimulate the healing process. Prior authorization will be performed. This is medically necessary for limb salvage. Is noted he is failed prior conservative and standard wound healing plans. He was reassured no local signs of infection are noted today and I do not recommend antibiotics. His prior medical records were reviewed as the following: He was previously on cephalexin on 08-19-2019 for staph aureus and Serratia marcescens growth. His x-ray performed on 06-04-2019 demonstrated some Charcot changes on the foot (left). His foot x-ray on 07-31-2019 did not demonstrate foreign body or emphysema. There was soft tissue edema noted dorsally. He had an x-ray performed on 09-09-2019 with no bone changes per report. He is CBC demonstrated resolution of leukocytosis by 08-29-2019. He had noninvasive vascular studies performed on 08-14-2019 with left JACKSON of 1.18 and toe brachial index of 0.89. The right JACKSON was 1.21 and toe brachial index was 0.86. He had an MRI performed on the right foot on 08-14-2019 with increased STIR intensity noted to the fifth toe proximal phalanx with sparing noted at the base. There is no corresponding T1 signal intensity change and therefore he was not diagnosed with osteomyelitis based off of this imaging study. His previous albumin levels on 08-14-2019 was 3.9, creatinine 1.43, estimated GFR 51, white blood cell 9.54, hemoglobin?hematocrit 11.5?35.6, platelet 342. He also had a pathological biopsy performed during his time at his hospitalization at [facility] which demonstrated necrosis and acute inflammation of the ulcer. To wash the foot daily with Dial soap and water while he is doing dressing changes. To heel weight-bear with his surgical shoe that he has today. The prior adjustment is noted and this appears to be helping. He tolerated this adjustment. I also recommended he uses a walker to help keep additional weight off of the site while he is at home. A nutrition referral was provided and he is attending. I recommend controlling his edema with a single layer Tubigrip at this time and to elevate at rest. Compliance was reviewed again today and he will resume use. His noninvasive vascular studies were also requested from the [facility]. He reports his blood flow is excellent. I answered all his questions. He was advised to follow- up at the wound healing center in 1 to 2 weeks or call sooner if you have any questions or concerns. -----. MACRA 2019: Performed today-. Medication and allergy list was reviewed and reconciled. Performed 09-17-2019-. Is body mass index is above normal with 49.5. He was advised on improved diet to help with his wound healing and overall health. He is a current tobacco nonuser. His blood pressure was elevated at 165/92. To follow-up with primary care physician. Diet and activity recommendations were reviewed. A nutrition referral will be offered. He does not have a living will on file and this was considered confirmation of advanced care plan. He denies having more than 1 fall or fall with injury this past year. His pneumococcal vaccination has been received. His influenza immunization has been received.
[2019-12-10 11:49] VITALS: BP 153/84; PULSE 94; RESP 20; TEMP 36.3; BMI 49.4
--- NOTE | 2019-12-10 14:49 | PN.PCM_ITS ---
(1) Ulcer of right foot with fat layer exposed Status: Chronic Current Visit: Yes Code(s): L97.512 - Non-pressure chronic ulcer of other part of right foot with fat layer exposed (2) Edema, lower extremity Status: Chronic Current Visit: Yes Code(s): R60.0 - Localized edema (3) Type 2 diabetes mellitus with diabetic polyneuropathy Status: Chronic Current Visit: Yes Code(s): E11.42 - Type 2 diabetes mellitus with diabetic polyneuropathy (4) Delayed wound healing Status: Chronic Current Visit: Yes Code(s): T14.8XXD - Other injury of unspecified body region, subsequent encounter Type of Wound Date of Service: 12/10/19 Chief Complaint: Right foot ulcer History of Wound: This 54-year-old male with significant past medical history of diabetes and hypertension presents to the wound healing center today for follow- up of chronic right foot ulcer. He denies fever, chill, nausea, vomiting. He is doing well with offloading with his modified surgical shoe. He intermittently does not wear his compression garments. Progress of Wound: Improving - Physical Exam Vital Signs Temp Pulse Resp BP 97.4 F L 94 20 H 153/84 H 12/10/19 11:49 12/10/19 11:49 12/10/19 11:49 12/10/19 11:49 General: Alert, Oriented x3, Cooperative, No apparent distress Extremities: No cyanosis, Capillary Refill Less than 3 Seconds, No Calf Tenderness, Diminished Peripheral Pulses Skin: Ulcer/ Wound - No purulence, erythema, streaking, odor, infection. The skin is atrophic and hairless. There is some hyper granulation tissue centrally in the ulcer bed. There is no exposed deep tissue or probe to deep tissue Wound Measurements and Assessment WC - Nurse 1 - General Ulcer Measurement Start: 11/12/19 14:06 Freq: Status: Active Protocol: Activity Type Activity Date Activity User E-Sign Co-Sign Detail Recorded Client Recorded Date Recorded By Document 12/10/19 11:49 DL [id number] 12/10/19 11:55 DL 12/10/19 11:49 Wound Center Nurse 1 [Ulcer Assessment] #1 R Lat Plantar -Current Size (cm) - Length 0.5 -Current Size (cm) - Width 0.5 -Current Size (cm) - Depth 0.1 -Total Square Cm 0.25 -Photo Taken No -Exudate Amt None Present -Wound Margin Flat & Intact -Granulation Amt Small (1-33%) -Granulation Quality [place] -Necrosis Amt None Present (0 %) -Structure Exposed N/A -Texture (Malia-wound Skin Appearance) Callus,Scarring -Moisture (Malia-wound Skin Appearance Dry/Scaly ) -Color (Malia-wound Skin Appearance) No Abnormality -Temperature (Malia-wound Skin No Abnormality Appearance) (Pt Warm) -Tenderness on Palpation (Malia-wound No Skin Appearance) -Ulcer Cleansing Rinsed/ Irrigated with Saline -Anesthetic Used 4% Lidocaine Solution [Edema Assessment] -Right Calf (cm) 50.5 -Right Ankle (cm) 26 WC - Nurse 2 - General Ulcer CM Notes Start: 11/12/19 14:06 Freq: Status: Active Protocol: Activity Type Activity Date Activity User E-Sign Co-Sign Detail Recorded Client Recorded Date Recorded By Document 12/10/19 12:03 HINA [id number] 12/10/19 12:04 12/10/19 12:03 Wound Center Nurse 2 [Procedure/Treatment] #1 R Lat Plantar -Time 12:03 -Correct Patient Yes -Correct Side, Site, Position Yes -Correct Procedure Yes -Procedure Performed Yes -Type of Procedure Debridement -Clinical Debridement Subcutaneous -Post Debridement Size (cm) - Length 0.5 -Post Debridement Size (cm) - Width 0.5 -Post Debridement Size (cm) - Depth 0.2 -Total Square (cm) 0.25 -Wound/Ulcer Outcome Not Healed -Ulcer Cleansing Rinsed/ Irrigated with Saline -Foul Odor after Cleansing No -Bioengineered Tissue No -Bleeding Controlled with Pressure,Silver Nitrate -Offloading Yes -Type of Offloading Surgical Shoe -Treatment Response Procedure Tolerated Well [See Physician Procedure note for Specifics] Pain Scale: 0-10 Numeric [Pain] -Is Patient Pain Free? Yes Musculoskeletal: No Tenderness to Palpation of Joints or Extremities, Muscle Wasting Neurological: - - Lack of epicritic sensation light touch is consistent with neuropathy status Psych/Mental Status: Normal Affect, Appropriate Debridement Note Post-Debridement Measurements/Treatment WC - Nurse 2 - General Ulcer CM Notes Start: 11/12/19 14:06 Freq: Status: Active Protocol: Activity Type Activity Date Activity User E-Sign Co-Sign Detail Recorded Client Recorded Date Recorded By Document 11/12/19 14:42 JF [id number] 11/12/19 14:45 JF Document 11/19/19 12:34 PL [id number] 11/19/19 12:36 PL Document 12/03/19 11:50 JF [id number] 12/03/19 11:52 JF Document 12/10/19 12:03 JF [id number] 12/10/19 12:04 11/12/19 11/19/19 12/03/19 14:42 12:34 11:50 Wound Center Nurse 2 #1 R Lat Plantar -Time 14:45 12:33 11:50 -Correct Patient Yes Yes Yes -Correct Side, Site, Position Yes Yes Yes -Correct Procedure Yes Yes Yes -Procedure Performed Yes Yes Yes -Type of Procedure Debridement Debridement Debridement -Clinical Debridement Subcutaneous Subcutaneous Subcutaneous -Post Debridement Size (cm) - Length 0.5 0.6 0.7 -Post Debridement Size (cm) - Width 0.6 0.6 0.8 -Post Debridement Size (cm) - Depth 0.2 0.2 0.2 -Total Square (cm) 0.30 0.36 0.56 -Wound/Ulcer Outcome Not Healed Not Healed Not Healed -Ulcer Cleansing Rinsed/ Rinsed/ Rinsed/ Irrigated with Irrigated with Irrigated with Saline Saline Saline -Foul Odor after Cleansing No No No -Bioengineered Tissue No No -Bleeding Controlled with Pressure Pressure Pressure -Offloading Yes Yes -Type of Offloading Surgical Shoe Surgical Shoe Surgical Shoe -Treatment Response Procedure Procedure Procedure Tolerated Well Tolerated Well Tolerated Well Pain Scale: 0-10 Numeric Is Patient Pain Free? Yes Yes Yes 12/10/19 12:03 Wound Center Nurse 2 #1 R Lat Plantar -Time 12:03 -Correct Patient Yes -Correct Side, Site, Position Yes -Correct Procedure Yes -Procedure Performed Yes -Type of Procedure Debridement -Clinical Debridement Subcutaneous -Post Debridement Size (cm) - Length 0.5 -Post Debridement Size (cm) - Width 0.5 -Post Debridement Size (cm) - Depth 0.2 -Total Square (cm) 0.25 -Wound/Ulcer Outcome Not Healed -Ulcer Cleansing Rinsed/ Irrigated with Saline -Foul Odor after Cleansing No -Bioengineered Tissue No -Bleeding Controlled with Pressure,Silver Nitrate -Offloading Yes -Type of Offloading Surgical Shoe -Treatment Response Procedure Tolerated Well Pain Scale: 0-10 Numeric Is Patient Pain Free? Yes Wound debrided: sub 5th metatarsal head Laterality: Left Wound Grade/Stage: grade 1 Type of Debridement: Excisional debridement Anesthesia Used: 5% Lidocaine Gel Depth: in the subcutaneous layer Percentage of wound debrided: 100 Instrument Used: #15 blade Tissue Removed: fibrous, devitalized subcutaneous, biofilm, slough Severity: Fat Layer Exposed Amount of bleeding with debridement: Mild Bleeding Controlled with: Pressure Patient tolerated procedure well Assessment/Plan Active Problems (Last Reviewed 06/09/19 @ 16:39 by Marisol Contreras) Ulcer of right foot with fat layer exposed (Chronic) Edema, lower extremity (Chronic) Type 2 diabetes mellitus with diabetic polyneuropathy (Chronic) Delayed wound healing (Chronic) Assessment: Right sub-fifth metatarsal head ulcer, grade 1. History of recent deeper infection with antibiotic treatment and recent history of sepsis. Diabetes with neuropathy. Delayed healing. Malnutrition suspected Plan: I reviewed and discussed his case. His labs are reviewed from June 2019. Debridement was performed as noted in the clinical panel. I recommend changing this ulcer dressing daily with hydrogel due to the reduction and drainage at this time he is ready to progress. I offered him advanced wound healing product, regranex, which has additional growth factors to re-stimulate the healing process. Prior authorization will be performed. He received a phone call from this company and did not provide his personal information to confirm coverage. He is amendable to try this again this upcoming week. This is medically necessary for limb salvage. Is noted he is failed prior conservative and standard wound healing plans. He was reassured no local signs of infection are noted today and I do not recommend antibiotics. His prior medical records were reviewed as the following: He was previously on cephalexin on 08-19-2019 for staph aureus and Serratia marcescens growth. His x-ray perform ed on 06-04-2019 demonstrated some Charcot changes on the foot (left). His foot x-ray on 07-31-2019 did not demonstrate foreign body or emphysema. There was soft tissue edema noted dorsally. He had an x-ray performed on 09-09-2019 with no bone changes per report. He is CBC demonstrated resolution of leukocytosis by 08-29-2019. He had noninvasive vascular studies performed on 08-14-2019 with left JACKSON of 1.18 and toe brachial index of 0.89. The right JACKSON was 1.21 and toe brachial index was 0.86. He had an MRI performed on the right foot on 08-14-2019 with increased STIR intensity noted to the fifth toe proximal phalanx with sparing noted at the base. There is no corresponding T1 signal intensity change and therefore he was not diagnosed with osteomyelitis based off of this imaging study. His previous albumin levels on 08-14-2019 was 3.9, creatinine 1.43, estimated GFR 51, white blood cell 9.54, hemoglobin?hematocrit 11.5?35.6, platelet 342. He also had a pathological biopsy performed during his time at his hospitalization at [facility] which demonstrated necrosis and acute inflammation of the ulcer. To wash the foot daily with Dial soap and water while he is doing dressing changes. To heel weight-bear with his surgical shoe that he has today. The prior adjustment is noted and this appears to be helping. He tolerated this adjustment. I also recommended he uses a walker to help keep additional weight off of the site while he is at home. A nutrition referral was provided and he is attending. I recommend controlling his edema with a single layer Tubigrip at this time and to elevate at rest. Compliance was reviewed again today and he will resume use. His noninvasive vascular studies were also requested from the [facility]. He reports his blood flow is excellent. I answered all his questions. He was advised to follow- up at the wound healing center in 1 to 2 weeks or call sooner if you have any questions or concerns. -----. MACRA 2019: Performed today-. Medication and allergy list was reviewed and reconciled. Performed 09-17-2019-. Is body mass index is above normal with 49.5. He was advised on improved diet to help with his wound healing and overall health. He is a current tobacco nonuser. His blood pressure was elevated at 165/92. To follow-up with primary care physician. Diet and activity recommendations were reviewed. A nutrition referral will be offered. He does not have a living will on file and this was considered confirmation of advanced care plan. He denies having more than 1 fall or fall with injury this past year. His pneumococcal vaccination has been received. His influenza immunization has been received.
== END 2019-12-12 23:59 ==
LOC: WC 11:30
PROVIDERS: PCP Internal Medicine; Visit Provider Podiatrist
DX: E11.621 Type 2 diabetes mellitus with foot ulcer (principal); L97.512 Non-pressure chronic ulcer of other part of right foot with fat layer exposed; E11.42 Type 2 diabetes mellitus with diabetic polyneuropathy; I10 Essential (primary) hypertension; R60.0 Localized edema; Z79.899 Other long term (current) drug therapy
CPT/HCPCS: 11042

== ENCOUNTER 2019-12-24 11:30 | Outpatient (RCR) | payer BC, SELFPAY ==
[2019-12-13 00:28] VITALS: BP 153/84; PULSE 94; RESP 20; TEMP 36.3
[2019-12-17 11:42] VITALS: BP 141/85; PULSE 92; RESP 18; TEMP 36.7; BMI 49.4
--- NOTE | 2019-12-17 13:42 | PN.PCM_ITS ---
(1) Ulcer of right foot with fat layer exposed Status: Chronic Code(s): L97.512 - Non-pressure chronic ulcer of other part of right foot with fat layer exposed (2) Type 2 diabetes mellitus with diabetic polyneuropathy Status: Chronic Code(s): E11.42 - Type 2 diabetes mellitus with diabetic polyneuropathy (3) Delayed wound healing Status: Chronic Code(s): T14.8XXD - Other injury of unspecified body region, subsequent encounter Type of Wound Date of Service: 12/17/19 Chief Complaint: Right foot ulcer History of Wound: This 54-year-old male with significant past medical history of diabetes and hypertension presents to the wound healing center today for follow- up of chronic right foot ulcer. He denies fever, chill, nausea, vomiting. He is doing well with offloading with his modified surgical shoe. He relates he has been more compliant with compression garments this past week. Progress of Wound: Improving - Physical Exam Vital Signs Temp Pulse Resp BP 98.1 F 92 18 141/85 H 12/17/19 11:42 12/17/19 11:42 12/17/19 11:42 12/17/19 11:42 General: Alert, Oriented x3, Cooperative, No apparent distress HEENT: Atraumatic Extremities: No cyanosis, Capillary Refill Less than 3 Seconds, No Calf Tenderness, Diminished Peripheral Pulses Skin: Ulcer/ Wound - No purulence, erythema, streaking, odor, infection. Peripheral epithelialization is noted. No hyper granulation tissue noted today. Wound Measurements and Assessment WC - Nurse 1 - General Ulcer Measurement Start: 12/17/19 11:32 Freq: Status: Active Protocol: Activity Type Activity Date Activity User E-Sign Co-Sign Detail Recorded Client Recorded Date Recorded By Document 12/17/19 11:42 DL [id number] 12/17/19 11:43 DL 12/17/19 11:42 Wound Center Nurse 1 [Ulcer Assessment] #1 R Lat Plantar -Current Size (cm) - Length 0.2 -Current Size (cm) - Width 0.2 -Current Size (cm) - Depth 0.1 -Total Square Cm 0.04 -Photo Taken No -Exudate Amt None Present -Wound Margin Flat & Intact -Granulation Amt Small (1-33%) -Granulation Quality [place] -Necrosis Amt None Present (0 %) -Structure Exposed N/A -Texture (Malia-wound Skin Appearance) Scarring -Moisture (Malia-wound Skin Appearance Dry/Scaly ) -Color (Malia-wound Skin Appearance) No Abnormality -Temperature (Malia-wound Skin No Abnormality Appearance) (Pt Warm) -Tenderness on Palpation (Malia-wound No Skin Appearance) -Ulcer Cleansing Rinsed/ Irrigated with Saline -Anesthetic Used 4% Lidocaine Solution - Nurse 2 - General Ulcer CM Notes Start: 12/17/19 11:32 Freq: Status: Active Protocol: Activity Type Activity Date Activity User E-Sign Co-Sign Detail Recorded Client Recorded Date Recorded By Document 12/17/19 11:51 HINA [id number] 12/17/19 11:52 12/17/19 11:51 Wound Center Nurse 2 [Procedure/Treatment] -Time 11:52 -Correct Patient Yes -Correct Side, Site, Position Yes -Correct Procedure Yes -Procedure Performed Yes -Type of Procedure Debridement -Clinical Debridement Subcutaneous -Post Debridement Size (cm) - Length 0.3 -Post Debridement Size (cm) - Width 0.2 -Post Debridement Size (cm) - Depth 0.2 -Total Square (cm) 0.06 -Wound/Ulcer Outcome Not Healed -Ulcer Cleansing Rinsed/ Irrigated with Saline -Foul Odor after Cleansing No -Bioengineered Tissue No -Bleeding Controlled with Pressure -Offloading Yes -Type of Offloading Surgical Shoe -Treatment Response Procedure Tolerated Well [See Physician Procedure note for Specifics] Pain Scale: 0-10 Numeric [Pain] -Is Patient Pain Free? Yes Musculoskeletal: No Tenderness to Palpation of Joints or Extremities, Muscle Wasting Neurological: - - Lack of normal epicritic sensation consistent with neuropathy status Psych/Mental Status: Normal Affect, Appropriate Debridement Note Post-Debridement Measurements/Treatment - Nurse 2 - General Ulcer CM Notes Start: 12/17/19 11:32 Freq: Status: Active Protocol: Activity Type Activity Date Activity User E-Sign Co-Sign Detail Recorded Client Recorded Date Recorded By Document 12/17/19 11:51 HINA [id number] 12/17/19 11:52 12/17/19 11:51 Wound Center Nurse 2 #1 R Lat Plantar -Time 11:52 -Correct Patient Yes -Correct Side, Site, Position Yes -Correct Procedure Yes -Procedure Performed Yes -Type of Procedure Debridement -Clinical Debridement Subcutaneous -Post Debridement Size (cm) - Length 0.3 -Post Debridement Size (cm) - Width 0.2 -Post Debridement Size (cm) - Depth 0.2 -Total Square (cm) 0.06 -Wound/Ulcer Outcome Not Healed -Ulcer Cleansing Rinsed/ Irrigated with Saline -Foul Odor after Cleansing No -Bioengineered Tissue No -Bleeding Controlled with Pressure -Offloading Yes -Type of Offloading Surgical Shoe -Treatment Response Procedure Tolerated Well Pain Scale: 0-10 Numeric Is Patient Pain Free? Yes Wound debrided: sub 5th metatarsal Laterality: Right Wound Grade/Stage: grade 1 Type of Debridement: Excisional debridement Anesthesia Used: 5% Lidocaine Gel Depth: in the subcutaneous layer Percentage of wound debrided: 100 Instrument Used: #15 blade Tissue Removed: fibrous, devitalized subcutaneous, biofilm, slough Severity: Fat Layer Exposed Amount of bleeding with debridement: Mild Bleeding Controlled with: Pressure Patient tolerated procedure well Assessment/Plan Assessment: Right sub-fifth metatarsal head ulcer, grade 1. History of recent deeper infection with antibiotic treatment and recent history of sepsis. Diabetes with neuropathy. Delayed healing. Malnutrition suspected Plan: I reviewed and discussed his case. His labs are reviewed from June 2019. Debridement was performed as noted in the clinical panel. I recommend changing this ulcer dressing daily with hydrogel due to the reduction and drainage at this time he is ready to progress. I offered him advanced wound healing product, regranex, which has additional growth factors to re-stimulate the healing process. Prior authorization will be performed. He relates he has been in contact and is still trying to get this process set up. This is medically necessary for limb salvage. It is noted he is failed prior conservative and standard wound healing plans. He was reassured no local signs of infection are noted today and I do not recommend antibiotics. His prior medical records were reviewed as the following: He was previously on cephalexin on 08-19-2019 for staph aureus and Serratia marcescens growth. His x-ray performed on 06-04-2019 demonstrated some Charcot changes on the foot (left). His foot x-ray on 07-31-2019 did not demonstrate foreign body or emphysema. There was soft tissue edema noted dorsally. He had an x-ray performed on 09-09-2019 with no bone changes per report. He is CBC demonstrated resolution of leukocytosis by 08-29-2019. He had noninvasive vascular studies performed on 08-14-2019 with left JACKSON of 1.18 and toe brachial index of 0.89. The right JACKSON was 1.21 and toe brachial index was 0.86. He had an MRI performed on the right foot on 08-14-2019 with increased STIR intensity noted to the fifth toe proximal phalanx with sparing noted at the base. There is no corresponding T1 signal intensity change and therefore he was not diagnosed with osteomyelitis based off of this imaging study. His previous albumin levels on 08-14-2019 was 3.9, creatinine 1.43, estimated GFR 51, white blood cell 9.54, hemoglobin?hematocrit 11.5?35.6, platelet 342. He also had a pathological biopsy performed during his time at his hospitalization at [facility] which demonstrated necrosis and acute inflammation of the ulcer. To wash the foot daily with Dial soap and water while he is doing dressing changes. To heel weight-bear with his surgical shoe that he has today. The prior adjustment is noted and this appears to be helping. He tolerated this adjustment. I also recommended he uses a walker to help keep additional weight off of the site while he is at home. A nutrition referral was provided and he is attending. I recommend controlling his edema with a single layer Tubigrip at this time and to elevate at rest. Compliance was reviewed again today and he will resume use. His noninvasive vascular studies were also requested from the [facility]. He reports his blood flow is excellent. I answered all his questions. He was advised to follow- up at the wound healing center in 1 to 1 week or call sooner if you have any questions or concerns. -----. MACRA 2019: Performed today-. Medication and allergy list was reviewed and reconciled. Performed 09-17-2019-. Is body mass index is above normal with 49.5. He was advised on improved diet to help with his wound healing and overall health. He is a current tobacco nonuser. His blood pressure was elevated at 165/92. To follow-up with primary care physician. Diet and activity recommendations were reviewed. A nutrition referral will be offered. He does not have a living will on file and this was considered confirmation of advanced care plan. He denies having more than 1 fall or fall with injury this past year. His pneumococcal vaccination has been received. His influenza immunization has been received.
[2019-12-24 11:44] VITALS: BP 131/72; PULSE 94; RESP 20; TEMP 36.8; BMI 49.4
--- NOTE | 2019-12-24 21:46 | PN.PCM_ITS ---
(1) Ulcer of right foot with fat layer exposed Status: Resolved Code(s): L97.512 - Non-pressure chronic ulcer of other part of right foot with fat layer exposed (2) Type 2 diabetes mellitus with diabetic polyneuropathy Status: Chronic Code(s): E11.42 - Type 2 diabetes mellitus with diabetic polyneuropathy (3) Delayed wound healing Status: Chronic Code(s): T14.8XXD - Other injury of unspecified body region, subsequent encounter Type of Wound Date of Service: 12/24/19 Chief Complaint: Right foot ulcer History of Wound: This 54-year-old male with significant past medical history of diabetes and hypertension presents to the wound healing center today for follow- up of chronic right foot ulcer. He denies fever, chill, nausea, vomiting. He is doing well with offloading with his modified surgical shoe. He relates he has been more compliant with compression garments this past week. Progress of Wound: Improving - Physical Exam Vital Signs Temp Pulse Resp BP 98.2 F 94 20 H 131/72 H 12/24/19 11:44 12/24/19 11:44 12/24/19 11:44 12/24/19 11:44 General: Alert, Oriented x3, Cooperative Extremities: No cyanosis, Capillary Refill Less than 3 Seconds, No Calf Tenderness, Diminished Peripheral Pulses, Edema - Decreased Skin: Ulcer/ Wound - Full epithelialization is noted in the ulcer is healed. Adjacent skin is atrophic. No erythema purulence odor or drainage Wound Measurements and Assessment WC - Nurse 1 - General Ulcer Measurement Start: 12/17/19 11:32 Freq: Status: Active Protocol: Activity Type Activity Date Activity User E-Sign Co-Sign Detail Recorded Client Recorded Date Recorded By Document 12/24/19 11:44 DL [id number] 12/24/19 11:51 DL 12/24/19 11:44 Wound Center Nurse 1 [Ulcer Assessment] #1 R Lat Plantar -Current Size (cm) - Length 0.1 -Current Size (cm) - Width 0.1 -Current Size (cm) - Depth 0.1 -Total Square Cm 0.01 -Photo Taken No -Exudate Amt None Present -Wound Margin Thickened -Granulation Amt Large (67-100%) -Granulation Quality Pale -Necrosis Amt Small (1-33%) -Necrotic Tissue Type Adherent Slough -Structure Exposed N/A -Texture (Malia-wound Skin Appearance) Callus,Scarring -Moisture (Malia-wound Skin Appearance Dry/Scaly ) -Color (Malia-wound Skin Appearance) No Abnormality -Temperature (Malia-wound Skin No Abnormality Appearance) (Pt Warm) -Tenderness on Palpation (Malia-wound No Skin Appearance) -Ulcer Cleansing Wound Cleanser -Foul Odor after Cleansing No -Anesthetic Used 4% Lidocaine Solution [Edema Assessment] -Right Calf (cm) 49 -Right Ankle (cm) 25 - Nurse 2 - General Ulcer CM Notes Start: 12/17/19 11:32 Freq: Status: Active Protocol: Activity Type Activity Date Activity User E-Sign Co-Sign Detail Recorded Client Recorded Date Recorded By Document 12/24/19 12:10 [id number] 12/24/19 12:12 12/24/19 12:10 Wound Center Nurse 2 [Procedure/Treatment] #1 R Lat Plantar -Correct Patient No -Correct Side, Site, Position No -Correct Procedure No -Procedure Performed No -Post Debridement Size (cm) - Length 0 -Post Debridement Size (cm) - Width 0 -Post Debridement Size (cm) - Depth 0 -Total Square (cm) 0 -Wound/Ulcer Outcome Healed- Epithelialized [See Physician Procedure note for Specifics] Pain Scale: 0-10 Numeric [Pain] -Is Patient Pain Free? Yes Musculoskeletal: Muscle Wasting, - - Tailor bunion deformity noted Neurological: - - Lack of epicritic sensation via light touch Psych/Mental Status: Normal Affect, Appropriate Debridement Note Post-Debridement Measurements/Treatment - Nurse 2 - General Ulcer Notes Start: 12/17/19 11:32 Freq: Status: Active Protocol: Activity Type Activity Date Activity User E-Sign Co-Sign Detail Recorded Client Recorded Date Recorded By Document 12/17/19 11:51 [id number] 12/17/19 11:52 Document 12/24/19 12:10 [id number] 12/24/19 12:12 12/17/19 12/24/19 11:51 12:10 Wound Center Nurse 2 #1 R Lat Plantar -Time 11:52 -Correct Patient Yes No -Correct Side, Site, Position Yes No -Correct Procedure Yes No -Procedure Performed Yes No -Type of Procedure Debridement -Clinical Debridement Subcutaneous -Post Debridement Size (cm) - Length 0.3 0 -Post Debridement Size (cm) - Width 0.2 0 -Post Debridement Size (cm) - Depth 0.2 0 -Total Square (cm) 0.06 0 -Wound/Ulcer Outcome Not Healed Healed- Epithelialized -Ulcer Cleansing Rinsed/ Irrigated with Saline -Foul Odor after Cleansing No -Bioengineered Tissue No -Bleeding Controlled with Pressure -Offloading Yes -Type of Offloading Surgical Shoe -Treatment Response Procedure Tolerated Well Pain Scale: 0-10 Numeric Is Patient Pain Free? Yes Yes No debridement was completed today - The ulcer is healed today Assessment/Plan Assessment: Right sub-fifth metatarsal head ulcer - healed today. History of recent deeper infection with antibiotic treatment and recent history of sepsis. Diabetes with neuropathy. Delayed healing. Malnutrition suspected Plan: I reviewed and discussed his case. His ulcer site has healed. It is noted he can use regranex for couple of days and he was advised to keep this at home in case he has a recurrence. At this time he can discontinue dressings. He was advised to continue to offload with his surgical shoe with offloading Plastizote liner pocket to allow the skin to continue to remodel. He will do this for 2 additional weeks and then will transition into his extra-depth diabetic shoe that he already has. He was reassured no ulcer or infection is noted today. He was advised to maintain improvement in diet and glycemic control to prevent recurrence. He will be discharged from the wound healing center at this time. To follow-up in outpatient setting for diabetic foot risk assessment, to update extra-depth shoes, and for any other pedal complaints. -----. MACRA 2019: Performed today-. Medication and allergy list was reviewed and reconciled. Performed 09-17-2019-. Is body mass index is above normal with 49.5. He was advised on improved diet to help with his wound healing and overall health. He is a current tobacco nonuser. His blood pressure was elevated at 165/92. To follow-up with primary care physician. Diet and activity recommendations were reviewed. A nutrition referral will be offered. He does not have a living will on file and this was considered confirmation of advanced care plan. He denies having more than 1 fall or fall with injury this past year. His pneumococcal vaccination has been received. His influenza immunization has been received.
== END 2019-12-29 14:26 | disposition home or self-care (01) ==
LOC: WC 11:30
PROVIDERS: PCP Internal Medicine; Visit Provider Podiatrist
DX: E11.621 Type 2 diabetes mellitus with foot ulcer (principal); L97.512 Non-pressure chronic ulcer of other part of right foot with fat layer exposed; E11.40 Type 2 diabetes mellitus with diabetic neuropathy, unspecified; I10 Essential (primary) hypertension; Z79.899 Other long term (current) drug therapy
CPT/HCPCS: 11042; 99212; G0463

== ENCOUNTER 2020-08-06 14:53 | Outpatient (RCR) | payer BC, SELFPAY ==
[2020-08-06] MEDS: COVID-19 VACC, MRNA(PFIZER)/PF 30 MCG/0.3 ML SYRINGE IM (16:00)
[2020-08-27] MEDS: COVID-19 VACC, MRNA(PFIZER)/PF 30 MCG/0.3 ML SYRINGE IM (15:12)
== END 2020-08-06 23:59 ==
LOC: IMMUN 14:53
PROVIDERS: PCP Internal Medicine; Visit Provider Family Medicine
DX: Z23 Encounter for immunization (principal)
CPT/HCPCS: 0001A; 0002A; 91300